=== PATIENT | female | born 1970 | race American Indian/Alaskan Native ===

== ENCOUNTER 2022-08-17 15:33 | Emergency (ER) | payer MEDICAID, SELFPAY ==
[2022-08-17 15:57] VITALS: BP 128/73; PULSE 92; RESP 16; TEMP 37.3; O2SAT 96; BMI 20.9
--- NOTE | 2022-08-17 17:16 | CRLHL7_ITS ---
For Patients: As a result of the Century Cures Act, medical imaging exams and procedure reports are released immediately into your electronic medical record. You may view this report before your referring provider. If you have questions, please contact your health care provider. INDICATION: Rectal bleeding. TECHNIQUE: CT abdomen and pelvis acquired with 58 cc Isovue 370 IV contrast. COMPARISON: August 02, 2020. FINDINGS: Lower chest: Scattered dependent atelectasis. Liver: Subtle heterogeneous echotexture and nodular hepatic contour which could suggest chronic hepatocellular disease. Gallbladder and bile ducts: Cholelithiasis without acute cholecystitis. Pancreas: Unremarkable. No mass or inflammation. Spleen: Unremarkable. Normal in size. No masses. Adrenal glands: Unremarkable. No nodules. Kidneys: Unremarkable. No suspicious masses, stones, or hydronephrosis. GI tract: Colonic diverticulosis without diverticulitis.. Normal in caliber. No sign of mass or inflammation. Normal appendix. Vasculature: Recanalization of the umbilical vein. Esophageal/gastric varices. Splenorenal venous collaterals and prominent intra muscular left lower abdominal wall varices. Abdominal aorta is normal in caliber. Mesenteric arteries are patent. Lymph nodes: No lymphadenopathy. Peritoneum/Abdominal Wall: Mild nonspecific diffuse mesenteric edema. Pelvis: Unremarkable. Bones: Unremarkable for age. IMPRESSION: Findings suggesting chronic hepatocellular disease. Multiple upper abdominal varices, and nonspecific mesenteric edema possibly sequela of portal venous hypertension. No ascites. Colonic diverticulosis without diverticulitis. Cholelithiasis without acute cholecystitis. Please note that all CT scans at this facility use dose modulation, iterative reconstruction, and/or weight-based dosing when appropriate to reduce radiation dose to as low as reasonably achievable. Dictated by Bao Johnson MD @ 08/17/2022 6:19:27 PM (Electronically Signed)
--- NOTE | 2022-08-17 17:17 | ED_ITS ---
HPI - General Adult General Chief complaint: GI Bleed Stated complaint: Bleeding Time Seen by Provider: 08/17/22 17:02 History of Present Illness HPI narrative: This 52-year-old female comes in reporting abdominal pain and pain when passing stool that for the last couple days has been including bright red blood in the toilet. She does not report any fevers. She states that she has a history of diverticulitis and wonders if this is recurrent. She does have a history of liver disease related to alcohol abuse. She reports that she has not taken alcohol removal past 2 years. Related Data Home Medications Medication Instructions Recorded Confirmed lisinopril 20 mg tablet 20 mg PO QDAY 08/10/22 08/10/22 magnesium oxide 400 mg (241.3 mg 400 mg PO DAILY 08/10/22 08/10/22 magnesium) tablet multivitamin 1 tab PO QDAY 08/10/22 08/10/22 sertraline 50 mg tablet (Zoloft) 75 mg PO QDAY 08/10/22 08/10/22 Previous Rx's Medication Instructions Recorded omeprazole 40 mg capsule,delayed 40 mg PO QDAY #90 caps 08/10/22 release metronidazole 500 mg tablet 500 mg PO BID 7 days #14 tabs 08/17/22 Allergies Allergy/AdvReac Type Severity Reaction Status Date / Time amoxicillin Allergy Unknown Swelling Verified 08/10/22 09:50 of Lip/Tongue/Throat Review of Systems Status of ROS: Reports: 10 or more systems reviewed and unremarkable except as noted in History and below Narrative: Constitutional: No fevers, no weight gain or loss. Eyes: No discharge. No vision changes. HENT: No congestion, no sore throat, no ear pain. Cardiovascular: No chest pain, no palpitations. Respiratory: No shortness of breath, no wheezes, no cough. Gastrointestinal: Abdominal pain that is distinctly worse when passing stool. Rectal bleeding. Genitourinary: No dysuria, no hematuria. Musculoskeletal: Normal range of motion. Skin: No rashes, no pruritis. Neurological: No dizziness, weakness, sensory change, speech change. Endo/Heme/Allergies: No bruising or bleeding. No polydipsia. Pysch: no suicidality, no anxiety, no insomnia. All other systems reviewed and are negative. [facility] Medical History (Updated 08/17/22 @ 18:54 by Raúl Reich MD) Diarrhea Diverticulitis Hemorrhagic diarrhea Pleural effusion associated with hepatic disorder Upper gastrointestinal hemorrhage Surgical History (Updated 08/10/22 @ 10:41 by Todd Coyne MD) Hx of abdominal surgery Social History Smoking Status: Never smoker Little interest or pleasure in doing things: not at all Feeling down, depressed, or hopeless: not at all Exam Narrative: Exam Narrative: Constitutional: Well-developed, well-nourished, no acute distress. HEENT: Normocephalic, atraumatic. Neck: Normal range of motion. Nontender. Supple. Heart: Regular. No murmurs. Normal rate. Intact distal pulses. Lungs: Clear to auscultation. No chest discomfort. No wheezes, rhonchi, or rales. Abdomen: Normal bowel sounds. Tenderness in the lower abdomen.. No rebound tenderness. Genitalia: Deferred. Back: No midline tenderness. Normal range of motion. Extremities: Normal range of motion. No injury. Skin: Intact. No rash. Warm. No erythema or pallor. Neurologic: No altered sensation. No weakness. Alert and oriented. Psychiatric: No suicidality. No anxiety or depression. No insomnia. Nursing notes and vitals signs are reviewed. Const: Vital Signs, click to edit/add: Vital Signs - 24 hr 08/17/22 15:57 Temperature 99.1 F Pulse Rate [Right Pulse Oximeter] 92 Respiratory Rate 16 Blood Pressure [Ri ght Upper Arm] 128/73 Pulse Oximetry 96 Oxygen Delivery Me thod Room Air Course Vital Signs Vital signs: Initial Vital Signs Temperature 99.1 F 08/17/22 15:57 Temperature Source Temporal Artery Scan 08/17/22 15:57 Pulse Rate 92 08/17/22 15:57 Pulse Rhythm 08/17/22 15:57 Respiratory Rate 16 08/17/22 15:57 Blood Pressure 128/73 08/17/22 15:57 Blood Pressure Mean 91 08/17/22 15:57 Blood Pressure Position Sitting 08/17/22 15:57 Pulse Oximetry 96 08/17/22 15:57 Oxygen Delivery Method 08/17/22 15:57 Vital Signs Temperature 99.1 F 08/17/22 15:57 Pulse Rate 92 08/17/22 15:57 Respiratory Rate 16 08/17/22 15:57 Blood Pressure 128/73 08/17/22 15:57 Pulse Oximetry 96 08/17/22 15:57 Oxygen Delivery Method 08/17/22 15:57 Temperature 99.1 F 08/17/22 15:57 Pulse Rate 92 08/17/22 15:57 Respiratory Rate 16 08/17/22 15:57 Blood Pressure 128/73 08/17/22 15:57 Pulse Oximetry 96 08/17/22 15:57 Oxygen Delivery Method 08/17/22 15:57 Medical Decision Making MDM Narrative Medical decision making narrative: This patient comes in reporting rectal bleeding that happened last night and again today. She does not report any lightheadedness. She states that she has had history of diverticulitis and has had rectal bleeding in the past after having a colonoscopy about 3 years ago. She does have chronic liver disease from alcohol abuse and states that she has not taken alcohol for the past 2 years. Her lab results today returned with rather reassuring findings. Her liver enzymes are mostly normal. Her INR is slightly elevated at 1.35. Her hemoglobin returns at 10.3. Her platelets are a bit low at 130. This patient states that she feels mostly okay but may be a little bit off. CT scan of the abdomen and pelvis shows evidence of diverticulosis but no diverticulitis. This patient has rectal bleeding may be from hemorrhoid or anal fissure. She is not showing signs of colitis or pseudomembranous colitis. I did provide a prescription for Flagyl. I advised her to follow-up with her primary physician or return if persistent or worsening symptoms happen. Lab Data Labs: Lab Results 08/17/22 08/17/22 08/17/22 Range/Units 17:40 17:40 17:40 WBC 5.85 (4.50-11.00) K/uL RBC 3.48 L (4.00-5.20) m/uL Hgb 10.3 L (12.0-16.0) gm/dL Hct 31.3 L (33.0-51.0) % MCV 90 (80-100) fL MCH 30 (26-34) pg MCHC 33 (32-36) gm/dL RDW Coeff of Meenakshi 15.4 (11.5-15.5) % Plt Count 130 L (140-440) K/uL Neut % (Auto) 47.1 (42.0-72.0) % Lymph % (Auto) 31.5 (20-44) % Spencer % (Auto) 9.6 (0.0-11.0) % Eos % (Auto) 10.6 H (0.0-7.0) % Baso % (Auto) 1.0 (0.0-3.0) % Neut # (Auto) 2.76 (1.7-7.0) K/uL Lymph # (Auto) 1.84 (0.90-2.90) K/uL Spencer # (Auto) 0.60 (0.00-0.90) K/UL Eos # (Auto) 0.60 H (0.00-0.50) K/uL Baso # (Auto) 0.06 (0.00-0.30) K/uL Abs Immat Gran (auto) 0.01 (0.00-0.30) K/uL INR 1.36 H (0.91-1.10) Sodium 140 (135-149) mmol/L Potassium 3.6 (3.6-5.1) mmol/L Chloride 108 (96-114) mmol/L Carbon Dioxide 29 (20-32) mmol/L BUN 13 (7-30) mg/dL Creatinine 0.6 (0.5-1.5) mg/dL Estimated Creat Clear 91.76 Estimated GFR 109 ml/min Glucose 123 H (60-115) mg/dL Calcium 8.7 (8.4-10.6) mg/dL Total Bilirubin 0.7 (0.1-1.5) mg/dL Direct Bilirubin 0.0 (0.0-0.5) mg/dL AST 45 H (12-35) U/L ALT 33 (4-35) U/L Alkaline Phosphatase 229 H (40-150) U/L Total Protein 6.0 (6.0-8.3) g/dL Albumin 3.2 L (3.3-5.0) g/dL Imaging Data CT scan - abdomen: Radiologist's impression: Findings suggesting chronic hepatocellular disease. Multiple upper abdominal varices, and nonspecific mesenteric edema possibly sequela of portal venous hypertension. No ascites. Colonic diverticulosis without diverticulitis. Cholelithiasis without acute cholecystitis. Discharge Plan Discharge Clinical Impression: Bright red rectal bleeding Patient Disposition: Home, Self-Care Condition: Stable Additional Instructions: Take medication as prescribed. Follow up with MD or return if persistent or worsening symptoms happen. Prescriptions: New metronidazole 500 mg tablet 500 mg PO BID 7 Days Qty: 14 0RF No Action sertraline [Zoloft] 50 mg tablet 75 mg PO QDAY multivitamin Tablet 1 tab PO QDAY lisinopril 20 mg tablet 20 mg PO QDAY magnesium oxide 400 mg (241.3 mg magnesium) tablet 400 mg PO DAILY omeprazole 40 mg capsule,delayed release(DR/EC) 40 mg PO QDAY Qty: 90 3RF Follow Up/Referrals: Todd Coyne MD [Primary Care Provider] - Stand Alone Forms: [employer] Info Instructions
--- OUTSIDE RECORDS SUMMARY | 2022-08-17 17:28 | XMS_ITS | Encounter Summary ---
:1970 Author Organization [facility] Address [address] [place] [id number] Care Team Providers Name Role Phone Unavailable Primary Care Provider Unavailable Reason for Referral Outpatient (Routine) - Authorized Specialty Diagnoses / Referred By Referred To Cont act Procedures Contact Gastroenterology Bao [facility] M.[facility] [address] [place] [address] Referral ID Status Reason Start Date Expiration Date Visits V isits Requested Authorized [id number] Authorized 06/23/2022 06/22/2025 1 1 utpatient (Routine) - Authorized Specialty Diagnoses / Procedures Referred By Contact Refer red To Contact Diagnoses Hemorrhage Gastrointestinal Bao Cheng M.D. [facility] Procedures US Abdomen Complete [address] [place] [address] Referral ID Status Reason Start Date Expiration Date Visits V isits Requested Authorized [id number] Authorized 06/23/2022 06/23/2023 1 1 Reason for Visit Outpatient (Routine) - Closed Specialty Diagnoses / Referred By Referred To Cont act Procedures Contact Bao Cortez [facility] M.D[facility] [address] [place] [address] Referral ID Status Reason Start Date Expiration Date Visits Requ ested Visits Authorized [id number] Closed 12/08/2021 12/08/2022 1 1 Encounter Details Date Type Department Care Team Description 06/23/2022 Office Visit Division of Bao Cheng Hemorrhage Gastroenterology in [place] [facility] [place], [place] [address] [facility] (Primary Dx) [address] [place] [phone] [phone] Social History Tobacco Use Types Packs/Day Years Used Date Smoking Tobacco: Former Comments: social smoker Alcohol Use Standard Drinks/Week Comments Yes 0 (1 standard drink = 0.6 oz pure alcoho l) daily drinker Alcohol Habits Answer Date Recorded How often do you have a drink containing alcohol? Never 06/20/2022 How many drinks containing alcohol do you have on a typical Not asked day when you are drinking? How often do you have six or more drinks on one occasion? No t asked Social Isolation Answer Date Recorded In a typical week, how many times do you More than three siddhartha es a week 06/20/2022 talk on the phone with family, friends, or neighbors? How often do you get together with friends Three times a wee k 06/20/2022 or relatives? How often do you attend baptist or More than 4 times per year 06/20/2022 mormon services? Do you belong to any clubs or Yes 06/20/2022 organizations such as baptist groups, unions, fraternal or athletic groups, or school groups? How often do you attend meetings of the More than 4 times pe r year 06/20/2022 clubs or organizations you belong to? Are you now , , , Never 06/20/2022 , never or living with a partner? Physical Activity Answer Date Recorded On average, how many days per week do you engage in moderate 7 days 06/20/2022 to strenuous exercise (like walking fast, running, jogging, dancing, swimming, biking, or other activities that cause a light or heavy sweat)? On average, how many minutes do you engage in exercise at th is 150+ min 06/20/2022 level? Stress Answer Date Recorded Do you feel stress - tense, restless, nervous, or Only a lit tle 06/20/2022 anxious, or unable to sleep at night because your mind is troubled all the time - these days? Financial Resource Strain Answer Date Recorded How hard is it for you to pay for the very basics like Not v kath hard 06/20/2022 food, housing, medical care, and heating? Intimate Partner Violence Answer Date Recorded Within the last year, have you been afraid of your partner o r No 06/20/2022 ex-partner? Within the last year, have you been humiliated or emotionall y No 06/20/2022 abused in other ways by your partner or ex-partner? Within the last year, have you been kicked, hit, slapped, or No 06/20/2022 otherwise physically hurt by your partner or ex-partner? Within the last year, have you been raped or forced to have any No 06/20/2022 kind of sexual activity by your partner or ex-partner? Food Insecurity Answer Date Recorded Within the past 12 months, you worried that your food Someti mes true 06/20/2022 would run out before you got money to buy more. Within the past 12 months, the food you bought just Never tr ue 06/20/2022 didn't last and you didn't have money to get more. Transportation Needs Answer Date Recorded In the past 12 months, has lack of transportation kept you f rom Yes 06/20/2022 medical appointments or from getting medications? In the past 12 months, has lack of transportation kept you f rom Yes 06/20/2022 meetings, work, or getting things needed for daily living? Housing Stability Answer Date Recorded In the last 12 months, was there a time when you were not ab le Yes 06/20/2022 to pay the mortgage or rent on time? In the last 12 months, how many places have you lived? 1 06/20/2022 In the last 12 months, was there a time when you did not hav e a No 06/20/[address] sleep or slept in a snf (including now)? Education Answer Date Recorded What is the highest level of school you have Some college, n o degree 12/05/2021 completed or the highest degree you have received? Sex Assigned at Date Recorded Female 12/05/2021 3:21 PM [employer] documented as of this encounter Last Filed Vital Signs Vital Sign Reading Time Taken Comments Blood Pressure - - Pulse - - Temperature - - Respiratory Rate - - Oxygen Saturation - - Inhaled Oxygen Concentration - - Weight 54 kg (119 lb 0.8 oz) 06/23/2022 2:52 PM CDT Height 166 cm (5' 5.35) 06/23/2022 2:52 PM CDT Body Mass Index 19.6 06/23/2022 2:52 PM CDT documented in this encounter Progress Notes Bao Cheng M.D. - 06/23/2022 3:00 PM CDT GASTROENTEROLOGY & HEPATOBILIARY CONSULT Date/Time: 06/23/2022 9:21 PM CDT Patient Name: Joana Berry : 1970 Subjective: HPI: Joana Berry is a 51 y.o. female with history of anorexia nervosa, alcohol use disorder and alcohol-related cirrhosis who was admitted to [facility] in July 2020 with acute upper GI bleed secondary to variceal hemorrhage and gastric ulcer, who presents for follow up. On August 02 2020, she presented to the ED with reports of melena and coffee ground emesis, and was found to be anemic to 7.0.Her EGD showed large esophageal varices with red josfeina sign, as well as a gastric ulcer with 8mm adherent clot. Her MELD-Na was 15. She underwent a follow up EGD in 4 weeks that showed additional large (>5mm) varices which were banded with incomplete eradication. Since then, patient has been doing well with complete abstinence from alcohol. Her repeat EGD showedportal hypertensive gastropathy with no esophageal varices. She is currently well-compensated with no ascites, jaundice, melena, hematochezia, or encephalopathy. Her MELD-Na score today is 12. Ultrasound today shows cirrhosis with no hepatic mass or ascites. When she was last seen in November of this year, she reported struggling with significant anxiety. She was referred to psychiatry and was started on zoloft, which has been extremely helpful for controlling her anxiety. However, she states that her anorexia has flared and she has not been eating very well. She has lost about 20lbs and is visibly cachetic with BMI of 19.6. Patient states that she will be enrolling into an inpatient treatment program for about 6 weeks, and is hopeful that it will help.Patient states the resolve to never drink again. ROS: Other than the pertinent positives and negatives listed in the HPI, a full review of systems including constitutional, HEENT, respiratory, cardiovascular, abdominal, musculoskeletal, genitourinary, neurological, psychiatric, endocrinologic, hematologic, and dermatologic complaints was negative. Objective: Vital Signs: There were no vitals filed for this visit. Physical Exam: General: Sitting comfortably in chair, in no acute distress. Appears well-kempt. Affect and mood appropriate. Visibly cachetic with temporal wasting. Eyes: PERRL. EOMI. Clear conjunctiva without injection or icterus. Lung: Breathing comfortably on room air. CV: Normal rate and regular rhythm. Abdomen: Soft, non-distended, non-tender to palpation. Extremities: Warm and well-perfused. No lower extremity edema. No asymmetric calf swelling or pain upon palpation. Neuro: AAO x 3. Skin: No rash. MELD-Na score: 12 at 06/23/2022 10:39 AM MELD score: 12 at 06/23/2022 10:39 AM Calculated from: Serum Creatinine: 0.95 mg/dL (Using min of 1 mg/dL) at 06/23/2022 10:39 AM Serum Sodium: 144 mmol/L (Using max of 137 mmol/L) at 06/23/2022 10:39 AM Total Bilirubin: 1.7 mg/dL at 06/23/2022 10:39 AM INR(ratio): 1.4 at 06/23/2022 10:39 AM Age: 51 years Assessment and Plan: # Alcohol use disorder # Eating disorders # Alcohol-associated liver disease # Large Esophageal varices s/p banding # Peptic ulcer disease Joana Berry is a 51 y.o. female with history of alcohol use disorder and alcohol-related cirrhosis who was admitted to [facility] in July 2020 with acute upper GI bleed secondary to variceal hemorrhage and gastric ulcer, who presents for follow up. Ms. Berry is overall doing better with no recurrence of bleeding and has been able to maintain her abstinence. She currently does not have any evidence of ascites, hepatic encephalopathy, GI bleeding, or HCC. Her anxiety is well controlled on SSRI treatment, but she struggles with weight loss from an eating disorder. I explained to her that cirrhosis is associated with a catabolic state leading to muscle loss and frailty, and that it is critical that she maintains a healthy weight and optimal nutritional status. 1. Follow up in 6 months with repeat CBC, CMP, INR, AFP, and liver ultrasound 2. Repeat EGD in 1 year to assess for esophageal varices 3. Continue zoloft for anxiety 4. Patient will start an inpatient program for her eating disorder Bao Cheng M.D. documented in this encounter Plan of Treatment Scheduled Orders Name Type Priority Associated Diagnoses Order S chedule CBC with Lab Routine Hemorrhage Expected: Differential, Blood Gastrointestinal 11/2022 (Approximate), Expires: 09/22/2023 Comprehensive Lab Routine Hemorrhage Expected: Metabolic Panel Gastrointestinal 12/22/19 23 (Approximate), Expires: 09/22/2023 Prothrombin Time (PT) Lab Routine Hemorrhage Expect ed: Gastrointestinal 12/21/2022 (Approximate), Expires: 09/22/2023 US Abdomen Complete Imaging RAD - Routine Hemorrhage Expecte d: (most inpatients Gastrointestinal 023 and all (Approximate), outpatients) Expires: 09/22/2023 AFP Lab Routine Hemorrhage Expected: (Alpha-Fetoprotein), Gastrointestinal 11/2022 Tumor Marker (Approximate), Expires: 09/22/2023 Scheduled Referrals Name Type Priority Associated Order Schedule Diagnoses Gastroenterology and Outpatient Routine Expecte d: Hepatology office visit Referral 11/2022 (clinic) (Approximate), Expires: 09/22/2023 documented as of this encounter Visit Diagnoses Diagnosis Hemorrhage Gastrointestinal - Primary documented in this encounter
--- OUTSIDE RECORDS SUMMARY | 2022-08-17 17:28 | XMS_ITS | Encounter Summary ---
:1970 Author Organization [facility] Address [address] [place] [address] Care Team Providers Name Role Phone Unavailable Primary Care Provider Unavailable Encounter Details Date Type Department Care Team Description 06/23/2022 Hospital Encounter Department of Bao Cheng Alcoho lic Cirrhosis Laboratory Medicine MTeja Of Liver Without and Pathology, [address] [place] [address] Ascites (HCC) [facility] in [place], [place] [address] [place] [address] [place], [place] (Work) [phone] Social History Tobacco Use Types Packs/Day Years [...] or relatives? How often do you attend hoahaoism or More than 4 times per year 06/20/2022 uatsdin services? Do you belong to any clubs or Yes 06/20/2022 organizations such as hoahaoism groups, unions, fraternal or athletic groups, or [...] place to sleep or slept in a jail (including now)? Education Answer Date Recorded What is the highest level of school you have Some college, n o degree 12/05/2021 completed or the highest degree you have received? 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 tablet levocetirizine (XYZAL) 5 Take 5 mg by mouth 0 mg tablet daily. magnesium oxide (MAG-OX) Take 400 mg by 0 020 400 mg (241.3 mg mouth every morning magnesium) tablet before breakfast. hydrOXYzine (ATARAX) 25 Take 1 tablet (25 120 tablet 11 12/08 mg tabletIndications: mg total) by mouth Anxiety every 6 (six) hours as needed for anxiety. lidocaine (LIDODERM) 5 % Apply on dry, 0 03/10/20 clean, hairless skin. Apply 1 patch to painful area of skin for up to to 12 hours within 24 hour period. lisinopriL Take 1 tablet (10 30 tablet 11 12/16/2021 (PRINIVIL,ZESTRIL) 10 mg mg total) by mouth tablet daily. melatonin 5 mg tablet Take 5 mg by mouth 0 at bedtime. xzedisjllsrc-ttok-JN-Ca-m Take 1 tablet by 30 tablet 0 07/22 inerals (THERAPEUTIC-M) 9 mouth daily. mg iron-400 mcg per tablet sertraline (Zoloft) 50 mg Take 1 tablet (50 30 tablet 0 09/202207/06/2022 tablet mg total) by mouth daily. documented as of this encounter Plan of Treatment Not on filedocumented as of this encounter Procedures Procedure Name Priority Date/Time Associated Comments Diagnosis PROTHROMBIN TIME (PT), Routine 06/23/2022 10:39 Alcoholic Cirr hosis Results for this P AM CDT Of Liver Without procedure a re in Ascites (HCC) the results section. CBC WITH DIFFERENTIAL, Routine 06/23/2022 10:39 Alcoholic Cirr hosis Results for this B AM CDT Of Liver Without procedure a re in Ascites (HCC) the results section. COMPREHENSIVE Routine 06/23/2022 10:39 Alcoholic Cirrhosis Res ults for this METABOLIC PANEL, S/P AM CDT Of Liver Without pro cedure are in Ascites (HCC) the results section. documented in this encounter Results (ABNORMAL) Prothrombin Time (PT) (06/23/2022 10:39 AM CDT) Patholo gist Method Time Signature Prothrombin 15.3 (H) 9.4 - 12.5 06/23/2022 DTL Time, P sec 11:38 AM CDT INR 1.4 0.9 - 1.1 06/23/2022 DTL 11:38 AM CDT Comment: ----ADDITIONAL INFORMATION---- Standard intensity warfarin therapeutic range: 2.0 to 3.0 ?? High intensity warfarin therapeutic rang e: 2.5 to 3.5 Specimen Anatomical Collection Method Collection Time Receive d Time (Source) Location / / Volume Laterality Blood (Blood, 06/23/2022 10:39 06/23/2022 Venous) AM CDT 11:07 AM CDT Bao Cheng M.D. LAB BLOOD ADD-ON Performing Organization Address City/State/ZIP Code Phon e Number [facility] - [address] [place], [place] [address] [facility] [place] [place] [address] Laboratories-[facility] [address] (ABNORMAL) Comprehensive Metabolic Panel (06/23/2022 10:39 AM CDT) P athologist Signature Potassium, S 4.4 3.6 - 5.2 06/23/2022 DTL mmol/L 11:42 AM CDT Sodium, S 144 135 - 145 06/23/2022 DTL mmol/L 11:42 AM CDT Chloride, S 106 98 - 107 06/23/2022 DTL mmol/L 11:42 AM CDT Bicarbonate, S 28 22 - 29 06/23/2022 DTL mmol/L 11:42 AM CDT Anion Gap 10 7 - 15 06/23/2022 DTL 11:42 AM CDT BUN (Blood Urea 12 6 - 21 06/23/2022 DTL Nitrogen), S mg/dL 11:42 AM CDT Creatinine 0.95 0.59 - 06/23/2022 DTL 1.04 mg/dL 11:42 AM CDT Estimated GFR 73 >=60 06/23/2022 DTL (eGFR) mL/min/BSA 11:42 AM CDT Comment: Estimated GFR calculated using the 2020 CKD_EPI creatinine equation. Calcium, Total, S 9.5 8.6 - 10.0 mg/dL 06/23/2022 11:4 2 AM CDT DTL Glucose, S 97 70 - 140 mg/dL 06/23/2022 11:42 AM CDT DTL Protein, Total, S 6.7 6.3 - 7.9 g/dL 06/23/2022 11:42 AM CDT DTL Albumin, S 3.8 3.5 - 5.0 g/dL 06/23/2022 11:42 AM CDT DTL Aspartate Aminotransferase 71 (H) 8 - 43 U/L 06/23/2022 1 1:42 AM CDT DTL (AST), S Alkaline Phosphatase, S 159 (H) 35 - 104 U/L 06/23/2022 11 :42 AM CDT DTL Alanine Aminotransferase 53 (H) 7 - 45 U/L 06/23/2022 11: 42 AM CDT DTL (ALT), S Bilirubin, Total, S 1.7 (H) <=1.2 mg/dL 06/23/2022 11:42 A M CDT DTL Specimen Anatomical Collection Method Collection Time Receive d Time (Source) Location / / Volume Laterality Blood (Blood, 06/23/2022 10:39 06/23/2022 Venous) AM CDT 11:21 AM CDT Bao Cheng M.D. LAB BLOOD ADD-ON Performing Organization Address City/State/ZIP Code Phon e Number [facility] - [address] [place], [place] [address] [facility] [place] [address] Laboratories-[facility] [address] (ABNORMAL) CBC with Differential, Blood (06/23/2022 10:39 AM CDT) [facility] gist Method Time Signature Hemoglobin 11.9 11.6 - 06/23/2022 DTL 15.0 g/dL 11:13 AM CDT Hematocrit 37.2 35.5 - 06/23/2022 DTL 44.9 % 11:13 AM CDT Erythrocytes 4.17 3.92 - 06/23/2022 DTL 5.13 11:13 AM CDT x10(12)/L MCV 89.2 78.2 - 06/23/2022 DTL 97.9 fL 11:13 AM CDT RBC Distrib Width 13.7 12.2 - 06/23/2022 DTL 16.1 % 11:13 AM CDT Platelet Count 116 (L) 157 - 371 06/23/2022 DTL x10(9)/L 11:13 AM CDT Leukocytes 5.4 3.4 - 9.6 06/23/2022 DTL x10(9)/L 11:13 AM CDT Neutrophils 2.23 1.56 - 06/23/2022 DTL 6.45 11:13 AM CDT x10(9)/L Lymphocytes 2.20 0.95 - 06/23/2022 DTL 3.07 11:13 AM CDT x10(9)/L Monocytes 0.50 0.26 - 06/23/2022 DTL 0.81 11:13 AM CDT x10(9)/L Eosinophils 0.35 0.03 - 06/23/2022 DTL 0.48 11:13 AM CDT x10(9)/L Basophils 0.08 0.01 - 06/23/2022 DTL 0.08 11:13 AM CDT x10(9)/L Specimen Anatomical Collection Method Collection Time Receive d Time (Source) Location / / Volume Laterality Blood (Blood, 06/23/2022 10:39 06/23/2022 Venous) AM CDT 11:07 AM CDT Bao Cheng M.D. LAB BLOOD ADD-ON Performing Organization Address City/State/ZIP Code Phon e Number [facility] - [facility] [place] [address] [facility] [place] [address] Laboratories-[facility] [address] documented in this encounter Visit Diagnoses Diagnosis Alcoholic Cirrhosis Of Liver Without Asc ites (HCC) documented in this encounter
--- OUTSIDE RECORDS SUMMARY | 2022-08-17 17:28 | XMS_ITS | Clinical Summary ---
:1970 Author Organization [facility] Address [address] [place] [address] Care Team Providers Name Role Phone Unavailable Primary Care Provider Unavailable Source Comments Patient records contain information from all sites at [facility]. For routine questions regarding patient records, call [phone] during business hours, M-F 8:00 AM - 5:00 PM Central Time. Record requests for emergency care only can be directed to [phone] at any time.[facility] Allergies Active Allergy Reactions Severity Noted Date Comments Amoxicillin Rash 08/02/2020 Pollen Extracts Cough 11/25/2020 Medications Medication Sig Dispensed Refills Start Date End Date Status ascorbic acid, Take 1,000 mg 0 06/14/2020 Active vitamin C, (VITAMIN by mouth C) 1,000 mg tablet daily. magnesium oxide Take 400 mg 0 12/31/2019 A ctive (MAG-OX) 400 mg by mouth (241.3 mg every morning magnesium) tablet before breakfast. levocetirizine Take 5 mg by 0 Ac tive (XYZAL) 5 mg tablet mouth daily. cylyjbzsonex-kgrp-A Take 1 tablet 30 tablet 0 08/07/2020 Active E-Xq-yspbbldq by mouth (THERAPEUTIC-M) 9 daily. mg iron-400 mcg per tablet hydrOXYzine Take 1 tablet 120 tablet 11 12/08/2021 Ac tive (ATARAX) 25 mg (25 mg total) tabletIndications: by mouth Anxiety every 6 (six) hours as needed for anxiety. lisinopriL Take 1 tablet 30 tablet 11 12/16/2021 Acti ve (PRINIVIL,ZESTRIL) (10 mg total) 10 mg tablet by mouth daily. melatonin 5 mg Take 5 mg by 0 Ac tive tablet mouth at bedtime. lidocaine Apply on dry, 0 03/10/2021 Activ e (LIDODERM) 5 % clean, hairless skin. Apply 1 patch to painful area of skin for up to to 12 hours within 24 hour period. sertraline (Zoloft) Take 1.5 45 tablet 2 08/04/2022 09/03/20 Active 50 mg tablet tablets (75 22 mg total) by mouth daily. sertraline (Zoloft) Take 1 tablet 30 tablet 1 07/06/202208/04 Discontinued 50 mg tablet (50 mg total) 22 (Re order) by mouth daily. Active Problems Problem Noted Date Ulcer Gastric Acute With Hemorrhage 08/04/2020 Hemorrhage Gastrointestinal 08/02/2020 Alcoholic Cirrhosis Of Liver Without Ascites 0 Esophageal Varix With Bleeding 08/02/2020 Alcohol Moderate Or Severe Use Disorder (Dependence) U ncomplicated 08/02/2020 Anemia Posthemorrhagic Acute (Blood Loss Anemia) 08/02 Nodule Pulmonary Solitary 11/23/2019 Overview: Right upper lobe. Hx smoking, follow up CT in 11/2020 Diverticulosis Of Large Intestine Without Perforation Or Abscess Without 08/27/2019 Bleeding Overview: Colonoscopy 08/2019 severe diverticulosi s, normal biopsies, repeat in 10 years Anemia Nutritional 07/28/2018 Hypertension 05/01/2013 Encounters Date Type Specialty Care Team Description 06/23/2022 Office Visit Gastroenterology and Boa Cheng Hemorrh age Hepatology C, M.D. Gastrointestina l (Primary Dx) 06/23/2022 Hospital Encounter Laboratory Medicine Bao Cheng Al coholic Cirrhosis Of C, M.D. Liver Without A scites (HCC) 06/23/2022 Hospital Encounter Radiology Bao Cheng Alcoholic Cirrhosis Of C, M.D. Liver Without A scites (HCC) 06/21/2022 Clinical Admitting/Central Pre-visit Intake Communication Scheduling from Last 3 Months Social History Tobacco Use Types Packs/Day Years Used Date Smoking Tobacco: Former Tobacco Cessation: Counseling Given: Not Answered Comments: social smoker Alcohol Use Standard Drinks/Week [...] More than 4 times per year 06/20/2022 yazidism services? Do you belong to any clubs [...] place to sleep or slept in a half-way (including now)? Education Answer Date Recorded What is the highest level of school you have Some college, n o degree 12/05/2021 completed or the highest degree you have received? 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 Last Filed Vital Signs Vital Sign Reading Time Taken Comments Blood Pressure 92/58 11/25/2020 2:45 PM patient has n ot HYDROGEN OPERATOR symptoms of lightheadness/di zzine ss Pulse 82 11/25/2020 2:45 PM HYDROGEN OPERATOR Temperature 36.7 ??C (98.1 ??F) 11/25/2020 2:25 PM HYDROGEN OPERATOR Respiratory Rate 12 11/25/2020 2:45 PM HYDROGEN OPERATOR Oxygen Saturation 97% 11/25/2020 2:45 PM HYDROGEN OPERATOR Inhaled Oxygen - - Concentration Weight 54 kg (119 lb 0.8 06/23/2022 2:52 PM oz) CDT Height 166 cm (5' 5.35) 06/23/2022 2:52 PM CDT Body Mass Index 19.6 06/23/2022 2:52 PM CDT Plan of Treatment Health Maintenance Due Date Last Done Comments CT Colonography 1970 Cervical Cancer Screening 1970 Cologuard 1970 FIT 1970 HIV Screening 1970 Hepatitis B Vaccines (1 of 3 - 1970 3-dose series) Mammogram 1971 Office Visit for Blood Pressure 1971 Check / Re-check Hepatitis A Vaccines (1 of 2 - 1972 Risk 2-dose series) Pneumococcal vaccine (0-64 years) 1977 (1 - PCV) Zoster Vaccines (1 of 2) 2021 COVID-19 Vaccine (4 - Booster for 01/24/2022 11/29/2021, , Pfizer series) 01/11/2021 Influenza Vaccine (#1) 2022 Abdominal Ultrasound 12/21/2022 06/23/2022, 12/08/2021, 06/03/2019 Creatinine Level 06/23/2023 06/23/2022, 12/08/2021, 06/15/2021, Additional history exists Potassium Level 06/23/2023 06/23/2022, 12/08/2021, 06/15/2021, Additional history exists Sodium Level 06/23/2023 06/23/2022, 12/08/2021, 06/15/2021, Additional history exists DTaP,Tdap,and Td Vaccines (4 - Td 02/05/2025 02/05/2015, , or Tdap) 1970 Fasting Glucose for Diabetes 06/23/2025 06/23/2022, 022, Screening 06/15/2021, Additional history exists Lipid (Cholesterol) Screening 03/10/2026 03/10/2021, 2017 Colonoscopy 08/26/2029 08/26/2019 Colorectal Cancer Screening 08/26/2029 Depression Screening (Annual Completed 03/10/2022 PHQ-2) Medical Devices Implanted Type Area Matlab Developer Device Shelf Model / Identifier Expiration Serial / Date Lot Clp Ots 11/6t 165 - [id number] OTSC System [employer] py 01/19/2023 100.10 / Implanted: Qty: 1 on 08/03/2020 by Garfield Gil M.D. at [facility] / [id number] Procedures Procedure Name Priority Date/Time Associated Comments Diagnosis PROTHROMBIN TIME Routine 06/23/2022 10:39 Alcoholic Results for (PT), P AM CDT Cirrhosis Of this procedure Liver Without are in the Ascites (HCC) results section. COMPREHENSIVE Routine 06/23/2022 10:39 Alcoholic Results fo r METABOLIC PANEL, S/P AM CDT Cirrhosis Of this pr ocedure Liver Without are in the Ascites (HCC) results section. CBC WITH Routine 06/23/2022 10:39 Alcoholic Results for DIFFERENTIAL, B AM CDT Cirrhosis Of this procedu re Liver Without are in the Ascites (HCC) results section. US ABDOMEN COMPLETE RAD - Routine 06/23/2022 10:05 Alcoholic Res ults for (most inpatients AM CDT Cirrhosis Of this proced ure and all Liver Without are in the outpatients) Ascites (HCC) results section. from Last 3 Months Results (ABNORMAL) Prothrombin Time (PT) (06/23/2022 10:39 AM CDT) Profilepasser Method Time Signature Prothrombin 15.3 (H) 9.4 [...] Organization Address City/State/ZIP Code Phon e Number [facility] - [address] [place], [place] [address] [facility] [place] [address] Laboratories-[facility] [address] (ABNORMAL) CBC with Differential, Blood (06/23/2022 10:39 AM CDT) Patholo gist Method Time Signature Hemoglobin 11.9 11.6 [...] Organization Address City/State/ZIP Code Phon e Number [facility] - [address] [place], [place] [address] [facility] [place] [address] Laboratories-[facility] [address] [facility] (ABNORMAL) Comprehensive Metabolic Panel (06/23/2022 10:39 AM [...] Organization Address City/State/ZIP Code Phon e Number [facility] - [address] [place], [place] [address] [facility] [place] [address] Laboratories-[facility] [address] US Abdomen Complete (06/23/2022 10:05 AM CDT) Anatomical Region Laterality Modality Abdomen, Ultrasound RST LOS, Ultrasound ARZ LOS, Ultrasound FLA N/A Ultrasound LOS Specimen (Source) Anatomical Collection Method Collection Time Re ceived Time Location / / Volume Laterality 06/23/2022 10:08 AM CDT Impressions 06/23/2022 10:44 AM CDT 1. Coarse echotexture of the liver consistent with chronic parenchymal disease. LI-RADS 1B. 2. Recanalized paraumbilical vein can be seen in the setting of portal hypertension. ?? Narrative 06/23/2022 10:44 AM CDT EXAM: US ABDOMEN COMPLETE COMPARISON: Ultrasound dated 12/08/[address] dated 08/02/2020 FINDINGS: Liver: Coarse echotexture consistent wit h chronic parenchymal disease. ??No focal hepatic observation. Ultrasound LI-RADS score is as follows: Ultrasound Category: US-1: ??Negative (N o US evidence of HCC). ??Recommend continued routine surveillance. Visualization Score: B: ??Moderate limit ations (limitations may obscure small masses, especially < 1 cm). Ultrasound LI-RADS is a standardized sys tem for imaging technique, interpretation, reporting, and data collection for screening or surveil samson ultrasound exams in patients at risk for developing HCC. Ultrasound LI-RADS is supported and endorsed by the [place] [employer]. More information can be found on the followin g link: [email or web address].acr.org/Clinical-Resources/Etzcakqwd-bzb-Ggjb-Systems/LI-RADS/Ultras [email or web address] Gallbladder: Echogenic foci in the gallb ladder wall with ring down, likely adenomyomatosis. Intrahepatic ducts: Not dilated. Common duct: Not dilated. Pancreas: Normal where seen. Right kidney: Length: 11.2 cm. Normal echogenicity. No hydronephrosis. Left kidney: Length: 10.7 cm. Normal echogenicity. No hydronephrosis. Spleen: Normal. ??Spleen length: 12.3 cm Aorta: Normal caliber. IVC: Normal where seen. Ascites: ??None. Other: Recanalized paraumbilical vein. Procedure Note Samantha Peraza M.D., Ph.D. - 11/2021 EXAM: US ABDOMEN COMPLETE COMPARISON: Ultrasound dated 12/08/[address] dated 08/02/2020 FINDINGS: Liver: Coarse echotexture consistent wit h chronic parenchymal disease. No focal hepatic observation. Ultrasound LI-RADS score is as follows: Ultrasound Category: US-1: Negative (No US evidence of HCC). Recommend continued routine surveillance. Visualization Score: B: Moderate limitat ions (limitations may obscure small masses, especially < 1 cm). Ultrasound LI-RADS is a standardized sys tem for imaging technique, interpretation, reporting, and data collection for screening or surveil samson ultrasound exams in patients at risk for developing HCC. Ultrasound LI-RADS is supported and endorsed by the [place] [employer]. More information can be found on the followin g link: https://www.acr.org/Clinical-Resources/Iqeonbqhj-lpo-Cylu-Systems/LI-RADS/Ultras [email or web address] Gallbladder: Echogenic foci in the gallb ladder wall with ring down, likely adenomyomatosis. Intrahepatic ducts: Not dilated. Common duct: Not dilated. Pancreas: Normal where seen. Right kidney: Length: 11.2 cm. Normal echogenicity. No hydronephrosis. Left kidney: Length: 10.7 cm. Normal echogenicity. No hydronephrosis. Spleen: Normal. Spleen length: 12.3 cm Aorta: Normal caliber. IVC: Normal where seen. Ascites: None. Other: Recanalized paraumbilical vein. IMPRESSION: 1. Coarse echotexture of the liver consi stent with chronic parenchymal disease. LI-RADS 1B. 2. Recanalized paraumbilical vein can be seen in the setting of portal hypertension. Bao Cheng M.D. IMG US PROCEDURES from Last 3 Months Insurance Payer Benefit Plan Subscriber ID Effective Dates Phone Address Type / Group [facility] CARE [id number] 2021-Presen [id number] [address] X [address] Medicaid HMO t [address] [place] [address] Advance Directives For more information, please contact: [phone] Latest Code Status on File Code Status Date Activated Date Inactivated Comments Full Code 08/02/2020 9:14 AM 08/06/2020 5:55 PM Question Answer Comments Full Code: Discussed
--- OUTSIDE RECORDS SUMMARY | 2022-08-17 17:28 | XMS_ITS | Clinical Summary ---
:1970 Author Organization [employer] [facility] [place] [address] Care Team Providers Name Role Phone Lou Elizondo RN Unavailable Pcp, No Primary Care Provider Unavailable Allergies Active Allergy Reactions Severity Noted Date Comments Amoxicillin Rash 08/02/2020 Pollen Extracts Cough 11/25/2020 Medications Medication Sig Dispensed Refills Start Date End Date Status multivitamin (MVI) Take 1 tablet by 0 06/01/2017 Active tablet mouth once daily. magnesium oxide (MAG-OX Take 1 tablet by 30 tablet 5 0 Active 400) 400 mg mouth once tabletIndications: daily. Hypomagnesemia iron Take by mouth. 0 06/14/2020 Acti ve bisgly,ps-FA-B-C#12-suc Takes every c 65 mg-65 mg -1,000 other day./ mcg (24) tab Koawo-5-MQD-EPA-Fish Take 1 capsule 0 06/14/2020 Active Oil 1,000 mg (120 by mouth. mg-180 mg) cap pantoprazole (PROTONIX) Take 1 tablet by 90 tablet 0 0 Active 40 mg delayed-release mouth once daily tabletIndications: before a meal. Upper GI bleed lisinopriL (PRINIVIL; Take 1 Tablet by 90 Tablet 2 12/29/2020 Active ZESTRIL) 10 mg mouth once tabletIndications: daily. Hypertension, unspecified type levocetirizine (XYZAL) TAKE ONE TABLET 90 Tablet 5 01/21/2021 Active 5 mg tab BY MOUTH EVERY tabletIndications: EVENING Seasonal allergies lidocaine 5% (LIDODERM) Apply on dry, 30 Patch 11 03/10/2021 Active 5 % patchIndications: clean, hairless Severe back pain skin. Apply 1 patch to painful area of skin for up to to 12 hours within 24 hour period. hydrOXYzine pamoate Take 1-2 30 Capsule 5 03/10/2021 Active (VISTARIL) 25 mg Capsules (25-50 capsuleIndications: mg) by mouth Anxiety every 6 hours if needed for Anxiety. Psyllium Husk-Aspartame Mix 2 scoops in 0 03/30/2021 Active (Metamucil Sugar-Free, liquid then take aspart,) 3.4 gram/5.8 by mouth once gram powd daily with a meal. ondansetron (ZOFRAN) 4 TAKE ONE TABLET 30 Tablet 0 06/22/2021 Active mg tabletIndications: BY MOUTH EVERY 8 Nausea HOURS NEEDED NAUSEA / VOMITING Active Problems Problem Noted Date Acute gastric ulcer with hemorrhage 08/04/2020 Alcoholic cirrhosis of liver without ascites 0 Lung nodule < 6cm on CT 11/23/2019 Overview: Right upper lobe. Hx smoking, follow up CT in 11/2020 Diverticulosis of large intestine without hemorrhage 1 10/27/2018 Overview: Colonoscopy 08/2019 severe diverticulosi s, normal biopsies, repeat in 10 years Diverticulosis of large intestine without perforation or abscess without 08/27/2019 bleeding Overview: Formatting of this note might be differe nt from the original. Colonoscopy 08/2019 severe diverticulosi s, normal biopsies, repeat in 10 years Upper GI bleed 07/28/2018 Macrocytic anemia 07/28/2018 Elevated glucose 07/28/2018 Elevated LFTs 07/28/2018 ASCUS with positive high risk HPV cervical 11/24/2016 Overview: 11/24/2016 ASCUS/HPV+ 06/01/2017 ASCUS/HPV+ 06/01/2017 [employer]: HO 1 04/30/2018 Pap: ASC-H, HPV + 05/24/2018 [employer] HO I 03/10/2021 UNS/HPV negative Plan: pap due before or on 05/2021 HTN (hypertension) 05/01/2013 Resolved Problems Problem Noted Date Resolved Date Normocytic anemia 07/28/2018 07/28/2018 Immunizations Name Administration Dates Next Due COVID-19 vaccine ([employer]-StarvineNTCenify 30mcg/0.3mL) PF, 1, 01/11/2021 MDV Tdap 02/05/2015 Family History Medical History Relation Name Comments Diabetes Father Heart Disease Mother of [place] Relation Name Status Comments Father Mother Social History Tobacco Use Types Packs/Day Years Used Date Former Smoker Cigarettes Smokeless Tobacco: Never Used Tobacco Cessation: Counseling Given: Yes Comments: 2-3 cigs a month Alcohol Use Standard Drinks/Week Comments Yes 0 (1 standard drink = 0.6 oz pure alcoho l) 3 times a week Alcohol Habits Answer Date Recorded How often do you have a drink containing alcohol? 2-3 times a week 06/14/2020 How many drinks containing alcohol do you have on a 1 or 2 06/14/2020 typical day when you are drinking? How often do you have six or more drinks on one Never 06/14/2020 occasion? Comment: 3 times a week 04/30/2018 Sex Assigned at Date Recorded Not on file Obstetrics History Para Term AB IAB SAB Ectopic Multiple Living Live Births 2 1 1 0 Date Outcome GA Total Labor/2nd/3rd Weight Sex Delivery Anes PTL Alix A 1 A5 Name Clin Labor Comments: System Generated. Please review and update details. IAB Last Filed Vital Signs Vital Sign Reading Time Taken Comments Blood Pressure 111/69 03/30/2021 9:08 AM CDT Pulse 85 03/30/2021 9:08 AM CDT Temperature 36.7 ??C (98 ??F) 06/10/2019 10:04 AM CDT Respiratory Rate 16 07/29/2018 2:00 PM CDT Oxygen Saturation 100% 03/30/2021 9:08 AM CDT Inhaled Oxygen Concentration - - Weight 62.7 kg (138 lb 4.8 oz) 03/30/2021 9:08 AM CDT Height 162.9 cm (5' 4.13) 07/17/2019 9:19 AM CDT Body Mass Index 23.64 07/17/2019 9:19 AM CDT Plan of Treatment Health Maintenance Due Date Last Done Comments Hepatitis C screening for age 1007/25/1989 18-79 BMI (ht and wt on same day) for 07/17/2020 07/17/2019, 05/22, age 18+ 08/05/2018, Additional history exists COVID-19 vaccine series (3 - 03/29/2021 02/01/2021, 021 Booster for Pfizer series) Zoster (shingles) series for age 1007/25/2021 50+ (1 of 2) Depression screening for age 12+ 03/10/2022 03/10/2021, , 07/17/2019, Additional history exists Mammogram for age 45-75 03/10/2022 03/10/2021, 04/30/2018, 11/24/2016 Influenza for age 50-64 06/22/2022 Pap test for age 21-65 03/10/2024 03/10/2021, 04/30/2018, 04/30/2018, Additional history exists Tetanus booster 02/05/2025 02/05/2015 Lipids for age 45-75 03/10/2026 03/10/2021, 05/21/2018 Colonoscopy through age 75 08/26/2029 08/26/2019, 9 Tdap Completed 02/05/2015 Goals Goal Patient Goal Associated Recent Patient-Stated? Author Type Problems Progress Transportation - General Yes Mikhail, Lauren Lambert RN reliability Note: Formatting of this note might be d ifferent from the original. Goal identified during: Initial Screenin g Status: Unresolved, Result: Opt Out Barriers to goal achievement: Patients l ocation and inability to drive Patient steps toward goal achievement: P atient will contact transportation resources given. - Has not yet, is in no hurry at this point. Navigator steps to support goal achievem ent: Will contact [facility] to see if they will accept a referral even though she lives in [facility] - [facility] contacted- will not take referral for outside [facility] Proposed timeline for goal completion: N A Date of follow up: DANIEL Elizondo RN .................... 05/05/2021 3:04 PM Results Not on filefrom Last 3 Months Insurance Payer Benefit Plan / Subscriber ID Effective Dates Phone Addre ss Type Group [facility] [place] [facility] [id number] 2020-Present [address] [place] [address] [address] (Home) [place] [address] [address] [address] [address] [employer] Employer 10/22/2000 ATTN A /P ADVANTAGE [employer] (Home) [address] [place] [address] Joana Berry Workers Comp Self 1970 [address] (Home) [place] [address] Advance Directives Latest Code Status on File Code Status Date Activated Date Inactivated Comments Full Code 07/28/2018 5:19 AM 07/29/2018 7:01 PM Care Teams Silk Screen Frame Assembler Relationship Specialty Start Date End Date Pcp, No PCP - General 07/22/21 . Lou Elizondo, RN Accountable Health Registered Nurse 03/10/21 [place] [address]
--- OUTSIDE RECORDS SUMMARY | 2022-08-17 17:28 | XMS_ITS | Encounter Summary ---
:1970 Author Organization [facility] Address [address] [place] [phone] Care Team Providers Name Role Phone Unavailable Primary Care Provider Unavailable Reason for Referral Outpatient (Routine) - Closed Specialty Diagnoses / Procedures Referred By Contact Refer red To Contact Diagnoses Alcoholic Cirrhosis Of Liver Without Ascites (HCC) Bao Cheng M.D. [facility] Procedures US Abdomen Complete [address] [place] [address] [phone] Referral ID Status Reason Start Date Expiration Date Visits Requ ested Visits Authorized [id number] Closed 12/08/2021 12/08/2022 1 1 Reason for Visit Outpatient (Routine) - Closed Specialty Diagnoses / Procedures Referred By Contact Refer red To Contact Diagnoses Alcoholic Cirrhosis Of Liver Without Ascites (HCC) Bao Cheng M.D. [facility] Procedures US Abdomen Complete [address] [place] [address] [phone] Referral ID Status Reason Start Date Expiration Date Visits Requ ested Visits Authorized [id number] Closed 12/08/2021 12/08/2022 1 1 Encounter Details Date Type Department Care Team Description 06/23/2022 Hospital Encounter Department of Bao Cheng Alcoho lic Cirrhosis RadiologyEtienne M.D. Of Liver Without Building, in [address] [facility] Ascites (HCC) [place], [place] [address] [facility] [id number] [place], [place] [phone] (Work) [phone] Social History Tobacco Use Types Packs/Day Years [...] or relatives? How often do you attend faith or More than 4 times per year 06/20/2022 restoration services? Do you belong to any clubs or Yes 06/20/2022 organizations such as faith groups, unions, fraternal or athletic groups, or [...] place to sleep or slept in a chcf (including now)? Education Answer Date Recorded What is the highest level of school you have Some college, n o degree 12/05/2021 completed or the highest degree you have received? 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 Apply 1 patch to painful area of skin for up to to 12 hours within 24 hour period. lisinopriL Take 1 tablet (10 30 tablet 11 12/16/2021 (PRINIVIL,ZESTRIL) 10 mg mg total) by mouth tablet daily. melatonin 5 mg tablet Take 5 mg by mouth 0 at bedtime. jquoodxtumau-qwvs-GY-Ca-m Take 1 tablet by 30 tablet 0 07/22 inerals (THERAPEUTIC-M) 9 mouth daily. mg iron-400 mcg per tablet sertraline (Zoloft) 50 mg Take 1 tablet (50 30 tablet 0 09/202207/06/2022 tablet mg total) by mouth daily. documented as of this encounter Plan of Treatment Not on filedocumented as of this encounter Procedures Procedure Name Priority Date/Time Associated Comments Diagnosis US ABDOMEN RAD - Routine 06/23/2022 10:05 Alcoholic Results fo r this COMPLETE (most inpatients AM CDT Cirrhosis Of procedure a re in and all Liver Without the results outpatients) Ascites (HCC) section. documented in this encounter Results US Abdomen Complete (06/23/2022 10:05 AM CDT) [...] LI-RADS is supported and endorsed by the [employer]. More information can be found on the [employer] link: https://www.acr.org/Clinical-Resources/Okeufqplv-icd-Utkl-Systems/LI-RADS/Ultras nlgc-WN-SQOR-v2017 Gallbladder: Echogenic foci in the gallb ladder [...] LI-RADS is supported and endorsed by the [employer]. More information can be found on the [facility] [facility] g link: https://www.acr.org/Clinical-Resources/Scmvzncgy-qrn-Qgar-Systems/LI-RADS/Ultras qica-NJ-OSSV-v2017 Gallbladder: Echogenic foci in the gallb ladder [...] setting of portal hypertension. Bao Cheng M.D. [facility] US PROCEDURES documented in this encounter Visit Diagnoses Diagnosis Alcoholic Cirrhosis Of Liver Without Asc ites (HCC) documented in this encounter
--- OUTSIDE RECORDS SUMMARY | 2022-08-17 17:28 | XMS_ITS | Encounter Summary ---
:1970 Author Organization [facility] Address [address] [place] [address] Care Team Providers Name Role Phone Unavailable Primary Care Provider Unavailable Reason for Visit Reason Comments Pre-visit Intake Encounter Details Date Type Department Care Team Description 06/21/2022 Clinical Communication Visit Review in Pr e-visit Intake [place], [place] 200 [place] [address] Social History Tobacco Use Types Packs/Day Years [...] or relatives? How often do you attend zoroastrianism or More than 4 times per year 06/20/2022 buddhism services? Do you belong to any clubs or Yes 06/20/2022 organizations such as zoroastrianism groups, unions, fraternal or athletic groups, or [...] at Date Recorded Female 12/05/2021 3:21 PM OPERATIONS OFFICER [employer] documented as of this encounter Plan of Treatment Not on filedocumented as of this encounter Visit Diagnoses Not on filedocumented in this encounter
--- OUTSIDE RECORDS SUMMARY | 2022-08-17 17:29 | XMS_ITS | Encounter Summary ---
:1970 Author Organization [facility] Address [address] [place] [address] Care Team Providers Name Role Phone Unavailable Primary Care Provider Unavailable Encounter Details Date Type Department Care Team Description 09/24/2020 Clinical Communication Division of [facility] Steffanie Anglin Internal Medicine, [place] [place], [place] [address] [place] [address] Social History Tobacco Use Types Packs/Day Years Used Date Smoking Tobacco: Former Smokeless Tobacco: Never Comments: social smoker Alcohol Use Standard Drinks/Week [...] or relatives? How often do you attend yazdanism or More than 4 times per year 06/20/2022 mormon services? Do you belong to any clubs or Yes 06/20/2022 organizations such as yazdanism groups, unions, fraternal or athletic groups, or [...] place to sleep or slept in a assisted (including now)? Sex Assigned at Date Recorded Female 12/05/2021 3:21 PM INVESTIGATIONS DIRECTOR documented as of this encounter Miscellaneous Notes Telephone Encounter - Kim Casey - 09/24/2020 1:[address] Kvng Venegas, I see this patient is not C[facility] I sent the order to [facility]. Please forward any message to them for scheduling. Thanks so much! Kim STIGATIONS DIRECTOR Telephone Encounter - Steffanie Anglin M.D. - 09/24/2020 12:15 PM INVESTIGATIONS DIRECTOR I went ahead and ordered the EGD. Thank you! Steffanie STIGATIONS DIRECTOR Telephone Encounter - Iman Sanchez - 09/24/2020 11:59 AM CST Ms. Berry was transferred to me from the GI department as she called GI wondering why the endoscopy hadn't been scheduled yet. I told her that you had tried to call her and what you were calling about and she said she would like the endoscopy done here, so could you please order it? Thanks Iman [phone] STIGATIONS DIRECTOR documented in this encounter Plan of Treatment Not on filedocumented as of this encounter Visit Diagnoses Diagnosis Esophageal Varices Without Bleeding (HCC ) - Primary documented in this encounter
--- OUTSIDE RECORDS SUMMARY | 2022-08-17 17:29 | XMS_ITS | Encounter Summary ---
:1970 Author Organization [facility] Address [address] [place] [address] Care Team Providers Name Role Phone Unavailable Primary Care Provider Unavailable Reason for Referral Outpatient (Routine) - Closed Specialty Diagnoses / Procedures Referred By Contact Refer red To Contact Diagnoses Alcoholic Cirrhosis Of Liver Without Ascites (HCC) Bao Cheng M.D. [facility] Procedures EGD (EsophagealGastroDuodenoscopy) [address] [place], [place] [phone] Referral ID Status Reason Start Date Expiration Date Visits Requ ested Visits Authorized [id number] Closed 11/23/2020 11/23/2021 1 1 ULAR PHONE REPAIRER Reason for Visit Outpatient (Routine) - Closed Specialty Diagnoses / Procedures Referred By Contact Refer red To Contact Diagnoses Alcoholic Cirrhosis Of Liver Without Ascites (HCC) Bao Cheng M.D. [facility] Procedures EGD (EsophagealGastroDuodenoscopy) [address] [place], [place] [phone] Referral ID Status Reason Start Date Expiration Date Visits Requ ested Visits Authorized [id number] Closed 11/23/2020 11/23/2021 1 1 Encounter Details Date Type Department Care Team Description 11/25/2020 Hospital Division of Bao Cheng, Alcoholic Cir rhosis Encounter Gastroenterology in [place] [place], [place] [address] [facility] Ascites (HCC) [address] [place] [phone] Social History Tobacco Use Types Packs/Day Years [...] or relatives? How often do you attend anglican or More than 4 times per year 06/20/2022 pentecostalism services? Do you belong to any clubs or Yes 06/20/2022 organizations such as anglican groups, unions, fraternal or athletic groups, or [...] place to sleep or slept in a fpc (including now)? Sex Assigned at Date Recorded Female 12/05/2021 3:21 PM CELLULAR PHONE REPAIRER documented as of this encounter Last Filed Vital Signs Vital Sign Reading Time Taken Comments Blood Pressure 92/58 11/25/2020 2:45 PM patient has n ot CELLULAR PHONE REPAIRER symptoms of lightheadness/di zzine ss Pulse 82 11/25/2020 2:45 PM CELLULAR PHONE REPAIRER Temperature 36.7 ??C (98.1 ??F) 11/25/2020 2:25 PM CELLULAR PHONE REPAIRER Respiratory Rate 12 11/25/2020 2:45 PM CELLULAR PHONE REPAIRER Oxygen Saturation 97% 11/25/2020 2:45 PM CELLULAR PHONE REPAIRER Inhaled Oxygen - - Concentration Weight 63.5 kg (140 lb) 11/25/2020 1:22 PM CELLULAR PHONE REPAIRER Height - - Body Mass Index 24.02 09/06/2020 1:20 PM CELLULAR PHONE REPAIRER documented in this encounter Medications at Time of Discharge Medication Sig Dispensed Refills Start Date End Date ascorbic acid, vitamin C, Take 1,000 mg by 0 05/23 (VITAMIN C) 1,000 mg mouth daily. tablet levocetirizine (XYZAL) 5 Take 5 mg by mouth 0 mg tablet daily. magnesium oxide (MAG-OX) Take 400 mg by mouth 0 0 12/31/2019 400 mg (241.3 mg every morning before magnesium) tablet breakfast. zmqahawyxipc-ybtj-BT-Ca-m Take 1 tablet by 30 tablet 0 07/22 inerals (THERAPEUTIC-M) 9 mouth daily. mg iron-400 mcg per tablet ferrous sulfate 325 mg Take 325 mg by mouth 0 02/07/2022 (65 mg iron) tablet daily. omega 6-jco-jcl-fish oil Take 1,000 mg by 0 06/1402/07/2022 1,000 mg (120 mg-180 mg) mouth daily. capsule lisinopriL Take 10 mg by mouth 0 09/20/202012/16 (PRINIVIL,ZESTRIL) 10 mg daily. tablet pantoprazole (PROTONIX) TAKE ONE TABLET BY 90 tablet 0 01/202002/07/2022 40 mg EC tablet MOUTH TWICE A DAY BEFORE BREAKFAST AND DINNER sulfamethoxazole-trimetho Take 1 tablet by 4 tablet 0 07/2202/07/2022 prim (BACTRIM DS) 800-160 mouth every 12 mg per tablet (twelve) hours. documented as of this encounter Plan of Treatment Not on filedocumented as of this encounter Procedures Procedure Name Priority Date/Time Associated Diagnosis Comme nts UPPER GI ENDOSCOPY Routine 11/25/2020 1:41 PM Alcoholic Cirrho sis Results for this CELLULAR PHONE REPAIRER Of Liver Without procedure a re in Ascites (HCC) the results section. EGD Routine 11/25/2020 1:41 PM Alcoholic Cirrhosis (ESOPHAGEALGASTRODU CELLULAR PHONE REPAIRER Of Liver Without ODENOSCOPY) Ascites (HCC) documented in this encounter Results Upper GI Endoscopy (11/25/2020 1:41 PM CELLULAR PHONE REPAIRER) Specimen (Source) Anatomical Collection Method Collection Time Re ceived Time Location / / Volume Laterality 11/25/2020 1:41 PM CELLULAR PHONE REPAIRER [facility] 11/25/2020 2:19 PM CELLULAR PHONE REPAIRER Post-op Diagnoses: ? - Esophagogastric landmarks ident ified. ? - Nodular reactive tissue in the antrum at the site of the previous ? ulcer with OVESCO clip still in p lace (see Findings) ? - Portal hypertensive gastropathy . ? - Normal examined duodenum. ? - No specimens collected. Narrative [facility] [employer] - 11/25/2020 2:19 PM CELLULAR PHONE REPAIRER [facility] Patient Name: Joana Berry Date of : 1970 Age: 50 Gender: Female Procedure Date: 11/25/2020 Procedure: ? Upper GI endoscopy Providers: ? Keith Mahan MD Referring Provider: ?Bao estevez MD Pre-op Diagnoses: ?Cirrhosis w ith suspected esophageal varices Recommendation: ? - Return to referring physician a s previously scheduled. Findings: ? Esophagogastric landmarks were id entified: the Z-line was found at 37 cm ? and the site of hiatal narrowing was found at 37 cm from the incisors. ? There is no endoscopic evidence o f varices in the lower third of the ? esophagus. ? Nodular mucosa at the site of the previous ulcer with OVESCO clip in ? place was seen in the antrum. As this was previously biopsied with only ? reactive changes seen this was no t biopsied again. ? Mild portal hypertensive gastropa thy was found in the entire examined ? stomach. ? No other significant abnormalitie s were identified in a careful ? examination of the stomach. ? The examined duodenum was normal. Procedural Details: ? The patient was seen, evaluated, history reviewed, airway and heart-lung ? exams were performed by licensed provider and were satisfactory for ? planned level of sedation care. ? The risks, benefits and alternati ves for the procedure and sedation were ? discussed and informed consent wa s obtained. A procedural pause was ? conducted in the presence of assi sting personnel to verify the correct ? patient identity and procedure to be performed. Throughout the ? procedure, the patient's blood pr essure, pulse, and oxygen saturations ? were monitored continuously. The Gastroscope was introduced through the ? mouth, and advanced to the second part of duodenum. The upper GI ? endoscopy was accomplished withou t difficulty. The patient tolerated the ? procedure well. Complications: ? No immedia te complications. Estimated Blood Loss: ?Estimated blo od loss: none. Attending Participation: I personally pe rformed the entire procedure. Keith Mahan MD 11/25/2020 2:19:08 PM This report has been signed electronical ly. Number of Addenda: 0 Note Initiated On: 11/25/2020 1:41 PM Bao Cheng M.D. GI PROCEDURE ORDERABLES Performing Organization Address City/State/ZIP Code Phon e Number [employer] [facility] documented in this encounter Visit Diagnoses Diagnosis Alcoholic Cirrhosis Of Liver Without Asc ites (HCC) documented in this encounter
--- OUTSIDE RECORDS SUMMARY | 2022-08-17 17:29 | XMS_ITS | Encounter Summary ---
:1970 Author Organization [facility] Address [address] [place] [address] Care Team Providers Name Role Phone Unavailable Primary Care Provider Unavailable Reason for Referral Outpatient (Routine) - Closed Specialty Diagnoses / Procedures Referred By Contact Refer red To Contact Diagnoses Alcoholic Cirrhosis Of Liver Without Ascites (HCC) Bao Cheng M.D. [facility] Procedures Fibroscan [address] [place], [place] [phone] Referral ID Status Reason Start Date Expiration Date Visits Requ ested Visits Authorized [id number] Closed 11/23/2020 11/23/2021 1 1 SOFTWARE Reason for Visit Outpatient (Routine) - Closed Specialty Diagnoses / Procedures Referred By Contact Refer red To Contact Diagnoses Alcoholic Cirrhosis Of Liver Without Ascites (HCC) Bao Cheng M.D. [facility] Procedures Fibroscan [address] [place], [place] [address] Referral ID Status Reason Start Date Expiration Date Visits Requ ested Visits Authorized [id number] Closed 11/23/2020 11/23/2021 1 1 Encounter Details Date Type Department Care Team Description 11/25/2020 Hospital Encounter [facility] Siddhartha Montemayor [facility], Moncho Donaldson P.A.-C. Of Liver Without [facility] [address] [facility] Ascites (HCC) Building [place], [place] [address] [address] [place], [place] [phone] (Work) [phone] Social History Tobacco Use Types Packs/Day Years [...] or relatives? How often do you attend rastafari or More than 4 times per year 06/20/2022 jewish services? Do you belong to any clubs or Yes 06/20/2022 organizations such as rastafari groups, unions, fraternal or athletic groups, or [...] place to sleep or slept in a senior care (including now)? Sex Assigned at Date Recorded Female 12/05/2021 3:21 PM VP SOFTWARE documented as of this encounter Medications at [...] mg every morning before magnesium) tablet breakfast. hqyhjlpihppx-xzff-OI-Ca-m Take 1 tablet by 30 tablet 0 07/22 inerals (THERAPEUTIC-M) 9 mouth daily. mg iron-400 mcg per tablet ferrous sulfate 325 mg Take 325 mg by mouth 0 02/07/2022 (65 mg iron) tablet daily. omega 6-sju-vmf-fish oil Take 1,000 mg by 0 06/1402/07/2022 1,000 mg (120 mg-180 mg) mouth daily. capsule lisinopriL Take 10 mg by mouth 0 09/20/202012/16 (PRINIVIL,ZESTRIL) 10 mg daily. tablet pantoprazole (PROTONIX) TAKE ONE TABLET BY 90 tablet 0 1201/202002/07/2022 40 mg EC tablet MOUTH TWICE A DAY BEFORE BREAKFAST AND DINNER sulfamethoxazole-trimetho Take 1 tablet by 4 tablet 0 07/2202/07/2022 prim (BACTRIM DS) 800-160 mouth every 12 mg per tablet (twelve) hours. documented as of this encounter Procedure Notes Siddhartha Montemayor P.A.-C. - 11/25/2020 3:00 PM CSTAssociated Order(s): Fibroscan Pre-Procedure Diagnose(s): Alcoholic Cirrhosis Of Liver Without Ascites (HCC) Post-Procedure Diagnose(s): Alcoholic Cirrhosis Of Liver Without Ascites (HCC) Fibroscan Performed by: Siddhartha Montemayor P.A.-C. Authorized by: Bao Cheng M.D. Exam Date: 11/25/2020 Probe: M+ Median Shear Wave Speed meters/second (m/s): 3.78 Median Liver Stiffness Score kilopascal (kPa): 42.9 Interquartile Range to Median Ratio for all Measurements was % (goal is less than or equal to 25%): 12 Data derived in the non-liver transplant recipients: >12 kPa = High likelihood of advanced fibrosis Patient had a Controlled Attenuation Parameter Score of: 236 Steatosis Grade: S0 <248 SOFTWARE documented in this encounter Plan of Treatment Not on filedocumented as of this encounter Procedures Procedure Name Priority Date/Time Associated Comments Diagnosis NM ELASTOGRAPHY LIVER Routine 11/25/2020 3:00 PM Alcoholic Cir rhosis Results for this WO IMG I&R VP SOFTWARE Of Liver Without procedure a re in Ascites (HCC) the results section. documented in this encounter Results NM ELASTOGRAPHY LIVER WO IMG I&R (11/25/2020 3:00 PM VP SOFTWARE) Narrative MMODAL - 11/25/2020 3:00 PM VP SOFTWARE Siddhartha Montemayor P.A.-C. ? 11/25/2020 ??3:14 PM Fibroscan Performed by: Siddhartha Montemayor P.A.-C. Authorized by: Bao Cheng M.D. Exam Date: ??11/25/2020 Probe: M+ ?? Median Shear Wave Speed meters/second (m /s): ??3.78 Median Liver Stiffness Score kilopascal (kPa): ??42.9 Interquartile Range to Median Ratio for all Measurements was % (goal is less than or equal to 25%): ??12 Data derived in the non-liver transplant recipients: >12 kPa = High likelihood of advanced fibrosis ?? Patient had a Controlled Attenuation Par ameter Score of: ??236 Steatosis Grade: ?? S0 <248 Bao Cheng M.D. PROCEDURE/MINOR SURGICAL ORD ERABLES Performing Organization Address City/State/ZIP Code Phon e Number MMODAL MMODAL NA documented in this encounter Visit Diagnoses Diagnosis Alcoholic Cirrhosis Of Liver Without Asc ites (HCC) documented in this encounter
--- OUTSIDE RECORDS SUMMARY | 2022-08-17 17:29 | XMS_ITS | Encounter Summary ---
:1970 Author Organization [facility] Address [address] [place] [phone] Care Team Providers Name Role Phone Unavailable Primary Care Provider Unavailable Encounter Details Date Type Department Care Team Description 11/25/2020 Anesthesia Event Division of Dalton Flaherty APRN, TAIL TRIMMER [address] [place] [phone] [place] [address] [place] [phone] Anesthesia Record Procedure Summary Procedure Name Responsible Anesthesia Start Anesthesia Stop Time Anesthesiologist Time EGD Dalton Flaherty APRN, 11/25/20 1357 11/25/20 1418 (ESOPHAGEALGASTRODU TAIL TRIMMER ODENOSCOPY) Events Date Time Event Comment 11/25/2020 1251 1357 An Start Machine/Equipmen t Checked Infection Precautions Foll owed Procedure/Site Verified NPO Sta tus Verified Supine Standard ASA Mon itors Applied 1359 Turnover to Proceduralist 1409 Proc Start 1413 Proc Fin 1413 Turnover to ANE Staff 1413 an stop data 1418 An End I completed my h andoff to the receiving staff during i ch we 1. Identified the patient 2. Ident ified the responsible provider 3. Revi ewed the pertinent medical history 4. Discu ssed the surgical course 5. Reviewed intra-o p anesthesia management and issues during an esthesia 6. Set expectations for post-procedure period 7. Allowed opportun ity for questions and acknowledgement of understanding. Name Total fentanyl injection 50 mcg/mL 100 mcg ketamine 10 mg/mL injection 10 mg lidocaine 2% (mg) injection 80 mg propofol 10 mg/mL injection 170 mg propofol 10 mg/mL infusion 101.6 mg ondansetron PF 4 mg/2 mL injection 4 mg glycopyrrolate 0.2 mg/mL injection 0.2 mg phenylephrine 100 mcg/mL injection 200 mcg Lactated Ringers Free Drip 150 mL Agents No agents on file. Blood No blood administrations on file. Lines, Drains, and Airways Type Details Placement Removal Peripheral IV Placement Date: 11/25/20; 11/25/20 1346 by 11/25 1446 by Placement Time: 1346; Taty Jung, R.N. Taty Shukla, Catheter Size: 22 G; R.N. Orientation: Left; Location: Hand; Site Prep: Alcohol; Inserted by: Genevieve CARD; Insertion Attempts: 1; Removal Date: 11/25/20; Removal Time: 144; Removal Reason: Patient discharged documented in this encounter Social History Tobacco Use Types Packs/Day Years [...] or relatives? How often do you attend shinto or More than 4 times per year 06/20/2022 congregational services? Do you belong to any clubs or Yes 06/20/2022 organizations such as shinto groups, unions, fraternal or athletic groups, or [...] minutes do you engage in exercise at is 150+ min 06/20/2022 level? Stress Answer [...] place to sleep or slept in a intermediate (including now)? Sex Assigned at Date Recorded Female 12/05/2021 3:21 PM COMPUTER SYSTEMS ARCHITECT documented as of this encounter OR Notes Anesthesia Postprocedure Evaluation - Dalton Flaherty APRN, CRNA - 11/25/2020 2:19 PM CST Patient: Joana Berry Procedure Summary Date: 11/25/20 Room / Location: Division of Gastroenterology in [place], [place] Anesthesia Start: 1357 Anesthesia Stop: 1418 Procedure: EGD (ESOPHAGEALGASTRODUODENOSCOPY) Diagnosis: Alcoholic Cirrhosis Of Liver Without Ascites (HCC) Scheduled Providers: Dustin Norris APRN, CRNA, MNA Responsible Provider: Dalton Flaherty APRN, CRNA Anesthesia Type: MAC ASA Status: 3 Anesthesia Type: MAC Last vitals Vitals Value Taken Time BP Temp Pulse 84 11/25/20 1328 Resp 15 11/25/20 1328 SpO2 99 % 11/25/20 1328 Vitals shown include unvalidated device data. Please reference Vitals flowsheet for most recent vital signs. Anesthesia Post Evaluation UTER SYSTEMS ARCHITECT Anesthesia Preprocedure Evaluation - Avel Mccall M.D. - 11/25/2020 12:51 PM CST Preprocedure Anesthesia & H&P Assessment Procedure Summary Date/Time: 11/25/20 1330 Scheduled providers: Dustin Norris APRN, CRNA, MNA Procedure: EGD (ESOPHAGEALGASTRODUODENOSCOPY) Diagnosis: Alcoholic Cirrhosis Of Liver Without Ascites (HCC) [K70.30] Location: Division of Gastroenterology in [place], [place] Pertinent components of the patient's history including current problem list, medical history, surgical history, family history, social history, medications and allergies were reviewed. Present illnessand pre-op diagnosis were confirmed. The planned surgery / procedure was verified with the patient /legal guardian. The patient's general health condition remains unchanged RELEVANT COMORBID CONDITIONS GI (+) Esophageal Varix With Bleeding (HCC) (+) Ulcer Gastric Acute With Hemorrhage HEME (+) Anemia Nutritional (+) Anemia Posthemorrhagic Acute (Blood Loss Anemia) Other (+) Alcohol Moderate Or Severe Use Disorder (Dependence) Uncomplicated (HCC) (+) Alcoholic Cirrhosis Of Liver Without Ascites (HCC) (+) Diverticulosis Of Large Intestine Without Perforation Or Abscess Without Bleeding (+) Hypertension OBJECTIVE PHYSICAL EXAMINATION Airway (HEENT) Mallampati: I Neck ROM: Full Mouth Opening: >3 cm Cardiovascular Cardiovascular Assessment: cardiovascular normal Pulmonary Pulmonary Assessment: Clear General / Constitutional Constitutional Assessment: Normal General State of Health:: calm Neurological Normal Dental Normal ASSESSMENT / PLAN ANESTHESIA PLAN ASA: 3 Anesthesia Plan: MAC Patient seen and allergies reviewed, anesthesia plan and risks discussed directly with patient /legal guardian or through an prescription clerk lenses. The use of blood products not discussed Approval to Proceed: approved for anesthesia UTER SYSTEMS ARCHITECT documented in this encounter Miscellaneous Notes Addendum Note - Dalton Flaherty APRN, CRNA - 11/25/2020 2:20 PM CST Addendum created 11/25/20 1420 by Dalton Flaherty APRN, CRNA Intraprocedure Meds edited, Orders acknowledged in Narrator UTER SYSTEMS ARCHITECT documented in this encounter Plan of Treatment Not on filedocumented as of this encounter Visit Diagnoses Not on filedocumented in this encounter Administered Medications Inactive Administered Medications - up to 3 most recent administrations Medication Order MAR Action Action Date Dose Rate Site fentaNYL injection (SUBLIMAZE) Given 11/25/2020 2:06 PM COMPUTER SYSTEMS ARCHITECT 25 mcg intravenous, As needed, Starting on Kailey 11/25/20 at 1400, Anesthesia Intra-op Given 11/25/2020 2:04 PM COMPUTER SYSTEMS ARCHITECT 25 mcg Given 11/25/2020 2:00 PM COMPUTER SYSTEMS ARCHITECT 50 mcg glycopyrrolate injection (ROBINUL) Given 11/25/2020 2:00 PM COMPUTER SYSTEMS ARCHITECT 0.2 mg As needed, Starting on Kailey 11/25/20 at 1400, Anesthesia Intra-op ketamine injection (KETALAR) Given 11/25/2020 2:00 PM COMPUTER SYSTEMS ARCHITECT 10 mg intravenous, As needed, Starting on Kailey 11/25/20 at 1400, Anesthesia Intra-op lactated ringers New Bag 11/25/2020 1:58 PM COMPUTER SYSTEMS ARCHITECT intravenous, Continuous Infusion: Per Instructions PRN, Starting on Kailey 11/25/20 at 1358, Anesthesia Intra-op lidocaine (PF) (cardiac) injection Given 11/25/2020 2:00 PM COMPUTER SYSTEMS ARCHITECT 80 mg intravenous, As needed, Starting on Kailey 11/25/20 at 1400, Anesthesia Intra-op ondansetron (PF) injection (ZOFRAN) Given 11/25/2020 2:04 PM COMPUTER SYSTEMS ARCHITECT 4 mg intravenous, As needed, Starting on Kailey 11/25/20 at 1404, Anesthesia Intra-op phenylephrine injection Given 11/25/2020 2:11 PM COMPUTER SYSTEMS ARCHITECT 200 mcg As needed, Starting on Kailey 11/25/20 at 1411, Anesthesia Intra-op propofol 10 mg/mL infusion New Bag 11/25/2020 2:00 PM 160 mcg/kg/m in 61 mL/hr (DIPRIVAN) COMPUTER SYSTEMS ARCHITECT intravenous, Continuous Infusion: Per Instructions PRN, Starting on Kailey 11/25/20 at 1400, Anesthesia Intra-op propofoL injection (DIPRIVAN) Given 11/25/2020 2:06 PM COMPUTER SYSTEMS ARCHITECT 40 mg intravenous, As needed, Starting on Kailey 11/25/20 at 1400, Anesthesia Intra-op Given 11/25/2020 2:04 PM COMPUTER SYSTEMS ARCHITECT 40 mg Given 11/25/2020 2:02 PM COMPUTER SYSTEMS ARCHITECT 40 mg documented in this encounter
--- OUTSIDE RECORDS SUMMARY | 2022-08-17 17:29 | XMS_ITS | Encounter Summary ---
:1970 Author Organization [facility] Address [address] [place] [address] Care Team Providers Name Role Phone Unavailable Primary Care Provider Unavailable Encounter Details Date Type Department Care Team Description 09/06/2020 Anesthesia Event Division of Kinza Valero APRN, ASIF [address] [place] [phone] Gastroenterology in Wisam Murdock APRN, ASIF [address] [place] [phone] [place], [place] [address] [place] [phone] Anesthesia Record Procedure Summary Procedure Name Responsible Anesthesia Start Anesthesia Stop Time Anesthesiologist Time EGD Kinza Valero APRN, 09/06/20 1409 0 1449 (ESOPHAGEALGASTRODU CASINO PORTER ODENOSCOPY) Events Date Time Event Comment 09/06/2020 1409 An Start Machine/Equipmen t Checked Infection Precautions Foll owed Procedure/Site Verified NPO Sta tus Verified Supine Standard ASA Mon itors Applied 1416 Turnover to Proceduralist 1417 Proc Start 1441 Proc Fin 1442 Turnover to ANE Staff 1448 an stop data 1449 An End I completed my h andoff to the receiving staff during [facility] we 1. Identified the patient 2. Ident ified the responsible provider 3. Revi ewed the pertinent medical history 4. Discu ssed the surgical course 5. Reviewed intra-o p anesthesia management and issues during an esthesia 6. Set expectations for post-procedure period 7. Allowed opportun ity for questions and acknowledgement of understanding. Name Total fentanyl injection 50 mcg/mL 100 mcg lidocaine 2% (mg) injection 60 mg propofol 10 mg/mL injection 200 mg propofol 10 mg/mL infusion 482.78 mg Lactated Ringers Free Drip 500 mL Agents No agents on file. Blood No blood administrations on file. Lines, Drains, and Airways Type Details Placement Removal Peripheral IV Placement Date: 09/06/20; 09/06/20 1327 by Meli pedro, 09/06/20 1522 by Placement Time: 1327; Lan Chavez Pamela A, Catheter Size: 22 G; R.N. Orientation: Right; Location: Hand; Site Prep: Alcohol; Technique: Anatomical landmarks; Inserted by: Lucretia CARD; Insertion Attempts: 1; Removal Date: 09/06/20; Removal Time: 1521; Removal Reason: Patient discharged documented in this [...] or relatives? How often do you attend tenriism or More than 4 times per year 06/20/2022 nondenominational services? Do you belong to any clubs or Yes 06/20/2022 organizations such as tenriism groups, unions, fraternal or athletic groups, or [...] place to sleep or slept in a custodial (including now)? Sex Assigned at Date Recorded Female 12/05/2021 3:21 PM REAL ESTATE RECRUITER documented as of this encounter OR Notes Anesthesia Postprocedure Evaluation - Jl Reynolds APRN, CRNA - 09/06/2020 2:50 PM CST Patient: Joana Berry Procedure Summary Date: 09/06/20 Room / Location: Division of Gastroenterology in [place], [place] Anesthesia Start: 1409 Anesthesia Stop: 1449 Procedure: EGD (ESOPHAGEALGASTRODUODENOSCOPY) Diagnosis: Alcoholic Cirrhosis Of Liver Without Ascites (HCC) Scheduled Providers: Jl Reynolds APRN, CRNA Responsible Provider: Kinza Valero APRN, CRNA Anesthesia Type: MAC ASA Status: 3 Anesthesia Type: MAC Last vitals Vitals Value Taken Time BP Temp Pulse Resp SpO2 Please reference Vitals flowsheet for most recent vital signs. Anesthesia Post Evaluation Patient Disposition: general care unit Cardiovascular status: hemodynamics (HR & BP) acceptable Respiratory status: patent airway with spontaneous effort Temperature: normothermic Oxygen requirements: room air Level of consciousness: awake Pain score: pain adequately controlled and/or at baseline Post Op nausea/vomiting: none Hydration status: euvolemic ESTATE RECRUITER Anesthesia Preprocedure Evaluation - Jordon Larson M.D. - 09/06/2020 1:15 PM CST Preprocedure Anesthesia & H&P Assessment Procedure Summary Date/Time: 09/06/20 1245 Scheduled providers: Jl Reynolds APRN, CRNA Procedure: EGD (ESOPHAGEALGASTRODUODENOSCOPY) Diagnosis: Alcoholic Cirrhosis Of Liver Without Ascites (HCC) [K70.30] Location: Division of Gastroenterology in [place], [place] Pertinent components of the patient's history [...] Alcoholic Cirrhosis Of Liver Without Ascites (HCC) OBJECTIVE PHYSICAL EXAMINATION Airway (HEENT) Mallampati: I Cardiovascular Rhythm: Regular Pulmonary Pulmonary Assessment: Clear General / Constitutional Constitutional Assessment: Normal ASSESSMENT / PLAN ANESTHESIA PLAN ASA: 3 Anesthesia Plan: MAC Patient seen and allergies reviewed, anesthesia plan and risks discussed directly with patient /legal guardian or through an interpreter deaf. Risks/Benefits/Alternatives of Blood transfusion discussed with patient / legal guardian, including an opportunity to ask questions and/or decline some or all transfusion therapies. The patient / legalguardian consented to the use of all blood products, as deemed medically necessary ESTATE RECRUITER documented in this encounter Plan of Treatment Not on filedocumented as of this encounter Visit Diagnoses Not on filedocumented in this encounter Administered Medications Inactive Administered Medications - up to 3 most recent administrations Medication Order MAR Action Action Date Dose Rate Site fentaNYL injection (SUBLIMAZE) Given 09/06/2020 2:37 PM REAL ESTATE RECRUITER 100 mcg intravenous, As needed, Starting on Sun09/06/20 at 1437, Anesthesia Intra-op lactated ringers New Bag 09/06/2020 2:16 PM REAL ESTATE RECRUITER intravenous, Continuous Infusion: Per Instructions PRN, Starting on Sun09/06/20 at 1416, Anesthesia Intra-op lidocaine (PF) (cardiac) injection Given 09/06/2020 2:16 PM REAL ESTATE RECRUITER 60 mg intravenous, As needed, Starting on Sun09/06/20 at 1416, Anesthesia Intra-op propofol 10 mg/mL infusion Rate/Dose 09/06/2020 2:33 300 mcg/kg/min 111 mL/hr (DIPRIVAN) Change PM REAL ESTATE RECRUITER intravenous, Continuous Infusion: Per Instructions PRN, Starting on Sun09/06/20 at 1416, Anesthesia Intra-op Rate/Dose Change 09/06/2020 2:28 PM REAL ESTATE RECRUITER 250 mcg/kg/min 92.3 mL/hr New Bag 09/06/2020 2:16 PM REAL ESTATE RECRUITER 150 mcg/kg/min 55.4 mL/hr propofoL injection (DIPRIVAN) Given 09/06/2020 2:35 PM REAL ESTATE RECRUITER 50 mg intravenous, As needed, Starting on 09/06/20 at 1416, Anesthesia Intra-op Given 09/06/2020 2:32 PM REAL ESTATE RECRUITER 50 mg Given 09/06/2020 2:27 PM REAL ESTATE RECRUITER 50 mg documented in this encounter
--- OUTSIDE RECORDS SUMMARY | 2022-08-17 17:29 | XMS_ITS | Encounter Summary ---
:1970 Author Organization [facility] Address [address] [place] [address] Care Team Providers Name Role Phone Unavailable Primary Care Provider Unavailable Reason for Referral Outpatient (Routine) - Closed Specialty Diagnoses / Referred By Referred To Cont act Procedures Contact Gastroenterology and Diagnoses Alcoholic Cirrhosis Of Liver Without Ascites (HCC) Bao Cheng [facility] Hepatology M[address] [address] [place] [address] Referral ID Status Reason Start Date Expiration Date Visits Requ ested Visits Authorized [id number] Closed 11/21/2021 11/21/2022 1 1 utpatient (Routine) - Closed Specialty Diagnoses / Procedures Referred By Contact Refer red To Contact Diagnoses Alcoholic Cirrhosis Of Liver Without Ascites (HCC) Bao Cheng M.D. [facility] Procedures US Abdomen Complete [address] [place] [address] Referral ID Status Reason Start Date Expiration Date Visits Requ ested Visits Authorized [id number] Closed 11/21/2021 11/21/2022 1 1 DING MACHINE OPERATOR Encounter Details Date Type Department Care Team Description 11/21/2021 Orders Only Division of Bao Cheng, Alcoholic Cir rhosis Gastroenterology in M.[place] Of Liver Without [place], [place] [address] [facility] Ascites (HCC) [address] [place], [place] (Primary Dx) [place] [phone] Social History Tobacco Use Types Packs/Day [...] or relatives? How often do you attend religion or More than 4 times per year 06/20/2022 rastafarian services? Do you belong to any clubs or Yes 06/20/2022 organizations such as religion groups, unions, fraternal or athletic groups, or [...] at Date Recorded Female 12/05/2021 3:21 PM BOARDING MACHINE OPERATOR documented as of this encounter Plan of Treatment Scheduled Referrals Name Type Priority Associated Order Schedule Diagnoses Gastroenterology and Outpatient Routine Alcoholic Expecte d: Hepatology office visit Referral Cirrhosis Of Live r 11/21/2021 (clinic) Without Ascites (Approximate ), (HCC) Expires: 02/18/2023 documented as of this encounter Results US Abdomen Complete (12/08/2021 11:31 AM BOARDING MACHINE OPERATOR) Anatomical Region Laterality Modality Abdomen, Ultrasound RST LOS, Ultrasound ARZ LOS, Ultrasound FLA N/A Ultrasound LOS Specimen (Source) Anatomical Collection Method Collection Time Re ceived Time Location / / Volume Laterality 12/08/2021 11:34 AM BOARDING MACHINE OPERATOR Impressions 12/08/2021 11:39 AM BOARDING MACHINE OPERATOR 1. Cirrhosis. No hepatic masses are identified. Ultrasound LI-RADS 1B. 2. Borderline splenomegaly. Previously s een trace perihepatic ascites has resolved. Narrative 12/08/2021 11:39 AM BOARDING MACHINE OPERATOR EXAM: US ABDOMEN COMPLETE COMPARISON: Ultrasound liver with Dopple r 08/03/2020. FINDINGS: Liver: Coarsened hepatic echotexture con sistent with chronic parenchymal disease. No hepatic masses are identified. Gallbladder: Normal. Intrahepatic ducts: Not dilated. Common duct: Not dilated. Pancreas: Normal where seen. Right kidney: Length: 10.5 cm. Normal echogenicity. No hydronephrosis. Left kidney: Length: 10.7 cm. Normal echogenicity. No hydronephrosis. Spleen: Upper limits of normal in size. Spleen length: 12.7 cm Aorta: Normal caliber. IVC: Normal where seen. Ascites: ??Trace perihepatic ascites see n previously has resolved. Procedure Note Wilberto Bhatti M.D. - 12/08/2021Format ting of this note might be different from the original. EXAM: US ABDOMEN COMPLETE COMPARISON: Ultrasound liver with Dopple r 08/03/2020. FINDINGS: Liver: Coarsened hepatic echotexture con sistent with chronic parenchymal disease. No hepatic masses are identified. Gallbladder: Normal. Intrahepatic ducts: Not dilated. Common duct: Not dilated. Pancreas: Normal where seen. Right kidney: Length: 10.5 cm. Normal echogenicity. No hydronephrosis. Left kidney: Length: 10.7 cm. Normal echogenicity. No hydronephrosis. Spleen: Upper limits of normal in size. Spleen length: 12.7 cm Aorta: Normal caliber. IVC: Normal where seen. Ascites: Trace perihepatic ascites seen previously has resolved. IMPRESSION: 1. Cirrhosis. No hepatic masses are iden tified. Ultrasound LI-RADS 1B. 2. Borderline splenomegaly. Previously s een trace perihepatic ascites has resolved. Bao Cheng M.D. IMG US PROCEDURES AFP (Alpha-Fetoprotein), Tumor Marker (12/08/2021 10:08 AM BOARDING MACHINE OPERATOR) athologist Signature Alpha-Fetoprote 6.2 ng/mL 12/08/2021 [facility] in, Tumor 2:51 PM BOARDING MACHINE OPERATOR Marker, S Comment: ----REFERENCE VALUE---- <8.4 Reference values are for non- subjects only; production of AFP elevates values in women. ----ADDITIONAL INFORMATION---- In this Timothy Maria Teresa assay AFP concen trations are <8.4 ng/mL for 99% of a normal popul ation consisting of non- healthy indiv iduals, without known liver disease, hepatocellu lar carcinoma, or germ-cell tumors. ??The persistence of alpha-fetoprotein, an uncommon heredita ry trait may cause elevations of AFP above the refere nce interval. ? The testing method is an immunoenzymatic assay manufactured by [employer]. and is tested on the [employer] DxI 800. Values obtained with different assay met hods or kits may be different and cannot be used intercha ngeably. ? Test results cannot be interpreted as ab solute evidence of the presence or absence of malignant dis ease. Alpha-Fetoprotein values are not interpr etable in females for the investigation of maligna nt disease. Specimen Anatomical Collection Method Collection Time Receive d Time (Source) Location / / Volume Laterality Blood (Blood, 12/08/2021 10:08 12/08/2021 2:08 Venous) AM BOARDING MACHINE OPERATOR PM BOARDING MACHINE OPERATOR Bao Cheng M.D. LAB BLOOD ADD-ON Performing Organization Address City/State/ZIP Code Phon e Number [facility] [address] [place] [address] SUPPORT CENTER [facility] [place] [address] Laboratory Medicine and Pathology [address] [place] (ABNORMAL) Prothrombin Time (PT) (12/08/2021 10:08 AM BOARDING MACHINE OPERATOR) Patholo gist Method Time Signature Prothrombin 15.3 (H) 9.4 - 12.5 12/08/2021 DTL Time, P sec 11:05 AM BOARDING MACHINE OPERATOR INR 1.4 0.9 - 1.1 12/08/2021 DTL 11:05 AM BOARDING MACHINE OPERATOR Comment: ----ADDITIONAL INFORMATION---- Standard intensity warfarin therapeutic range: 2.0 to 3.0 ?? High intensity warfarin therapeutic rang e: 2.5 to 3.5 Specimen Anatomical Collection Method Collection Time Receive d Time (Source) Location / / Volume Laterality Blood (Blood, 12/08/2021 10:08 12/08/2021 Venous) AM BOARDING MACHINE OPERATOR 10:52 AM BOARDING MACHINE OPERATOR Bao Cheng M.D. LAB BLOOD ADD-ON Performing Organization Address City/State/ZIP Code Phon e Number [facility] - [address] [place], [place] [address] [facility] [place] [address] Laboratories-[facility] [address] [facility] (ABNORMAL) Comprehensive Metabolic Panel (12/08/2021 10:08 AM BOARDING MACHINE OPERATOR) P athologist Signature Potassium, S 4.0 3.6 - 5.2 12/08/2021 DTL mmol/L 11:43 AM BOARDING MACHINE OPERATOR Sodium, S 142 135 - 145 12/08/2021 DTL mmol/L 11:43 AM BOARDING MACHINE OPERATOR Chloride, S 106 98 - 107 12/08/2021 DTL mmol/L 11:43 AM BOARDING MACHINE OPERATOR Bicarbonate, S 27 22 - 29 12/08/2021 DTL mmol/L 11:43 AM BOARDING MACHINE OPERATOR Anion Gap 9 7 - 15 12/08/2021 DTL 11:43 AM BOARDING MACHINE OPERATOR BUN (Blood Urea 10 6 - 21 12/08/2021 DTL Nitrogen), S mg/dL 11:43 AM BOARDING MACHINE OPERATOR Creatinine 0.87 0.59 - 12/08/2021 DTL 1.04 mg/dL 11:43 AM BOARDING MACHINE OPERATOR eGFR-Non 78 >=60 12/08/2021 DTL Black/ mL/min/BSA 11:43 AM BOARDING MACHINE OPERATOR [place] Comment: ----ADDITIONAL INFORMATION---- Estimated GFR calculated using the 2009 CKD_EPI creatinine equation. eGFR-Black/ 90 >=60 mL/min/BSA 2021 11:43 AM BOARDING MACHINE OPERATOR DTL Comment: ----ADDITIONAL INFORMATION---- Estimated GFR calculated using the 2009 CKD_EPI creatinine equation. Calcium, Total, S 9.5 8.6 - 10.0 mg/dL 12/08/2021 11:4 3 AM BOARDING MACHINE OPERATOR DTL Glucose, S 87 70 - 140 mg/dL 12/08/2021 11:43 AM BOARDING MACHINE OPERATOR DTL Protein, Total, S 6.3 6.3 - 7.9 g/dL 12/08/2021 11:43 AM BOARDING MACHINE OPERATOR DTL Albumin, S 3.8 3.5 - 5.0 g/dL 12/08/2021 11:43 AM BOARDING MACHINE OPERATOR DTL Aspartate Aminotransferase 60 (H) 8 - 43 U/L 12/08/2021 1 1:43 AM BOARDING MACHINE OPERATOR DTL (AST), S Alkaline Phosphatase, S 156 (H) 35 - 104 U/L 12/08/2021 11 :43 AM BOARDING MACHINE OPERATOR DTL Alanine Aminotransferase 37 7 - 45 U/L 12/08/2021 11: 43 AM BOARDING MACHINE OPERATOR DTL (ALT), S Bilirubin, Total, S 1.3 (H) <=1.2 mg/dL 12/08/2021 11:43 A M BOARDING MACHINE OPERATOR DTL Specimen Anatomical Collection Method Collection Time Receive d Time (Source) Location / / Volume Laterality Blood (Blood, 12/08/2021 10:08 12/08/2021 Venous) AM BOARDING MACHINE OPERATOR 11:16 AM BOARDING MACHINE OPERATOR Bao Cheng M.D. LAB BLOOD ADD-ON Performing Organization Address City/State/ZIP Code Phon e Number [facility] - [address] [place], [place] [address] [facility] [place] [address] Laboratories-[facility] [address] [facility] (ABNORMAL) CBC with Differential, Blood (12/08/2021 10:08 AM BOARDING MACHINE OPERATOR) [facility] Method Time Signature Hemoglobin 12.1 11.6 - 12/08/2021 DTL 15.0 g/dL 11:07 AM BOARDING MACHINE OPERATOR Hematocrit 36.0 35.5 - 12/08/2021 DTL 44.9 % 11:07 AM BOARDING MACHINE OPERATOR Erythrocytes 3.88 (L) 3.92 - 12/08/2021 DTL 5.13 11:07 AM BOARDING MACHINE OPERATOR x10(12)/L MCV 92.8 78.2 - 12/08/2021 DTL 97.9 fL 11:07 AM BOARDING MACHINE OPERATOR RBC Distrib Width 13.8 12.2 - 12/08/2021 DTL 16.1 % 11:07 AM BOARDING MACHINE OPERATOR Platelet Count 125 (L) 157 - 371 12/08/2021 DTL x10(9)/L 11:51 AM BOARDING MACHINE OPERATOR Comment: Results confirmed by smear, no clumping or interference seen. Leukocytes 6.3 3.4 - 9.6 x10(9)/L 12/08/2021 11:51 AM BOARDING MACHINE OPERATOR DTL Neutrophils 2.65 1.56 - 6.45 x10(9)/L 12/08/2021 11:07 AM BOARDING MACHINE OPERATOR DTL Lymphocytes 2.56 0.95 - 3.07 x10(9)/L 12/08/2021 11:07 AM BOARDING MACHINE OPERATOR DTL Monocytes 0.49 0.26 - 0.81 x10(9)/L 12/08/2021 11:07 AM BOARDING MACHINE OPERATOR DTL Eosinophils 0.52 (H) 0.03 - 0.48 x10(9)/L 12/08/2021 11:07 AM BOARDING MACHINE OPERATOR DTL Basophils 0.07 0.01 - 0.08 x10(9)/L 12/08/2021 11:07 AM BOARDING MACHINE OPERATOR DTL Specimen Anatomical Collection Method Collection Time Receive d Time (Source) Location / / Volume Laterality Blood (Blood, 12/08/2021 10:08 12/08/2021 Venous) AM BOARDING MACHINE OPERATOR 10:55 AM BOARDING MACHINE OPERATOR Bao Cheng M.D. LAB BLOOD ADD-ON Performing Organization Address City/State/ZIP Code Phon e Number [facility] - [address] [place], [place] [address] [facility] [place] [address] Laboratories[facility] [address] documented in this encounter Visit Diagnoses Diagnosis Alcoholic Cirrhosis Of Liver Without Asc ites (HCC) - Primary Alcoholic Cirrhosis Of Liver Without Asc ites (HCC) documented in this encounter
--- OUTSIDE RECORDS SUMMARY | 2022-08-17 17:29 | XMS_ITS | Encounter Summary ---
:1970 Author Organization [facility] Address [address] [place] [address] Care Team Providers Name Role Phone Unavailable Primary Care Provider Unavailable Encounter Details Date Type Department Care Team Description 08/06/2020 Clinical Communication RST HIM Steffanie Anglin [address] [facility] [place] [address] Social History Tobacco Use Types Packs/Day Years [...] or relatives? How often do you attend restoration or More than 4 times per year 06/20/2022 congregational services? Do you belong to any clubs or Yes 06/20/2022 organizations such as restoration groups, unions, fraternal or athletic groups, or [...] to sleep or slept in a senior living (including now)? Sex Assigned at Date Recorded Female 12/05/2021 3:21 PM AIRLINE RADIO OPERATOR documented as of this encounter Plan of Treatment Not on filedocumented as of this encounter Results SARS Coronavirus-2, PCR Asymptomatic (09/04/2020 3:17 PM AIRLINE RADIO OPERATOR) [facility] Method Time Signature SARS Swab, 09/05/2020 DTL Coronavirus-2 Nasopharynx 12:27 AM Source AIRLINE RADIO OPERATOR SARS Undetected Undetected 09/05/2020 DTL Coronavirus-2 12:27 AM , PCR AIRLINE RADIO OPERATOR Comment: SARS-CoV-2 RNA absent. This result does not rule out COVID-19 in the patient, as the sensitivity of the test depends o n the timing of the specimen collection and quality of the specimen. Result should be correlated with patient's history and clinical presentat ion. ----ADDITIONAL INFORMATION---- This test was developed and its performa nce characteristics determined by [facility] in a manner co nsistent with CLIA requirements. Independent review by the U.S. Food and Drug Administration is pending. Visit the CDC website: https://www.cdc.gov/coronavirus/ ?? for the most recent guidelines on [place] virus testing. Fact Sheet for Healthcare Providers: (https://www.[employer]Pharma/it-mmfil es/ Provider_Fact_Sheet_for_[facility]_COVI D-19.pdf) Fact Sheet for Patients: (https://www.[employer]/it-mmfil es/ Patient_Fact_Sheet_for_COVID-19.pdf) Specimen Anatomical Collection Method Collection Time Receive d Time (Source) Location / / Volume Laterality Varies 09/04/2020 3:17 PM 0 3:49 (Nasopharynx) AIRLINE RADIO OPERATOR PM AIRLINE RADIO OPERATOR Steffanie Venegas M.D. LAB MICROBIOLOGY - GENERAL O RDERABLES Performing Organization Address City/State/ZIP Code Phon e Number [facility] - [address] [place], [place] [address] [facility] [place] [address] [facility] [address] documented in this encounter Visit Diagnoses Diagnosis Screening Examination For Viral Disease - Primary documented in this encounter
--- OUTSIDE RECORDS SUMMARY | 2022-08-17 17:29 | XMS_ITS | Encounter Summary ---
:1970 Author Organization [facility] Address [address] [place] [address] Care Team Providers Name Role Phone Unavailable Primary Care Provider Unavailable Encounter Details Date Type Department Care Team Description 08/31/2021 Orders Only RST PCP [facility] Angélica Gonzalez M.D. [address] [place], [place] [phone] (Wo rk) Social History Tobacco Use Types Packs/Day Years [...] or relatives? How often do you attend uatsdin or More than 4 times per year 06/20/2022 alevism services? Do you belong to any clubs or Yes 06/20/2022 organizations such as uatsdin groups, unions, fraternal or athletic groups, or [...] place to sleep or slept in a long-term (including now)? Sex Assigned at Date Recorded Female 12/05/2021 3:21 PM BUNGY JUMP MASTER documented as of this encounter Plan of Treatment Not on filedocumented as of this encounter Visit Diagnoses Not on filedocumented in this encounter
--- OUTSIDE RECORDS SUMMARY | 2022-08-17 17:29 | XMS_ITS | Encounter Summary ---
:1970 Author Organization [facility] Address [address] [place] [id number] Care Team Providers Name Role Phone Unavailable Primary Care Provider Unavailable Encounter Details Date Type Department Care Team Description 12/08/2021 Hospital Encounter Department of Bao Cheng Alcoho lic Cirrhosis Laboratory Medicine MTeja Of Liver Without and Pathology, [address] [place] [address] Ascites (HCC) [facility] in [place], [place] [id number] [place] [address] [place], [place] (Work) [phone] Social History Tobacco Use [...] or relatives? How often do you attend congregational or More than 4 times per year 06/20/2022 christian services? Do you belong to any clubs or Yes 06/20/2022 organizations such as congregational groups, unions, fraternal or athletic groups, or [...] place to sleep or slept in a care home (including now)? Education Answer Date Recorded What is the highest level of school you have Some college, n o degree 12/05/2021 completed or the highest degree you have received? Sex Assigned at Date Recorded Female 12/05/2021 3:21 PM HEALTHCARE RECRUITER documented as of this encounter Medications at [...] mg every morning before magnesium) tablet breakfast. lidocaine (LIDODERM) 5 % Apply on dry, clean, 0 0 03/10/2021 hairless skin. Apply 1 patch to painful area of skin for up to to 12 hours within 24 hour period. opsftuethiqd-actw-ED-Ca-m Take 1 tablet by 30 tablet 0 07/22 inerals (THERAPEUTIC-M) 9 mouth daily. mg iron-400 mcg per tablet ferrous sulfate 325 mg Take 325 mg by mouth 0 02/07/2022 (65 mg iron) tablet daily. omega 4-bjo-jzx-fish oil Take 1,000 mg by 0 06/1402/07/2022 1,000 mg (120 mg-180 mg) mouth daily. capsule lisinopriL Take 10 mg by mouth 0 09/20/202012/16 (PRINIVIL,ZESTRIL) 10 mg daily. tablet pantoprazole (PROTONIX) TAKE ONE TABLET BY 90 tablet 0 12/01/202002/07/2022 40 mg EC tablet MOUTH TWICE A DAY BEFORE BREAKFAST AND DINNER sulfamethoxazole-trimetho Take 1 tablet by 4 tablet 0 07/2202/07/2022 prim (BACTRIM DS) 800-160 mouth every 12 mg per tablet (twelve) hours. documented as of this encounter Plan of Treatment Not on filedocumented as of this encounter Procedures Procedure Name Priority Date/Time Associated Comments Diagnosis ALPHA-FETOPROTEIN Routine 12/08/2021 10:08 Alcoholic Cirrhosis Results for this (AFP) TM, S AM HEALTHCARE RECRUITER Of Liver Without procedure a re in Ascites (HCC) the results section. PROTHROMBIN TIME (PT), Routine 12/08/2021 10:08 Alcoholic Cirr hosis Results for this P AM HEALTHCARE RECRUITER Of Liver Without procedure a re in Ascites (HCC) the results section. CBC WITH DIFFERENTIAL, Routine 12/08/2021 10:08 Alcoholic Cirr hosis Results for this B AM HEALTHCARE RECRUITER Of Liver Without procedure a re in Ascites (HCC) the results section. COMPREHENSIVE Routine 12/08/2021 10:08 Alcoholic Cirrhosis Res ults for this METABOLIC PANEL, S/P AM HEALTHCARE RECRUITER Of Liver Without pro cedure are in Ascites (HCC) the results section. documented in this encounter Results AFP (Alpha-Fetoprotein), Tumor Marker (12/08/2021 10:08 AM HEALTHCARE RECRUITER) athologist Signature Alpha-Fetoprote 6.2 ng/mL 12/08/2021 SDS in, Tumor 2:51 PM HEALTHCARE RECRUITER Marker, S Comment: ----REFERENCE VALUE---- <8.4 Reference values are for non- subjects only; production of AFP elevates values in women. ----ADDITIONAL INFORMATION---- In this [place] assay AFP concen trations are <8.4 ng/mL for 99% of a normal popul ation consisting of non- healthy indiv iduals, without known liver disease, hepatocellu lar carcinoma, or germ-cell tumors. ??The persistence of alpha-fetoprotein, an uncommon heredita ry trait may cause elevations of AFP above the refere nce interval. ? The testing method is an immunoenzymatic assay manufactured by [employer]. and is tested on the [employer] DxI 800. Values obtained with different assay [...] (Blood, 12/08/2021 10:08 12/08/2021 2:08 Venous) AM HEALTHCARE RECRUITER PM HEALTHCARE RECRUITER Bao Cheng M.D. LAB BLOOD ADD-ON Performing Organization Address City/[facility]/ZIP [facility] Phon e Number [facility] [address] [place], [place] [address] [facility] [place] [address] Laboratory Medicine and Pathology [address] [place] (ABNORMAL) Prothrombin Time (PT) (12/08/2021 10:08 AM HEALTHCARE RECRUITER) Patholo gist Method Time Signature Prothrombin 15.3 (H) 9.4 - 12.5 12/08/2021 DTL Time, P sec 11:05 AM HEALTHCARE RECRUITER INR 1.4 0.9 - 1.1 12/08/2021 DTL 11:05 AM HEALTHCARE RECRUITER Comment: ----ADDITIONAL INFORMATION---- Standard intensity warfarin therapeutic range: 2.0 to 3.0 ?? High intensity warfarin therapeutic rang e: 2.5 to 3.5 Specimen Anatomical Collection Method Collection Time Receive d Time (Source) Location / / Volume Laterality Blood (Blood, 12/08/2021 10:08 12/08/2021 Venous) AM HEALTHCARE RECRUITER 10:52 AM HEALTHCARE RECRUITER Bao Cheng M.D. LAB BLOOD ADD-ON Performing Organization Address City/[facility] Code Phon e Number [facility] - [address] [place], [place] [address] [facility] [place] [address] Laboratories-[facility] [address] (ABNORMAL) Comprehensive Metabolic Panel (12/08/2021 10:08 AM HEALTHCARE RECRUITER) P athologist Signature Potassium, S 4.0 3.6 - 5.2 12/08/2021 DTL mmol/L 11:43 AM HEALTHCARE RECRUITER Sodium, S 142 135 - 145 12/08/2021 DTL mmol/L 11:43 AM HEALTHCARE RECRUITER Chloride, S 106 98 - 107 12/08/2021 DTL mmol/L 11:43 AM HEALTHCARE RECRUITER Bicarbonate, S 27 22 - 29 12/08/2021 DTL mmol/L 11:43 AM HEALTHCARE RECRUITER Anion Gap 9 7 - 15 12/08/2021 DTL 11:43 AM HEALTHCARE RECRUITER BUN (Blood Urea 10 6 - 21 12/08/2021 DTL Nitrogen), S mg/dL 11:43 AM HEALTHCARE RECRUITER Creatinine 0.87 0.59 - 12/08/2021 DTL 1.04 mg/dL 11:43 AM HEALTHCARE RECRUITER eGFR-Non 78 >=60 12/08/2021 DTL Black/ mL/min/BSA 11:43 AM HEALTHCARE RECRUITER Vincentian Comment: ----ADDITIONAL INFORMATION---- Estimated GFR calculated using the 2009 CKD_EPI creatinine equation. eGFR-Black/ 90 >=60 mL/min/BSA 2021 11:43 AM HEALTHCARE RECRUITER DTL Comment: ----ADDITIONAL INFORMATION---- Estimated GFR calculated using the 2009 CKD_EPI creatinine equation. Calcium, Total, S 9.5 8.6 - 10.0 mg/dL 12/08/2021 11:4 3 AM HEALTHCARE RECRUITER DTL Glucose, S 87 70 - 140 mg/dL 12/08/2021 11:43 AM HEALTHCARE RECRUITER DTL Protein, Total, S 6.3 6.3 - 7.9 g/dL 12/08/2021 11:43 AM HEALTHCARE RECRUITER DTL Albumin, S 3.8 3.5 - 5.0 g/dL 12/08/2021 11:43 AM HEALTHCARE RECRUITER DTL Aspartate Aminotransferase 60 (H) 8 - 43 U/L 12/08/2021 1 1:43 AM HEALTHCARE RECRUITER DTL (AST), S Alkaline Phosphatase, S 156 (H) 35 - 104 U/L 12/08/2021 11 :43 AM HEALTHCARE RECRUITER DTL Alanine Aminotransferase 37 7 - 45 U/L 12/08/2021 11: 43 AM HEALTHCARE RECRUITER DTL (ALT), S Bilirubin, Total, S 1.3 (H) <=1.2 mg/dL 12/08/2021 11:43 A M HEALTHCARE RECRUITER DTL Specimen Anatomical Collection Method Collection Time Receive d Time (Source) Location / / Volume Laterality Blood (Blood, 12/08/2021 10:08 12/08/2021 Venous) AM HEALTHCARE RECRUITER 11:16 AM HEALTHCARE RECRUITER Bao Cheng M.D. LAB BLOOD ADD-ON Performing Organization Address City/State/ZIP Code Phon e Number [facility] - [address] [place], [place] [address] [facility] [place] [address] Laboratories-[facility] [address] [facility] (ABNORMAL) CBC with Differential, Blood (12/08/2021 10:08 AM HEALTHCARE RECRUITER) [facility] Method Time Signature Hemoglobin 12.1 11.6 - 12/08/2021 DTL 15.0 g/dL 11:07 AM HEALTHCARE RECRUITER Hematocrit 36.0 35.5 - 12/08/2021 DTL 44.9 % 11:07 AM HEALTHCARE RECRUITER Erythrocytes 3.88 (L) 3.92 - 12/08/2021 DTL 5.13 11:07 AM HEALTHCARE RECRUITER x10(12)/L MCV 92.8 78.2 - 12/08/2021 DTL 97.9 fL 11:07 AM HEALTHCARE RECRUITER RBC Distrib Width 13.8 12.2 - 12/08/2021 DTL 16.1 % 11:07 AM HEALTHCARE RECRUITER Platelet Count 125 (L) 157 - 371 12/08/2021 DTL x10(9)/L 11:51 AM HEALTHCARE RECRUITER Comment: Results confirmed by smear, no clumping or interference seen. Leukocytes 6.3 3.4 - 9.6 x10(9)/L 12/08/2021 11:51 AM HEALTHCARE RECRUITER DTL Neutrophils 2.65 1.56 - 6.45 x10(9)/L 12/08/2021 11:07 AM HEALTHCARE RECRUITER DTL Lymphocytes 2.56 0.95 - 3.07 x10(9)/L 12/08/2021 11:07 AM HEALTHCARE RECRUITER DTL Monocytes 0.49 0.26 - 0.81 x10(9)/L 12/08/2021 11:07 AM HEALTHCARE RECRUITER DTL Eosinophils 0.52 (H) 0.03 - 0.48 x10(9)/L 12/08/2021 11:07 AM HEALTHCARE RECRUITER DTL Basophils 0.07 0.01 - 0.08 x10(9)/L 12/08/2021 11:07 AM HEALTHCARE RECRUITER DTL Specimen Anatomical Collection Method Collection Time Receive d Time (Source) Location / / Volume Laterality Blood (Blood, 12/08/2021 10:08 12/08/2021 Venous) AM HEALTHCARE RECRUITER 10:55 AM HEALTHCARE RECRUITER Bao Cheng M.D. LAB BLOOD ADD-ON Performing Organization Address City/State/ZIP Code Phon e Number [facility] - [address] [place], [place] [address] [facility] [place] [address] Laboratories-[facility] [address] documented in this encounter Visit Diagnoses Diagnosis Alcoholic Cirrhosis Of Liver Without Asc ites (HCC) documented in this encounter
--- OUTSIDE RECORDS SUMMARY | 2022-08-17 17:29 | XMS_ITS | Encounter Summary ---
:1970 Author Organization [facility] Address [address] [place] [address] Care Team Providers Name Role Phone Unavailable Primary Care Provider Unavailable Reason for Referral Outpatient (Routine) - Closed Specialty Diagnoses / Referred By Referred To Cont act Procedures Contact Gastroenterology and Bao Cheng [facility] [place] [address] [place] [address] Referral ID Status Reason Start Date Expiration Date Visits Requ ested Visits Authorized [id number] Closed 11/23/2020 11/23/2021 1 1 ehavioral Health (Routine) - Closed Specialty Diagnoses / Procedures Referred By Contact Refer red To Contact Psychiatry / Psychiatry Diagnoses Alcoholic Cirrhosis Of Liver Without Ascites (HCC) Bao Cheng M.D. [facility] 200 [place] [address] Referral ID Status Reason Start Date Expiration Date Visits Requ ested Visits Authorized [id number] Closed 11/23/2020 11/23/2021 1 1 utpatient (Routine) - Closed Specialty Diagnoses / Procedures Referred By Contact Refer red To Contact Diagnoses Alcoholic Cirrhosis Of Liver Without Ascites (HCC) Bao Cheng M.D. [facility] Procedures Fibroscan [address] [place] [address] Referral ID Status Reason Start Date Expiration Date Visits Requ ested Visits Authorized [id number] Closed 11/23/2020 11/23/2021 1 1 utpatient (Routine) - Closed Specialty Diagnoses / Procedures Referred By Contact Refer red To Contact Diagnoses Alcoholic Cirrhosis Of Liver Without Ascites (HCC) Bao Cheng M.D. [facility] Procedures EGD (EsophagealGastroDuodenoscopy) [address] [place] [phone] Referral ID Status Reason Start Date Expiration Date Visits Requ ested Visits Authorized [id number] Closed 11/23/2020 11/23/2021 1 1 MANAGER Reason for Visit Outpatient (Routine) - Closed Specialty Diagnoses / Referred By Referred To Cont act Procedures Contact Gastroenterology and Diagnoses Alcoholic Cirrhosis Of Liver Without Ascites (HCC) [facility] [place] [facility] [address] [place] [phone] Referral ID Status Reason Start Date Expiration Date Visits Requ ested Visits Authorized [id number] Closed 08/06/2020 08/06/2021 1 1 Encounter Details Date Type Department Care Team Description 11/23/2020 Comprehensive Visit Division of Jonnathan Ashraf M.D. [address] [place] [phone] Alcoholic Gastroenterology in Bao Cheng M.D. [address] [place] [phone] Cirrhosis Of Liver [place], [place] Without Ascites [address] [place] [address] (HCC) [place] [phone] Social History Tobacco Use Types Packs/Day Years [...] or relatives? How often do you attend hindu or More than 4 times per year 06/20/2022 confucianist services? Do you belong to any clubs or Yes 06/20/2022 organizations such as hindu groups, unions, fraternal or athletic groups, or [...] 12 months, you worried that your food Somegracie mes true 06/20/2022 would run out before [...] place to sleep or slept in a alf (including now)? Sex Assigned at Date Recorded Female 12/05/2021 3:21 PM NC MANAGER documented as of this encounter Consult Notes Bao Cheng M.D. - 11/23/2020 2:10 PM CST Referring Physician: Steffanie Anglin M.D. Primary Care Physician: No primary care provider on file. Subjective: Chief Complaint/Reason for Consult: Alcohol-associated liver disease c/b variceal hemorrhage HPI: Joana Berry is a 50 y.o. female with history of alcohol use disorder and alcohol-related cirrhosis who was admitted to [facility] in July 2020 with acute upper GI bleed secondary to variceal hemorrhage and gastric ulcer, who presents for follow up. On August 02 2020, she presented to the ED with reports of melena and coffee ground emesis, and was found to be anemic to 7.0. Her EGD showed large esophageal varices with red josefina sign, as well as a gastric ulcer with 8mm adherent clot. Her MELD-Na was 15. She underwent a follow up EGD in 4 weeks that showed additional large (>5mm) varices which were banded with incomplete eradication. She was ordered for another EGD which has not been done yet. In the meantime, Ms. Berry has been doing well and maintaining her complete abstinence from alcohol. She reports feeling better with no abdominal pain, melena, nausea/vomiting, hematemesis, jaundice,abdominal/extremity swelling. She states that she has an eating disorder and it goes hand in hand with her drinking as it can be difficult to control the amount of her eating/drinking. She has previously been seeing a therapist. She lives alone with her dogs but reports having a supportive network of friends. Patient Active Problem List Diagnosis Date Noted ??? Ulcer Gastric Acute With Hemorrhage 08/04/2020 ??? Hemorrhage Gastrointestinal 08/02/2020 ??? Alcoholic Cirrhosis Of Liver Without Ascites (HCC) 08/02/2020 ??? Esophageal Varix With Bleeding (HCC) 08/02/2020 ??? Alcohol Moderate Or Severe Use Disorder (Dependence) Uncomplicated (HCC) 08/02/2020 ??? Anemia Posthemorrhagic Acute (Blood Loss Anemia) 08/02/2020 ??? Nodule Pulmonary Solitary 11/23/2019 ??? Diverticulosis Of Large Intestine Without Perforation Or Abscess Without Bleeding 08/27/2019 ??? Anemia Nutritional 07/28/2018 ??? Hypertension 05/01/2013 Past Medical History: Diagnosis Date ??? Anemia ??? Cirrhosis Nonalcoholic (HCC) ??? Diverticulosis ??? Hemorrhage Gastrointestinal ??? Hypertension NOS ??? Nodule Pulmonary ??? 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 Ulcer Peptic Past Surgical History: Procedure Laterality Date ??? ABDOMINAL SURGERY Allergies Allergen Reactions ??? Amoxicillin Rash Prior to Admission medications Medication Sig Start Date End Date Taking? Authorizing Provider ascorbic acid, vitamin C, (VITAMIN C) 1,000 mg tablet Take 1,000 mg by mouth daily. 06/14/20 Provider, Historical ferrous sulfate 325 mg (65 mg iron) tablet Take 325 mg by mouth daily. Provider, Historical levocetirizine (XYZAL) 5 mg tablet Take 5 mg by mouth daily. Provider, Historical magnesium oxide (MAG-OX) 400 mg (241.3 mg magnesium) tablet Take 400 mg by mouth every morning before breakfast. 12/31/19 Provider, Historical gtiqshioqevg-ekya-IO-Ca-minerals (THERAPEUTIC-M) 9 mg iron-400 mcg per tablet Take 1 tablet by mouthdaily. 08/07/20 Jolynn Palomares M.D. omega 0-oig-cxm-fish oil 1,000 mg (120 mg-180 mg) capsule Take 1,000 mg by mouth daily. 06/14/20 Provider, Bert pantoprazole (PROTONIX) 40 mg EC tablet TAKE ONE TABLET BY MOUTH TWICE A DAY BEFORE BREAKFAST AND DINNER 09/24/20 Jolynn Palomares M.D. sulfamethoxazole-trimethoprim (BACTRIM DS) 800-160 mg per tablet Take 1 tablet by mouth every 12 (twelve) hours. 08/06/20 Jolynn Palomares M.D. pantoprazole (PROTONIX) 40 mg EC tablet Take 1 tablet (40 mg total) by mouth 2 (two) times a day before breakfast and dinner. 08/06/20 Jolynn Palomares M.D. No family history on file. Family History of: Details Colon Cancer [x] No [] Yes Inflammatory Bowel Disease [x] No [] Yes Liver Disease [x] No [] Yes Social History Socioeconomic History ??? Marital status: Single Spouse name: Not on file ??? Number of children: Not on file ??? Years of education: Not on file ??? Highest education level: Not on file Occupational History ??? Not on file Social Needs ??? Financial resource strain: Not on file ??? Food insecurity Worry: Not on file Inability: Not on file ??? Transportation needs Medical: Not on file Non-medical: Not on file Tobacco Use ??? Smoking status: Former Smoker ??? Smokeless tobacco: Never Used ??? Tobacco comment: social smoker Substance and Sexual Activity ??? Alcohol use: Yes Comment: daily drinker ??? Drug use: Never ??? Sexual activity: Defer Lifestyle ??? Physical activity Days per week: Not on file Minutes per session: Not on file ??? Stress: Not on file Relationships ??? Social connections Talks on phone: Not on file Gets together: Not on file Attends confucianist service: Not on file Active member of club or organization: Not on file Attends meetings of clubs or organizations: Not on file Relationship status: Not on file ??? Intimate partner violence Fear of current or ex partner: Not on file Emotionally abused: Not on file Physically abused: Not on file Forced sexual activity: Not on file Other Topics Concern ??? Not on file Social History Narrative ??? Not on file Review of Systems Pertinent items are noted in HPI. Objective: Vital Signs: Physical ExaM General: Pleasant, anxious, well-appearing, in no apparent distress HEENT: NCAT, PERRL, EOMI, no conjunctival icterus CV: RRR Lungs: Breathing comfortably on room air Abdomen: Soft, non-tender, non-distended, no hepatosplenomegaly Ext: No clubbing, cyanosis, edema Skin: No jaundice Neuro: A&Ox3, grossly unremarkable Lab Results Component Value Date WBC 5.5 08/06/2020 HGB 7.5 (L) 08/06/2020 HCT 23.6 (L) 08/06/2020 MCV 101.7 (H) 08/06/2020 PLT 72 (L) 08/06/2020 Lab Results Component Value Date NA 139 08/04/2020 KSERUM 3.8 08/04/2020 KPLASMA 3.8 08/02/2020 CL 106 08/04/2020 BICARB 22 08/04/2020 CREATININE 0.74 08/04/2020 EGFRNONBLKAA >90 08/04/2020 BUN 26 (H) 08/04/2020 ANIONGAP 11 08/04/2020 GLUCOSE 106 08/04/2020 CALCIUM 7.9 (L) 08/04/2020 Lab Results Component Value Date ALT 22 08/04/2020 AST 39 08/04/2020 ALKPHOS 101 08/04/2020 BILITOT 2.1 (H) 08/04/2020 Lab Results Component Value Date INR 1.7 08/03/2020 INR 2.1 08/02/2020 PT 18.5 (H) 08/03/2020 PT 23.6 (H) 08/02/2020 EXAM: US LIVER WITH LIVER DOPPLER Exam performed with color and spectral Doppler analysis. ?? COMPARISON: Outside CT 08/02/2020 ?? FINDINGS: Liver: Coarsened hepatic parenchymal echotexture. No liver mass. ?? Doppler: Splenic and hepatic veins are patent with antegrade flow. Slow antegrade portal vein flow. The main hepatic artery is patent with antegrade flow. Recanalized umbilical vein. ?? Intrahepatic ducts: Not dilated. ?? Common duct: Normal caliber CHD at 6mm Common bile duct slightly prominent, measuring up to 8 mm. No obstructing stone identified. ?? Gallbladder: Biliary sludge. Negative sonographic Diehl sign. ?? Other: Trace perihepatic and pelvic ascites. ?? IMPRESSION: 1. Coarsened hepatic parenchymal echotexture and trace perihepatic ascites consistent with parenchymal liver disease. 2. Slow antegrade portal vein flow and recanalization of the umbilical vein compatible with portal hypertension. Assessment/Plan: # Alcohol use disorder # Eating disorders # Alcohol-associated liver disease # Large Esophageal varices s/p banding # Peptic ulcer disease Joana Berry is a 50 y.o. female with history of alcohol use disorder and alcohol-related cirrhosis who was admitted to [facility] in July 2020 with acute upper GI bleed secondary to variceal hemorrhage and gastric ulcer, who presents for follow up. Ms. Berry is overall doing better with no recurrence of bleeding and has been able to maintain her abstinence. Based on the reports of her imaging in July, it is unclear whether she is truly cirrhotic vs. it was an episode of alcohol-associated hepatitis. 1. Recheck CBC, CMP, and INR to assess her current state of liver function 2. Obtain a Fibroscan to assess liver stiffness and determine whether she has cirrhosis 3. Repeat EGD with banding for her large esophageal varices 4. Referral to Psychiatry for further assistance on her eating disorder/alcohol use disorder Electronically signed by: Bao Cheng M.D. 11/23/2020 1:58 PM NC MANAGER Seen and staffed with Dr. Jonnathan Ashraf MANAGER Jonnathan Ashraf M.D. - 11/23/2020 2:10 PM CST SUBJECTIVE CHIEF COMPLAINT/REASON FOR VISIT I have seen Joana Berry and concur with the history and exam as outlined by Dr. Bao Cheng. Additionally discussed the case, and I concur with his assessment. HISTORY OF PRESENT ILLNESS In brief, this is a 50-year-old lady with history of alcohol use disorder and eating disorder, who had esophageal varices and gastric ulcer with bleeding a few months back. She has been abstinent sincethen. She comes for opinion on management. OBJECTIVE PHYSICAL EXAMINATION General: On exam, I concur with all the kirk findings outlined by Dr. Cheng. ASSESSMENT / PLAN #1 Alcohol associated liver disease and alcohol use disorder We will go ahead with upper endoscopy to continue banding of varices and check on the gastric ulcer.We will also get FibroScan to evaluate for cirrhosis. We will also refer to Psychiatry for alcohol use disorder counseling. She would likely need continued interval assessments with us perhaps on a 6-month basis or sooner depending when she may need banding again anyway. Jonnathan Ashraf M.D. CT CT Job ID: [id number] MANAGER documented in this encounter Plan of Treatment Scheduled Referrals Name Type Priority Associated Order Schedule Diagnoses Psychiatry and Outpatient Routine Alcoholic Expected: Psychology - Addiction / Referral Cirrhosis Of Alix er 11/23/2020 substance abuse consult Without Ascites ( Approximate), (clinic) (HCC) Expires: 11/23/2023 Gastroenterology and Outpatient Routine Expecte d: Hepatology office visit Referral 11/2020 (clinic) (Approximate), Expires: 11/23/2023 documented as of this encounter Results AL ELASTOGRAPHY LIVER WO IMG I&R (11/25/2020 3:00 PM NC MANAGER) Narrative MMODAL - 11/25/2020 3:00 PM NC MANAGER Siddhartha Montemayor P.A.-C. ? 11/25/2020 ??3:14 PM [...] Code Phon e Number MMODAL MMODAL NA (ABNORMAL) Prothrombin Time (PT) (11/23/2020 3:10 PM NC MANAGER) [facility] Method Time Signature Prothrombin 16.9 (H) 9.4 - 12.5 11/23/2020 DTL Time, P sec 3:37 PM NC MANAGER INR 1.5 0.9 - 1.1 11/23/2020 DTL 3:37 PM NC MANAGER Comment: ----ADDITIONAL INFORMATION---- Standard intensity warfarin therapeutic range: 2.0 to 3.0 ?? High intensity warfarin therapeutic rang e: 2.5 to 3.5 Specimen Anatomical Collection Method Collection Time Receive d Time (Source) Location / / Volume Laterality Blood (Blood, 11/23/2020 3:10 PM 11/23/19 21 3:17 Venous) NC MANAGER PM NC MANAGER Bao Cheng M.D. LAB BLOOD ADD-ON Performing Organization Address City/State/ZIP Code Phon e Number [facility] - [address] [place], [place] [address] [facility] [place] [address] Laboratories-[facility] [address] (ABNORMAL) CBC with Differential, Blood (11/23/2020 3:10 PM NC MANAGER) [facility] Method Time Signature Hemoglobin 10.1 (L) 11.6 - 11/23/2020 DTL 15.0 g/dL 3:33 PM NC MANAGER Hematocrit 31.4 (L) 35.5 - 11/23/2020 DTL 44.9 % 3:33 PM NC MANAGER Erythrocytes 3.46 (L) 3.92 - 11/23/2020 DTL 5.13 3:33 PM NC MANAGER x10(12)/L MCV 90.8 78.2 - 11/23/2020 DTL 97.9 fL 3:33 PM NC MANAGER RBC Distrib Width 16.2 (H) 12.2 - 11/23/2020 DTL 16.1 % 3:33 PM NC MANAGER Platelet Count 137 (L) 157 - 371 11/23/2020 DTL x10(9)/L 3:33 PM NC MANAGER Leukocytes 6.4 3.4 - 9.6 11/23/2020 DTL x10(9)/L 3:33 PM NC MANAGER Neutrophils 3.25 1.56 - 11/23/2020 DTL 6.45 3:33 PM NC MANAGER x10(9)/L Lymphocytes 1.76 0.95 - 11/23/2020 DTL 3.07 3:33 PM NC MANAGER x10(9)/L Monocytes 0.66 0.26 - 11/23/2020 DTL 0.81 3:33 PM NC MANAGER x10(9)/L Eosinophils 0.67 (H) 0.03 - 11/23/2020 DTL 0.48 3:33 PM NC MANAGER x10(9)/L Basophils 0.09 (H) 0.01 - 11/23/2020 DTL 0.08 3:33 PM NC MANAGER x10(9)/L Specimen Anatomical Collection Method Collection Time Receive d Time (Source) Location / / Volume Laterality Blood (Blood, 11/23/2020 3:10 PM 11/23/19 3:17 Venous) NC MANAGER PM NC MANAGER Bao Cheng M.D. LAB BLOOD ADD-ON Performing Organization Address City/State/ZIP Code Phon e Number [facility] - [address] [place] [phone] [facility] [place] [address] [address] (ABNORMAL) Comprehensive Metabolic Panel (11/23/2020 3:10 PM NC MANAGER) P athologist Signature Potassium, S 4.1 3.6 - 5.2 11/23/2020 DTL mmol/L 3:53 PM NC MANAGER Sodium, S 139 135 - 145 11/23/2020 DTL mmol/L 3:53 PM NC MANAGER Chloride, S 106 98 - 107 11/23/2020 DTL mmol/L 3:53 PM NC MANAGER Bicarbonate, S 24 22 - 29 11/23/2020 DTL mmol/L 3:53 PM NC MANAGER Anion Gap 9 7 - 15 11/23/2020 DTL 3:53 PM NC MANAGER BUN (Blood Urea 6 6 - 21 11/23/2020 DTL Nitrogen), S mg/dL 3:53 PM NC MANAGER Creatinine 0.90 0.59 - 11/23/2020 DTL 1.04 mg/dL 3:53 PM NC MANAGER eGFR-Non 75 >=60 11/23/2020 DTL Black/ mL/min/BSA 3:53 PM NC MANAGER Finnish Comment: ----ADDITIONAL INFORMATION---- Estimated GFR calculated using the 2009 CKD_EPI creatinine equation. eGFR-Black/ 87 >=60 mL/min/BSA 2020 3:53 PM NC MANAGER DTL Comment: ----ADDITIONAL INFORMATION---- Estimated GFR calculated using the 2009 CKD_EPI creatinine equation. Calcium, Total, S 8.7 8.6 - 10.0 mg/dL 11/23/2020 3:53 PM NC MANAGER DTL Glucose, S 80 70 - 140 mg/dL 11/23/2020 3:53 PM NC MANAGER D TL Protein, Total, S 6.3 6.3 - 7.9 g/dL 11/23/2020 3:53 P M NC MANAGER DTL Albumin, S 3.2 (L) 3.5 - 5.0 g/dL 11/23/2020 3:53 PM NC MANAGER D TL Aspartate Aminotransferase 57 (H) 8 - 43 U/L 11/23/2020 3 :53 PM NC MANAGER DTL (AST), S Alkaline Phosphatase, S 157 (H) 35 - 104 U/L 11/23/2020 3: 53 PM NC MANAGER DTL Alanine Aminotransferase 29 7 - 45 U/L 11/23/2020 3:5 3 PM NC MANAGER DTL (ALT), S Bilirubin, Total, S 1.1 <=1.2 mg/dL 11/23/2020 3:53 PM NC MANAGER DTL Specimen Anatomical Collection Method Collection Time Receive d Time (Source) Location / / Volume Laterality Blood (Blood, 11/23/2020 3:10 PM 11/23/19 3:17 Venous) NC MANAGER PM NC MANAGER Bao Cheng M.D. LAB BLOOD ADD-ON Performing Organization Address City/State/ZIP Code Phon e Number [facility] - [address] [place], [place] [address] [facility] [place] [address] [facility] [address] documented in this encounter Visit Diagnoses Diagnosis Alcoholic Cirrhosis Of Liver Without Asc ites (HCC) Alcoholic Cirrhosis Of Liver Without Asc ites (HCC) documented in this encounter
--- OUTSIDE RECORDS SUMMARY | 2022-08-17 17:29 | XMS_ITS | Encounter Summary ---
:1970 Author Organization [facility] Address [address] [place] [address] Care Team Providers Name Role Phone Unavailable Primary Care Provider Unavailable Reason for Referral Specialty Diagnoses / Procedures Referred By Contact Refer red To Contact Angélica Mederos M.D. [facility] [address] [place] [phone] Referral ID Status Reason Start Date Expiration Date Visits Requ ested Visits Authorized TESTING TECHNICIAN Encounter Details Date Type Department Care Team Description 09/02/2021 Orders Only RST PCP [facility] MNT Angélica Mederos M.D. [address] [place] [phone] (Wo rk) Social History Tobacco [...] or relatives? How often do you attend adventism or More than 4 times per year 06/20/2022 congregation services? Do you belong to any clubs or Yes 06/20/2022 organizations such as adventism groups, unions, fraternal or athletic groups, or [...] or slept in a half-way (including now)? Sex Assigned at Date Recorded Female 12/05/2021 3:21 PM FUEL TESTING TECHNICIAN documented as of this encounter Plan of Treatment Scheduled Referrals Name Type Priority Associated Order Schedule Diagnoses Covid immunization Outpatient Referral Routine Ex pected: office visit Booster 021 (Approximate), Expires: 09/02/2022 documented as of this encounter Visit Diagnoses Not on filedocumented in this encounter
--- OUTSIDE RECORDS SUMMARY | 2022-08-17 17:29 | XMS_ITS | Encounter Summary ---
:1970 Author Organization [facility] Address [address] [place] [address] Care Team Providers Name Role Phone Unavailable Primary Care Provider Unavailable Encounter Details Date Type Department Care Team Description 12/16/2021 Orders Only Division of Gastroenterology Bao Cheng M.D. in [facility] [place] 200 [facility] [address] [place] [phone] (Wo rk) Social History Tobacco Use Types [...] or relatives? How often do you attend zoroastrian or More than 4 times per year 06/20/2022 restoration services? Do you belong to any clubs or Yes 06/20/2022 organizations such as zoroastrian groups, unions, fraternal or athletic groups, or [...] place to sleep or slept in a [facility] (including now)? Education Answer Date Recorded What is the highest level of school you have Some college, n o degree 12/05/2021 completed or the highest degree you have received? Sex Assigned at Date Recorded Female 12/05/2021 3:21 PM ETL TESTER documented as of this encounter Plan of Treatment Not on filedocumented as of this encounter Visit Diagnoses Not on filedocumented in this encounter
--- OUTSIDE RECORDS SUMMARY | 2022-08-17 17:29 | XMS_ITS | Encounter Summary ---
:1970 Author Organization [facility] Address [address] [place] [address] Care Team Providers Name Role Phone Unavailable Primary Care Provider Unavailable Encounter Details Date Type Department Care Team Description 11/21/2021 Clinical Communication Division of Bao Cheng, Gastroenterology in [place], [place] [address] [email or web address] [address] [place] [phone] Social History Tobacco Use Types Packs/Day Years [...] or relatives? How often do you attend islam or More than 4 times per year 06/20/2022 baptist services? Do you belong to any clubs or Yes 06/20/2022 organizations such as islam groups, unions, fraternal or athletic groups, or [...] place to sleep or slept in a residential (including now)? Sex Assigned at Date Recorded Female 12/05/2021 3:21 PM BOX CUTTER documented as of this encounter Plan of Treatment Not on filedocumented as of this encounter Visit Diagnoses Not on filedocumented in this encounter
--- OUTSIDE RECORDS SUMMARY | 2022-08-17 17:29 | XMS_ITS | Encounter Summary ---
:1970 Author Organization [facility] Address [address] [place] [address] Care Team Providers Name Role Phone Unavailable Primary Care Provider Unavailable Encounter Details Date Type Department Care Team Description 11/25/2020 Ancillary Procedure Department of Gastroenterology Social History Tobacco Use Types Packs/Day Years [...] or relatives? How often do you attend anabaptism or More than 4 times per year 06/20/2022 jew services? Do you belong to any clubs or Yes 06/20/2022 organizations such as anabaptism groups, unions, fraternal or athletic groups, or [...] place to sleep or slept in a [facility] (including now)? Sex Assigned at Date Recorded Female 12/05/2021 3:21 PM LAND ACQUISITION ANALYST documented as of this encounter Plan of Treatment Not on filedocumented as of this encounter Procedures Procedure Name Priority Date/Time Associated Diagnosis Comme nts GI AND GENERAL Routine 11/25/2020 1:20 PM Results for this SURGERY IMAGE EXAM LAND ACQUISITION ANALYST procedure are in the results section. documented in this encounter Results EGD-GI And General Surgery Image Exam (11/25/2020 1:20 PM LAND ACQUISITION ANALYST) Specimen (Source) Anatomical Collection Method Collection Time Re ceived Time Location / / Volume Laterality 11/25/2020 1:19 PM LAND ACQUISITION ANALYST Narrative [facility] - 11/25/2020 2:21 PM LAND ACQUISITION ANALYST This order has been created and auto-finalized to support the import of images acquired without order. The clini andre documentation to support these images can be found on the encounter adam t produced images. Provider Not In System IMG NON RAD IMAGING PROCEDUR ES Performing Organization Address City/State/ZIP Code Phon e Number [facility] NA documented in this encounter Visit Diagnoses Not on filedocumented in this encounter
--- OUTSIDE RECORDS SUMMARY | 2022-08-17 17:29 | XMS_ITS | Encounter Summary ---
:1970 Author Organization [facility] Address [address] [place] [address] Care Team Providers Name Role Phone Unavailable Primary Care Provider Unavailable Encounter Details Date Type Department Care Team Description 11/23/2020 Lab Department of Laboratory Chandrika Cheng M.D. Encounter For Preprocedural Laboratory E xamination (COVID-19); Medicine and Pathology, [address] [place] [address] Contact With And (Suspected) Exposure To COVID-19 [facility], in [place], [place] [address] [place] [address] [place] [address] [phone] Social History Tobacco Use Types Packs/Day Years [...] or relatives? How often do you attend buddhist or More than 4 times per year 06/20/2022 bahai services? Do you belong to any clubs or Yes 06/20/2022 organizations such as buddhist groups, unions, fraternal or athletic groups, or [...] at Date Recorded Female 12/05/2021 3:21 PM GUIDANCE CONSULTANT documented as of this encounter Plan of Treatment Not on filedocumented as of this encounter Procedures Procedure Name Priority Date/Time Associated Diagnosis Comme nts SARS Routine 11/23/2020 3:13 PM Encounter For Results for this CORONAVIRUS-2, PCR GUIDANCE CONSULTANT Preprocedural procedur e are in Laboratory Examination the r esults (COVID-19) section. Contact With And (Suspected) Exposure To COVID-19 documented in this encounter Results SARS Coronavirus-2, PCR Asymptomatic (11/23/2020 3:13 PM GUIDANCE CONSULTANT) [facility] gist Method Time Signature SARS Swab, 11/23/2020 DTL Coronavirus-2 Nasopharynx 11:16 PM Source GUIDANCE CONSULTANT SARS Undetected Undetected 11/23/2020 DTL Coronavirus-2 11:16 PM , PCR GUIDANCE CONSULTANT Comment: SARS-CoV-2 RNA absent. This result does not rule out COVID-19 in the patient, as the sensitivity of the test depends o n the timing of the specimen collection and quality of the specimen. Result should be correlated with patient's history and clinical presentat ion. ----ADDITIONAL INFORMATION---- This test was developed and its performa nce characteristics determined by [facility] in a manner co nsistent with CLIA requirements. Independent review by the U.S. Food and Drug Administration is pending. Visit the CDC website: https://www.cdc.gov/coronavirus/ ?? for the most recent guidelines on [place] virus testing. Fact Sheet for Healthcare Providers: (https://www.norfolkEarth Sky.com/it-mmfil es/ Provider_Fact_Sheet_for_[facility]_COVI D-19.pdf) Fact Sheet for Patients: (https://www.[facility] southFindYogis.com/it-mmfil es/ Patient_Fact_Sheet_for_COVID-19.pdf) Specimen Anatomical Collection Method Collection Time Receive d Time (Source) Location / / Volume Laterality Varies 11/23/2020 3:13 PM 4:23 (Nasopharynx) GUIDANCE CONSULTANT PM GUIDANCE CONSULTANT Bao Cheng M.D. LAB MICROBIOLOGY - GENERAL O RDERABLES Performing Organization Address City/State/[facility] Code Phon e Number [facility] - [address] [place], [place] [address] [facility] [place] [place] [address] Laboratories-[facility] [address] documented in this encounter Visit Diagnoses Diagnosis Encounter For Preprocedural Laboratory E xamination (COVID-19) Contact With And (Suspected) Exposure To COVID-19 documented in this encounter Additional Health Concerns Infection Onset Date Last Indicated Resolved Time COVID19 Pending 11/23/2020 11/23/2020 11/23/2020 11:16 PM GUIDANCE CONSULTANT documented as of this encounter
--- OUTSIDE RECORDS SUMMARY | 2022-08-17 17:29 | XMS_ITS | Encounter Summary ---
:1970 Author Organization [facility] Address [address] [place] [address] Care Team Providers Name Role Phone Unavailable Primary Care Provider Unavailable Reason for Referral Outpatient (Routine) - Closed Specialty Diagnoses / Referred By Referred To Cont act Procedures Contact Gastroenterology and Diagnoses Alcoholic Cirrhosis Of Liver Without Ascites (HCC) Steffanie Anglin [facility] Hepatology [place] Carbone [address] [place] [address] Referral ID Status Reason Start Date Expiration Date Visits Requ ested Visits Authorized [id number] Closed 08/06/2020 08/06/2021 1 1 Reason for Visit Reason Comments Pre-visit Testing Orders Encounter Details Date Type Department Care Team Description 08/06/2020 Clinical Communication RST KP Venegas, Pre-visit Testing [address] [facility] Steffanie [place] [address] Social History Tobacco Use Types Packs/Day Years [...] More than 4 times per year 06/20/2022 temple services? Do you belong to any clubs [...] place to sleep or slept in a fci (including now)? Sex Assigned at Date Recorded Female 12/05/2021 3:21 PM MOTOR OVERHAULER documented as of this encounter Plan of Treatment Scheduled Referrals Name Type Priority Associated Order Schedule Diagnoses Gastroenterology and Outpatient Routine Alcoholic Expecte d: Hepatology - Hepatology Referral Cirrhosis Of Live r 09/06/2020 consult (clinic) Without Ascites (Approxi mate), (HCC) Expires: 08/06/2023 documented as of this encounter Visit Diagnoses Diagnosis Alcoholic Cirrhosis Of Liver Without Asc ites (HCC) - Primary documented in this encounter
--- OUTSIDE RECORDS SUMMARY | 2022-08-17 17:29 | XMS_ITS | Encounter Summary ---
:1970 Author Organization [facility] Address [address] [place] [address] Care Team Providers Name Role Phone Unavailable Primary Care Provider Unavailable Encounter Details Date Type Department Care Team Description 09/22/2020 Clinical Communication Division of Steffanie Vega Internal Medicine, [place] [place] [place] [address] [place] [address] Social History Tobacco Use Types Packs/Day Years [...] or relatives? How often do you attend temple or More than 4 times per year 06/20/2022 orthodoxy services? Do you belong to any clubs or Yes 06/20/2022 organizations such as temple groups, unions, fraternal or athletic groups, or [...] place to sleep or slept in a [place] health care facility (including now)? Sex Assigned at Date Recorded Female 12/05/2021 3:21 PM PATIENT COORDINATOR FRONT DESK documented as of this encounter Miscellaneous Notes Telephone Encounter - Steffanie Anglin M.D. - 09/22/2020 9:45 AM PATIENT COORDINATOR FRONT DESK The patient had endoscopy a couple of weeks ago and it was recommended she have Another one in 4-6 weeks. I see this has not been scheduled and tried to call the patient to see if her PCP could facilitate this or if I should, given she does not have a hepatology appointment until November. I will try again later. ENT COORDINATOR FRONT DESK documented in this encounter Plan of Treatment Not on filedocumented as of this encounter Visit Diagnoses Not on filedocumented in this encounter
--- OUTSIDE RECORDS SUMMARY | 2022-08-17 17:29 | XMS_ITS | Encounter Summary ---
:1970 Author Organization [facility] Address [address] [place] [address] Care Team Providers Name Role Phone Unavailable Primary Care Provider Unavailable Encounter Details Date Type Department Care Team Description 02/16/2021 Clinical Communication Division of Bao Cheng, Gastroenterology in [place], [place] [address] [facility] [address] [place] [phone] [phone] Social History Tobacco Use Types Packs/Day Years [...] or relatives? How often do you attend yazidi or More than 4 times per year 06/20/2022 caodaism services? Do you belong to any clubs or Yes 06/20/2022 organizations such as yazidi groups, unions, fraternal or athletic groups, or [...] at Date Recorded Female 12/05/2021 3:21 PM GROCERY WORKER documented as of this encounter Plan of Treatment Not on filedocumented as of this encounter Visit Diagnoses Not on filedocumented in this encounter
--- OUTSIDE RECORDS SUMMARY | 2022-08-17 17:29 | XMS_ITS | Encounter Summary ---
:1970 Author Organization [facility] Address [address] [place] [address] Care Team Providers Name Role Phone Unavailable Primary Care Provider Unavailable Reason for Visit Outpatient (Routine) - Closed Specialty Diagnoses / Referred By Referred To Cont act Procedures Contact Gastroenterology and Bao Cheng [facility] Hepatology [place] [address] [place] [address] Referral ID Status Reason Start Date Expiration Date Visits Requ ested Visits Authorized [id number] Closed 11/23/2020 11/23/2021 1 1 Encounter Details Date Type Department Care Team Description 02/25/2021 Virtual Visit Division of Bao Cheng, Jayce Heredia rrhosis Gastroenterology in [place] Of Liver Without [place], [place] [address] [facility] Ascites (HCC) [address] [place], [place] (Primary Dx) [place] [phone] Social History Tobacco Use Types Packs/Day Years [...] or relatives? How often do you attend taoism or More than 4 times per year 06/20/2022 mandaeism services? Do you belong to any clubs or Yes 06/20/2022 organizations such as taoism groups, unions, fraternal or athletic groups, or [...] place to sleep or slept in a skilled nursing (including now)? Sex Assigned at Date Recorded Female 12/05/2021 3:21 PM MENTAL HEALTH DIRECTOR documented as of this encounter Progress Notes Bao Cheng M.D. - 02/25/2021 11:20 AM CDT I had a telephone visit with Ms. Berry for follow up on her alcohol-related liver disease. Her Fibroscan from November did reveal advanced fibrosis consistent with cirrhosis. Her EGD showed no esophageal varices or peptic ulcers, but portal hypertensive gastropathy. Ms. Berry reports doing well and maintaining her abstinence. She has an upcoming appointment with a therapist regarding her eating disorder and alcohol use disorder. She reports improved energy and denies abdominal pain, jaundice, melena/hematochezia/hematemesis, increasing abdominal girth, or edema. I congratulated her on her abstinence and told her that I am optimistic her condition will stabilizeor even improve as long as she continues to stay away from alcohol. I called and spoke to her PCP from [facility] Dr. Ramona Sandhu, who will arrange ultrasound and labs every 6 months. Electronically signed by: Bao Cheng M.D. 02/25/21 12:43 PM CDT documented in this encounter Plan of Treatment Not on filedocumented as of this encounter Visit Diagnoses Diagnosis Alcoholic Cirrhosis Of Liver Without Asc ites (HCC) - Primary documented in this encounter
--- OUTSIDE RECORDS SUMMARY | 2022-08-17 17:29 | XMS_ITS | Encounter Summary ---
:1970 Author Organization [facility] Address [address] [place] [address] Care Team Providers Name Role Phone Unavailable Primary Care Provider Unavailable Encounter Details Date Type Department Care Team Description 09/04/2020 Lab Department of Laboratory Kirstin Anglin, Screening Examination For Medicine and Pathology[place] [facility] in [place], [place] [address] [place] [address] Social History Tobacco Use Types Packs/Day Years [...] or relatives? How often do you attend baptism or More than 4 times per year 06/20/2022 orthodox services? Do you belong to any clubs or Yes 06/20/2022 organizations such as baptism groups, unions, fraternal or athletic groups, or [...] at Date Recorded Female 12/05/2021 3:21 PM TRAINING GENERALIST documented as of this encounter Plan of Treatment Not on filedocumented as of this encounter Procedures Procedure Name Priority Date/Time Associated Diagnosis Comme nts SARS CORONAVIRUS-2, Routine 09/04/2020 3:17 PM Screening Re sults for this PCR TRAINING GENERALIST Examination For procedure ar e in Viral Disease the results section. documented in this encounter Results SARS Coronavirus-2, PCR Asymptomatic (09/04/2020 3:17 PM TRAINING GENERALIST) [facility] Method Time Signature SARS Swab, 09/05/2020 DTL Coronavirus-2 Nasopharynx 12:27 AM Source TRAINING GENERALIST SARS Undetected Undetected 09/05/2020 DTL Coronavirus-2 12:27 AM , PCR TRAINING GENERALIST Comment: SARS-CoV-2 RNA absent. This result does not rule out COVID-19 in the patient, as the sensitivity of the test depends o n the timing of the specimen collection and quality of the specimen. Result should be correlated with patient's history and clinical presentat ion. ----ADDITIONAL INFORMATION---- This test was developed and its performa nce characteristics determined by [facility] in a manner co nsistent with CLIA requirements. Independent review by the U.S. Food and Drug Administration is pending. Visit the CDC website: https://www.cdc.gov/coronavirus/ ?? for the most recent guidelines on [place] virus testing. Fact Sheet for Healthcare Providers: (https://www.[employer]terno[employer] Talk[employer]c (P)/it-mmfil es/ Provider_Fact_Sheet_for_[facility]_COVI D-19.pdf) Fact Sheet for Patients: (https://www.[employer] (P)/it-mmfil es/ Patient_Fact_Sheet_for_COVID-19.pdf) Specimen Anatomical Collection Method Collection Time Receive d Time (Source) Location / / Volume Laterality Varies 09/04/2020 3:17 PM 0 3:49 (Nasopharynx) TRAINING GENERALIST PM TRAINING GENERALIST Steffanie Venegas M.D. LAB MICROBIOLOGY - GENERAL O RDERABLES Performing Organization Address City/State/ZIP Code Phon e Number [facility] - [address] [place], [place] [address] [facility] [place] [address] Laboratories-[facility] [address] documented in this encounter Visit Diagnoses Diagnosis Screening Examination For Viral Disease documented in this encounter Additional Health Concerns Infection Onset Date Last Indicated Resolved Time COVID19 Pending 09/04/2020 09/04/2020 09/05/2020 12:27 AM TRAINING GENERALIST documented as of this encounter
--- OUTSIDE RECORDS SUMMARY | 2022-08-17 17:29 | XMS_ITS | Encounter Summary ---
:1970 Author Organization [facility] Address [address] [place] [address] Care Team Providers Name Role Phone Unavailable Primary Care Provider Unavailable Reason for Referral Outpatient (Routine) - Closed Specialty Diagnoses / Referred By Referred To Cont act Procedures Contact Gastroenterology and Bao Cheng [facility] Hepatology [place] [address] [place] [address] Referral ID Status Reason Start Date Expiration Date Visits Requ ested Visits Authorized [id number] Closed 12/08/2021 12/08/2022 1 1 utpatient (Routine) - Closed Specialty Diagnoses / Procedures Referred By Contact Refer red To Contact Diagnoses Alcoholic Cirrhosis Of Liver Without Ascites (HCC) Bao Cheng M.D. [facility] Procedures US Abdomen Complete [address] [place] [address] Referral ID Status Reason Start Date Expiration Date Visits Requ ested Visits Authorized [id number] Closed 12/08/2021 12/08/2022 1 1 ehavioral Health (Routine) - Closed Specialty Diagnoses / Procedures Referred By Contact Refer red To Contact Psychiatry / Psychiatry Diagnoses Anxiety Bao Cheng M.D. [facility] and Psychology [address] [place] [address] Referral ID Status Reason Start Date Expiration Date Visits Requ ested Visits Authorized [id number] Closed 12/08/2021 12/08/2022 1 1 Scheduling Instructions Schedule with appropriate providers base d on if Psychotherapy or Medication Assessment is answered by the ordering provider. R EXPRESS CLERK Reason for Visit Outpatient (Routine) - Closed Specialty Diagnoses / Referred By Referred To Cont act Procedures Contact Gastroenterology and Diagnoses Alcoholic Cirrhosis Of Liver Without Ascites (HCC) Bao Cheng, [place] [facility] Hepatology [place] [address] [place] [address] Referral ID Status Reason Start Date Expiration Date Visits Requ ested Visits Authorized [id number] Closed 11/21/2021 11/21/2022 1 1 Encounter Details Date Type Department Care Team Description 12/08/2021 Office Visit Division of Bao Cheng, Anxiety (Prim john Dx); Gastroenterology in [place] Alcoholic Cirrhosis Of Liver Without Asc ites (HCC) [place], [place] [address] [place] [address] 200 [place] [address] [phone] Social History Tobacco Use Types Packs/Day Years [...] or relatives? How often do you attend mandaen or More than 4 times per year 06/20/2022 faith services? Do you belong to any clubs or Yes 06/20/2022 organizations such as mandaen groups, unions, fraternal or athletic groups, or [...] or slept in a fci (including now)? Education Answer Date Recorded What is the highest level of school you have Some college, n o degree 12/05/2021 completed or the highest degree you have received? Sex Assigned at Date Recorded Female 12/05/2021 3:21 PM MOTOR EXPRESS CLERK documented as of this encounter Progress Notes Bao Cheng M.D. - 12/08/2021 4:20 PM CST GASTROENTEROLOGY & HEPATOBILIARY CONSULT Date/Time: 12/08/2021 3:55 PM MOTOR EXPRESS CLERK Patient Name: Joana Berry : 1970 Subjective: HPI: Joana Berry is a 51 y.o. female with history of alcohol use disorder and alcohol-related cirrhosis who was admitted to [facility] in July 2020 with acute upper GI [...] varices which were banded with incomplete eradication. When seen on 11/23/2020, she reported doing well with complete abstinence from alcohol. A fibroscan did show advanced fibrosis consistent with cirrhosis. Her EGD showed no esophageal varices and showed portal hypertensive gastropathy. She reports doing well with no abdominal pain, melena, nausea/vomiting, hematemesis, jaundice, abdominal/extremity swelling. Her labs from today are stable with mild elevations in AST, alkaline phosphatase and total bilirubin. Her MELD-Na score today is 11. Ultrasound today shows cirrhosis with no hepatic mass or ascites. However, she is struggling with significant anxiety and has been having trouble finding a provider. She used to take hydroxyzine for relief but is no longer able to receive refills from [facility] due to an insurance issue related to her tax return. As a result, she has been off hydroxyzine with significant escalation in her anxiety. She has managed to stay abstinent. She also struggles with her eating disorder. ROS: Other than the pertinent positives and negatives listed in the HPI, a full review of systems including constitutional, HEENT, respiratory, cardiovascular, abdominal, musculoskeletal, genitourinary, neurological, psychiatric, endocrinologic, hematologic, and dermatologic complaints was negative. Objective: Vital Signs: There were no vitals filed for this visit. Physical Exam: General: Sitting comfortably in chair, in no acute distress. Anxious appearing and tearful. 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 Joana Berry is a 51 y.o. female with history of alcohol use disorder and alcohol-related cirrhosis who was admitted to [facility] in July 2020 with acute upper GI bleed secondary to variceal hemorrhage and gastric ulcer, who presents for follow up. Ms. Berry is overall doing better with no recurrence of bleeding and has been able to maintain her abstinence. She currently does not have any evidence of ascites, hepatic encephalopathy, GI bleeding, or HCC. Her anxiety seems to be the biggestissue at the moment. 1. Follow up in 6 months with repeat CBC, CMP, INR, AFP, and liver ultrasound 2. Repeat EGD in 1 year to assess for esophageal varices 3. Prescribed a supply of hydroxyzine for anxiety 4. Psychiatry consultation for anxiety, eating disorder and alcohol use disorder ?? Bao Cheng M.D. Answers for HPI/ROS submitted by the patient on 12/05/2021 No general issues: Yes Visual problems: Yes No ENT issues: Yes No heart issues: Yes No respiratory issues: Yes Abdominal (belly) pain or cramping: Yes Muscle pain/stiffness: Yes Skin rash: Yes No neurologic issues: Yes Feeling nervous, anxious or on edge: Yes No blood/lymph issues: Yes No urinary/reproductive issues: Yes R EXPRESS CLERK documented in this encounter Plan of Treatment Scheduled Referrals Name Type Priority Associated Order Schedule Diagnoses Psychiatry and Outpatient Routine Anxiety Expected: Psychology - Anxiety Referral 022 consult (clinic) (Approximat e), Expires: 03/07/2023 Gastroenterology and Outpatient Routine Expecte d: Hepatology office visit Referral 05/22 (clinic) (Approximate), Expires: 03/07/2023 documented as of this encounter Results (ABNORMAL) Prothrombin Time (PT) [...] Organization Address City/State/ZIP Code Phon e Number [facility] - 200 [place], [place] [address] [facility] [place] [address] [facility] 200 [facility] (ABNORMAL) Comprehensive Metabolic Panel (06/23/2022 10:39 [...] Organization Address City/State/ZIP Code Phon e Number [facility] - [address] [place], [place] [address] [facility] [place] [address] [facility] [address] (ABNORMAL) CBC with Differential, Blood (06/23/2022 10:39 AM CDT) [facility] gist Method Time Signature Hemoglobin 11.9 [...] Organization Address City/State/ZIP Code Phon e Number [facility] - [facility] [address] [place], [place] [address] [facility] [place] [address] [facility] [address] US Abdomen Complete [...] LI-RADS is supported and endorsed by the [employer] [place] [employer]. More information can be found on the followin g link: https://www.acr.org/Clinical-Resources/Qkumlmsgs-wvk-Luxy-Systems/LI-RADS/Ultras giwt-VP-RTCU-v2017 Gallbladder: Echogenic foci in the gallb ladder [...] LI-RADS is supported and endorsed by the [employer] [place] [employer]. More information can be found on the followin g link: https://www.acr.org/Clinical-Resources/Uhocjovvs-ngg-Gyuk-Systems/LI-RADS/Ultras edcz-[email or web address]-v2017 Gallbladder: Echogenic foci in the gallb ladder [...] in the setting of portal hypertension. Bao MIRELES US PROCEDURES documented in this encounter Visit Diagnoses Diagnosis Anxiety - Primary Alcoholic Cirrhosis Of Liver Without Asc ites (HCC) Alcoholic Cirrhosis Of Liver Without Asc ites (HCC) documented in this encounter
--- OUTSIDE RECORDS SUMMARY | 2022-08-17 17:29 | XMS_ITS | Encounter Summary ---
:1970 Author Organization [facility] Address [address] [place] [address] Care Team Providers Name Role Phone Unavailable Primary Care Provider Unavailable Reason for Visit Reason Comments Med Refill Encounter Details Date Type Department Care Team Description 09/23/2020 Refill [facility], [facility] Cleve Jolynn lora M.D. Med Refill [facility], [facility] [address] [place] [address] [place] [address] [place] [address] [phone] Social History Tobacco Use Types Packs/Day Years [...] More than 4 times per year 06/20/2022 christianity services? Do you belong to any clubs [...] or slept in a snf (including now)? Sex Assigned at Date Recorded Female 12/05/2021 3:21 PM HAT LACER documented as of this encounter Plan of Treatment Not on filedocumented as of this encounter Visit Diagnoses Not on filedocumented in this encounter
--- OUTSIDE RECORDS SUMMARY | 2022-08-17 17:29 | XMS_ITS | Encounter Summary ---
:1970 Author Organization [facility] Address [address] [place] [address] Care Team Providers Name Role Phone Unavailable Primary Care Provider Unavailable Encounter Details Date Type Department Care Team Description 09/06/2020 Ancillary Procedure Department of Gastroenterology Social History [...] or relatives? How often do you attend mandaeism or More than 4 times per year 06/20/2022 restoration services? Do you belong to any clubs or Yes 06/20/2022 organizations such as mandaeism groups, unions, fraternal or athletic groups, or [...] place to sleep or slept in a retirement (including now)? Sex Assigned at Date Recorded Female 12/05/2021 3:21 PM HYDROSTATIC TUBING TESTER documented as of this encounter Plan of Treatment Not on filedocumented as of this encounter Procedures Procedure Name Priority Date/Time Associated Comments Diagnosis GASTROENTEROLOGY IMAGE Routine 09/06/2020 2:00 Re sults for this EXAM PM HYDROSTATIC TUBING TESTER procedure are i n the results section. documented in this encounter Results Esophagus, Lower third of the esophagus Upper GI endoscopy-Gastroenterology Image Exam (09/06/2020 2:00 PM HYDROSTATIC TUBING TESTER) Specimen (Source) Anatomical Collection Method Collection Time Re ceived Time Location / / Volume Laterality 09/06/2020 1:59 PM HYDROSTATIC TUBING TESTER Narrative [facility] - 09/06/2020 2:59 PM HYDROSTATIC TUBING TESTER This order has been created and auto-finalized [...]
--- OUTSIDE RECORDS SUMMARY | 2022-08-17 17:29 | XMS_ITS | Encounter Summary ---
:1970 Author Organization [facility] Address [address] [place] [address] Care Team Providers Name Role Phone Unavailable Primary Care Provider Unavailable Reason for Referral Outpatient (Routine) - Closed Specialty Diagnoses / Procedures Referred By Contact Refer red To Contact Diagnoses Alcoholic Cirrhosis Of Liver Without Ascites (HCC) Steffanie Anglin M.D. [facility] Procedures EGD (EsophagealGastroDuodenoscopy) [address] [place] [address] Referral ID Status Reason Start Date Expiration Date Visits Requ ested Visits Authorized [id number] Closed 08/06/2020 08/06/2021 1 1 NT STRATEGIST Reason for Visit Outpatient (Routine) - Closed Specialty Diagnoses / Procedures Referred By Contact Refer red To Contact Diagnoses Alcoholic Cirrhosis Of Liver Without Ascites (HCC) Steffanie Anglin M.D. [facility] Procedures EGD (EsophagealGastroDuodenoscopy) [address] [place] [address] Referral ID Status Reason Start Date Expiration Date Visits Requ ested Visits Authorized [id number] Closed 08/06/2020 08/06/2021 1 1 Encounter Details Date Type Department Care Team Description 09/06/2020 Hospital Division of Steffanie Anglin M.D. [facility] Encounter Gastroenterology in [place] Reynolds APRN, CRNA Cirrhosis Of Liver [place], [place] Without Ascites [address] [facility] ([place]) [place] [address] Social History Tobacco Use Types Packs/Day [...] or relatives? How often do you attend caodaism or More than 4 times per year 06/20/2022 mormonism services? Do you belong to any clubs or Yes 06/20/2022 organizations such as caodaism groups, unions, fraIotera or athletic groups, or school groups? How [...] at Date Recorded Female 12/05/2021 3:21 PM CLIENT STRATEGIST documented as of this encounter Last Filed Vital Signs Vital Sign Reading Time Taken Comments Blood Pressure 93/63 09/06/2020 3:15 PM CLIENT STRATEGIST Pulse 69 09/06/2020 3:15 PM CLIENT STRATEGIST Temperature 37 ??C (98.6 ??F) 09/06/2020 3:15 PM CLIENT STRATEGIST Respiratory Rate 13 09/06/2020 3:15 PM CLIENT STRATEGIST Oxygen Saturation 96% 09/06/2020 3:15 PM CLIENT STRATEGIST Inhaled Oxygen Concentration - - Weight 61.5 kg (135 lb 9.3 oz) 09/06/2020 1:20 PM CLIENT STRATEGIST Height 162.6 cm (5' 4.02) 09/06/2020 1:20 PM CLIENT STRATEGIST Body Mass Index 23.26 09/06/2020 1:20 PM CLIENT STRATEGIST documented in this encounter Discharge Instructions AttachmentsThe following attachments cannot be sent through Care Everywhere.Full Liquid Diet (Kazakh)documented in this encounter Medications at Time of [...] mg every morning before magnesium) tablet breakfast. oxklucrquhka-xnvy-IN-Ca-m Take 1 tablet by 30 tablet 0 07/22 inerals (THERAPEUTIC-M) 9 mouth daily. mg iron-400 mcg per tablet ferrous sulfate 325 mg Take 325 mg by mouth 0 02/07/2022 (65 mg iron) tablet daily. omega 5-mwy-ecm-fish oil Take 1,000 mg by 0 06/1402/07/2022 1,000 mg (120 mg-180 mg) mouth daily. capsule pantoprazole (PROTONIX) Take 1 tablet (40 mg 90 tablet 0 09/24/2020 40 mg EC tablet total) by mouth 2 (two) times a day before breakfast and dinner. sulfamethoxazole-trimetho Take 1 tablet by 4 tablet 0 07/2202/07/2022 prim (BACTRIM DS) 800-160 mouth every 12 mg per tablet (twelve) hours. documented as of this encounter Plan of Treatment Not on filedocumented as of this encounter Procedures Procedure Name Priority Date/Time Associated Diagnosis Comme nts SURGICAL PATHOLOGY Routine 09/06/2020 2:21 PM Res ults for this CLIENT STRATEGIST procedure are i n the results section. UPPER GI ENDOSCOPY Routine 09/06/2020 1:59 PM Alcoholic Cirrho sis Results for this CLIENT STRATEGIST Of Liver Without procedure a re in Ascites (HCC) the results section. EGD Routine 09/06/2020 1:59 PM Alcoholic Cirrhosis (ESOPHAGEALGASTRODU CLIENT STRATEGIST Of Liver Without ODENOSCOPY) Ascites (HCC) documented in this encounter Results Surgical Pathology (09/06/2020 2:21 PM CLIENT STRATEGIST) Component Value Ref Test Analysis Performed Pathologis t Range Method Time At Signature 09/07/2020 DTL 4:26 PM CLIENT STRATEGIST Participated in Vitor Hutson M.D. 09/07/2020 DTL the -Pathology Fellow 4:26 PM Interpretation CLIENT STRATEGIST Report Jossue Mcclure M.D. [phone] 09/07/2020 DTL electronically I verify that I have examined all relevant slides/ma terials 4:26 PM signed by for the specimen(s) and rendered or confirmed the diagnosis. CLIENT STRATEGIST Gross Description A: ??Received in formalin labeled with the patien t's name, 09/07/2020 DTL medical record number, and stomach-biopsy, antrum are 4:26 PM five pale patton-pink irregular soft tissues, ranging from CLIENT STRATEGIST 0.4-0.7 cm in greatest dimension. Specimens are submitted en toto in cassette A1. ??Grossed by ARG. B: ??Received in formalin labeled with the patient's name, medical record number, and stomach-biopsy, antrum, body of stomach, incisura are six pale patton-patton irregular soft tissues, ranging from 0.3-0.7 cm in greatest dimension. Specimens are submitted en toto in cassette B1. ??Grossed by ARG. Addendum Helicobacter pylori immunostain is negative (part B). 09/08/2020 DTL Signed by Jossue Mcclure M.D. [id number] 09/08/2020 12:28 PM 12:28 PM This test was developed using an analyte specific reagent. CLIENT STRATEGIST Its performance characteristics were determined by [facility] in a manner consistent with CLIA requirements. This test has not been cleared or approved by the U.S. Food and Drug Administration. Comment: REVISED RESULTS Interpretation FINAL DIAGNOSIS 09/08/2020 12:28 PM CLIENT STRATEGIST DTL A. ??Stomach, antrum, endoscopic biopsy: ??Antral mucosa wit h reactive gastropathy and erosion. B. ??Stomach, antrum, body, incisura, endoscopic biopsy: Fundic and antral fundic transitional zone mucosa with very focal intestinal metaplasia, reactive changes and mild chronic inflammation. ??Immunohistochemical stain for Helicobacter pylori is pending and will be reported in an addendum. Specimen (Source) Anatomical Collection Method Collection Time Re ceived Time Location / / Volume Laterality Biopsy (Stomach) 09/06/2020 2:21 PM CLIENT STRATEGIST Biopsy (Stomach) 09/06/2020 2:22 PM CLIENT STRATEGIST Narrative This result has an attachment that is no t available. Keith Mahan M.D. LAB SURG PATH ORDERABLES Performing Organization Address City/State/ZIP Code Phon e Number [facility] - [address] [place], [place] [address] [facility] [place] [address] [facility] [address] [facility] Upper GI Endoscopy (09/06/2020 1:59 PM CLIENT STRATEGIST) Specimen (Source) Anatomical Collection Method Collection Time Re ceived Time Location / / Volume Laterality 09/06/2020 1:59 PM CLIENT STRATEGIST Impressions [facility] - 09/06/2020 3:57 PM CLIENT STRATEGIST Post-op Diagnoses: ? - Esophagogastric landmarks ident ified. ? - Large (> 5 mm) esophageal varic es. Incompletely eradicated. Banded. ? - Healed antral ulcer with Ovesco clip in place. Biopsied. ? - Normal examined duodenum. ? - Biopsies were taken with a cold forceps for Helicobacter pylori ? testing. Narrative [facility] - 09/06/2020 3:57 PM CLIENT STRATEGIST G[facility] 2 GI Patient Name: Joana Berry Date of : 1970 Age: 50 Gender: Female Procedure Date: 09/06/2020 Procedure: ? Upper GI endoscopy Providers: ? Keith Mahan MD ? Dilia Sanchez MD Referring Provider: ?Steffanie Venegas Pre-op Diagnoses: ?For therapy of esophageal varices Recommendation: ? - Await pathology results. ? - Repeat EGD in 4 to 6 weeks Findings: ? Esophagogastric landmarks were id entified: the Z-line was found at 38 cm ? and the site of hiatal narrowing was found at 38 cm from the incisors. ? Large (> 5 mm) varices were found in the lower third of the esophagus. ? One band was successfully placed with incomplete eradication of varices. ? There was no bleeding during the procedure. ? The previous antral ulcer site ap peared to be healed with evidence of ? previous Ovesco clip seen. Biopsi es were taken with a cold forceps for ? histology. ? No other significant abnormalitie s were identified in a careful ? examination of the stomach. ? Biopsies were taken with a cold f orceps in the gastric body, at the ? incisura and in the gastric antru m for Helicobacter pylori testing. ? The examined duodenum was normal. Procedural [...] blo od loss: none. Attending Participation: I was present a nd participated during the entire ? pro cedure, including non-kirk portions. Keith Mahan MD 09/06/2020 2:53:04 PM This report has been signed electronical ly. Number of Addenda: 0 Note Initiated On: 09/06/2020 1:59 PM Steffanie Venegas M.D. GI PROCEDURE ORDERABLES Performing Organization Address City/State/ZIP Code Phon e Number [employer] [facility] documented in this encounter Visit Diagnoses Diagnosis Alcoholic Cirrhosis Of Liver Without Asc ites (HCC) documented in this encounter Administered Medications Inactive Administered Medications - up to 3 most recent administrations Medication Order MAR Action Action Date Dose Rate Site lactated ringers Continued from OR 09/06/2020 2:56 PM 20 mL/hr 20 mL/hr 20 mL/hr, intravenous, CLIENT STRATEGIST Continuous, Starting on Sun09/06/20 at 1500, PACU & Post-Op documented in this encounter
--- OUTSIDE RECORDS SUMMARY | 2022-08-17 17:29 | XMS_ITS | Encounter Summary ---
:1970 Author Organization [facility] Address [address] [place] [address] Care Team Providers Name Role Phone Unavailable Primary Care Provider Unavailable Reason for Referral Outpatient (Routine) - Closed Specialty Diagnoses / Procedures Referred By Contact Refer red To Contact Diagnoses Alcoholic Cirrhosis Of Liver Without Ascites (HCC) Bao Cheng M.D. [facility] Procedures US Abdomen Complete [address] [place] [address] [phone] Referral ID Status Reason Start Date Expiration Date Visits Requ ested Visits Authorized [id number] Closed 11/21/2021 11/21/2022 1 1 MACY ACCOUNT DIRECTOR Reason for Visit Outpatient (Routine) - Closed Specialty Diagnoses / Procedures Referred By Contact Refer red To Contact Diagnoses Alcoholic Cirrhosis Of Liver Without Ascites (HCC) Bao Cheng M.D. [facility] Procedures US Abdomen Complete [address] [place] [phone] Referral ID Status Reason Start Date Expiration Date Visits Requ ested Visits Authorized [id number] Closed 11/21/2021 11/21/2022 1 1 Encounter Details Date Type Department Care Team Description 12/08/2021 Hospital Encounter Department of Bao Cheng Alcoho lic Cirrhosis Radiology, Etienne Salvador Of Liver Without Building, in [address] [facility] Ascites (HCC) [place], [place] [address] [facility] [address] [place], [place] [phone] (Work) [phone] Social History Tobacco Use Types Packs/Day Years [...] or relatives? How often do you attend orthodoxy or More than 4 times per year 06/20/2022 confucianism services? Do you belong to any clubs or Yes 06/20/2022 organizations such as orthodoxy groups, unions, fraternal or athletic groups, or [...] place to sleep or slept in a halfway (including now)? Education Answer Date Recorded What is the highest level of school you have Some college, n o degree 12/05/2021 completed or the highest degree you have received? Sex Assigned at Date Recorded Female 12/05/2021 3:21 PM PHARMACY ACCOUNT DIRECTOR documented as of this encounter Medications at [...] to 12 hours within 24 hour period. dcqbqafoymrk-wpwq-YK-Ca-m Take 1 tablet by 30 tablet 0 07/22 inerals (THERAPEUTIC-M) 9 mouth daily. mg iron-400 mcg per tablet ferrous sulfate 325 mg Take 325 mg by 0 02/07/2022 (65 mg iron) tablet mouth daily. omega 4-ewy-pry-fish oil Take 1,000 mg by 0 06/1402/07/2022 [...] Comments Diagnosis US ABDOMEN RAD - Routine 12/08/2021 11:31 Alcoholic Results fo r this COMPLETE (most inpatients AM PHARMACY ACCOUNT DIRECTOR Cirrhosis Of procedure a re in and all Liver Without the results outpatients) Ascites (HCC) section. documented in this encounter Results US Abdomen Complete (12/08/2021 11:31 AM PHARMACY ACCOUNT DIRECTOR) Anatomical Region Laterality Modality Abdomen, Ultrasound RST LOS, Ultrasound ARZ LOS, Ultrasound FLA N/A Ultrasound LOS Specimen (Source) Anatomical Collection Method Collection Time Re ceived Time Location / / Volume Laterality 12/08/2021 11:34 AM PHARMACY ACCOUNT DIRECTOR Impressions 12/08/2021 11:39 AM PHARMACY ACCOUNT DIRECTOR 1. Cirrhosis. No hepatic masses are identified. Ultrasound LI-RADS 1B. 2. Borderline splenomegaly. Previously s een trace perihepatic ascites has resolved. Narrative 12/08/2021 11:39 AM PHARMACY ACCOUNT DIRECTOR EXAM: US ABDOMEN COMPLETE COMPARISON: Ultrasound liver [...] een trace perihepatic ascites has resolved. Bao MIRELES US PROCEDURES documented in this encounter Visit Diagnoses Diagnosis Alcoholic Cirrhosis Of Liver Without Asc ites (HCC) documented in this encounter
--- OUTSIDE RECORDS SUMMARY | 2022-08-17 17:29 | XMS_ITS | Encounter Summary ---
:1970 Author Organization [facility] Address [address] [place] [address] Care Team Providers Name Role Phone Unavailable [...] More than 4 times per year 06/20/2022 rastafari services? Do you belong to any clubs [...] at Date Recorded Female 12/05/2021 3:21 PM TOUR COUNSELOR documented as of this encounter Plan of Treatment Not on filedocumented as of this encounter Procedures Procedure Name Priority Date/Time Associated Comments Diagnosis GASTROENTEROLOGY IMAGE Routine 11/25/2020 1:45 Re sults for this EXAM PM TOUR COUNSELOR procedure are i n the results section. documented in this encounter Results Upper GI endoscopy-Gastroenterology Image Exam (11/25/2020 1:45 PM TOUR COUNSELOR) Specimen (Source) Anatomical Collection Method Collection Time Re ceived Time Location / / Volume Laterality 11/25/2020 1:41 PM TOUR COUNSELOR Narrative [facility] - 11/25/2020 2:25 PM TOUR COUNSELOR This order has been created and auto-finalized [...]
--- OUTSIDE RECORDS SUMMARY | 2022-08-17 17:29 | XMS_ITS | Encounter Summary ---
:1970 Author Organization [facility] Address [address] [place] [address] Care Team Providers Name Role Phone Unavailable Primary Care Provider Unavailable Reason for Referral Specialty Diagnoses / Procedures Referred By Contact Refer red To Contact Angélica Mederos M.D. [facility] [address] [place] [phone] Referral ID Status Reason Start Date Expiration Date Visits Requ ested Visits Authorized R SAW OPERATOR Encounter Details Date Type Department Care Team Description 08/31/2021 Orders Only RST PCP HLTH MNT Angélica Mederos M.D. [address] [place] [phone] (Wo rk) Social History Tobacco [...] or relatives? How often do you attend druze or More than 4 times per year 06/20/2022 yarsanism services? Do you belong to any clubs or Yes 06/20/2022 organizations such as druze groups, unions, fraternal or athletic groups, or [...] place to sleep or slept in a correction (including now)? Sex Assigned at Date Recorded Female 12/05/2021 3:21 PM MITER SAW OPERATOR documented as of this encounter Plan of Treatment Scheduled Referrals Name Type Priority Associated Order Schedule Diagnoses Covid immunization Outpatient Referral Routine Ex pected: office visit Booster 021 (Approximate), Expires: 08/31/2022 documented as of this encounter Visit Diagnoses Not on filedocumented in this encounter
--- OUTSIDE RECORDS SUMMARY | 2022-08-17 17:29 | XMS_ITS | Encounter Summary ---
:1970 Author Organization [facility] Address [address] [place] [address] Care Team Providers Name Role Phone Unavailable Primary Care Provider Unavailable Encounter Details Date Type Department Care Team Description 03/17/2022 Clinical Communication Division of Bao Cheng, Gastroenterology in [place], [place] [address] [facility] [address] [place] [phone] Social History Tobacco Use Types Packs/Day Years [...] or relatives? How often do you attend episcopalian or More than 4 times per year 06/20/2022 restorationism services? Do you belong to any clubs or Yes 06/20/2022 organizations such as episcopalian groups, unions, fraternal or athletic groups, or [...] place to sleep or slept in a group home (including now)? Education Answer Date Recorded What is the highest level of school you have Some college, n o degree 12/05/2021 completed or the highest degree you have received? Sex Assigned at Date Recorded Female 12/05/2021 3:21 PM WEAPONS MECHANIC documented as of this encounter Plan of Treatment Not on filedocumented as of this encounter Visit Diagnoses Not on filedocumented in this encounter
--- OUTSIDE RECORDS SUMMARY | 2022-08-17 17:30 | XMS_ITS | Encounter Summary ---
:1970 Author Organization [facility] Address [address] [place] [address] Care Team Providers Name Role Phone Unavailable Primary Care Provider Unavailable Encounter Details Date Type Department Care Team Description 08/02/2020 Ancillary Procedure Department of Radiology Mimi Dudley, in [facility] D.[place] [address] [facility] [address] [place] [phone] (Wo rk) Social History Tobacco Use Types Packs/Day Years Used Date Smoking Tobacco: Never Alcohol Use Standard Drinks/Week Comments Yes 0 [...] More than 4 times per year 06/20/2022 pentecostal services? Do you belong to any clubs [...] or slept in a chcf (including now)? Sex Assigned at Date Recorded Female 12/05/2021 3:21 PM RAILROAD CAR LOADER documented as of this encounter Plan of Treatment Not on filedocumented as of this encounter Procedures Procedure Name Priority Date/Time Associated Comments Diagnosis INTERPRETATION OF RAD - Routine 08/02/2020 12:14 Resul ts for OUTSIDE CT ABDOMEN (most inpatients PM CDT this procedure AND OR PELVIS and all are in the outpatients) results section. documented in this encounter Results Interpretation of Outside CT Abdomen and or Pelvis (08/02/2020 12:14 PM CDT) Anatomical Region Laterality Modality Abdomen, Pelvis, Abdominal RST LOS, Abdominal ARZ LOS, N/A Computed Tomography Abdominal FLA LOS, Other Specimen (Source) Anatomical Collection Method Collection Time Re ceived Time Location / / Volume Laterality 08/02/2020 12:23 PM CDT Impressions 08/02/2020 12:50 PM CDT Nonspecific abnormal edema throughout the liver may represent acute hepatitis considering the hepatomegaly. No macroscopic findings of cirrhosis; however, there is significant sequelae o f portal hypertension as detailed in the findings. Narrative 08/02/2020 12:50 PM CDT EXAM: ??INTERPRETATION OF OUTSIDE CT ABDOMEN AND OR PELVIS with IV contrast dated 08/02/2020. COMPARISON: ??None. FINDINGS: ??Abnormal geographic areas of low-attenuation extending about the portal veins and hepatic veins throughou t both lobes of the liver is likely nonspecific edema considering the marked pericholecystic and mild mesenteric edema. Mild hepatomegaly without cirrhot ic contour configuration. Sequelae of portal hypertension includin g marked paraesophageal varices and recanalization periumbilical vein which communicates to the dilated left inferior epigastric. Markedly asymmetric prominent left periuterine veins. No ascites or splenomegaly. Colonic diverticulosis without diverticu litis. Negative appendix. Bowel is normal in caliber. Procedure Note Christie, Jl Sol M.D. - 08/02/2020Format ting of this note might be different from the original. EXAM: INTERPRETATION OF OUTSIDE CT ABDOM EN AND OR PELVIS with IV contrast dated 08/02/2020. COMPARISON: None. FINDINGS: Abnormal geographic areas of l ow-attenuation extending about the portal veins and hepatic veins throughou t both lobes of the liver is likely nonspecific edema considering the marked pericholecystic and mild mesenteric edema. Mild hepatomegaly without cirrhot ic contour configuration. Sequelae of portal hypertension includin g marked paraesophageal varices and recanalization periumbilical vein which communicates to the dilated left inferior epigastric. Markedly asymmetric prominent left periuterine veins. No ascites or splenomegaly. Colonic diverticulosis without diverticu litis. Negative appendix. Bowel is normal in caliber. IMPRESSION: Nonspecific abnormal edema throughout th e liver may represent acute hepatitis considering the hepatomegaly. No macroscopic findings of cirrhosis; however, there is significant sequelae o f portal hypertension as detailed in the findings. Olive MIRELES CT PROCEDURES documented in this encounter Visit Diagnoses Not on filedocumented in this encounter Additional Health Concerns Infection Onset Date Last Indicated Resolved Time COVID19 Pending 08/02/2020 08/02/2020 08/02/2020 1:37 PM CDT documented as of this encounter
--- OUTSIDE RECORDS SUMMARY | 2022-08-17 17:30 | XMS_ITS | Encounter Summary ---
:1970 Author Organization [facility] Address [address] [place] [id number] Care Team Providers Name Role Phone Unavailable Primary Care Provider Unavailable Reason for Visit Reason Comments Vomiting Encounter Details Date Type Department Care Team Description 08/02/2020 - [facility] Lv Lundy M.D., M.B.A. [address] [place] [phone] Hemorrhage 08/06/2020 [facility] Galdino Alberto M.D., Ph.D. 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 Do you belong to any clubs [...] place to sleep or slept in a longterm (including now)? Sex Assigned at Date Recorded Female 12/05/2021 3:21 PM [employer] documented as of this encounter Last Filed Vital Signs Vital Sign Reading Time Taken Comments Blood Pressure 97/59 08/06/2020 2:00 PM CDT Pulse 62 08/06/2020 2:00 PM CDT Temperature 36.8 ??C (98.2 ??F) 08/06/2020 2:00 PM CDT Respiratory Rate 14 08/06/2020 2:00 PM CDT Oxygen Saturation 96% 08/06/2020 2:00 PM CDT Inhaled Oxygen Concentration - - Weight 61.5 kg (135 lb 9.3 oz) 08/04/2020 1:52 PM CDT Height 162.6 cm (5' 4.02) 08/04/2020 1:54 PM CDT Body Mass Index 23.26 08/04/2020 1:52 PM CDT documented in this encounter Discharge Summaries Jolynn Palomares M.D. - 08/06/2020 2:58 PM CDT DISCHARGE SUMMARY BRIEF OVERVIEW Hospital: [facility] Discharge Provider: Galdino Dykes M.D. Primary Team: [facility] Medicine 3 ([facility]) No primary care provider on file. Primary Care Provider Phone Number: None Primary Care Provider Fax Number: None Admission Date: 08/02/2020 Discharge Date: 08/06/2020 PRINCIPAL DIAGNOSIS Hemorrhage Gastrointestinal SECONDARY DIAGNOSES Principal Problem: Hemorrhage Gastrointestinal Active Problems: Alcoholic Cirrhosis Of Liver Without Ascites (HCC) Esophageal Varix With Bleeding (HCC) Alcohol Moderate Or Severe Use Disorder (Dependence) Uncomplicated (HCC) Anemia Posthemorrhagic Acute (Blood Loss Anemia) Ulcer Gastric Acute With Hemorrhage Resolved Problems: * No resolved hospital problems. * DISCHARGE DISPOSITION Home or Self Care [1] ACTIVE ISSUES REQUIRING FOLLOW UP -Unable to schedule repeat EGD and GI follow-up. Recommend PCP helping in coordinate these appointments. Difficulty in scheduling due to insurance coverage. -Will need repeat EGD in 4 weeks after banding x3 of varices and gastric ulcer with adherent clot. Also recommend biopsy of gastric ulcer to evaluate for H. Pylori vs. Gastric malignancy. H pylori testing was unable to be completed in patient and needs to be done in outpatient setting. -HPB follow up for new diagnosis of alcoholic cirrhosis. Consider adding Nadalol. During her hospital stay, 20 mg Nadalol all resulted and hypotension with systolics in the 80s and bradycardia with heart rate in 40s. Consider starting 10mg to test for tolerability. -Discharged with bactrim to complete 7 day course of SBP ppx OUTPATIENT FOLLOW UP For appointment details refer to your Patient Appointment Guide. TEST RESULTS PENDING AT DISCHARGE Pending Labs None DETAILS OF HOSPITAL STAY REASON FOR ADMISSION Hemorrhage Gastrointestinal HOSPITAL COURSE Ms. Berry is a 50 y.o. F who presented with a GI bleed. Past medical history includes alcohol use disorder, GI bleed, alcoholic gastritis, alcoholic liver disease, ascites, diverticulosis, and anorexia nervosa. ?? Patient reports a two day history of multiple dark black stool and one day of dark brown emesis and presented to the ED. In the outside ED, patient's hemoglobin was 7.0 and received 1 unit pRBC. She had mild nausea which improved with Zofran and bilateral lower abdominal pain which resolved with pain m edication. She also received 80 mg Protonix, 1 unit of pRBC, and 2 L of IV fluids and was transferred to [facility] for further management. ?? In the [facility] ED, her blood pressure was 98-106/67-70, HR 92, O2 Sat 97% RA. Repeat Hgb was 7.6. She received octreotide and [address] abdomen showed hepatomegaly with no signs of macroscopiccirrhosis. Signs of portal hypertension. Liver ultrasound with Doppler: Coarsened hepatic parenchymal echotexture and trace perihepatic ascites consistent with parenchymal liver disease. Received 1 U of pRBC. Endoscopy on 08/03 showed 3 varices which were banded. All had a red whale sign, which is indicative of high risk bleeding. She also had a gastric ulcer with 8 mm adherent clot. She was trialed on 20 mg natalol which resulted in asymptomatic hypotension and bradycardia. She was started on a PPIb.i.d. She was on octreotide while inpatient. She was also on ceftriaxone while inpatient, transition to double-strength Bactrim BID as an outpatient to complete 7 day course. Ciprofloxacin was not given for continuation of SBP prophylaxis secondary to prolonged QTC. Given her alcoholic cirrhosis, shewas expectedly hypotensive with systolics in the 90s on average, sometimes dipping into the 80s. Shewas trialed on Albumin with minimal response of her pressures. Her home lisinopril was discontinued. She will require repeat EGD and hepatology follow up in the next 4 weeks. Please schedule as insurance coverage was a barrier to scheduling while inpt. She will try and obtain insurance once she leavesthe hospital. Physical exam day of discharge: General: Sitting comfortably in bed. Cooperative, in no acute distress. Eyes: Clear, non-injected, anicteric sclera. ENT: MMM. No oropharyngeal exudate, erythema, or lesions. Cardiac: Normal rate, regular rhythm. S1, S2 auscultated with no murmurs, rubs, or extra heart sounds. Lungs: Non-labored breathing on room air. Clear to auscultation bilaterally. No wheezes, rales, rhonchi. Abdomen: Normoactive bowel sounds. Soft, non-distended, non-tender to palpation. No guarding or rebound tenderness. No masses palpated. Mild hepatomegaly, splenomegaly palpated. Extremities: Warm and well-perfused UE and LE. Skin: No rashes, nonjaundiced appearing Neuro: Alert, oriented x 3. No encephalopathy ?? CONSULTS ORDERED DURING THIS ADMISSION IP CONSULT TO GASTROENTEROLOGY IP CONSULT TO DIETITIAN IP CONSULT TO CARE MANAGEMENT IP CONSULT TO GASTROINTESTINAL TECHNICIAN RN FIELD CONDITION AT DISCHARGE stable Discharge instructions were provided to the patient and caregiver(s). documented in this encounter Discharge Instructions Discharge InstructionsMary Chen - 08/02/2020 12:14 PM CDT You were discharged from the [facility] Medicine 3 ([facility]) Service. Please identify this service name if you call with questions after hospitalization. AttachmentsThe following attachments cannot be sent through Care Everywhere. Multivitamins, Adult Formula (By mouth) ([place])Pantoprazole (By mouth) ([place])Sulfamethoxazole/Trimethoprim (By mouth) ([place])documented in this encounter Medications at Time of [...] mg every morning before magnesium) tablet breakfast. [id number]-Ca-m Take 1 tablet by 30 tablet 0 07/22 inerals (THERAPEUTIC-M) 9 mouth daily. mg iron-400 mcg per tablet ferrous sulfate 325 mg Take 325 mg by mouth 0 02/07/2022 (65 mg iron) tablet daily. omega 5-rhl-pfb-fish oil Take 1,000 mg by 0 06/1402/07/2022 [...] (twelve) hours. documented as of this encounter Progress Notes Galdino Dykes M.D., Ph.D. - 08/06/2020 12:58 PM CDT Personally met with patient. Concur with plan a [facility] medicine 3 from 08/06/2020. Hemoglobin stable. She is clinically stable. No evidence of rebleeding. She understands her diagnosis of cirrhosis. She understands she must cease all alcohol. She understands she will need a repeat upper endoscopy in follow-up with the music autographer. #1 Hemorrhage Gastrointestinal #2 Anemia Posthemorrhagic Acute (Blood Loss Anemia) #3 Esophageal Varix With Bleeding (HCC) #4 Ulcer Gastric Acute With Hemorrhage #5 Alcoholic Cirrhosis Of Liver Without Ascites (HCC) #6 Alcohol Moderate Or Severe Use Disorder (Dependence) Uncomplicated (HCC) Mouna Chen RDN, ALIZA - 08/06/2020 10:32 AM CDT DESCRIPTION Follow-up on intake and request for help with healthy eating. ASSESSMENT Ms Berry reports attempts at eating but it is difficult with the frequent interruptions at meal times during admission with her eating disorder. At home she has meal times that she tries to eliminatedistractions. A friend is staying with her at discharge to help with meal preparation. She also receives a meal kit to help with meal planning. RD encouraged intake and commended patient on choosing balanced breakfast with a starch, fruit, milk and healthy fat option. Weight since admission: Height: 162.6 cm Admission Weight: 64 kg (08/02/2020) Current Weight: 61.5 kg [place] Body Weight (Calculated) : 54.6 kg BMI (Calculated): 23.3 kg/m?? Weight change since admission: -2.5 kg PLAN -Continue regular diet. -If patient remains in patient, please reduce meal time distractions. -Ideas for meal plans provided, and contact information for ED clinics with possible telehealth options. For questions about patient's nutritional care please contact pager [phone] on weekdays or [phone] on weekends/holidays. Galdino Islas M.D., Ph.D. - 08/05/2020 3:17 PM CDT Personally met with patient. Concur with plan a care medicine 3 from 08/05/2020. No evidence of ongoing bleeding. Will continue 1 more day octreotide. Will advance diet. Will switchproton pump inhibitor to oral. Will need to follow-up with gastroenterology in the next 4-6 weeks for repeat upper endoscopy and further Education regarding cirrhosis. Recommend complete abstinence from alcohol. Needs follow-up upper endoscopy to review gastric ulcer as well as varices. Given thrombocytopenia as well as elevated MCV will check a B12 and stored serum. #1 Hemorrhage Gastrointestinal #2 Anemia Posthemorrhagic Acute (Blood Loss Anemia) #3 Esophageal Varix With Bleeding (HCC) #4 Ulcer Gastric Acute With Hemorrhage #5 Alcoholic Cirrhosis Of Liver With Ascites (HCC) #6 Alcohol Moderate Or Severe Use Disorder (Dependence) Uncomplicated (HCC) Jolynn Palomares M.D. - 08/05/2020 2:59 PM CDT [facility] Medicine 3 ([facility]) PROGRESS NOTE SUBJECTIVE Ms. Berry remains stable overnight with repeat hemoglobin at 7.4 this morning. She has no complaints today other than constipation, has had no BM for the lats 3 days. Is passing gas. She had numerous questions about diet and activity restrictions which were answered during rounds. I have reviewed the current medication list. OBJECTIVE VITAL SIGNS Temperature: [36.3 ??C-36.7 ??C] 36.5 ??C Resp Rate: [12-18] 14 Blood Pressure: (80-92)/(44-55) 86/48 SpO2: [92 %-97 %] 92 % Pulse Rate: [48-61] 53 PHYSICAL EXAM General: Sitting comfortably in bed. Cooperative, in no acute distress. Eyes: Clear, non-injected, anicteric sclera. ENT: MMM. No oropharyngeal exudate, erythema, or lesions. Cardiac: Normal rate, regular rhythm. S1, S2 auscultated with no murmurs, rubs, or extra heart sounds. Lungs: Non-labored breathing on room air. Clear to auscultation bilaterally. No wheezes, rales, rhonchi. Abdomen: Normoactive bowel sounds. Soft, non-distended, non-tender to palpation. No guarding or rebound tenderness. No masses palpated. Mild hepatomegaly, splenomegaly palpated. Extremities: Warm and well-perfused UE and LE. Skin: No rashes, nonjaundiced appearing Neuro: Alert, oriented x 3. No asterixis or encephalopathy DIAGNOSTICS I have personally reviewed the laboratory data and imaging since admission, and in/outs for past 72 hours. ASSESSMENT / PLAN Ms. Berry is hospitalized on [facility] 3 ([facility]) for evaluation and management of Hemorrhage Gastrointestinal. Now status post EGD with improved hemoglobin. Remain in the hospital for observation and undergo continue workup for underlying liver etiology. For the etiology unrevealing and likely diagnosis at this time is alcoholic cirrhosis with perihepatic ascites and portal hypertension, esophageal varices and portal gastropathy. #1 Hemorrhage Gastrointestinal #2 Alcoholic Cirrhosis Of Liver With Ascites (HCC) #3 Esophageal Varix With Bleeding (HCC) #4 Alcohol Moderate Or Severe Use Disorder (Dependence) Uncomplicated (HCC) #5 Anemia Posthemorrhagic Acute (Blood Loss Anemia) #6 Ulcer Gastric Acute With Hemorrhage Plan for today: -mechanical soft diet for lunch, then advancing to full regular diet at dinnertime. If she continuesto remain stable tolerate diet advancements likely stable for discharge tomorrow. -transition to p.o. 40 mg Protonix b.i.d. # Hemorrhage Gastrointestinal # Portal hypertension # Probable alcoholic cirrhosis # History of alcoholic gastritis - CT imaging consistent with hepatomegaly and perihepatic fluid collection with portal hypertension and visible gastric varices, periumbilical venous distention. CT imaging did not all right demonstrate cirrhotic changes of the liver. Question micronodular cirrhosis in the setting of alcohol use. -patient reported jaundice after eating suspicious food in her late teens which was self-limiting. She thinks this was hepatitis A. No serologies available. Given lack of chronicity with hepatitis A will defer rechecking serologies at this time. -hepatitis B immune, hep C negative -EGD completed today -multiple grade 2 gastric varices status post banding x3 -nonbleeding gastric ulcer with adherent clot approximately 8 mm -liver ultrasound showing coarse parenchyma with reduced anterograde flow consistent with portal hypertension -continue b.i.d. PPI via IV -continue octreotide GTT unless directed by GI to discontinue -continue ceftriaxone for SBP prophylaxis with a total duration of 7 days. Given slightly prolonged QTC will opt for ceftriaxone in the inpatient setting and transfer to floroquinolone prior to discharge -slow diet advancement from clears to full liquids today -start nadolol 20mg for portal hypertension and observe for signs of orthostasis ?? # Hypertension Patient takes lisinopril 10 mg daily at home. Patient has been hypotensive. - hold home lisinopril ?? # History of alcohol use disorder Last drink was 2 days ago and has no history of withdrawal symptoms or seizures. She has had increased drinking in the last month, but has had less to drink over the last year. Suspicion for withdrawalis low. No CIWA protocol at this time. Patient without concerns of withdrawal. ?? # History of anorexia nervosa Patient sees psychology outpatient and endorses her symptoms are well controlled at this time. Has previously been on escitalopram but did not tolerate it well. Diet: clear diet Tubes/lines: 2 PIV VTE prophylaxis: held due to GI bleed Code status: full Disposition: anticipate discharge at the end of the week to home and self-care ?? Plan discussed with [facility] Medicine 3 ([facility]) Regional Sales Associate, Galdino Lazcano M.D.. Please page the [facility] Medicine 3 ([facility]) service pager at [phone] with any questions. Ekaterina Arevalo, SAMMIN, LD - 08/04/2020 1:58 PM CDT Clinical Nutrition: Initial Assessment RECOMMENDATIONS REQUIRING MD/PROVIDER ORDER - add a daily multivitamin - consider adding thiamine given hx of alcohol use - monitor electrolytes and replete accordingly - Consider checking the following labs: Fat-soluble Vitamins A, D, E and Zinc due to cirrhosis with increased risk of deficiency* If low levels exist, replace with: Vitamin A: If level is < 10 and symptomatic: load with 50,000 I U x 1 then give 10,000 I U per day x 2 months and recheck level If level is < 10 but not symptomatic: give 10,000 I U x 3 per week and recheck in 3 months If >10, use multivitamin with Vitamin A content Vitamin D (use D3 or cholecalciferol): If level is <6: give 50,000 I U x 7 days, then weekly x 8 and recheck in 2 months If level is 6 to 30 and/or osteopenic: give 50,000 I U per week x 8 and recheck in 2 months If not improved, give 50,000 I U x 3 per week x 8 weeks and recheck again in 2 months If >30: give 2000 I U per day and recheck in 6 months Vitamin E: If low (< 5.5): give 400 I U per day and recheck in 3 to 6 months If normal (>5.5): no additional supplementation needed, provide multivitamin with Vitamin E content Zinc: Provide 220 mg Zinc Sulfate 1 to 3 times per day until levels normalize For questions about patient's nutritional care please contact pager [phone] on weekdays or [phone] on weekends/holidays.. NUTRITION ASSESSMENT: Ms. Berry is a 50 y.o. female admitted for GI bleed. Additional dx include alcoholic cirrhosis of liver w/ ascites, history of anorexia nervosa. Requested to see patient for evaluation of: positive nursing baseline nutrition screen with a MST score of 2 or greater. MALNUTRITION CRITERIA: Recent Oral Intake Average estimated Intake: Less than or equal to 50% for 5 or more days Weight Changes Weight Loss: (No significant change noted) Body Fat Body Fat: Normal Orbital Region: Slightly bulged fat pads Upper Arm Region (Triceps/biceps): Some depth of pinch, but not ample Muscle Mass Muscle Mass: Mild Loss Temporal Region (Temporalis Muscle): Slight depression Clavicle Bone Region (Pectoralis Major, Deltoid, Trapezious Muscles: Not visible in male, visible but not prominent in female Clavicle and Acromion Bone Region (Deltoid Muscle) : Rounded, curves at arm/shoulder/neck Dorsal Hand (Interosseous Muscle): Muscle bulges or is flat Patellar Region (Quadricep Muscle): Muscle protrudes, bones not prominent Anterior Thigh Region (Quadriceps Muscle): Well-rounded, well-developed Posterior Calf Region (Gastrocnemious Muscle) : Well-developed bulb of muscle Ascites: Present Nutritional Status: Well Nourished Current nutrition orders: Current Diet Adult Diet Clear Liquid; Red Dye Restriction starting at 08/03 2698 Current Nutrition (since admission): Clear liquid diet. Pt reports she has consumed jello, fruit ice, lemon [place] soda, broth and lemonade. Tolerating well per her report. May advance diet to fulls today per primary team note. Interested in discussing healthy diet guidelines/ideas/suggestions when she is able to consume solids. Nutrition history: Pt reports long standing issues with intake. Has a complex history including diverticulitis and eating disorders. Reports poor intake for a couple of years but states that it has been worse for 4-5 days prior to admit r/t GI issues. States that she was eating a rosaura bar in the morning and maybe a 1/4 of a sandwich or a few grapes per day. ANTHROPOMETRICS: Height: 162.6 cm Admission Weight: 64 kg (08/02/2020) Current Weight: 61.5 kg BMI (Calculated): 23.3 kg/m?? Weight Change History: Per EMR, 12/29 60.8 kg. 12/02 61.7 kg. 07/17/19 65 kg. Pt reports a UBW of 73 kgbut it does not appear that she has had a weight that high in greater than 1 year. No significant loss is noted within the past year based upon weight hx available in chart. 5.5% loss within just over 12 months. ESTIMATED NEEDS: Total Calorie Needs: 4770-3188 calories/day Method to Estimate Energy Needs: Robertson-Sterling (Basal to Basal + 20%) Weight Used for Equation Calculations: 61.5 kg Total Protein Needs: 62 - 92 grams/day Method to Estimate Protein Needs (g/kg): 1 - 1.5 gm/kg Weight Used to Calculate Protein Needs (Kg): 61.5 kg NUTRITION DIAGNOSIS: Inadequate oral intake related to decreased appetite as evidenced by diet recall providing < 50% of est needs per pt report x4-5 days prior to admti. NUTRITION PLAN/MONITORING/EVALUATION: Interventions: Provide education to increase nutrition knowledge, Increase nutrient intake with small, frequent meals and/or snacks. Monitoring: Diet Progression/NPO Status, Ascites/Edema, Nausea/Vomiting/Diarrhea, Weight Status, Meals/Supplement Intake . Galdino Dykes M.D., Ph.D. - 08/04/2020 11:18 AM CDT Personally met with patient. Concur with plan a care medicine 3 from 08/04/2020. Her hemoglobin is been stable. She is taking her sobriety seriously. She had a high risk esophageal varices as well as gastric ulcer. She remains on clears this morning then will advance. She remains on octreotide. Remains on ceftriaxone. We did begin nadolol today. She will require a repeat upper endoscopy in 4-6 weeks to ensure varices have been ablated in gastric ulcer is healed. Would also recommend gastric biopsy to rule out H pylori. She will be dismissed onPPI therapy. #1 Hemorrhage Gastrointestinal #2 Anemia Posthemorrhagic Acute (Blood Loss Anemia) #3 Esophageal Varix With Bleeding (HCC) #4 Ulcer Gastric Acute With Hemorrhage #5 Alcoholic Cirrhosis Of Liver With Ascites (HCC) #6 Alcohol Moderate Or Severe Use Disorder (Dependence) Uncomplicated (HCC) ROT Ephraim Leon M.D. - 08/04/2020 6:55 AM CDT [facility] Medicine 3 ([facility]) PROGRESS NOTE SUBJECTIVE Ms. Berry remains stable overnight with repeat hemoglobin at 7.6 this morning. Prior hemoglobin is9.1 and question accuracy of that test as patient has been hemodynamically stable no signs of activebleeding. She has no complaints today other than intermittent nausea related to lack of solid food. Endoscopy findings were explained to her and she expressed some emotion regarding her history of anorexia and referred to increased alcohol intake. She has questions regarding discharge diet recommendations whichwill be followed up on prior to DC. I have reviewed the current medication list. OBJECTIVE VITAL SIGNS Temperature: [36.4 ??C-36.8 ??C] 36.5 ??C Heart Rate: [64-81] 77 Resp Rate: [9-27] 15 Blood Pressure: (95-122)/(52-76) 95/52 SpO2: [92 %-100 %] 98 % Flow Rate (L/min): [0 L/min] 0 L/min Pulse Rate: [64-80] 67 PHYSICAL EXAM General: Sitting comfortably in bed. Cooperative, in no acute distress. Eyes: Clear, non-injected, anicteric sclera. ENT: MMM. No oropharyngeal exudate, erythema, or lesions. Cardiac: Normal rate, regular rhythm. S1, S2 auscultated with no murmurs, rubs, or extra heart sounds. Lungs: Non-labored breathing on room air. Clear to auscultation bilaterally. No wheezes, rales, rhonchi. Abdomen: Normoactive bowel sounds. Soft, non-distended, non-tender to palpation. No guarding or rebound tenderness. No masses palpated. Mild hepatomegaly, splenomegaly palpated. Extremities: Warm and well-perfused UE and LE. Skin: No rashes, nonjaundiced appearing Neuro: Alert, oriented x 3. No asterixis or encephalopathy DIAGNOSTICS I have personally reviewed the laboratory data and imaging since admission, and in/outs for past 72 hours. ASSESSMENT / PLAN Ms. Berry is hospitalized on [facility] 3 ([facility]) for evaluation and management of Hemorrhage Gastrointestinal. Now status post EGD with improved hemoglobin. Remain in the hospital for observation and undergo continue workup for underlying liver etiology. For the etiology unrevealing and likely diagnosis at this time is alcoholic cirrhosis with perihepatic ascites and portal hypertension, esophageal varices and portal gastropathy. #1 Hemorrhage Gastrointestinal #2 Alcoholic Cirrhosis Of Liver With Ascites (HCC) #3 Esophageal Varix With Bleeding (HCC) #4 Alcohol Moderate Or Severe Use Disorder (Dependence) Uncomplicated (HCC) #5 Anemia Posthemorrhagic Acute (Blood Loss Anemia) # Hemorrhage Gastrointestinal # Portal hypertension # Probable alcoholic cirrhosis # History of alcoholic gastritis - CT imaging consistent with hepatomegaly and perihepatic fluid collection with portal hypertension and visible gastric varices, periumbilical venous distention. CT imaging did not all right demonstrate cirrhotic changes of the liver. Question micronodular cirrhosis in the setting of alcohol use. -patient reported jaundice after eating suspicious food in her late teens which was self-limiting. She thinks this was hepatitis A. No serologies available. Given lack of chronicity with hepatitis A will defer rechecking serologies at this time. -hepatitis B immune, hep C negative -EGD completed today -multiple grade 2 gastric varices status post banding x3 -nonbleeding gastric ulcer with adherent clot approximately 8 mm -liver ultrasound showing coarse parenchyma with reduced anterograde flow consistent with portal hypertension -continue b.i.d. PPI via IV -continue octreotide GTT unless directed by GI to discontinue -continue ceftriaxone for SBP prophylaxis with a total duration of 7 days. Given slightly prolonged QTC will opt for ceftriaxone in the inpatient setting and transfer to floroquinolone prior to discharge -slow diet advancement from clears to full liquids today -start nadolol 20mg for portal hypertension and observe for signs of orthostasis ?? # Hypertension Patient takes lisinopril 10 mg daily at home. Patient has been hypotensive. - hold home lisinopril ?? # History of alcohol use disorder Last drink was 2 days ago and has no history of withdrawal symptoms or seizures. She has had increased drinking in the last month, but has had less to drink over the last year. Suspicion for withdrawalis low. No CIWA protocol at this time. Patient without concerns of withdrawal. ?? # History of anorexia nervosa Patient sees psychology outpatient and endorses her symptoms are well controlled at this time. Has previously been on escitalopram but did not tolerate it well. Diet: clear diet Tubes/lines: 2 PIV VTE prophylaxis: held due to GI bleed Code status: full Disposition: anticipate discharge at the end of the week to home and self-care ?? Plan discussed with [facility] ([facility]) Regional Sales Associate, Galdino Lazcano M.D.. Please page the [facility] Medicine 3 ([facility]) service pager at [phone] with any questions. Ephraim Leon MD RD [facility] Internal Medicine Resident (PGY-1) Jericho Rosa L.G.S.W., M.S.W. - 08/03/2020 4:18 PM CDT SUBJECTIVE Social work attempted to meet with patient, however, they were unavailable and not present during both attempts. Social work will follow up tomorrow to complete a psychosocial assessment and provide additional support. OBJECTIVE N/A ASSESSMENT / PLAN ASSESSMENT Unable to assess. PLAN Social work will follow up with patient at a later time to complete a psychosocial assessment and provide supportive counseling. Derrick Corcoran, M.S.W. 08/03/2020 Ephraim Leon M.D. - 08/03/2020 3:03 PM CDT [facility] Medicine 3 ([facility]) PROGRESS NOTE SUBJECTIVE Ms. Berry remains stable overnight after receiving 2 units of packed red blood cells. Hemoglobin checked this morning was 7.6 with afternoon check post EGD showing 9.1. She complained of mild abdominal pain status post procedure and was given Tylenol with good effect. She has no other complaints today. She did mention to me that she takes multiple herbal supplements for which she does not know the names. Addition, she consumes approximately 3-5 drinks per day of beer. One episode of significant bingedrinking recent past. She does describe a clinical history of would be hepatitis A in her late teenage years after suspicious food consumption with development of jaundice and right upper quadrant painthat was self-limiting. I have reviewed the current medication list. OBJECTIVE VITAL SIGNS Temperature: [36.4 ??C-37.1 ??C] 36.7 ??C Heart Rate: [64-94] 77 Resp Rate: [9-27] 18 Blood Pressure: (87-122)/(47-76) 107/66 SpO2: [92 %-99 %] 98 % Flow Rate (L/min): [0 L/min] 0 L/min Pulse Rate: [64-94] 70 PHYSICAL EXAM General: Sitting comfortably in bed. Cooperative, in no acute distress. Eyes: Clear, non-injected, anicteric sclera. ENT: MMM. No oropharyngeal exudate, erythema, or lesions. Cardiac: Normal rate, regular rhythm. S1, S2 auscultated with no murmurs, rubs, or extra heart sounds. Lungs: Non-labored breathing on room air. Clear to auscultation bilaterally. No wheezes, rales, rhonchi. Abdomen: Normoactive bowel sounds. Soft, non-distended, non-tender to palpation. No guarding or rebound tenderness. No masses palpated. Mild hepatomegaly, splenomegaly palpated. Extremities: Warm and well-perfused UE and LE. Skin: No rashes, nonjaundiced appearing Neuro: Alert, oriented x 3. DIAGNOSTICS I have personally reviewed the laboratory data and imaging since admission, and in/outs for past 72 hours. ASSESSMENT / PLAN Ms. Berry is hospitalized on [facility] ([facility]) for evaluation and management of Hemorrhage Gastrointestinal. Now status post EGD with improved hemoglobin. Remain in the hospital for observation and undergo continue workup for underlying liver etiology. #1 Hemorrhage Gastrointestinal #2 Alcoholic Cirrhosis Of Liver With Ascites (HCC) #3 Esophageal Varix With Bleeding (HCC) #4 Alcohol Moderate Or Severe Use Disorder (Dependence) Uncomplicated (HCC) #5 Anemia Posthemorrhagic Acute (Blood Loss Anemia) # Hemorrhage Gastrointestinal # Portal hypertension per CT # Query History of alcoholic cirrhosis # History of alcoholic gastritis - CT imaging consistent with hepatomegaly and perihepatic fluid collection with portal hypertension and visible gastric varices, periumbilical venous distention. CT imaging did not all right demonstrate cirrhotic changes of the liver. Question micronodular cirrhosis in the setting of alcohol use. -patient reported jaundice after eating suspicious food in her late teens which was self-limiting. She thinks this was hepatitis A. No serologies available. Given lack of chronicity with hepatitis A will defer rechecking serologies at this time. -hepatitis B immune, hep C negative -MELD-Na of 16 this morning with low albumin and thrombocytopenia. AST> ALT ratio of 2.6 -EGD completed today - formal report to follow -multiple gastric varices status post banding -nonbleeding gastric ulcer -slow diet advancement -continue b.i.d. PPI via IV -continue octreotide GTT unless directed by GI to discontinue -continue ceftriaxone for SBP prophylaxis with a total duration of 7 days. Can consider transition oral antibiotics -will investigate other causes as patient reported alcohol intake is not consistent with alcoholic liver disease -liver ultrasound today. ?? # Hypertension Patient takes lisinopril 10 mg daily at home. Patient has been hypotensive. - hold home lisinopril ?? # History of alcohol use disorder Last drink was 2 days ago and has no history of withdrawal symptoms or seizures. She has had increased drinking in the last month, but has had less to drink over the last year. Suspicion for withdrawalis low. No CIWA protocol at this time. Patient without concerns of withdrawal. ?? # History of anorexia nervosa Patient sees psychology outpatient and endorses her symptoms are well controlled at this time. Has previously been on escitalopram but did not tolerate it well. Diet: clear diet Tubes/lines: 2 PIV VTE prophylaxis: held due to GI bleed Code status: No Order Disposition: Uncertain ?? Plan discussed with [facility] ([facility]) Regional Sales Associate, Galdino Lazcano M.D.. Please page the [facility] 3 ([facility]) service pager at [phone] with any questions. Ephraim Leon MD RD [facility] Internal Medicine Resident (PGY-1) Galdino Dykes M.D., Ph.D. - 08/03/2020 12:08 PM CDT Personally met with patient. Concur with [facility] 3 from 08/03/2020. She is going for upper endoscopy today. She will need to follow-up with our hepatocellular colleagues. New diagnosis of decompensated cirrhosis. Complete 7 day course of antibiotics. We can transition to ciprofloxacin for dismissal planning. Recommend chemical dependency social work visit. Recommend total abstinence from alcohol. Discussed with patient. #1 Hemorrhage Gastrointestinal #2 Anemia Posthemorrhagic Acute (Blood Loss Anemia) #3 Esophageal Varix With Bleeding (HCC) #4 Alcoholic Cirrhosis Of Liver With Ascites (HCC) #5 Alcohol Moderate Or Severe Use Disorder (Dependence) Uncomplicated (HCC) documented in this encounter H&P Notes Galdino Dykes M.D., Ph.D. - 08/02/2020 12:11 PM CDT Personally met with patient. Concur with [facility] from 08/02/2020. Patient admitted with dark stools. BUN is elevated. She has had some emesis without ian blood. Review of CT scan does identify esophageal varices. There is also appears to be a portal systemic shunt through a caput of medusa on to the left femoral vein. There is some ascites surrounding the gallbladder. Albumin is low, INR elevated, platelets low, Agree with octreotide, ceftriaxone, prepare for upper endoscopy. Will give 5 mg IV vitamin K. Will ask for a chemical dependency consultation. Last drink was Sunday. #1 Hemorrhage Gastrointestinal #2 Anemia Posthemorrhagic Acute (Blood Loss Anemia) #3 Esophageal Varix With Bleeding (HCC) #4 Alcoholic Cirrhosis Of Liver With Ascites (HCC) #5 Alcohol Moderate Or Severe Use Disorder (Dependence) Uncomplicated (HCC) Olive Dudley D.O. - 08/02/2020 8:18 AM CDT [facility] Medicine 3 ([facility]) Admission Note SUBJECTIVE CHIEF COMPLAINT GI bleed HISTORY OF PRESENT ILLNESS Ms. Joana Berry is a 50 y.o. female who presented with a GI bleed. Past medical history includes alcohol use disorder, GI bleed, alcoholic gastritis, alcoholic liver disease, ascites, diverticulosis, and anorexia nervosa. Patient reports a two day history of multiple dark black stool and one day of dark brown emesis and presented to the ED. In the outside ED, patient's hemoglobin was 7.0 and received 1 unit pRBC. She had mild nausea which improved with Zofran and bilateral lower abdominal pain which resolved with pain m edication. She also received 80 mg Protonix, 1 unit of pRBC, and 2 L of IV fluids and was transferred to [facility] for further management. In the [facility] ED, her blood pressure was 98-106/67-70, HR 92, O2 Sat 97% RA. Repeat Hgb was 7.6. She received octreotide and 1 g of ceftriaxone and was transferred to the floor. On the floor she endorses feeling fatigued, which she attributes to lack of sleep and not eating. Her nausea and lower abdominal pain have resolved. Previous to this episode, she has not had dark blackstool since 2018. Last bowel movement was yesterday. Nausea has improved and has not had emesis since yesterday. Patient denies abdominal pain with eating. Patient denies headache, dizziness, change invision, chest pain, palpitations, weakness, and changes in urine color. Patient endorses a history of alcohol use disorder but drink less alcohol within the last year with exception of this month. She endorses increased drinking on the weekends with her friends but has a difficult time quantifying the number of drinks she has. She estimates 3-4 drinks per weekend day. Last alcoholic beverage was two days ago in for with four drinks. No history of withdrawal symptoms or seizures. Does not feel the need to drink when she wakes in the morning. Last endoscopy in 2018 showed alcoholic gastritis with no esophageal varices. Patient was hospitalized in 11/2019 with ascites. Paracentesis was performed and she did not have spontaneous bacterial peritonitis. Of note, patient had diverticulitis with bleed in 2018. Last colonoscopy was 08/2019 with normal mucosa. Family history- dad from pancreatic cancer. No family history of cirrhosis or liver disease. I have reviewed and updated the following: Past Medical History, Family History, Social History, andAllergies. Current Outpatient Medications on File Prior to Encounter: ??? ascorbic acid, vitamin C, (VITAMIN C) 1,000 mg tablet, Take 1,000 mg by mouth. ??? iron bisgly,ps-FA-B-C#12-succ 65 mg-65 mg -1,000 mcg (24) tablet, Take by mouth. ??? lidocaine (LIDODERM) 5 %, Apply on dry, clean, hairless skin. Apply 1 patch to painful area of skin for up to to 12 hours within 24 hour period. ??? lisinopriL (PRINIVIL,ZESTRIL) 10 mg tablet, Take 10 mg by mouth. ??? magnesium oxide (MAG-OX) 400 mg (241.3 mg magnesium) tablet, Take 400 mg by mouth. ??? multivitamin tablet, Take 1 tablet by mouth. ??? omega 1-vaf-yxy-fish oil 1,000 mg (120 mg-180 mg) capsule, Take 1,000 mg by mouth. REVIEW OF SYSTEMS Pertinent items are noted in HPI; all other review of systems was negative. OBJECTIVE VITAL SIGNS Temperature: [36.7 ??C-37.1 ??C] 36.8 ??C Heart Rate: [87-101] 93 Resp Rate: [16-22] 16 Blood Pressure: (92-106)/(56-70) 92/62 SpO2: [94 %-99 %] 94 % Pulse Rate: [87-118] 92 Orthostatic vital signs were 88/48, 93/61, 90/61, supine, seated, and standing respectively with 3 minutes in between each set. PHYSICAL EXAM General: Appears tired, interactive, not acutely ill. Slow to respond. Skin: No rashes or lesions. Eyes: Pupils equal, round, and reactive to light. Sclera anicteric. ENT: Hearing grossly intact. Dentition intact. No oral or pharyngeal erythema or lesions noted. No jaundice noted on tongue frenulum. Lymph: No cervical or subclavicular adenopathy. Lungs: Clear to auscultation. No wheezes or crackles. Heart: Regular rate and rhythm. No murmurs appreciated. No lower extremity edema. Abdomen: Soft, flat, bowel sounds normoactive, nontender, nondistended, no palpable masses or organomegaly. Negative Diehl's sign. Neuro: Cranial nerves II-XII intact. Strength 5/5 in all extremities. Mental: Mood and affect congruent. Alert and oriented. Attention intact. No evidence of disorganizedthinking. Difficulty concentrating. Rectal: good tone with dark brown stool in vault. DIAGNOSTICS I have reviewed the labs and diagnostics from admission. ASSESSMENT / PLAN Ms. Berry is hospitalized on [place] [id number] ([facility]) for evaluation and management of Hemorrhage Gastrointestinal. Ms. Berry is a 50 yo F who presented with a GI bleed with 2 days of melena and hematemesis. PMH includes alcohol use disorder, GI bleed, alcoholic gastritis, alcoholic liver disease, ascites, diverticulosis, and anorexia nervosa. # Hemorrhage Gastrointestinal # Portal hypertension per CT # History of alcoholic cirrhosis # History of alcoholic gastritis Based on patient's presentation with hematemesis, melena and past medical history of alcoholic cirrhosis, we are highly suspicious she has an upper GI bleed with concern for esophageal varices. This issupported with labs of a low hemoglobin, elevated BUN with normal creatinine, and evidence of portal hypertension on abdominal CT. Patient's systolic blood pressure has consistently been in the upper 80s. Orthostatic vital signs were reassuring and patient has remained asymptomatic. GI bleed consult was placed, team was contacted, and patient is scheduled for endoscopy in the morning. Patient does have a history of diverticulosis, however if this is a lower GI bleed we would expect bright red blood in her stool. Patient's hemoglobin was initially 7.0 and increased to 8.4 after 1 unit of pRBCs. However after 4 hours her hemoglobin dropped to 6.9 and another unit of pRBCs was given. This may have some dilutionaleffect from the continuous octreotide and fluid bolus, but we would not anticipate her hemoglobin todrop so much from this dilutional effect. She did receive 2 L IVF at the outpatient ED in addition to the pRBC and her Hgb increased. Reported history of alcoholic cirrhosis with history of ascites and no SBP. Patient does not have evidence of ascites on exam today but abdominal CT has evidence of portal hypertension. Unable to see if hepatitis panel has been previously drawn. Patient has impaired liver synthetic function with low pl atelets and elevated INR. - s/p 3 L IVF - s/p 2 units pRBC - Q 4H Hgb checks - Transfuse if Hgb <7 - If transfers to the ICU, notify GI bleed - Endoscopy in AM - Continue octreotide infusion - Continue Protonix 40 mg IV BID - Continue IV ceftriaxone for total of 5 doses, last day 08/06. Can transition to PO ciprofloxacin. - AM INR, BMP, LFTs, CBC - F/U HepB and Hep C labs # History of alcoholic gastritis Denies feeling the same way as previous episodes. - Continue Protonix # History of diverticulosis Denies feeling the same way as previous episodes and doesn't have BRB per rectum. This does not seemto be the cause of her bleeding at this point. CT did demonstrate diverticulosis with no evidence ofdiverticulitis. # Hypertension Patient takes lisinopril 10 mg daily at home. Patient has been hypotensive. - hold home lisinopril # History of alcohol use disorder Last drink was 2 days ago and has no history of withdrawal symptoms or seizures. She has had increased drinking in the last month, but has had less to drink over the last year. Suspicion for withdrawalis low. No CIWA protocol at this time. # History of anorexia nervosa Patient sees psychology outpatient and endorses her symptoms are well controlled at this time. Has previously been on escitalopram but did not tolerate it well. Diet: NPO \ diet Tubes/lines: 2 PIV VTE prophylaxis: none- elevated INR Code status: No Order Disposition: Uncertain Plan discussed with [facility] ([facility]) Regional Sales Associate, Galdino Lazcano M.D.. Please page the [facility] ([facility]) service pager at [phone] with any questions. Olive Dudley, DO Internal Medicine PGY1 documented in this encounter Consult Notes Jericho Rosa L.G.S.W., M.SKellie. - 08/04/2020 2:42 PM CDTAssociated Order(s): IP CONSULT TO CARE MANAGEMENT Psychosocial Assessment SUBJECTIVE DEMOGRAPHIC INFORMATION Referral Source: Provider/Service Referral Reason: Psychosocial assessment, Coping, adjustment and support, No insurance, Chemical Health assessment Person(s) present during interview: Patient Primary care clinic and provider: No primary care provider on file. Primary Language: Andorran Investment Banking Manager Services Used: No Legal Information: Legal Decision Maker: Self Advance Directives Status: Not Activated Citizenship: Citizenship: [place] Citizen Resident Status: [place] Resident REASON FOR CONSULT Psychosocial assessment, Coping, adjustment and support, No insurance, Chemical Health assessment Disclaimer: The patient was advised regarding the various topics to be interviewed during this evaluation. Patient consented to proceed. The information provided in the assessment is based on review ofthe medical record as well as the face to face interview with the patient. The patient was advised that the content of this interview will be shared with the health care team. It was discussed with thepatient that staff are mandated reporters and they reported understanding. HISTORY OF PRESENT ILLNESS Patient reports she was initially hospitalized due to gastrointestinal concerns. She states she is also suffering from a significant bout of alcohol dependence and lifelong Anorexia concerns. SOCIAL HISTORY Marital Status / Family / Household Status: single Support Systems: Family members, Friends/neighbors. Primary caregiver: Self Accompanied by/Relationship: Patient was not accompanied by family or staff upon interview. Support System: Family members, Friends/neighbors Employment: Currently Employed Psychosocial Risk Factors impacting the patient: Mental Health, Chemical Dependency, Trauma/Stress Abuse, Neglect, Maltreatment, Trauma: Current: None reported. Past: None reported. ENVIRONMENTAL SUPPORTS Current Living Situation: Private residence Patient's Home Environment: House Patient resides by herself in her home located in [place], [place].She states she has three dogs that she owns within the home. Anticipated modifications to the patient's home environment: None FUNCTIONAL STATUS (ADL's and IADL's) Functional Status: Independent Level of Assistance: Independent Dressing: Independent Feeding: Independent Bathing: Independent Grooming: Independent Toileting: Independent Transfer to/from Bed, Chair, Etc.: Independent Mobility: Independent Meal Prep: Independent Medication Setup/Administration: Independent Telephone Use: Independent Housekeeping: Independent Shopping: Independent Managing Finances: Independent Behavior: Oriented Communication: Can write, Talks, Understands speaking, Understands Andorran It is anticipated that the patient will need assistance with None. 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 Patient identified friends and neighbors as her main supports at this time. FINANCES/INSURANCE Primary insurance: N/A Secondary insurance: N/A Income Information Does the Patient have any Financial Concerns?: Yes Income Source: Employed Income/Expense Information: Expenses exceed income ADVANCE DIRECTIVES Advance Directive: Patient does not have advance directive DISCHARGE PLANNING Barriers To Discharge: None, Lack of family support Strengths: Premorbid level of function, Support of extended family/friends, Support of pets, Attitude of self, Ability to acquire knowledge Type of Residence: Private residence Support Systems: Family members, Friends/neighbors Assistance Recommended after Discharge: 24 hour supervision Home Care Services: No Anticipated Discharge Destination: Home or Self Care Recommended Discharge Services: Psychologist, Primary Care Physician Follow-up Does the patient need discharge transport arranged?: No OBJECTIVE MENTAL HEALTH Mental Health History: Patient states she has a lifelong diagnosis of Anorexia. Patient reports she has struggled with the diagnosis for the majority of her life, and continues to display difficulties addressing her concerns at this point in her life. Patient states she has been utilizing therapy, however, feels her individual therapist has dropped her at this time due to substance use concerns, and difficulties consistently attending therapy sessions. Patient identified she has been to Eating Disorder Treatment programs in the past. She states she was deemed chronic, and therefore could not participate in inpatient programs further. Patient reports she has coping mechanisms to control her eating behaviors, however, she endorsed alcohol use as a mechanism to cope as well. Patient states she has developed an addiction to Alcohol due to difficulties coping with her Anorexia diagnosis. When social work assessed patient's awareness for resources, she informed social work she has full insight and understanding into her current mental health, and states she will begin attempting to address her mental health concerns at the same time as her addiction. Current Psychological Symptoms: Patient Appearance: Healthy, Well-groomed, Relaxed Behaviors Observed: Calm, Pleasant, Interactive Patient Level of Consciousness: Alert and oriented Status of Patient's Memory: Intact Patient Cooperation: Cooperative, Forthcoming Patient Mood: Euthymic Patient Affect: Mood-congruent Quality of Patient's Speech: Within normal limits for volume, rate and tone Descriptor of Thought Content: No abnormality Thought Process Descriptor: Intact Perception: The patient denies perceptual disturbance Anxiety Symptoms: Ruminative worry, Generalized worries, Describes self as a lifelong worrier Depressive Symptoms: Depressions in response to external stressors, Easy tearfulness Level of Judgement: Intact, Adequate Suicide Risk and Safety Risk Assessment: Attempted suicide within last 30 days?: No Substance abuse history or abuse within last 30 days?: Yes Attempting or threatening suicide?: No Attempting or threatening self-harm?: No Expressing suicidal thoughts without intent?: No Expressing self-harm thoughts without intent?: No Recent evidence of psychiatric disorder?: No Response to question indicating hopelessness?: No Isolated from others?: No Mood inconsistent with state of illness?: No Fear of mcc/extended hospitalization?: No Coping with recent loss/disruption in support system?: No Homicidal: Homicidal Risk Current Homicidal Ideation: No SUBSTANCE USE Patient reports she has been struggling with alcohol abuse significantly over the past three years. However, when social work attempted to gather information on the extent of the patient's use, she appeared to minimize stating, It waxes and wanes. I really don't know how much I drink on average. Patient reports she has noticed her alcohol use has affected her life, however. She states her current mental health diagnosis of Anorexia has impacted her ability to cope with life, and has resulted in alcohol use. Patient states she will normally have one or two beers or glasses of wine per day, and will have a whole bottle of wine per night on the weekends. Patient states she understands her alcohol use accompanied with her mental health, has affected her daily living. Patient reports she has experienced problems associated with work, her physical health, and her overall ability to complete daily living activities. Social work utilized motivational interviewing to discuss current mental health concerns and her chemical dependency concerns to build rapport and discuss ways to intervene and address the issue. Patient was receptive stating she is currently contemplating the severity of her chemical dependency concerns, and states she would like to pursue outpatient therapy once she is discharged from the hospital. Social work acknowledged, provided chemical dependency resources, and educated the patient on interventions and ways to address her concerns. Patient was receptive stating she feelsmore equipped to pursue resources on her own. Patient reports she does not feel she needs a Rule 25 assessment at this time, as she has received therapy in the past and has necessary resources to continue therapy on her own. Current Stressors Patient identified her main stressor is her physical health and her chemical dependency related concerns at this time. Coping Skills/Strengths Self-talk, Sunshine, Mindfulness, Yoga/exercise, Insightfulness, Motivation and Time with pets Premorbid level of function, Support of extended family/friends, Support of pets, Attitude of self, Ability to acquire knowledge ASSESSMENT / PLAN DISCUSSION Social work met with patient to explain the role of social work within a hospital setting, complete a psychosocial assessment, discuss chemical dependency related concerns, and address any dismissal planning needs at this time. Patient is a pleasant 50 year-old female, who presents to the hospital due to gastrointestinal concerns, substance use, and concerns with her mental health diagnosis of Anorexia. Social work met with patient to address chemical dependency related concerns, provide education, anddiscuss interventions after hospitalization. Patient reports she feels she is coping appropriately with her hospital stay, but identified it has been difficult for her due to her chemical dependency and mental health affecting her overall physical health drastically. Patient displayed appropriate insight into her needs, and identified to social work she would like to pursue outpatient therapy to address her addiction concerns, and begin discussing her mental health concerns in more detail. Patient states she is normally a very independent woman, who has three dogs, her own home, and has a place of employment. Patient reported no issues managing her overall daily life, but identified her alcohol use has affected her overall functionality. Patient states she plans to address her addiction concerns after being humbled in regards to her physical health. Patient states she is currently comfortable w ith the fact that she needs addiction treatment and was willing to identify problematic patterns, thoughts of denial, and difficulties coping to social work. Social work utilized motivational interviewing, validation, and empathetic statements to build rapport and begin assisting the patient with identification of mental health concerns and addiction concerns. Patient was receptive stating she has already began adjusting her friend group, has identified positive supports, and has positive coping skills in place. Patient identified hiking with her dogs, bicycling, dancing, meditation, time with neighbors, and being outdoors as her main coping skills at this time. Patient also reports she plans to have a friend, who is supportive, stay with her for a period of time to assist with daily living activities. Patient reports she will also take a leave of absence from work to address her physical and mental health. Social work utilized strengths based conversation to highlight the patient's resiliency and insight during her difficult time. Social work also provided patient with resources for chemical dependency, and offered additional support. Patient thanked social work and denied any further questions or concerns at this time. IMPRESSION Patient appeared to be alert and oriented to time and place. She was actively engaged within the conversation, displayed appropriate insight into her physical, mental, and chemical health concerns. Patient was also able to advocate on her own behalf, identified a safe dismissal plan for herself, and wa s able to verbalize understanding and agreement with the stated plan of care. INTERVENTIONS DSM-V: No new DSM-V Diagnosis. Psychosocial assessment, chemical dependency assessment, motivational interviewing, cognitive behavioral therapy intervention, and supportive counseling. PLAN 1. Patient plans to dismiss home and pursue outpatient therapy. 2. Social work has provided chemical dependency resources. 3. Social work will continue to follow and provide support as needed. Anticipated barriers to the transition of care/plan: None at this time. Derrick Corcoran, M.S.W. 08/04/2020 Chiquita Isidro - 08/04/2020 10:20 AM CDTAssociated Order(s): IP CONSULT TO GASTROINTESTINAL TECHNICIAN RN FIELD Encounter: Initial inpatient contact Situation: Responded to Spiritual Care consult request. Ms. Berry spoke about her relationship with God and her desire to make some positive changes in her life. Family: No family present. Sunshine Tradition: Ms. Berry is listed as Islam; she requested prayer, which was provided. Plan: Will remain available for spiritual care as needed or requested. [phone] ([place]). documented in this encounter Nursing Notes Alexandra Meyer R.N. - 08/06/2020 3:43 PM CDT VSS. All PIVs removed. Full understanding of MD discharge instructions. Pt left unit independently with friend. Pt to be discharged home via private vehicle. Transfer of care successfully completed. Alexandra Meyer R.N. - 08/06/2020 3:37 PM CDT Shift Goals: Clinical Goals for the Shift: Pt will remain vitally stable and will have a bm. Identify possible barriers to meeting goals/advancing plan of care: End of Shift Summary: VSS and pt had a bm. No change in pt status. All care plan goals addressed andmet. Pt ready for discharge. Enrico Enriquez R.N. - 08/03/2020 3:03 PM CDT Shift Goals: Clinical Goals for the Shift: Patient will verbalize pain using 0-10 numeric pain intensity scale Identify possible barriers to meeting goals/advancing plan of care: discomfort/pain from procedure. End of Shift Summary: Patient rated pain 0/10 pre procedure, but since returning from her procedure has stated abdominal pain/discomfort while resting. RN paged the service asking for PRN pain medications and will administer those per patient need. VSS Problem: PAIN - ADULT Goal: PT VERBALIZES/DEMONSTRATES ADEQUATE COMFORT LEVEL OR BASELINE Outcome: Progressing documented in this encounter ED Notes Eder Rodriguez M.D. - 08/02/2020 7:16 AM CDT SUBJECTIVE CHIEF COMPLAINT/REASON FOR VISIT Vomiting HISTORY OF PRESENT ILLNESS Joana Berry is a 50 y.o. female with a past medical history of alcoholic liver disease, alcoholic gastritis, ascites, diverticulitis, and alcohol use disorder who was transferred to the [facility] Emergency Department with a concern for GI bleed. Patient states that she first noticed dark black stool at this past 07/30/2020 and on 08/01/2020, night she did develop dark brown emesis with small streaks of red blood. She largely denies symptoms of anemia, but does endorse headache, lightheadedness, and abdominal pain. She denies fevers, chills, chest pain, and shortness of breath. The patient states that she drinks approximately 1-2 bottles of wine most days but has been going a little harder the past couple of weekends due to birthday celebrations. At the outside hospital, it was found that her hemoglobin was 7 with concern for possible ongoing bleeding. She was transfused 1 unit of blood and route to [facility]. She was also given Protonix 80 mg, but not octreotide or Rocephin. She is largely remained hemodynamically stable with someslight tachycardia but has been normotensive. On exam, Miss Berry does appear her stated age, a normal weight, but does appear slightly jaundiced with scleral icterus. Her abdomen is minimally tender in the left lower and right lower quadrants. There is no appreciable fluid wave, rebound, or guarding. Hepatosplenomegaly is evident on exam. WithHemoccult test is positive, but on digital rectal exam her rectum has normal tone without surrounding blood or black stool. Brown stool was obtained for the Hemoccult card. REVIEW OF SYSTEMS Constitutional: Positive for fatigue. Negative for chills, diaphoresis, fever and unexpected weight change. HENT: Negative. Negative for trouble swallowing. Eyes: Negative. Respiratory: Negative. Cardiovascular: Negative. Gastrointestinal: Positive for abdominal pain, blood in stool, hematemesis, nausea and vomiting. Negative for abdominal distention and rectal pain. Endocrine: Negative. Genitourinary: Negative. Musculoskeletal: Negative. Skin: Positive for color change (Jaundice) and pallor. Allergic/Immunologic: Negative. Neurological: Positive for dizziness, light-headedness and headaches. Hematological: Negative. Psychiatric/Behavioral: Negative. OBJECTIVE Initial Vitals [08/02/20 0645] Temp Pulse Rate Heart Rate Resp Blood Pressure SpO2 -- 101 92 -- 106/70 97 % Pain Score -- PHYSICAL EXAMINATION Constitutional: Nursing note and vitals reviewed. She appears not lethargic. No distress. HENT: Head: Normocephalic. Mouth/Throat: Oropharynx is clear and moist. Mucous membranes are moist. Eyes: Conjunctivae and EOM are normal. Extraocular Movements: EOM normal. Neck: Normal range of motion. Cardiovascular: Regular rhythm and normal heart sounds. Tachycardia present. Exam reveals no gallop and no friction rub. Pulses are palpable. No murmur heard.Capillary refill: takes less than 3 seconds, Pulmonary/Chest: Effort normal. No tachypnea. No respiratory distress. Abdominal: Soft. Bowel sounds are normal. She exhibits no shifting dullness, no distension, no fluidwave, no ascites and no mass. A surgical scar is present. There is hepatosplenomegaly. There is abdominal tenderness in the right lower quadrant, suprapubic area and left lower quadrant. There is no rigidity, no rebound and no guarding. Rectal exam shows guaiac positive stool and brown stool. Genitourinary: Rectum normal. Musculoskeletal: Normal range of motion. Neurological: She is alert and oriented to person, place, and time. She is not disoriented. Skin: Skin is warm and dry. She is not diaphoretic. There is jaundice and pallor. Psychiatric: She has a normal mood and affect. ASSESSMENT/PLAN Impression and Plan Joana Berry is a 50 y.o. female who seems to developed a subacute gastrointestinal bleed secondary to her alcohol use disorder and associated comorbidities. She will be admitted to the hospital for observation and monitoring of bleed. The appropriate consulting services will be contacted regarding possible intervention. I reviewed previous medical records including lab results, radiology images/report and documentationfrom previous visits. I personally reviewed the lab result(s) and my interpretation is abnormal. I personally reviewed the radiology image(s). Case reviewed with other health managed care coordinator, including Internal Medicine. Final Diagnoses: as of Aug 02 716 Hemorrhage Gastrointestinal Eder Rodriguez M.D. Resident 08/02/20 0728 ROT Lv Lundy M.D. - 08/02/2020 7:03 AM CDT I have personally seen and examined this patient. I have fully participated in the care of this patient. I have reviewed all clinical information including history, physical exam, orders, and plan. I agree with the note of the resident. Joana Berry is a 50 y.o. female is transferred here from an outside ED with concern for gastrointestinal bleeding. She presented to an outside emergency department with streaks of red in her vomit and dark, tarry stools. She does not report having seen bright red blood in her stool. Outside hemog lobin was 7.0, down from 11.4 earlier this year. Patient received pantoprazole prior to transfer and1 unit PRBCs was hanging when the patient arrived here. Patient denies pain now. She has not had further hematemesis or any hematochezia since transfer. On exam, patient is awake, alert GCS 15. She is not appear toxic. Slight scleral icterus noted. Mucous members are moist. Lungs clear auscultation bilaterally with normal work of breathing. Abdomen is soft and nontender. Heart rate is in the upper 90s. This is a 50-year-old female with a history of alcohol use who is transferred here from outside ED with concern for hematemesis and melena. Presentation is suspicious for an upper GI bleed. Given the history of significant alcohol use and apparent icterus on exam, I think there is a reasonable likelihood that the patient may also have underlying liver dysfunction and, potentially, varices. Thus, willgive octreotide and ceftriaxone. Will recheck labs including CBC to assess for interval change in hemoglobin and obtain T&S here. At this point, the patient is stable for the floor. Heart rate is generally 90s, and, at most, low in 100s but less than 110 bpm with stimulation. As she has had no further obvious hematemesis or hematochezia since transfer was initiated, and noting these vital signs, a blue she is stable for the floor at the moment. Will admit to Medicine for continued care. I reviewed previous medical records including documentation from previous visits and lab results. I personally reviewed the lab result(s) and my interpretation is documented in ED Course. ED Course as of Aug 02 829 Mon Aug 02, 2020 0813 INR 2.1 in the absence of known extrinsic anticoagulation. Hepatic function panel pending. BUN is elevated with normal creatinine, likely secondary to GI bleeding. Hemoglobin 7.6 here compare 7.0 prior to transfer and transfusion. This did not correct a full unit, but is difficult to directly compare given different labs in the fact the patient has likely receive some crystalloid following the interim period will need to continue to monitor closely in recheck. the patient is no longer tachycardic but her blood pressures have fluctuated here. The I saw them as the upper 80s while the patient was lying on her side. I then re-examined the patient personally and recheck her blood pressure while she was sitting up and it was > 100 systolic. This is consistent with the nurse found on manual recheck, as well. The patient appears well and has had no obvious hematochezia or hematemesis since arriving here. She reports that she is tired, but also reports that she has been awake all night.. Given t hat hemoglobin is still < 8 and there is some question regarding blood pressures, will transfuse another unit PRBCs. Based on clinical course in the emergency department here today, however, I thinkthe patient is stable for admission to the floor. Certainly, should hemodynamics change for the patient have further hematemesis or hematochezia, level of care may need to be re- evaluated by the admitting team, but I do not think the ICU team to add anything to the patient's care at this time. Final Diagnoses: as of Aug 02 829 Hemorrhage Gastrointestinal Lv Lundy M.D. 08/02/20828 Angélica Peguero R.N. - 08/02/2020 6:40 AM CDT Patient arrives via EMS with reports of GI bleed. States she has been having dark stool and also having emesis that was brown in color. Arrives with 1 unit of blood hanging. Angélica Peguero R.N. 08/02/20641 documented in this encounter Miscellaneous Notes Hospital Course - Steffanie Anglin M.D. - 08/02/2020 5:06 PM CDT Ms. Berry is a 50 y.o. F who presented with a GI bleed. Past medical history includes alcohol use disorder, GI bleed, alcoholic gastritis, alcoholic liver disease, ascites, diverticulosis, and anorexia nervosa. ?? Patient reports a two day history of multiple dark black stool and one day of dark brown emesis and presented to the ED. In the outside ED, patient's hemoglobin was 7.0 and received 1 unit pRBC. She had mild nausea which improved with Zofran and bilateral lower abdominal pain which resolved with pain m edication. She also received 80 mg Protonix, 1 unit of pRBC, and 2 L of IV fluids and was transferred to [facility] for further management. ?? In the [facility] ED, her blood pressure was 98-106/67-70, HR 92, O2 Sat 97% RA. Repeat Hgb was 7.6. She received octreotide and [address] abdomen showed hepatomegaly with no signs of macroscopiccirrhosis. Signs of portal hypertension. Liver ultrasound with Doppler: Coarsened hepatic parenchymal echotexture and trace perihepatic ascites consistent with parenchymal liver disease. Received 1 U of pRBC. Endoscopy on 08/03 showed 3 varices which were banded. All had a red whale sign, which is indicative of high risk bleeding. She also had a gastric ulcer with 8 mm adherent clot. She was trialed on 20 mg natalol which resulted in asymptomatic hypotension and bradycardia. She was started on a PPIb.i.d. She was on octreotide while inpatient. She was also on ceftriaxone while inpatient, transition to double-strength Bactrim BID as an outpatient to complete 7 day course. Ciprofloxacin was not given for continuation of SBP prophylaxis secondary to prolonged QTC. Given her alcoholic cirrhosis, shewas expectedly hypotensive with systolics in the 90s on average, sometimes dipping into the 80s. Shewas trialed on Albumin with minimal response of her pressures. Her home lisinopril was discontinued. She will require repeat EGD and hepatology follow up in the next 4 weeks. Please schedule as insurance coverage was a barrier to scheduling while inpt. She will try and obtain insurance once she leavesthe hospital. documented in this encounter Plan of Treatment Pending Results Name Type Priority Associated Diagnoses Date/Ti az Prepare Red Blood Blood Bank Routine 08/02/2020 7:29 AM CDT Cells, 1 Units Prepare Red Blood Blood Bank Routine 08/02/2020 7:29 AM CDT Cells, 1 Units documented as of this encounter Procedures Procedure Name Priority Date/Time Associated Comments Diagnosis CBC WITHOUT Routine 08/06/2020 6:05 Results for DIFFERENTIAL, B AM CDT this procedu re are in the results section. HEMOGLOBIN, B Routine 08/05/2020 7:46 Results for PM CDT this procedure are in the results section. CBC WITHOUT Routine 08/05/2020 6:40 Results for DIFFERENTIAL, B AM CDT this procedu re are in the results section. CBC WITH Routine 08/04/2020 6:00 Results for DIFFERENTIAL, B AM CDT this procedu re are in the results section. COMPREHENSIVE Routine 08/04/2020 6:00 Results for METABOLIC PANEL, S/P AM CDT this pr ocedure are in the results section. VITAMIN B12 ASSAY, S Routine 08/04/2020 5:57 Resu lts for AM CDT this procedure are in the results section. US LIVER WITH LIVER RAD - Routine 08/03/2020 8:50 Resu lts for DOPPLER (most inpatients PM CDT this proced ure and all are in the outpatients) results section. ECG Routine 08/03/2020 3:10 Results for PM CDT this procedure are in the results section. HEMOGLOBIN, B Timed 08/03/2020 2:07 Results for PM CDT this procedure are in the results section. UPPER GI ENDOSCOPY Routine 08/03/2020 10:22 Resul ts for AM CDT this procedure are in the results section. EGD Routine 08/03/2020 10:22 (ESOPHAGEALGASTRODUOD AM CDT ENOSCOPY) HEPATIC FUNCTION Timed 08/03/2020 3:57 Results for PANEL, S AM CDT this procedure are in the results section. PROTHROMBIN TIME Timed 08/03/2020 3:57 Results for (PT), P AM CDT this procedure are in the results section. CBC WITH Timed 08/03/2020 3:57 Results for DIFFERENTIAL, B AM CDT this procedu re are in the results section. BASIC METABOLIC Timed 08/03/2020 3:57 Results f or PANEL, S/P AM CDT this procedure are in the results section. FERRITIN, S Routine 08/03/2020 3:52 Results for AM CDT this procedure are in the results section. HEMOGLOBIN, B Timed 08/03/2020 12:07 Results fo r AM CDT this procedure are in the results section. HEMOGLOBIN, B Timed 08/02/2020 8:10 Results for PM CDT this procedure are in the results section. TRANSFUSE RED BLOOD Routine 08/02/2020 3:35 CELLS PM CDT SARS CORONAVIRUS-2 Routine 08/02/2020 2:18 Result s for RNA, V PM CDT this procedure are in the results section. HCV AB W/REFLEX TO Timed 08/02/2020 2:06 Result s for HCV PCR, S PM CDT this procedure are in the results section. HEMOGLOBIN, B Timed 08/02/2020 2:06 Results for PM CDT this procedure are in the results section. INTERPRETATION OF RAD - Routine 08/02/2020 12:14 Resul ts for OUTSIDE CT ABDOMEN (most inpatients PM CDT this procedure AND OR PELVIS and all are in the outpatients) results section. HEMOGLOBIN, B STAT 08/02/2020 9:48 Results for AM CDT this procedure are in the results section. HEPATIC FUNCTION STAT 08/02/2020 7:29 Results for PANEL, S AM CDT this procedure are in the results section. LACTATE, POCT, B STAT 08/02/2020 7:29 Results for AM CDT this procedure are in the results section. PROTHROMBIN TIME STAT 08/02/2020 7:29 Results for (PT), P AM CDT this procedure are in the results section. CBC WITH STAT 08/02/2020 7:29 Results for DIFFERENTIAL, B AM CDT this procedu re are in the results section. PREPARE RED BLOOD Routine 08/02/2020 7:29 CELLS AM CDT PREPARE RED BLOOD Routine 08/02/2020 7:29 CELLS AM CDT TYPE AND SCREEN STAT 08/02/2020 7:29 Results f or AM CDT this procedure are in the results section. BASIC METABOLIC STAT 08/02/2020 7:29 Results f or PANEL, S/P AM CDT this procedure are in the results section. LACTATE, POCT, B Routine 08/02/2020 7:28 Results for AM CDT this procedure are in the results section. HBC TOTAL AB, SERUM Routine 08/02/2020 7:27 Resul ts for AM CDT this procedure are in the results section. HBS ANTIBODY, SERUM Routine 08/02/2020 7:27 Resul ts for AM CDT this procedure are in the results section. HEPATITIS B SURFACE Routine 08/02/2020 7:27 Resul ts for ANTIGEN AM CDT this procedure are in the results section. documented in this encounter Results (ABNORMAL) CBC without Differential (08/06/2020 6:05 AM CDT) Patholo gist Method Time Signature Hemoglobin 7.5 (L) 11.6 - 08/06/2020 DTL 15.0 g/dL 6:36 AM CDT Hematocrit 23.6 (L) 35.5 - 08/06/2020 DTL 44.9 % 6:36 AM CDT Erythrocytes 2.32 (L) 3.92 - 08/06/2020 DTL 5.13 6:36 AM CDT x10(12)/L MCV 101.7 (H) 78.2 - 08/06/2020 DTL 97.9 fL 6:36 AM CDT RBC Distrib Width 17.4 (H) 12.2 - 08/06/2020 DTL 16.1 % 6:36 AM CDT Platelet Count 72 (L) 157 - 371 08/06/2020 DTL x10(9)/L 6:36 AM CDT Leukocytes 5.5 3.4 - 9.6 08/06/2020 DTL x10(9)/L 6:36 AM CDT Specimen Anatomical Collection Method Collection Time Receive d Time (Source) Location / / Volume Laterality Blood (Blood, 08/06/2020 6:05 AM 08/06/20 20 6:30 Venous) CDT AM CDT Jolynn Palomares M.D. LAB BLOOD ADD-ON Performing Organization Address City/State/ZIP Code Phon e Number [facility] - [address] [place], [place] [address] [facility] [place] [address] [facility] [address] (ABNORMAL) Hemoglobin (08/05/2020 7:46 PM CDT) P athologist Signature Hemoglobin 8.0 (L) 11.6 - 15.0 08/05/2020 DTL g/dL 8:34 PM CDT Specimen Anatomical Collection Method Collection Time Receive d Time (Source) Location / / Volume Laterality Blood (Blood, 08/05/2020 7:46 PM 08/05/20 20 8:30 Venous) CDT PM CDT Buddy Parker M.D. LAB BLOOD ADD-ON Performing Organization Address [facility] Phon e Number [facility] - [address] [place], [place] [id number] [place] [address] (ABNORMAL) CBC without Differential (08/05/2020 6:40 AM CDT) Patholo gist Method Time Signature Hemoglobin 7.4 (L) 11.6 - 08/05/2020 DTL 15.0 g/dL 7:49 AM CDT Hematocrit 22.8 (L) 35.5 - 08/05/2020 DTL 44.9 % 7:49 AM CDT Erythrocytes 2.27 (L) 3.92 - 08/05/2020 DTL 5.13 7:49 AM CDT x10(12)/L MCV 100.4 (H) 78.2 - 08/05/2020 DTL 97.9 fL 7:49 AM CDT RBC Distrib Width 17.8 (H) 12.2 - 08/05/2020 DTL 16.1 % 7:49 AM CDT Platelet Count 90 (L) 157 - 371 08/05/2020 DTL x10(9)/L 7:49 AM CDT Leukocytes 7.6 3.4 - 9.6 08/05/2020 DTL x10(9)/L 7:49 AM CDT Specimen Anatomical Collection Method Collection Time Receive d Time (Source) Location / / Volume Laterality Blood (Blood, 08/05/2020 6:40 AM 08/05/20 20 7:35 Venous) CDT AM CDT Ephraim Leon M.D. LAB BLOOD ADD-ON Performing Organization Address City/State/[facility] Code Phon e Number [facility] - 200 [place], [place] [address] [facility] [place] [address] (ABNORMAL) Comprehensive Metabolic Panel (08/04/2020 6:00 AM CDT) P athologist Signature Potassium, S 3.8 3.6 - 5.2 08/04/2020 DTL mmol/L 7:58 AM CDT Sodium, S 139 135 - 145 08/04/2020 DTL mmol/L 7:58 AM CDT Chloride, S 106 98 - 107 08/04/2020 DTL mmol/L 7:58 AM CDT Bicarbonate, S 22 22 - 29 08/04/2020 DTL mmol/L 7:58 AM CDT Anion Gap 11 7 - 15 08/04/2020 DTL 7:58 AM CDT BUN (Blood Urea 26 (H) 6 - 21 08/04/2020 DTL Nitrogen), S mg/dL 7:58 AM CDT Creatinine 0.74 0.59 - 08/04/2020 DTL 1.04 mg/dL 7:58 AM CDT eGFR-Non >90 >=60 08/04/2020 DTL Black/ mL/min/BSA 7:58 AM CDT Vincentian Comment: ----ADDITIONAL INFORMATION---- Estimated GFR calculated using the 2009 CKD_EPI creatinine equation. eGFR-Black/ >90 >=60 mL/min/BSA 2019 7:58 AM CDT DTL Comment: ----ADDITIONAL INFORMATION---- Estimated GFR calculated using the 2009 CKD_EPI creatinine equation. Calcium, Total, S 7.9 (L) 8.6 - 10.0 mg/dL 08/04/2020 7:58 AM CDT DTL Glucose, S 106 70 - 140 mg/dL 08/04/2020 7:58 AM CDT D TL Protein, Total, S 5.0 (L) 6.3 - 7.9 g/dL 08/04/2020 7:58 A M CDT DTL Albumin, S 2.8 (L) 3.5 - 5.0 g/dL 08/04/2020 7:58 AM CDT D TL Aspartate Aminotransferase 39 8 - 43 U/L 08/04/2020 7 :58 AM CDT DTL (AST), S Alkaline Phosphatase, S 101 35 - 104 U/L 08/04/2020 7: 58 AM CDT DTL Alanine Aminotransferase 22 7 - 45 U/L 08/04/2020 7:5 8 AM CDT DTL (ALT), S Bilirubin, Total, S 2.1 (H) <=1.2 mg/dL 08/04/2020 7:58 AM CDT DTL Specimen Anatomical Collection Method Collection Time Receive d Time (Source) Location / / Volume Laterality Blood (Blood, 08/04/2020 6:00 AM 08/04/20 20 7:40 Venous) CDT AM CDT Ephraim Leon M.D. LAB BLOOD ADD-ON Performing Organization Address City/State/ZIP Code Phon e Number [facility] - 200 [place], [place] [address] [facility] [place] [address] [facility] [address] [facility] (ABNORMAL) CBC with Differential, Blood (08/04/2020 6:00 AM CDT) [facility] Method Time Signature Hemoglobin 7.6 (L) 11.6 - 08/04/2020 DTL 15.0 g/dL 7:26 AM CDT Hematocrit 23.2 (L) 35.5 - 08/04/2020 DTL 44.9 % 7:26 AM CDT Erythrocytes 2.38 (L) 3.92 - 08/04/2020 DTL 5.13 7:26 AM CDT x10(12)/L MCV 97.5 78.2 - 08/04/2020 DTL 97.9 fL 7:26 AM CDT RBC Distrib Width 17.3 (H) 12.2 - 08/04/2020 DTL 16.1 % 7:26 AM CDT Platelet Count 71 (L) 157 - 371 08/04/2020 DTL x10(9)/L 8:02 AM CDT Leukocytes 5.9 3.4 - 9.6 08/04/2020 DTL x10(9)/L 8:02 AM CDT Neutrophils 4.51 1.56 - 08/04/2020 DTL 6.45 7:26 AM CDT x10(9)/L Lymphocytes 0.78 (L) 0.95 - 08/04/2020 DTL 3.07 7:26 AM CDT x10(9)/L Monocytes 0.56 0.26 - 08/04/2020 DTL 0.81 7:26 AM CDT x10(9)/L Eosinophils <0.03 0.03 - 08/04/2020 DTL 0.48 7:26 AM CDT x10(9)/L Basophils <0.03 0.01 - 08/04/2020 DTL 0.08 7:26 AM CDT x10(9)/L Specimen Anatomical Collection Method Collection Time Receive d Time (Source) Location / / Volume Laterality Blood (Blood, 08/04/2020 6:00 AM 08/04/20 20 7:15 Venous) CDT AM CDT Ephraim Leon M.D. LAB BLOOD ADD-ON Performing Organization Address City/[facility] Phon e Number [facility] - [phone] [place] [address] Vitamin B12 Assay (08/04/2020 5:57 AM CDT) athologist Signature Vitamin B12 910 180 - 914 08/06/2020 DTL Assay, S ng/L 6:28 AM CDT Comment: ----ADDITIONAL INFORMATION---- In patients being evaluated for vitamin B12 deficiency who have intrinsic factor blocking antibodie s (IFBA), false elevations of B12 may occur due to IFBA interference thus potentially obscuring a physiological de ficiency of B12. If observed B12 concentrations are disco rdant with clinical presentation, measurement of methylmalon ic acid (MMA) should be considered. Specimen Anatomical Collection Method Collection Time Receive d Time (Source) Location / / Volume Laterality Blood (Blood, 08/04/2020 5:57 AM 08/05/20 20 3:27 Venous) CDT PM CDT Galdino Dykes M.D., Ph.D. LAB BLOOD ADD-ON Performing Organization Address City/[facility] Phon e Number [facility] - [address] US Liver with Liver Doppler (08/03/2020 8:50 PM CDT) Anatomical Region Laterality Modality Abdomen, Ultrasound RST LOS, Ultrasound ARZ LOS, Ultrasound FLA N/A Ultrasound LOS Specimen (Source) Anatomical Collection Method Collection Time Re ceived Time Location / / Volume Laterality 08/03/2020 9:54 PM CDT Impressions 08/04/2020 7:29 AM CDT 1. Coarsened hepatic parenchymal echotexture and trace perihepatic ascites consistent with parenchymal liver diseas e. 2. Slow antegrade portal vein flow and r ecanalization of the umbilical vein compatible with portal hypertension. Narrative 08/04/2020 7:29 AM CDT EXAM: US LIVER WITH LIVER DOPPLER Exam performed with color and spectral D oppler analysis. COMPARISON: Outside CT 08/02/2020 FINDINGS: Liver: Coarsened hepatic parenchymal ech otexture. No liver mass. Doppler: Splenic and hepatic veins are p atent with antegrade flow. Slow antegrade portal vein flow. The main hep atic artery is patent with antegrade flow. Recanalized umbilical vein. Intrahepatic ducts: Not dilated. Common duct: Normal caliber CHD at 6mm C ommon bile duct slightly prominent, measuring up to 8 mm. No obstructing sto ne identified. Gallbladder: Biliary sludge. Negative so nographic Diehl sign. Other: Trace perihepatic and pelvic asci daisy. Procedure Note Dallas Rodriguez M.D. - 08/04/2020Formatti ng of this note might be different from the original. EXAM: US LIVER WITH LIVER DOPPLER Exam performed with color and spectral D oppler analysis. COMPARISON: Outside CT 08/02/2020 FINDINGS: Liver: Coarsened hepatic parenchymal ech otexture. No liver mass. Doppler: Splenic and hepatic veins are p atent with antegrade flow. Slow antegrade portal vein flow. The main hep atic artery is patent with antegrade flow. Recanalized umbilical vein. Intrahepatic ducts: Not dilated. Common duct: Normal caliber CHD at 6mm C ommon bile duct slightly prominent, measuring up to 8 mm. No obstructing sto ne identified. Gallbladder: Biliary sludge. Negative so nographic Diehl sign. Other: Trace perihepatic and pelvic asci daisy. IMPRESSION: 1. Coarsened hepatic parenchymal echotex ture and trace perihepatic ascites consistent with parenchymal liver diseas e. 2. Slow antegrade portal vein flow and r ecanalization of the umbilical vein compatible with portal hypertension. Steffanie MIRELES US PROCEDURES ECG 12 Lead (08/03/2020 3:10 PM CDT) P athologist Signature Ventricular Rate 69 BPM MUSE ECG/Min [place] Interval 144 ms MUSE QRSD Interval 90 ms MUSE QT Interval 456 ms MUSE QTC Interval 489 ms MUSE P [place] 47 degrees MUSE R [place] 58 degrees MUSE T Wave [place] 22 degrees MUSE Specimen Anatomical Collection Method Collection Time Receive d Time (Source) Location / / Volume Laterality 08/03/2020 3:10 PM 0 3:12 CDT PM CDT Impressions MUSE - 08/03/2020 3:12 PM CDT Normal sinus rhythm Prolonged QT No previous ECGs available Reviewed by TERRENCE Diamond Narrative This result has an attachment that is no t available. Procedure Note Minesh Hobbs Jr., M.D. - 08/03/2020For matting of this note might be different from the original. IMPRESSION: Normal sinus rhythm Prolonged QT No previous ECGs available Reviewed by TERRENCE Diamond Steffanie Venegas M.D. ECG ORDERABLES Performing Organization Address City/State/ZIP Code Phon e Number MUSE MUSE NA (ABNORMAL) Hemoglobin (08/03/2020 2:07 PM CDT) athologist Signature Hemoglobin 9.1 (L) 11.6 - 15.0 08/03/2020 DHPM g/dL 2:53 PM CDT Specimen Anatomical Collection Method Collection Time Receive d Time (Source) Location / / Volume Laterality Blood (Blood, 08/03/2020 2:07 PM 08/03/20 20 2:33 Venous) CDT PM CDT Steffanie Venegas M.D. LAB BLOOD ADD-ON Performing Organization Address City/[facility]/ZIP Code Phon e Number [facility] - [address] [place] [address] [address] [place] [address] [address] Upper GI Endoscopy (08/03/2020 10:22 AM CDT) Specimen (Source) Anatomical Collection Method Collection Time Re ceived Time Location / / Volume Laterality 08/03/2020 10:[address] [facility] - 08/03/2020 5:57 PM CDT Post-op Diagnoses: ? - With red josefina sign grade II eso phageal varices. Completely eradicated. ? Banded. ? - Non-obstructing non-bleeding ga stric ulcer with adherent clot. OTSC ? clip placed. ? - Normal examined duodenum. ? - No specimens collected. Narrative [facility] - 08/03/2020 5:57 PM CDT Nitish 6 GI GI Patient Name: Joana Berry Date of : 1970 Age: 50 Gender: Female Procedure Date: 08/03/2020 Procedure: ? Upper GI endoscopy Providers: ? Garfield Harley MD, Julio Cesar Coronado MD, PhD (Fellow) Referring Provider: ?Hortensia najera Pre-op Diagnoses: ?Hematemesis , Melena Recommendation: ? - Return patient to hospital [facility] for ongoing care. Clear liquid diet ? for the next 24 hours, then advan ce to full liquids for 24 hours and ? then advance as tolerated. Repeat EGD for further variceal banding if ? needed in 4 weeks. Please conside r hepatobiliary consult to discuss the ? need for non-specific beta blocke r therapy. PPI therapy for the stomach ? ulcer and investigate the patient 's h. pylori status. Findings: ? Four columns of grade II varices were found in the lower third of the ? esophagus,. Red josefina signs were p resent. Three bands were successfully ? placed with complete eradication, resulting in deflation of varices. ? There was no bleeding during the procedure. ? One non-obstructing non-bleeding cratered gastric ulcer of moderate to ? significant severity with adheren t clot was found in the gastric antrum. ? The lesion was 8 mm in largest di mension. Given high risk, OTSC clip. ? There was no bleeding at the end of the procedure. ? The examined duodenum was normal. ? Moderate-severe portal hypertensi ve gastropathy was found in the stomach. Procedural Details: ? The patient was seen, [...] were monitored continuously. The Gastroscope was introduced under direct ? vision through the mouth, and adv anced to the second part of duodenum. ? The upper GI endoscopy was accomp lished without difficulty. The patient ? tolerated the procedure well. Estimated Blood Loss: ?Estimated blo od loss was minimal. Complications: ? No immedia te complications. Sedation: ? Anesthesia was administered by an anesthesia professional. The following ? parameters were monitored: oxygen saturation, heart rate, blood ? pressure, respiratory rate, EKG, adequacy of pulmonary ventilation, and ? response to care. Attending Participation: I was present a nd participated during the entire ? pro cedure, including non-kirk portions. Garfield Harley MD 08/03/2020 5:16:54 PM This report has been signed electronical ly. Number of Addenda: 0 Hortensia Bailey M.D., Ph.D. GI PROCEDURE ORDERABLES Performing Organization Address City/State/ZIP Code Phon e Number [facility] NA (ABNORMAL) Prothrombin Time (PT) (08/03/2020 3:57 AM CDT) [facility] Method Time Signature Prothrombin 18.5 (H) 9.4 - 12.5 08/03/2020 DTL Time, P sec 4:59 AM CDT INR 1.7 0.9 - 1.1 08/03/2020 DTL 4:59 AM CDT Comment: ----ADDITIONAL INFORMATION---- Standard intensity warfarin therapeutic range: 2.0 to 3.0 ?? High intensity warfarin therapeutic rang e: 2.5 to 3.5 Specimen Anatomical Collection Method Collection Time Receive d Time (Source) Location / / Volume Laterality Blood (Blood, 08/03/2020 3:57 AM 08/03/20 20 4:23 Venous) CDT AM CDT Olive Dudley D.O. LAB BLOOD ADD-ON Performing Organization Address City/State/ZIP Code Phon e Number [facility] - 200 [place], [place] [address] [facility] [place] [address] [facility] 200 [facility] (ABNORMAL) CBC with Differential, Blood (08/03/2020 3:57 AM CDT) [facility] gist Method Time Signature Hemoglobin 7.6 (L) 11.6 - 08/03/2020 DTL 15.0 g/dL 4:32 AM CDT Hematocrit 22.6 (L) 35.5 - 08/03/2020 DTL 44.9 % 4:32 AM CDT Erythrocytes 2.33 (L) 3.92 - 08/03/2020 DTL 5.13 4:32 AM CDT x10(12)/L MCV 97.0 78.2 - 08/03/2020 DTL 97.9 fL 4:32 AM CDT RBC Distrib Width 17.8 (H) 12.2 - 08/03/2020 DTL 16.1 % 4:32 AM CDT Platelet Count 59 (L) 157 - 371 08/03/2020 DTL x10(9)/L 4:32 AM CDT Leukocytes 5.9 3.4 - 9.6 08/03/2020 DTL x10(9)/L 4:32 AM CDT Neutrophils 3.71 1.56 - 08/03/2020 DTL 6.45 4:32 AM CDT x10(9)/L Lymphocytes 1.37 0.95 - 08/03/2020 DTL 3.07 4:32 AM CDT x10(9)/L Monocytes 0.56 0.26 - 08/03/2020 DTL 0.81 4:32 AM CDT x10(9)/L Eosinophils 0.20 0.03 - 08/03/2020 DTL 0.48 4:32 AM CDT x10(9)/L Basophils 0.05 0.01 - 08/03/2020 DTL 0.08 4:32 AM CDT x10(9)/L Specimen Anatomical Collection Method Collection Time Receive d Time (Source) Location / / Volume Laterality Blood (Blood, 08/03/2020 3:57 AM 08/03/20 20 4:23 Venous) CDT AM CDT Olive Dudley D.O. LAB BLOOD ADD-ON Performing Organization Address [facility] Phon e Number [facility] - [id number] [place] [address] (ABNORMAL) Hepatic Function Panel (08/03/2020 3:57 AM CDT) Patholo gist Method Time Signature Bilirubin, Total, S 2.3 (H) <=1.2 08/03/2020 DTL mg/dL 4:56 AM CDT Bilirubin, Direct, S 1.3 (H) 0.0 - 0.3 08/03/2020 DTL mg/dL 4:56 AM CDT Aspartate 63 (H) 8 - 43 08/03/2020 DTL Aminotransferase U/L 4:56 AM CDT (AST), S Alanine 24 7 - 45 08/03/2020 DTL Aminotransferase U/L 4:56 AM CDT (ALT), S Alkaline 101 35 - 104 08/03/2020 DTL Phosphatase, S U/L 4:56 AM CDT Albumin, S 2.6 (L) 3.5 - 5.0 08/03/2020 DTL g/dL 4:56 AM CDT Protein, Total, S 4.9 (L) 6.3 - 7.9 08/03/2020 DTL g/dL 4:56 AM CDT Specimen Anatomical Collection Method Collection Time Receive d Time (Source) Location / / Volume Laterality Blood (Blood, 08/03/2020 3:57 AM 08/03/20 4:38 Venous) CDT AM CDT Olive Dudley D.O. LAB BLOOD ADD-ON Performing Organization Address City/[facility] Code Phon e Number [facility] - 200 [place], [place] [address] [place], [place] [phone] [place] [address] (ABNORMAL) Basic Metabolic Panel (08/03/2020 3:57 AM CDT) P athologist Signature Potassium, S 3.5 (L) 3.6 - 5.2 08/03/2020 DTL mmol/L 4:56 AM CDT Sodium, S 141 135 - 145 08/03/2020 DTL mmol/L 4:56 AM CDT Chloride, S 107 98 - 107 08/03/2020 DTL mmol/L 4:56 AM CDT Bicarbonate, S 24 22 - 29 08/03/2020 DTL mmol/L 4:56 AM CDT Anion Gap 10 7 - 15 08/03/2020 DTL 4:56 AM CDT BUN (Blood Urea 40 (H) 6 - 21 08/03/2020 DTL Nitrogen), S mg/dL 4:56 AM CDT Creatinine 0.88 0.59 - 08/03/2020 DTL 1.04 mg/dL 4:56 AM CDT eGFR-Non 77 >=60 08/03/2020 DTL Black/ mL/min/BSA 4:56 AM CDT Vincentian Comment: ----ADDITIONAL INFORMATION---- Estimated GFR calculated using the 2009 CKD_EPI creatinine equation. eGFR-Black/ 89 >=60 mL/min/BSA 2019 4:56 AM CDT DTL Comment: ----ADDITIONAL INFORMATION---- Estimated GFR calculated using the 2009 CKD_EPI creatinine equation. Calcium, Total, S 7.6 (L) 8.6 - 10.0 mg/dL 08/03/2020 4:56 AM CDT DTL Glucose, S 86 70 - 140 mg/dL 08/03/2020 4:56 AM CDT D TL Specimen Anatomical Collection Method Collection Time Receive d Time (Source) Location / / Volume Laterality Blood (Blood, 08/03/2020 3:57 AM 08/03/20 4:38 Venous) CDT AM CDT Olive Dudley D.O. LAB BLOOD ADD-ON Performing Organization Address City/State/ZIP Code Phon e Number [facility] - [address] [place], [place] [address] [facility] [place] [address] [facility] [address] Ferritin (08/03/2020 3:52 AM CDT) P athologist Signature Ferritin, S 128 11 - 307 08/03/2020 DTL mcg/L 4:11 PM CDT Specimen Anatomical Collection Method Collection Time Receive d Time (Source) Location / / Volume Laterality Blood (Blood, 08/03/2020 3:52 AM 08/03/20 3:11 Venous) CDT PM CDT Steffanie Venegas M.D. LAB BLOOD ADD-ON Performing Organization Address City/[facility] Phon e Number [facility] - [address] (ABNORMAL) Hemoglobin (08/03/2020 12:07 AM CDT) P athologist Signature Hemoglobin 7.7 (L) 11.6 - 15.0 08/03/2020 DTL g/dL 12:33 AM CDT Specimen Anatomical Collection Method Collection Time Receive d Time (Source) Location / / Volume Laterality Blood (Blood, 08/03/2020 12:07 08/03/2020 Venous) AM CDT 12:27 AM CDT Olive Dudley D.O. LAB BLOOD ADD-ON Performing Organization Address City/[facility]/ZIP Code Phon e Number [facility] - 200 [place] [address] (ABNORMAL) Hemoglobin (08/02/2020 8:10 PM CDT) P athologist Signature Hemoglobin 7.7 (L) 11.6 - 15.0 08/02/2020 DTL g/dL 8:40 PM CDT Specimen Anatomical Collection Method Collection Time Receive d Time (Source) Location / / Volume Laterality Blood (Blood, 08/02/2020 8:10 PM 08/02/20 20 8:34 Venous) CDT PM CDT Olive Dudley D.O. LAB BLOOD ADD-ON Performing Organization Address City/State/[facility] Code Phon e Number [facility] - 200 [place] [phone] [facility] [address] Transfuse Red Blood Cells : (08/02/2020 5:33 PM CDT) Hortensia Bailey M.D., Ph.D. BLOOD TRANSFUSION ORDERAB LES Transfuse Red Blood Cells : , 1 Units (08/02/2020 5:33 PM CDT) Hortensia Bailey M.D., Ph.D. BLOOD TRANSFUSION ORDERAB LES SARS Coronavirus-2 RNA, V (08/02/2020 2:18 PM CDT) Patholo gist Method Time Signature SARS-CoV-2 Nasopharynx 08/02/2020 DTL Specimen 8:12 PM CDT Source SARS CoV-2 Undetected Undetected 08/02/2020 DTL RNA, TMA 8:12 PM CDT Comment: SARS-CoV-2 RNA absent. This result does not rule out COVID-19 in the patient, as the sensitivity of the test depends o n the timing of the specimen collection and the quality of the specim en. Result should be correlated with patient's history and clinical presentat ion. ----ADDITIONAL INFORMATION---- This test is performed using the Aptima SARS-CoV-2 assay ([employer] which has received Emergency Use Authori zation (EUA) by the U.S. Food and Drug Administration. Fact sheets for this Emergency Use Autho rization (EUA) assay can be found at the following links: For Healthcare Providers: https://www.[place] a.gov/media/870114/download For Patients: https://www.fda.gov/media/ 272514/download Specimen Anatomical Collection Method Collection Time Receive d Time (Source) Location / / Volume Laterality Varies 08/02/2020 2:18 PM 0 2:18 CDT PM CDT Galdino Dykes M.D., Ph.D. LAB MICROBIOLOGY - [facility] ORDERABLES Performing Organization Address City/State/ZIP Code Phon e Number [facility] - [address] [place], [place] [address] [place] [address] [facility] [address] HCV Ab w/Reflex to HCV PCR, Serum (08/02/2020 2:06 PM CDT) P athologist Signature HCV Ab, S Negative Negative 08/02/2020 SDSC 10:02 PM CDT Comment: Inxyiy-tn-qsbgno ratio is <1.00 . Specimen (Source) Anatomical Collection Method Collection Time Re ceived Time Location / / Volume Laterality Blood (Blood, 08/02/2020 2:06 08/02/2020 6:46 Peripheral Draw) PM CDT PM CDT Olive Dudley D.O. LAB MICROBIOLOGY - BLOOD ORD ERABLES Performing Organization Address City/[facility]/ZIP Code Phon e Number [facility] [address] [place], [place] [address] [facility] [place] [address] Laboratory Medicine and Pathology [address] [place] (ABNORMAL) Hemoglobin (08/02/2020 2:06 PM CDT) athologist Signature Hemoglobin 6.9 (L) 11.6 - 15.0 08/02/2020 DTL g/dL 2:55 PM CDT Specimen Anatomical Collection Method Collection Time Receive d Time (Source) Location / / Volume Laterality Blood (Blood, 08/02/2020 2:06 PM 08/02/20 20 2:45 Venous) CDT PM CDT Olive Dudley D.O. LAB BLOOD ADD-ON Performing Organization Address [facility] Phon e Number [facility] - [address] [place] [address] [place] [address] [facility] [address] Interpretation of Outside CT Abdomen and or [...] hypertension as detailed in the findings. Olive Dudley D.O. IMG CT PROCEDURES (ABNORMAL) Hemoglobin (08/02/2020 9:48 AM CDT) athologist Signature Hemoglobin 8.4 (L) 11.6 - 15.0 08/02/2020 [facility] g/dL 9:56 AM CDT Specimen Anatomical Collection Method Collection Time Receive d Time (Source) Location / / Volume Laterality Blood (Blood, 08/02/2020 9:48 AM 08/02/20 20 9:54 Venous) CDT AM CDT Olive Dudley D.O. LAB BLOOD ADD-ON Performing Organization Address City/State/ZIP Code Phon e Number [facility] - [address] [place], [place] [address] [facility] [place] [address] [facility] [address] (ABNORMAL) Basic Metabolic Panel (08/02/2020 7:29 AM CDT) athologist Signature Potassium, P 3.8 3.6 - 5.2 08/02/2020 [facility] mmol/L 7:51 AM CDT Sodium, P 134 (L) 135 - 145 08/02/2020 [facility] mmol/L 7:51 AM CDT Chloride, P 98 98 - 107 08/02/2020 [facility] mmol/L 7:51 AM CDT Bicarbonate, P 26 22 - 29 08/02/2020 [facility] mmol/L 7:51 AM CDT Anion Gap, P 10 7 - 15 08/02/2020 [facility] 7:51 AM CDT BUN (Blood Urea 50 (H) 6 - 21 08/02/2020 [facility] Nitrogen), P mg/dL 7:51 AM CDT Creatinine 0.76 0.59 - 08/02/2020 [facility] 1.04 mg/dL 7:51 AM CDT eGFR-Black/Afri >90 >=60 08/02/2020 [facility] can Vincentian mL/min/BSA 7:51 AM CDT Comment: ----ADDITIONAL INFORMATION---- Estimated GFR calculated using the 2009 CKD_EPI creatinine equation. eGFR Non-Black/ >90 >=60 mL/min/BSA 08/02/2020 7:51 AM CDT ST[facility] Comment: ----ADDITIONAL INFORMATION---- Estimated GFR calculated using the 2009 CKD_EPI creatinine equation. Calcium, Total, P 8.2 (L) 8.6 - 10.0 mg/dL 08/02/2020 7:51 AM CDT STMA Glucose, P 115 70 - 140 mg/dL 08/02/2020 7:51 AM CDT S TMA Specimen Anatomical Collection Method Collection Time Receive d Time (Source) Location / / Volume Laterality Blood (Blood, 08/02/2020 7:29 AM 08/02/20 20 7:34 Venous) CDT AM CDT Lv Lundy M.D., M.B.A. LAB BLOOD ADD-ON Performing Organization Address City/State/ZIP Code Phon e Number [facility] - [facility] [place], [place] [address] [address] [place] [address] [facility] [address] [facility] (ABNORMAL) Hepatic Function Panel (08/02/2020 7:29 AM CDT) [facility] Method Time Signature Bilirubin, Total, S 3.5 (H) <=1.2 08/02/2020 DTL mg/dL 8:27 AM CDT Bilirubin, Direct, S 1.9 (H) 0.0 - 0.3 08/02/2020 DTL mg/dL 8:27 AM CDT Aspartate 72 (H) 8 - 43 08/02/2020 DTL Aminotransferase U/L 8:27 AM CDT (AST), S Alanine 26 7 - 45 08/02/2020 DTL Aminotransferase U/L 8:27 AM CDT (ALT), S Alkaline 123 (H) 35 - 104 08/02/2020 DTL Phosphatase, S U/L 8:27 AM CDT Albumin, S 2.8 (L) 3.5 - 5.0 08/02/2020 DTL g/dL 8:27 AM CDT Protein, Total, S 5.3 (L) 6.3 - 7.9 08/02/2020 DTL g/dL 8:27 AM CDT Specimen Anatomical Collection Method Collection Time Receive d Time (Source) Location / / Volume Laterality Blood (Blood, 08/02/2020 7:29 AM 08/02/20 8:06 Venous) CDT AM CDT Lv Lundy M.D., M.B.A. LAB BLOOD ADD-ON Performing Organization Address City/State/[facility] Code Phon e Number [facility] - [address] [place] [phone] [address] [facility] [place] [address] [address] (ABNORMAL) Prothrombin Time (PT) (08/02/2020 7:29 AM CDT) [facility] Method Time Signature Prothrombin 23.6 (H) 9.4 - 12.5 08/02/2020 STMA Time, P sec 7:41 AM CDT INR 2.1 0.9 - 1.1 08/02/2020 STMA 7:41 AM CDT Comment: ----ADDITIONAL INFORMATION---- Standard intensity warfarin therapeutic range: 2.0 to 3.0 ?? High intensity warfarin therapeutic rang e: 2.5 to 3.5 Specimen Anatomical Collection Method Collection Time Receive d Time (Source) Location / / Volume Laterality Blood (Blood, 08/02/2020 7:29 AM 08/02/20 20 7:34 Venous) CDT AM CDT Lv Lundy M.D., M.B.A. LAB BLOOD ADD-ON Performing Organization Address City/[facility] Phon e Number [facility] - [address] [place], [place] [address] [facility] [place] [address] Type and Screen (with reflex Antibody ID) (08/02/2020 7:29 AM CDT) [facility] gist Method Time Signature ABORh B Pos Not 08/02/2020 STRM applicable 7:55 AM CDT Antibody Negative Negative 08/02/2020 STRM Screen 8:13 AM CDT Type & Screen 08/05/2020 08/02/2020 STRM Expiration 23:59 7:55 AM CDT Testing Bryant DEFAULT 08/02/2020 STRM Location 7:36 AM CDT Specimen Anatomical Collection Method Collection Time Receive d Time (Source) Location / / Volume Laterality Blood (Blood, 08/02/2020 7:29 AM 08/02/20 20 7:36 Venous) CDT AM CDT Lv Lundy M.D., M.B.A. LAB BLOOD BANK TEST ORDERA BLES Performing Organization Address City/[facility]/ZIP Code Phon e Number [facility] - [address] [place], [place] [address] [facility] [place] [address] Lactate, POCT (08/02/2020 7:29 AM CDT) Analysis Performed At [facility] logist Time [facility] Lactate, POCT Collected DEFAULT 08/02/2020 SMLX 7:29 AM CDT Specimen Anatomical Collection Method Collection Time Receive d Time (Source) Location / / Volume Laterality Blood (Blood, 08/02/2020 7:29 AM 08/02/20 20 7:29 Venous) CDT AM CDT Lv Lundy M.D., M.B.A. LAB POCT ORDERABLES - [place] CE Performing Organization Address City/[facility] Phon e Number [facility] - [address] [place], [place] [address] [facility] [place] [address] [address] (ABNORMAL) CBC with Differential, Blood (08/02/2020 7:29 AM CDT) Patholo gist Method Time Signature Hemoglobin 7.6 (L) 11.6 - 08/02/2020 STMA 15.0 g/dL 7:37 AM CDT Hematocrit 22.4 (L) 35.5 - 08/02/2020 STMA 44.9 % 7:37 AM CDT Erythrocytes 2.30 (L) 3.92 - 08/02/2020 STMA 5.13 7:37 AM CDT x10(12)/L MCV 97.4 78.2 - 08/02/2020 STMA 97.9 fL 7:37 AM CDT RBC Distrib Width 15.5 12.2 - 08/02/2020 STMA 16.1 % 7:37 AM CDT Platelet Count 63 (L) 157 - 371 08/02/2020 STMA x10(9)/L 7:37 AM CDT Leukocytes 9.3 3.4 - 9.6 08/02/2020 STMA x10(9)/L 7:37 AM CDT Neutrophils 6.33 1.56 - 08/02/2020 STMA 6.45 7:37 AM CDT x10(9)/L Lymphocytes 1.75 0.95 - 08/02/2020 STMA 3.07 7:37 AM CDT x10(9)/L Monocytes 1.09 (H) 0.26 - 08/02/2020 STMA 0.81 7:37 AM CDT x10(9)/L Eosinophils 0.04 0.03 - 08/02/2020 STMA 0.48 7:37 AM CDT x10(9)/L Basophils 0.05 0.01 - 08/02/2020 STMA 0.08 7:37 AM CDT x10(9)/L Specimen Anatomical Collection Method Collection Time Receive d Time (Source) Location / / Volume Laterality Blood (Blood, 08/02/2020 7:29 AM 08/02/20 20 7:34 Venous) CDT AM CDT Lv Lundy M.D., M.B.A. LAB BLOOD ADD-ON Performing Organization Address City/State/ZIP Code Phon e Number [facility] - [address] [place], [place] [address] [facility] [place] [address] [facility] [address] Lactate, POCT (08/02/2020 7:28 AM CDT) athologist Signature Lactate, POCT 1.03 0.50 - 08/02/2020 PCLX 2.20 7:40 AM CDT mmol/L Sample Site, Venstick 08/02/2020 PCLX POCT 7:40 AM CDT Specimen Anatomical Collection Method Collection Time Receive d Time (Source) Location / / Volume Laterality Blood 08/02/2020 7:28 AM 0 7:40 CDT AM CDT Unknown Provider LAB POCT ORDERABLES - DEVICE Performing Organization Address City/[facility]/ZIP [facility] Phon e Number [facility] [address] [place] [address] PCLX [facility] [place] [address] [place] [facility] [address] HBc Total Ab, Serum (08/02/2020 7:27 AM CDT) athologist Signature HBc Total Ab, Negative Negative 08/02/2020 [facility] S 10:12 PM CDT Specimen (Source) Anatomical Collection Method Collection Time Re ceived Time Location / / Volume Laterality Blood (Blood, 08/02/2020 7:27 08/02/2020 6:48 Peripheral Draw) AM CDT PM CDT Olive Dudley D.O. LAB MICROBIOLOGY - BLOOD ORD ERABLES Performing Organization Address City/[facility] Phon e Number [facility] [address] [place], [place] [address] SUPPORT CENTER [facility] [place] [address] Laboratory Medicine and Pathology [address] [place] HBs Antibody, Serum (08/02/2020 7:27 AM CDT) athologist Signature HBs Antibody, Positive 08/02/2020 [facility] S 10:16 PM CDT Comment: Patient is considered to be immune to in fection with HBV. ----REFERENCE VALUE---- Unvaccinated: Negative Vaccinated: Positive HBs Antibody, Quantitative, S 14.6 mIU/mL 08/02/2020 10:16 PM CDT [facility] Comment: ----REFERENCE VALUE---- Unvaccinated: <5.0 Vaccinated: >=12.0 Specimen (Source) Anatomical Collection Method Collection Time Re ceived Time Location / / Volume Laterality Blood (Blood, 08/02/2020 7:27 08/02/2020 6:48 Peripheral Draw) AM CDT PM CDT Olive Dudley D.O. LAB MICROBIOLOGY - BLOOD ORD ERABARBIE Performing Organization Address City/State/ZIP Code Phon e Number [facility] [address] [place] [phone] [facility] [facility] [place] [address] Laboratory Medicine and Pathology [address] [place] [address] Dr. [place] Hepatitis B Surface Antigen (08/02/2020 7:27 AM CDT) P athologist Signature HBs Antigen, S Negative Negative 08/02/2020 [facility] 9:54 PM CDT Specimen (Source) Anatomical Collection Method Collection Time Re ceived Time Location / / Volume Laterality Blood (Blood, 08/02/2020 7:27 08/02/2020 6:48 Peripheral Draw) AM CDT PM CDT Olive Dudley D.O. LAB MICROBIOLOGY - BLOOD ORD CAMILO Performing Organization Address City/State/ZIP Code Phon e Number [place] [id number] [place] [address] Laboratory Medicine and Pathology [address] [place] [address] Dr. [place] documented in this encounter Visit Diagnoses Diagnosis Hemorrhage Gastrointestinal - Primary Hemorrhage Gastrointestinal Esophageal Varix With Bleeding (HCC) Alcohol Moderate Or Severe Use Disorder (Dependence) Uncomplicated (HCC) Anemia Posthemorrhagic Acute (Blood Loss Anemia) Ulcer Gastric Acute With Hemorrhage documented in this encounter Administered Medications Inactive Administered Medications - up to 3 most recent administrations Medication Order MAR Action Action Date Dose Rate Site acetaminophen tablet 500 mg Given 08/04/2020 7:41 PM CDT 500 mg (TYLENOL) 500 mg, oral, Every 6 hours PRN, mild pain or score 1-3 of 10, moderate pain or score 4-6 of 10, severe pain or score 7-10 of 10, fever, Starting on Tu08/03/20 at 1504 Given 08/03/2020 3:58 PM CDT 500 mg albumin human 25 % injection 25 g New Bag 08/04/2020 8:32 PM CDT 25 g 25 g, intravenous, Once, On 08/04/20 at 1915, For 1 dose, If no infusion rate specified: Administer the 25% solution at 100 mL/hr albumin human 5 % injection 25 g New Bag 08/05/2020 3:52 AM CDT 25 g 250 mL/hr 25 g, intravenous, Once, On Kailey 08/05/20 at 0300, For 1 dose, If no infusion rate specified: Administer the 5% solution at 999 mL/hr or less if ICU/shock, otherwise infuse at 250 mL/hr. bisacodyL suppository 10 mg (DULCOLAX) Given 08/05/2020 5:09 PM CDT 10 mg 10 mg, rectal, Once, On Kailey 08/05/20 at 1400, For 1 dose cefTRIAXone in dextrose (iso-osm) IVPB New Bag 08/04/2020 6:07 AM CDT 1 g 200 mL/hr 1 g (ROCEPHIN) 1 g, intravenous, at 200 mL/hr, Administer over 15 Minutes, Every 24 hours, First dose (after last reorder) on Sun08/03/20 at 0700, For 4 doses, premix bag, Drug Monitoring Program: Pharmacist to adjust medication dosing based on indication and drug clearance factors., Indications: Prophylaxis, medical New Bag 08/03/2020 7:24 AM CDT 1 g 200 mL/hr cefTRIAXone in dextrose (iso-osm) IVPB New Bag 08/06/2020 6:35 AM CDT 1 g 200 mL/hr 1 g (ROCEPHIN) 1 g, intravenous, at 200 mL/hr, Administer over 15 Minutes, Every 24 hours, First dose (after last modification) on Kailey 08/05/20 at 0700, For 4 doses, premix bag, Drug Monitoring Program: Pharmacist to adjust medication dosing based on indication and drug clearance factors., Indications: Prophylaxis, medical New Bag 08/05/2020 6:08 AM CDT 1 g 200 mL/hr cefTRIAXone injection 1 g (ROCEPHIN) Given 08/02/2020 7:26 AM CDT 1 g 1 g, intravenous, Once, On 08/02/20 at 0713, For 1 dose, [place] IV push over 3 minutes., Drug Monitoring Program: Pharmacist to adjust medication dosing based on indication and drug clearance factors., Indications: Prophylaxis, medical HYDROmorphone tablet 1 mg (DILAUDID) 1 mg, oral, Every 6 hours PRN, severe pain or score 7- 10 of 10, Starting on Sun08/03/20 at 1505 lidocaine 5 % 1 patch Medication Applied 08/06/2020 8:52 AM 1 patch Lower Back (LIDODERM) CDT 1 patch, transdermal, Administer over 12 Hours, Daily, First dose on Sun08/02/20 at 2215, Remove after 12 hours. Medication Applied 08/05/2020 8:32 AM CDT 1 patch Lower Back Medication Applied 08/04/2020 9:00 AM CDT 1 patch Lower Back xliyfbcjusfb-hmzj-ME-Ca-minerals 9 mg Given 08/06/2020 8:52 AM C DT 1 tablet iron-400 mcg tablet 1 tablet (THERAPEUTI C-M) 1 tablet, oral, Daily, First dose on Sun08/06/20 at 0900 NaCl 0.9 % bolus 1,000 mL New Bag 08/02/2020 1:11 PM CDT 1,000 mL 1000 mL/hr 1,000 mL, intravenous, at 1,000 mL/hr, Administer over 1 Hours, Once, On Sun08/02/20 at 1300, For 1 dose nadoloL tablet 20 mg (CORGARD) Given 08/04/2020 10:17 AM CDT 20 mg 20 mg, oral, Daily, First dose on Sun08/04/20 at 0900 naloxone injection 0.2 mg (NARCAN) 0.2 mg, intravenous, As needed, respirat ory depression, Starting on Sun08/03/20 at 1505, For RASS Score -4 or less, respiratory rate of l ess than 8 breaths/min. Notify provider/service and rapid response team (if av ailable at institution). octreotide 2 mcg/mL in NaCl 0.9% New Bag 08/06/2020 4:03 AM CD T 50 mcg/hr 25 mL/hr 250 mL infusion (SandoSTATIN) 50 mcg/hr (25 mL/hr), intravenous, Continuous, Starting on Sun08/02/20 at 0713, Protect from light. New Bag 08/05/2020 6:54 PM CDT 50 mcg/hr 25 mL/hr New Bag 08/05/2020 7:13 AM CDT 50 mcg/hr 25 mL/hr octreotide injection 50 mcg (SandoSTATIN ) Given 08/02/2020 7:36 AM CDT 50 mcg 50 mcg, intravenous, Once, On Sun08/02/20 at 0713, For 1 dose, Refrigerate. PROTECT FROM LIGHT. ondansetron ODT disintegrating tablet 4 mg (ZOFRAN-ODT) 4 mg, oral, Every 6 hours PRN, nausea, v omiting, Starting on Sun08/03/20 at 1354, When splitting ODT at bedside, handle wi th gloves and a pill splitter to prevent moisture contact. pantoprazole DR tablet 40 mg (PROTONIX) Given 08/06/2020 6:35 AM CDT 40 mg 40 mg, oral, 2 times daily before breakfast and dinner, First dose on Sun08/05/20 at 1600, Swallow whole. Do NOT crush, chew, or split tablet. Given 08/05/2020 5:09 PM CDT 40 mg pantoprazole injection 40 mg (PROTONIX) Given 08/05/2020 8:31 AM CDT 40 mg 40 mg, intravenous, Every 12 hours scheduled, First dose on Sun08/02/20 at 1145, Administer IV push over 2 minutes. Add 10 mL NS to 40 mg vial for a final concentration of 4 mg/mL. Given 08/04/2020 8:03 PM CDT 40 mg Given 08/04/2020 8:55 AM CDT 40 mg phytonadione (vitamin K1) 5 mg in New Bag 08/02/2020 2:35 PM C DT 5 mg 50.5 mL/hr NaCl 0.9% IVPB (AQUA-MEPHYTON) 5 mg, intravenous, at 50.5 mL/hr, Administer over 60 Minutes, Once, On Sun08/02/20 at 1245, For 1 dose, Protect from light. polyethylene glycol powder packet 17 g Given 08/05/2020 7:12 PM CDT 17 g (MIRALAX) 17 g, oral, Daily PRN, constipation, Starting on Sun08/05/20 at 1847, Dissolve in 240 mLs (8 ounces) of water prior to giving. Avoid mixing with starch-based thickened liquids. sodium chloride 0.9 % injection 10 mL 10 mL, intravenous, As needed, line care, Starting on Sun08/02/20 at 0712, Peripheral Intravenous Catheter and Rapid Infusion Cat heter, prior to blood sampling, post blood transfusion or post blood samplin g sodium chloride 0.9 % injection 3 mL Given 08/05/2020 8:32 AM CDT 3 mL 3 mL, intravenous, As needed, line care, Starting on Sun08/02/20 at 0712, Prior to and following infusion and between multiple consecutive infusions: sodium chloride 0.9 % injection sodium chloride 0.9 % injection 3 mL Given 08/06/2020 8:56 AM CDT 3 mL 3 mL, intravenous, Every 12 hours scheduled, First dose on Sun08/02/20 at 0900, Peripheral Intravenous Catheter and Rapid Infusion Catheter, when no infusion to maintain patency Given 08/05/2020 8:45 PM CDT 3 mL Given 08/05/2020 8:31 AM CDT 3 mL thiamine tablet 100 mg (VITAMIN B1) Given 08/06/2020 8:52 AM CDT 100 mg 100 mg, oral, Daily, First dose on Sun08/06/20 at 0900 documented in this encounter Active and Recently Administered Medications Times are shown in CDT. Scheduled Medication Order 08/04/2020 08/05/2020 08/06/2020 albumin human 25 % injection 25 g (COMPLETED) 2031 (Ne w Bag - Provider: Melinda Osborn RRachell) 25 g, intravenous, Once, On Sun08/04/20 at 1915, For 1 dose, If no infusion rate specified: Administer the 25% solution at 100 mL/hr albumin human 5 % injection 25 g (COMPLETED) 351 (New Bag - Provider: Melinda Osborn RRachell) 25 g, intravenous, Once, On Sun08/05/20 at 0300, For 1 dose, If no infusion rate specified: Administer the 5% solution at 999 mL/hr or less if ICU/shock, otherwise infuse at 250 mL/hr. bisacodyL suppository 10 mg (DULCOLAX) (COMPLETED) 170 (Given - Provider: Nyla Campa RRachell) 10 mg, rectal, Once, On Kailey 08/05/20 at 1400, For 1 dose cefTRIAXone in dextrose (iso-osm) IVPB 1 g (ROCEPHIN) (CANCELED) 606 (New Bag - Provider: Savana Vega R.N.) 1 g, intravenous, at 200 mL/hr, Administ er over 15 Minutes, Every 24 hours, First dose (after last reorder) on Sun08/03/20 at 0700, For 4 doses, premix bag, Drug Monitoring Program: Pharmacist to adjus t medication dosing based on indication and drug clearance factors., Indications: Prophylaxis, medical cefTRIAXone in dextrose (iso-osm) IVPB 1 g (ROCEPHIN) 0608 (New Bag - Provider: Melinda Osborn R.N.) 0635 (New Bag - Provider: Tyra Salazar R.N.) 1 g, intravenous, at 200 mL/hr, Administ er over 15 Minutes, Every 24 hours, First dose (after last modification) on Kailey 08/05/20 at 0700, For 4 doses, premix bag, Drug Monitoring Program: Pharmacist to adjust medication dosing based on indica tion and drug clearance factors., Indications: Prophylaxis, medical lidocaine 5 % 1 patch (LIDODERM) 09 (Medication Appl ied - Provider: Nyla Campa R.N.)2001 (Medication Removed - Provider: Melinda Osborn R.N.) 0832 (Medication Applied - Provider: Nyla Campa R.N.)2017 (Medication Removed - Provider: Tyra Salazar R.N.) 0852 (Medication Applied - Provider: Ollie Figueredo RRachell)1544 (Due: Medication Removed - Provider: Discharge Provider, Automatic - Comment: Time automatically adjusted from order being discontinued) 1 patch, transdermal, Administer over 12 Hours, Daily, First dose on 08/02/20 at 2215, Remove after 12 hours. xuwgmvvmdcak-xfhd-VG-Ca-minerals 9 mg ir on-400 mcg tablet 1 tablet (THERAPEUTIC-M) 0852 (Given - Provid er: Claudine Figueredo R.N.) 1 tablet, oral, Daily, First dose on Sun08/06/20 at 0900 nadoloL tablet 20 mg (CORGARD) 1017 (Given - Provider: Nyla Campa R.N. - Comment: needed to order up another dose from pharm)1723 (Held by provider - Provider: Ephraim Leon M.D. - Comment: hypotension) 0900 (Dose Auto Held - Provider: Ephraim Leon M.D.) 0900 (Dose Auto Held - Provider: Ephraim Leon M.D.)1745 (Unheld by provider - Provider: Discharge Provider, Automatic) 20 mg, oral, Daily, First dose on Sun08/04/[address] tablet 40 mg (PROTONIX) 1709 (Given - Provider: Nyla Campa R.N.) 0635 (Given - Provider: Tyra Salazar R.N.) 40 mg, oral, 2 times daily before breakf ast and dinner, First dose on Kailey 08/05/20 at 1600, Swallow whole. Do NOT crush, chew, or split tablet. pantoprazole injection 40 mg (PROTONIX) (CANCELED) 085 5 (Given - Provider: Nyla Campa R.N.)2002 (Given - Provider: Melinda Osborn R.N.) 0831 (Given - Provider: Nyla Campa R.N.) 40 mg, intravenous, Every 12 hours sched uled, First dose on Sun08/02/20 at 1145, Administer IV push over 2 minutes. Add 10 mL NS to 40 mg vial for a final concentration of 4 mg/mL. sodium chloride 0.9 % injection 3 mL 09 (Given - Pro vider: Nyla Campa R.N.)2003 (Given - Provider: Melinda Osborn R.N.) 0831 (Given - Provider: Nyla Campa R.N.)2044 (Given - Provider: Tyra Salazar R.N.) 0856 (Given - Provider: Claudine Figueredo RGisselleNGisselle) 3 mL, intravenous, Every 12 hours schedu led, First dose on Sun08/02/20 at 0900, Peripheral Intravenous Catheter and Rapid Infusion Catheter, when no infusion to maintain patency thiamine tablet 100 mg (VITAMIN B1) 0852 (Given - Provider: Claudine Figueredo RGisselleNGisselle) 100 mg, oral, Daily, First dose on Sun08/06/20 at 0900 Continuous Medication Order 08/04/2020 08/05/2020 08/06/2020 octreotide 2 mcg/mL in NaCl 0.9% 250 mL infusion (Sand oSTATIN) (CANCELED) 0030 (New Bag - Provider: Savana Vega R.N.)0734 (Handoff - Provider: Savana J Hill, R.N.)1022 (New Bag - Provider: Nyla Campa R.N.)2031 (New Bag - Provider: Melinda Osborn R.N.) 0712 (Handoff - Provider: Melinda mendieta RGisselleN.)0713 (New Bag - Provider: Melinda Osborn R.N.)1749 (Stopped - Provider: Nyla Campa R.N.)1854 (New Bag - Provider: Nyla Campa R.N.)1913 (Handoff - Provider: Nyla Campa R.N.) 0403 (New Bag - Provider: Jennifer French R.N.)0709 (Handoff - Provider: Alexandra Meyer R.N.) 50 mcg/hr (25 mL/hr), intravenous, Ana M nuous, Starting on Sun08/02/20 at 0713, Protect from light. PRN Medication Order 08/04/2020 08/05/2020 08/06/2020 acetaminophen tablet 500 mg (TYLENOL) 1940 (Given - Pr ovider: Melinda Osborn R.N.) 500 mg, oral, Every 6 hours PRN, mild pa in or score 1-3 of 10, moderate pain or score 4-6 of 10, severe pain or score 7-10 of 10, fever, Starting on Sun08/03/20 at 1504 HYDROmorphone tablet 1 mg (DILAUDID) 1 mg, oral, Every 6 hours PRN, severe pa in or score 7-10 of 10, Starting on Sun08/03/20 at 1505 naloxone injection 0.2 mg (NARCAN) 0.2 mg, intravenous, As needed, respirat ory depression, Starting on Sun08/03/20 at 1505, For RASS Score -4 or less, respiratory rate of less than 8 breaths/min. Notify provider/service and rapid response team (if available at institution). ondansetron ODT disintegrating tablet 4 mg (ZOFRAN-ODT) 4 mg, oral, Every 6 hours PRN, nausea, v omiting, Starting on Sun08/03/20 at 1354, When splitting ODT at bedside, handle with gloves and a pill splitter to prevent moisture contact. polyethylene glycol powder packet 17 g (MIRALAX) 1912 (Given - Provider: Nyla Campa R.N.) 17 g, oral, Daily PRN, constipation, Sta rting on Kailey 08/05/20 at 1847, Dissolve in 240 mLs (8 ounces) of water prior to giving. Avoid mixing with starch-based thickened liquids. sodium chloride 0.9 % injection 10 mL 10 mL, intravenous, As needed, line care , Starting on Sun08/02/20 at 0712, Peripheral Intravenous Catheter and Rapid Infusion Catheter, prior to blood sampling, post blood transfusion or post blood sampling sodium chloride 0.9 % injection 3 mL 083 2 (Given - Provider: Nyla Campa R.N.) 3 mL, intravenous, As needed, line care, Starting on Sun08/02/20 at 0712, Prior to and following infusion and between multiple consecutive infusions: sodium chloride 0.9 % injection documented in this encounter Additional Health Concerns Infection Onset Date Last Indicated Resolved Time COVID19 Pending 08/02/2020 08/02/2020 08/02/2020 1:37 PM CDT COVID19 Pending 08/02/2020 08/02/2020 08/02/2020 8:13 PM CDT documented as of this encounter
--- OUTSIDE RECORDS SUMMARY | 2022-08-17 17:30 | XMS_ITS | Encounter Summary ---
:[address] [facility] Address [address] [place] [address] Care Team Providers Name Role Phone Unavailable Primary Care Provider Unavailable Encounter Details Date Type Department Care Team Description 08/03/2020 Anesthesia Event Division of Gastroenterology Jennifer Jose, in [facility] potable water treatment operator SANDWICH MAKER, TABLE SAW OPERATOR [address] [place] [address] [place], [place] [phone] [id number] Anesthesia Record Procedure Summary Procedure Name Responsible Anesthesia Start Anesthesia Stop Time Anesthesiologist Time EGD Jennifer Jose, SANDWICH MAKER, 08/03/20 1032 08/03/20 1202 (ESOPHAGEALGASTRODU TABLE SAW OPERATOR ODENOSCOPY) Events Date Time Event Comment 08/03/2020 1032 An Start Machine/Equipmen t Checked Infection Precautions Foll owed Procedure/Site Verified NPO Sta tus Verified Supine Standard ASA Mon itors Applied 1038 Turnover to Proceduralist 1050 Proc Start 1055 An Induction 1056 An Intubation 1138 Proc Fin 1148 Turnover to ANE Staff 1152 Airway Removal Criteria Met 1152 Extubation/Airway Removed 1157 an stop data 1202 An End I completed my h andoff to the receiving staff during [facility] we 1. Identified the patient 2. Ident ified the responsible provider 3. Revi ewed the pertinent medical history 4. Discussed the surgical course 5. Review ed intra-op anesthesia management and i ssues during anesthesia 6. Set expectati ons for post-procedure period 7. Allowe d opportunity for questions and ac knowledgement of understanding. Name Total midazolam PF injection 1 mg/mL 2 mg fentanyl injection 50 mcg/mL 50 mcg lidocaine 2% (mg) injection 60 mg propofol 10 mg/mL injection 270 mg propofol 10 mg/mL infusion 583.94 mg ondansetron PF 4 mg/2 mL injection 4 mg succinylcholine 20 mg/mL injection 120 mg phenylephrine 100 mcg/mL injection 100 mcg dexamethasone 4 mg/mL injection 4 mg Lactated Ringers Free Drip 250 mL NaCl 0.9 % free drip 100 mL Agents No agents on file. Blood No blood administrations on file. Lines, Drains, and Airways Type Details Placement Removal Peripheral IV Placement Date: 08/02/20; 08/02/20 0647 by 08/03 by Placement Time: 646; Angélica Peguero, R.NLyla Lion, Existing LDA Placed by: [facility]; Catheter Size: 20 G; Orientation: Right; Location: Antecubital; Removal Date: 08/03/20; Removal Time: 2117; Removal Reason: No longer in place Peripheral IV Placement Date: 08/02/20; 08/02/20 1620 by 08/06 1407 by Placement Time: 1619; Lyla Horne Hausm ann, Michelle R, Catheter Size: 20 G; R.N. R.N. Orientation: Anterior, Left, Lower; Location: Forearm; Site Prep: Chlorhexidine (Preferred); Technique: Anatomical landmarks (vbl); Removal Date: 08/06/20; Removal Time: 1406; Removal Reason: Patient discharged ETT Placement Date: 08/03/20; 08/03/20 1056 by 08/03 1156 by Placement Time: 1056 Jennifer Jose APRN, Jennifer Amos, (created via procedure TABLE SAW OPERATOR PANCHO DEMARCO documentation); Mask Ventilation: Not attempted; Type: Standard ETT; Single Lumen Tube Size: 7 mm; Cuffed: Yes; Location: Oral; Removal Date: 08/03/20; Removal Time: 1156 documented in this encounter Social History Tobacco [...] or relatives? How often do you attend confucianist or More than 4 times per year 06/20/2022 tenriism services? 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 Responsible Provider: Jennifer Jose APRN, CRNA Anesthesia Type: general ASA Status: Not recorded Anesthesia Type: general Last vitals Vitals Value Taken Time BP 108/73 08/03/2020 12:02 PM Temp 36.4 ??C 08/03/2020 12:02 PM Pulse 70 08/03/2020 12:03 PM Resp 15 08/03/2020 12:03 PM SpO2 97 % 08/03/2020 12:03 PM Vitals shown include unvalidated device data. Please reference Vitals flowsheet for most recent vital signs. Anesthesia Post Evaluation Patient Disposition: general care unit Cardiovascular status: hemodynamics (HR & BP) acceptable Respiratory status: patent airway with spontaneous effort Temperature: normothermic Oxygen requirements: room air Level of consciousness: awake Pain score: pain adequately controlled and/or at baseline Post Op nausea/vomiting: none Hydration status: euvolemic Anesthesia Procedure Notes - Jennifer Jose APRN, CRNA - 08/03/2020 11:05 AM CDTAssociated Order(s): Airway Airway Date/Time: 08/03/2020 10:56 AM Performed by: Jennifer Jose APRN, CRNA Authorized by: Jennifer Jose APRN, CRNA Patient location during procedure: OR / Procedure Area PROCEDURE DETAILS: Mask difficulty assessment: not attempted Final airway type: video laryngoscope Laryngeal Manipulation: no Final best view of glottic structures - Cormack/Lehane Score: grade 1 ETT location: oral VL device: glide scope [place] scope blade size: 3 Adult tube size: 7 Adult ETT distance at teeth/gum: 21 Oral tube type: standard ETT Cuffed: yes Airway confirmation: bilateral breath sounds, positive ETCO2 and bilateral chest rise Other previous techniques attempted: none PRE PROCEDURE DETAILS: Pre evaluation for airway management: procedure Urgency: elective Preop assessment of probable difficulty: no difficulty anticipated Preoxygenation: bag valve mask SEDATION / ANESTHESIA Anesthesia method: anesthesia POST PROCEDURE DETAILS: Procedure outcome: successful Anesthesia Preprocedure Evaluation - Jennifer Jose APRN, CRNA - 08/03/2020 10:30 AM CDT Preprocedure Anesthesia & H&P Assessment Procedure Summary Anesthesia Start Date/Time: 08/03/20 1032 Scheduled providers: Garfield Harley M.D. Procedure: EGD (ESOPHAGEALGASTRODUODENOSCOPY) Location: Division of Gastroenterology in [place], [place] Pertinent components of the patient's history including current problem list, medical history, surgical history, family history, social history, medications and allergies were reviewed. Present illnessand pre-op diagnosis were confirmed. The planned surgery / procedure was verified with the patient /legal guardian. The patient's general health condition remains unchanged PROBLEM LIST Relevant Problems GI (+) Ulcer Gastric Acute With Hemorrhage HEME (+) Anemia Nutritional (+) Anemia Posthemorrhagic Acute (Blood Loss Anemia) Other (+) Alcohol Moderate Or Severe Use Disorder (Dependence) Uncomplicated (HCC) (+) Alcoholic Cirrhosis Of Liver Without Ascites (HCC) OBJECTIVE PHYSICAL EXAMINATION Airway (HEENT) Mallampati: I TM Distance: >3 FB Neck ROM: Full Mouth Opening: >3 cm Upper Lip Bite Test Class: I Cardiovascular Rhythm: Regular Rate: Normal Cardiovascular Assessment: cardiovascular normal Functional Capacity: >4 METS Pulmonary Pulmonary Assessment: Clear General / Constitutional Constitutional Assessment: Normal General State of Health:: healthy appearing and calm Neurological Neurologic Assessment:??alert and alert and oriented x 3 Dental Dental Assessment: dentition intact ASSESSMENT / PLAN ANESTHESIA PLAN ASA: 2 Anesthesia Plan: general Converted to GETA from MAC Patient seen and allergies reviewed, anesthesia plan and risks discussed directly with patient /legal guardian or through an deaf interpreter. Risks/Benefits/Alternatives of Blood transfusion discussed with patient / legal guardian, including an opportunity to ask questions and/or decline some or all transfusion therapies. The patient / legalguardian consented to the use of all blood products, as deemed medically necessary Approval to Proceed: approved for anesthesia documented in this encounter Plan of Treatment Not on filedocumented as of this encounter Procedures Procedure Name Priority Date/Time Associated Comments Diagnosis LDA ANE ENDOTRACHEAL Routine 08/03/2020 11:05 Res ults for this AIRWAY AM CDT procedure are i n the results section. documented in this encounter Results LDA ANE ENDOTRACHEAL AIRWAY (08/03/2020 11:05 AM CDT) Narrative Jennifer Jose APRN, CRNA - 08/03/2020 11:05 AM CDT Jennifer Jose APRN, CRNA ? 08/03/2020 11:05 AM Airway Date/Time: 08/03/2020 10:56 AM Performed by: Jennifer Jose APRN, CRN A Authorized by: Jennifer Jose APRN, CR NA Patient location during procedure: OR / Procedure Area PROCEDURE DETAILS: Mask difficulty assessment: not attempte d Final airway type: video laryngoscope Laryngeal Manipulation: no ?? Final best view of glottic structures - Cormack/Lehane Score: grade 1 ETT location: oral VL device: glide scope [place] scope blade size: 3 Adult tube size: 7 Adult ETT distance at teeth/gum: 21 Oral tube type: standard ETT Cuffed: yes Airway confirmation: bilateral breath so unds, positive ETCO2 and bilateral chest rise Other previous techniques attempted: non e PRE PROCEDURE DETAILS: Pre evaluation for airway management: pr ocedure Urgency: elective Preop assessment of probable difficulty: no difficulty anticipated Preoxygenation: bag valve mask SEDATION / ANESTHESIA Anesthesia method: anesthesia POST PROCEDURE DETAILS: ? Procedure outcome: successful ?? Jennifer Jose APRN, CRNA ANESTHESIA ORDERABLES documented in this encounter Visit Diagnoses Not on filedocumented in this encounter Administered Medications Inactive Administered Medications - up to 3 most recent administrations Medication Order MAR Action Action Date Dose Rate Site dexAMETHasone injection (DECADRON) Given 08/03/2020 11:20 AM CDT 4 mg As needed, Starting on Sun08/03/20 at 1120, Anesthesia Intra-op fentaNYL injection (SUBLIMAZE) Given 08/03/2020 10:44 AM CDT 50 mcg intravenous, As needed, Starting on Sun08/03/20 at 1044, Anesthesia Intra-op lactated ringers New Bag 08/03/2020 11:06 AM CDT intravenous, Continuous Infusion: Per Instructions PRN, Starting on Sun08/03/20 at 1032, Anesthesia Intra-op New Bag 08/03/2020 10:32 AM CDT lidocaine (PF) (cardiac) injection Given 08/03/2020 10:36 AM CDT 60 mg intravenous, As needed, Starting on Sun08/03/20 at 1036, Anesthesia Intra-op midazolam (PF) injection (VERSED) Given 08/03/2020 10:46 AM CDT 1 mg As needed, Starting on Sun08/03/20 at 1039, Anesthesia Intra-op Given 08/03/2020 10:39 AM CDT 1 mg NaCl 0.9% infusion New Bag 08/03/2020 11:08 AM CDT intravenous, Continuous Infusion: Per Instructions PRN, Starting on Sun08/03/20 at 1108, Anesthesia Intra-op ondansetron (PF) injection (ZOFRAN) Given 08/03/2020 11:03 AM CDT 4 mg intravenous, As needed, Starting on Sun08/03/20 at 1103, Anesthesia Intra-op phenylephrine injection Given 08/03/2020 11:41 AM CDT 100 mcg intravenous, As needed, Starting on Sun08/03/20 at 1141, Anesthesia Intra-op propofol 10 mg/mL infusion Rate/Dose 08/03/2020 125 mcg/kg/min 47.5 mL/hr (DIPRIVAN) Change 11:00 AM CDT intravenous, Continuous Infusion: Per Instructions PRN, Starting on Sun08/03/20 at 1036, Anesthesia Intra-op Rate/Dose Change 08/03/2020 10:40 AM CDT 200 mcg/kg/min 76 mL/hr New Bag 08/03/2020 10:36 AM CDT 150 mcg/kg/min 57 mL/hr propofoL injection (DIPRIVAN) Given 08/03/2020 10:55 AM CDT 120 mg intravenous, As needed, Starting on Sun08/03/20 at 1036, Anesthesia Intra-op Given 08/03/2020 10:43 AM CDT 50 mg Given 08/03/2020 10:39 AM CDT 50 mg succinylcholine (PF) injection (ANECTINE ) Given 08/03/2020 10:55 AM CDT 120 mg intravenous, As needed, Starting on Sun08/03/20 at 1055, Anesthesia Intra-op documented in this encounter
--- OUTSIDE RECORDS SUMMARY | 2022-08-17 17:30 | XMS_ITS | Encounter Summary ---
:1970 Author Organization [facility] Address [address] [place] [address] Care Team Providers Name Role Phone Unavailable Primary Care Provider Unavailable Reason for Referral Outpatient (Routine) - Closed Specialty Diagnoses / Procedures Referred By Contact Refer red To Contact Diagnoses Alcoholic Cirrhosis Of Liver Without Ascites (HCC) Steffanie Anglin M.D. [facility] Procedures EGD (EsophagealGastroDuodenoscopy) [address] [place] [address] Referral ID Status Reason Start Date Expiration Date Visits Requ ested Visits Authorized [id number] Closed 08/06/2020 08/06/2021 1 1 Reason for Visit Reason Comments Pre-visit Testing Orders Encounter Details Date Type Department Care Team Description 08/05/2020 Clinical Communication [facility]ST HIM Kvng Venegas, Pre-visit Testing [address] [facility] Steffanie [place] [address] Social History Tobacco Use Types Packs/Day Years [...] or relatives? How often do you attend synagogue or More than 4 times per year 06/20/2022 hindu services? 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
--- OUTSIDE RECORDS SUMMARY | 2022-08-17 17:30 | XMS_ITS | Encounter Summary ---
:1970 Author Organization [facility] Address [address] [place] [id number] Care Team Providers Name Role Phone Unavailable Primary Care Provider Unavailable Encounter Details Date Type Department Care Team Description 08/03/2020 Ancillary Procedure Department of Gastroenterology Social History [...] or relatives? How often do you attend sabianist or More than 4 times per year 06/20/2022 restoration services? Do you belong to any clubs or Yes 06/20/2022 organizations such as sabianist groups, unions, fraternal or athletic groups, or [...] slept in a care home (including now)? 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 documented in this encounter Results Upper GI endoscopy-Gastroenterology Image Exam (08/03/2020 10:25 AM CDT) Specimen (Source) Anatomical Location Collection Method / Collectio n Time Received Time / Laterality Volume Narrative IIMS - 08/03/2020 5:28 PM CDT This order has been created and auto-finalized [...]
[2022-08-17 17:54] LABS: Basophils Absolute Auto 0.06 K/uL (0.00-0.30); Eosinophils Percent Auto 10.6 % (0.0-7.0); Hematocrit 31.3 % (33.0-51.0); Hemoglobin* 10.3 gm/dL (12.0-16.0); Immature Granulocytes Abs Auto 0.01 K/uL (0.00-0.30); Lymphocytes Absolute Auto 1.84 K/uL (0.90-2.90); Lymphocytes Percent Auto 31.5 % (20-44); Mean Corpuscular HGB Conc 33 gm/dL (32-36); Mean Corpuscular Hemoglobin 30 pg (26-34); Mean Corpuscular Volume 90 fL (80-100); Monocytes Percent Auto 9.6 % (0.0-11.0); Neutrophils Absolute Auto 2.76 K/uL (1.7-7.0); Neutrophils Percent Auto 47.1 % (42.0-72.0); Platelet Count* 130 K/uL (140-440); RDW Coefficient of Variation % 15.4 % (11.5-15.5); Red Blood Count 3.48 m/uL (4.00-5.20); White Blood Count* 5.85 K/uL (4.50-11.00)
[2022-08-17 17:55] LABS: Slide Review Reflex No
[2022-08-17 18:09] LABS: Albumin* 3.2 g/dL (3.3-5.0); Chloride* 108 mmol/L (96-114)
[2022-08-17 18:10] LABS: INR 1.36 (0.91-1.10); Potassium* 3.6 mmol/L (3.6-5.1); Prothrombin Time 17.5 Seconds; Sodium* 140 mmol/L (135-149)
[2022-08-17 18:12] LABS: Alanine Aminotransferase* 33 U/L (4-35); Alkaline Phosphatase* 229 U/L (40-150); Aspartate Amino Transferase* 45 U/L (12-35); Bilirubin Total* 0.7 mg/dL (0.1-1.5); Blood Urea Nitrogen* 13 mg/dL (7-30); Carbon Dioxide* 29 mmol/L (20-32); Creatinine* 0.6 mg/dL (0.5-1.5); Est. Creatinine Clearance* 91.76; Estimated Glomerular Filt Rate 109 ml/min; Glucose* 123 mg/dL (60-115)
[2022-08-17 18:13] LABS: Calcium* 8.7 mg/dL (8.4-10.6)
[2022-08-17 19:08] VITALS: BP 128/73; PULSE 92; RESP 16; TEMP 37.3
== END 2022-08-17 19:08 | disposition home or self-care (01) ==
PROVIDERS: Emergency Provider Emergency Medicine Emergency Medical Services; PCP Family Medicine
DX: K62.5 Hemorrhage of anus and rectum (principal)
CPT/HCPCS: 36415; 74177; 80048; 80076; 85025; 85610; 99284; Q9967

== ENCOUNTER 2022-12-11 15:48 | Outpatient (REF) | payer MEDICAID, SELFPAY ==
[2022-12-11 16:19] LABS: Basophils Percent Auto 0.6 % (0.0-3.0); Hematocrit 31.6 % (33.0-51.0); Hemoglobin* 9.7 gm/dL (12.0-16.0); Lymphocytes Percent Auto 37.5 % (20-44); Mean Corpuscular HGB Conc 31 gm/dL (32-36); Mean Corpuscular Hemoglobin 28 pg (26-34); Mean Corpuscular Volume 92 fL (80-100); Monocytes Percent Auto 9.4 % (0.0-11.0); Neutrophils Percent Auto 44.5 % (42.0-72.0); Platelet Count* 112 K/uL (140-440); RDW Coefficient of Variation % 19.9 % (11.5-15.5); Red Blood Count 3.44 m/uL (4.00-5.20); White Blood Count* 3.63 K/uL (4.50-11.00)
[2022-12-11 16:21] LABS: Albumin* 3.2 g/dL (3.3-5.0); Chloride* 110 mmol/L (96-114); Sodium* 141 mmol/L (135-149)
[2022-12-11 16:22] LABS: Potassium* 3.7 mmol/L (3.6-5.1)
[2022-12-11 16:24] LABS: Alkaline Phosphatase* 172 U/L (40-150); Aspartate Amino Transferase* 50 U/L (12-35); Blood Urea Nitrogen* 15 mg/dL (7-30); Carbon Dioxide* 28 mmol/L (20-32); Creatinine* 0.7 mg/dL (0.5-1.5); Estimated Glomerular Filt Rate 105 ml/min; Total Protein* 5.9 g/dL (6.0-8.3)
[2022-12-11 16:25] LABS: Alanine Aminotransferase* 34 U/L (4-35); Calcium* 8.6 mg/dL (8.4-10.6); Glucose* 128 mg/dL (60-115)
[2022-12-11 16:34] LABS: Slide Review Reflex No
[2022-12-11 16:40] LABS: INR 1.21 (0.91-1.10)
== END 2022-12-11 15:49 | disposition home or self-care (01) ==
LOC: NPINS 15:48
PROVIDERS: PCP Family Medicine; Visit Provider Internal Medicine
DX: K64.8 Other hemorrhoids (principal); K92.2 Gastrointestinal hemorrhage, unspecified; K70.30 Alcoholic cirrhosis of liver without ascites
CPT/HCPCS: 80053; 85025; 85610

== ENCOUNTER 2023-01-19 09:40 | Outpatient (CLI) | payer MEDICAID, SELFPAY | END 2023-01-19 09:41 | disposition home or self-care (01) | LOC: NFLDREF 17:36 | PROVIDERS: PCP Family Medicine; Referring Provider Family Medicine; Visit Provider Family Medicine | DX: Z13.6 Encounter for screening for cardiovascular disorders (principal) | CPT/HCPCS: 80061 ==

== ENCOUNTER 2023-01-23 11:52 | Outpatient (CLI) | payer MEDICAID, SELFPAY | END 2023-01-23 11:53 | disposition home or self-care (01) | PROVIDERS: PCP Family Medicine; Visit Provider Family Medicine | DX: F50.9 Eating disorder, unspecified (principal) | CPT/HCPCS: 80053; 83735 ==

== ENCOUNTER 2023-03-06 15:04 | Emergency (ER) | payer MEDICAID, SELFPAY ==
[2023-03-06 15:09] VITALS: BP 147/81; PULSE 79; RESP 18; TEMP 36.5; O2SAT 97; BMI 23.2
--- NOTE | 2023-03-08 14:08 | ED_ITS ---
HPI - General Adult General Chief complaint: Unspecified Complaint, Adult Stated complaint: Water retention post steriod shots Time Seen by Provider: 03/06/23 15:35 History of Present Illness HPI narrative: 52-year-old woman presenting to the emergency department with concern of needing diuresis. Three days ago received cervical epidural steroid injection. She is now feeling puffy in her face. Feels that there is some swelling in the lower legs feels bloated in her abdomen. unable to connect with primary today. Sounds like she has retained fluids before in this setting. Does however have a history of alcohol abuse with hepatitis and ascites. Subsequent eating disorder recently treated through [employer]. Reports to be doing quite well now overall. Maintaining sobriety. She is looking for advice. I note on exam that most of her symptoms seem to be in lower extremities. Has compression stockings but seems to think restricting and uncomfortable while working. too hot. 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 Is not experiencing more shortness of breath. No chest pain. Not actually with abdominal pain. Related Data Home Medications Medication Instructions Recorded Confirmed magnesium oxide 400 mg (241.3 mg 400 mg PO DAILY 08/10/22 01/23/23 magnesium) tablet multivitamin 1 tab PO QDAY 08/10/22 01/23/23 hydroxyzine HCl 25 mg tablet 25 mg PO .QD PRN 09/27/22 01/23/23 Previous Rx's Medication Instructions Recorded metronidazole 500 mg tablet 500 mg PO BID 7 days #14 tabs 08/17/22 sertraline 50 mg tablet (Zoloft) 75 mg (1.5 x 50 mg) PO QDAY #45 01/12/23 tabs hydroxyzine HCl 10 mg tablet 10 mg PO TID PRN anxiety #60 tabs 01/23/23 hydroxyzine HCl 25 mg tablet 25 mg PO TID PRN anxiety #60 tabs 01/23/23 melatonin 5 mg tablet 5 mg PO QHS #90 tabs 01/23/23 omeprazole 40 mg capsule,delayed 40 mg PO QDAY #90 caps 01/23/23 release prazosin 1 mg capsule 1 mg PO QHS #90 caps 01/23/23 lisinopril 10 mg tablet 10 mg PO QDAY #90 tabs 01/29/23 furosemide 20 mg tablet 20 - 40 mg (1 - 2 x 20 mg) PO 03/06/23 DAILY PRN edema #10 tabs Allergies Allergy/AdvReac Type Severity Reaction Status Date / Time amoxicillin Allergy Unknown Swelling Verified 01/23/23 10:55 of Lip/Tongue/Throat Review of Systems Status of ROS: Reports: 6 or more systems reviewed and unremarkable except as noted in History and below [facility] Medical History Diverticulitis ?K57.92 - Diverticulitis of intestine, part unspecified, without perforation or abscess without bleeding (ICD-10) Upper gastrointestinal hemorrhage ?K92.2 - Gastrointestinal hemorrhage, unspecified (ICD-10) Pleural effusion associated with hepatic disorder ?K76.9 - Liver disease, unspecified (ICD-10) ?J91.8 - Pleural effusion in other conditions classified elsewhere (ICD-10) Hemorrhagic diarrhea ?R19.7 - Diarrhea, unspecified (ICD-10) Diarrhea ?R19.7 - Diarrhea, unspecified (ICD-10) Surgical History Hx of abdominal surgery ?Z98.890 - Other specified postprocedural states (ICD-10) Social History Smoking Status: Never smoker Do you use any of these nicotine containing products: None How often do you have a drink containing alcohol: never How often do you have six or more drinks on one occasion: Never AUDIT-C Alcohol total score: 0 Little interest or pleasure in doing things: not at all Feeling down, depressed, or hopeless: several days Exam Narrative: Exam Narrative: Is pleasant. Breathing easily. Carefully casually groomed. Skin is warm and dry. mild lower extremity pitting edema noticed especially at sock line. The face looks relatively normal to me she notes that it feels puffy. No inflammatory changes. Appears to have good range of motion at her neck. Lungs are clear. Abdomen is soft and nontender. Heart in regular rate and rhythm. Const: Documenting provider has reviewed patient's vital signs: yes Course Vital Signs Vital signs: Initial Vital Signs Temperature 97.7 F 03/06/23 15:09 Temperature Source Temporal Artery Scan 03/06/23 15:09 Pulse Rate 79 03/06/23 15:09 Respiratory Rate 18 05/16/23 15:09 Blood Pressure 147/81 H 03/06/23 15:09 Blood Pressure Mean 103 03/06/23 15:09 Blood Pressure Position Sitting 03/06/23 15:09 Pulse Oximetry 97 03/06/23 15:09 Oxygen Delivery Method Room Air 03/06/23 15:09 Vital Signs Temperature 97.7 F 03/06/23 15:09 Pulse Rate 79 03/06/23 15:09 Respiratory Rate 18 03/06/23 15:09 Blood Pressure 147/81 H 03/06/23 15:09 Pulse Oximetry 97 03/06/23 15:09 Oxygen Delivery Method Room Air 03/06/23 15:09 Temperature 97.7 F 03/06/23 15:09 Pulse Rate 79 03/06/23 15:09 Respiratory Rate 18 03/06/23 15:09 Blood Pressure 147/81 H 03/06/23 15:09 Pulse Oximetry 97 03/06/23 15:09 Oxygen Delivery Method Room Air 03/06/23 15:09 Medical Decision Making MDM Narrative Medical decision making narrative: I did review records and most recent renal and liver function which was obtained about a week ago. Renal function looks good. Slight elevation in transaminases and alkaline phosphatase which does have Ms. Berry concerned. I am encouraging simply to continue levels of activity and wearing compression stockings when up and about. Initially it appears that this is not the answer she would like to hear. I had left to further review records when I return she admits that she was here for advice and would take my advice. I was also prepared to offer light diuresis. My concern is actually more related to eating disorder as if this might be accommodating these feelings in some way. We discussed this; she is understanding and insightful. Wrote for prescription of compression stockings. See patient discharge plan. Lab Data Lab results reviewed: Yes I reviewed the patient's lab results (From 1 week ago.) Discharge Plan Discharge Clinical Impression: Elevated transaminase measurement, Edema, peripheral Patient Disposition: Home, Self-Care Condition: Stable Additional Instructions: Yes. I would encourage you to elevate your legs at rest. Wear the compression stockings if tolerable when up and about. Maybe even at night. If still having trouble mobilizing the fluid that you hope to you can try the furosemide. However as discussed, continue to stay well hydrated given that you've got a physical and outside job. Looks like you're doing well. It's nice to see. Please follow-up with your doctor regarding plan for mild elevation in your transaminases. Prescriptions: New furosemide 20 mg tablet 20 - 40 mg PO DAILY PRN (Reason: edema) Qty: 10 0RF No Action multivitamin Tablet 1 tab PO QDAY magnesium oxide 400 mg (241.3 mg magnesium) tablet 400 mg PO DAILY hydroxyzine HCl 25 mg tablet 25 mg PO .QD PRN omeprazole 40 mg capsule,delayed release(DR/EC) 40 mg PO QDAY Qty: 90 3RF prazosin 1 mg capsule 1 mg PO QHS Qty: 90 3RF hydroxyzine HCl 10 mg tablet 10 mg PO TID PRN (Reason: anxiety) Qty: 60 3RF hydroxyzine HCl 25 mg tablet 25 mg PO TID PRN (Reason: anxiety) Qty: 60 3RF melatonin 5 mg tablet 5 mg PO QHS Qty: 90 3RF metronidazole 500 mg tablet 500 mg PO BID 7 Days Qty: 14 0RF sertraline [Zoloft] 50 mg tablet 75 mg PO QDAY Qty: 45 0RF lisinopril 10 mg tablet 10 mg PO QDAY Qty: 90 3RF Follow Up/Referrals: Todd Coyne MD [Primary Care Provider] - Stand Alone Forms: [employer] Info Instructions
== END 2023-03-06 16:31 | disposition home or self-care (01) ==
PROVIDERS: Emergency Provider Family Medicine; PCP Family Medicine
DX: R60.9 Edema, unspecified (principal); R74.01 Elevation of levels of liver transaminase levels
CPT/HCPCS: 99283; 99284

== ENCOUNTER 2023-05-23 12:53 | Outpatient (CLI) | payer OTHER, MEDICAID, SELFPAY ==
--- NOTE | 2023-05-23 13:00 | CRLHL7_ITS ---
For Patients: As a result of the Century Cures Act, medical imaging exams and procedure reports are released immediately into your electronic medical record. You may view this report before your referring provider. If you have questions, please contact your health care provider. Indication: JAW PAIN, RT SIDED Technique: Noncontrast CT facial bones. Please note that all CT scans at this facility use dose modulation, iterative reconstruction, and/or weight-based dosing when appropriate to reduce radiation dose to as low as reasonably achievable. Comparison: None Findings: Mild generalized cerebral cortical atrophy is noted. The orbits are within normal limits. Normal salivary glands. Normal visualized thyroid. No cervical adenopathy. No apical pneumothorax. Mild mucosal thickening within the right frontal sinus. Remaining sinuses are clear. Normal mastoid air cells and middle ear cavities. Odontoid intact. Normal sella turcica. Intact mandible and maxilla. No periodontal abscess. Sinus drainage pathways are patent. Slight rightward curvature nasal septum. At the right temporomandibular joint, there is anterior position of the mandibular condyle with associated flattening and hypertrophic spurring. Similar findings are present at the left temporomandibular joint. No fracture is present. 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 Minimal right frontal sinus disease. Please note that all CT scans at this facility use dose modulation, iterative reconstruction, and/or weight-based dosing when appropriate to reduce radiation dose to as low as reasonably achievable. Dictated by Vitor Lorenzana MD @ 05/23/2023 3:24:20 PM (Electronically Signed)
== END 2023-05-23 12:54 | disposition home or self-care (01) ==
PROVIDERS: PCP Family Medicine; Visit Provider Internal Medicine
DX: R68.84 Jaw pain (principal)
CPT/HCPCS: 70486

== ENCOUNTER 2023-05-29 13:18 | Outpatient (CLI) | payer OTHER, MEDICAID, SELFPAY ==
--- NOTE | 2023-05-29 13:00 | CRLHL7_ITS ---
For Patients: As a result of the Cures Act, medical imaging exams and procedure reports are released immediately into your electronic medical record. You may view this report before your referring provider. If you have questions, please contact your health care provider. HISTORY: Elbow pain. History of fracture 10 weeks ago. Evaluate for possible radial nonunion. FINDINGS: The elbow was studied in the axial, coronal and sagittal planes. Patient has sustained a previous fracture of the radial neck. This is documented on plain film study of 03/13/2023. Over time the plain film studies demonstrate increasing lucency in the fracture zone up to the most recent study of 05/25/2023. This lucency is documented on today`s CT study as prominent loss of bone density throughout the fracture zone with a somewhat lobulated appearance. At best there is only minimal bony bridging present in the fracture zone. No significant displacement or angulation is noted. The articulation of the radiocapitellar articulation is anatomic. No evidence for fracture elsewhere. No findings for loose body. IMPRESSION: Increasing cystic lucency seen in the fracture zone of the radial neck is confirmed on today`s CT study as well as on the recent plain film of 05/25/2023. At best only minimal bridging bone is present in this region. Please note that all CT scans at this facility use dose modulation, iterative reconstruction, and/or weight-based dosing when appropriate to reduce radiation dose to as low as reasonably achievable. Dictated by Oz Samayoa MD @ 05/30/2023 8:55:01 AM (Electronically Signed)
== END 2023-05-29 13:19 | disposition home or self-care (01) ==
PROVIDERS: PCP Family Medicine; Visit Provider Physician Assistant Surgical
DX: M25.521 Pain in right elbow (principal); S52.131A Displaced fracture of neck of right radius, initial encounter for closed fracture
CPT/HCPCS: 73200

== ENCOUNTER 2023-06-01 13:15 | Outpatient (RCR) | payer MEDICAID, SELFPAY ==
--- NOTE | 2023-04-18 17:30 | OT.OPOE ---
OT Outpatient Ortho Eval OT Outpatient Ortho Eval* Start: 04/18/23 06:58 Freq: Status: Active Protocol: Document 04/18/23 06:58 AMB (Rec: 04/18/23 17:26 AMB [id number]) E-signed By Peace Weathers, OTR/L, CLT, PAPER HANGER OT OP Ortho Eval Details Complexity Complexity Low Insurance Information Insurance Information [employer] Outpatient History/Precautions Current Condition/Medical Diagnosis Referring Provider Derrek Salvador PA-C Treatment Diagnosis LUE mid shaft fx of 3rd metacarpal Date of Onset 03/26/23 Other Conditions PMH includes: (copied from ortho chart) S62.90XA - Unspecified fracture of unspecified wrist and hand, initial encounter for closed fracture (ICD-10) Hypertension (Acute) I10 - Essential (primary) hypertension (ICD-10) Bleeding hemorrhoids (Acute) K64.9 - Unspecified hemorrhoids (ICD-10) Insomnia (Acute) G47.00 - Insomnia, unspecified (ICD-10) Low back pain (Acute) M54.50 - Low back pain, unspecified (ICD-10) Night terrors, adult (Acute) F51.4 - Sleep terrors [night terrors] (ICD-10) GERD (gastroesophageal reflux disease) (Acute) K21.9 - Gastro-esophageal reflux disease without esophagitis (ICD-10) Anxiety (Acute) F41.9 - Anxiety disorder, unspecified (ICD-10) Eating disorder (Acute) F50.9 - Eating disorder, unspecified (ICD-10) Cat bite of finger (Acute) S61.259A - Open bite of unspecified finger without damage to nail, initial encounter (ICD-10) W55.01XA - Bitten by cat, initial encounter (ICD-10) Alcoholic hepatitis with ascites (Acute) K70.11 - Alcoholic hepatitis with ascites (ICD-10) Alcoholic gastritis with hemorrhage (Acute) K29.21 - Alcoholic gastritis with bleeding (ICD-10) Alcoholic cirrhosis (Acute) K70.30 - Alcoholic cirrhosis of liver without ascites (ICD- 10) Alcohol-induced mood disorder with depressive symptoms ( Acute) F10.94 - Alcohol use, unspecified with alcohol- induced mood disorder (ICD-10) Alcohol abuse (Acute) F10.10 - Alcohol abuse, uncomplicated (ICD-10) Medical History (Reviewed @ 11:20 by Rona Melgoza ~ LAT ATC) Diverticulitis K57.92 - Diverticulitis of intestine, part unspecified, without perforation or abscess without bleeding (ICD-10) Upper gastrointestinal hemorrhage K92.2 - Gastrointestinal hemorrhage, unspecified (ICD- 10) Pleural effusion associated with hepatic disorder K76.9 - Liver disease, unspecified (ICD-10) J91.8 - Pleural effusion in other conditions classified elsewhere (ICD-10) Hemorrhagic diarrhea R19.7 - Diarrhea, unspecified (ICD-10) Diarrhea R19.7 - Diarrhea, unspecified (ICD-10) Surgical History (Reviewed @ 11:20 by Rona Melgoza ~ LAT ATC) Hx of abdominal surgery Z98.890 - Other specified postprocedural states (ICD-10) Medications: document embedded image [facility] [address] [place] [address] Office Visit Patient: Joana Berry JMR#: [id number]: [id number]: [id number]: ORTHNFLD Provider: Derrek Salvador PA-C cc: ~ Visit Date 04/05/23 HPI HPI Comments Details: New patient visit. Pleasant 52-year-old female presents with acute injury to her left hand. Date of injury 2022. She was walking her oversized dog, the dog was spooked and began running after a different animal. Patient was holding onto the leash while the dog dragged her. She hit her left hand hard. Immediate pain. Swelling and bruising ensued. Eventually sought care at ER 03/26/2023, where x-rays revealed fracture of the third metacarpal. Provided with a splint and referred to Orthopedics. She reports pain continues to impact the left hand. Worse with activities. She is right -hand dominant, but also is dealing with a right radial head fracture, which is a separate incident. She is taking oral medications for the pain. She has been taking off the splint. Review of Systems Narrative No recent fevers, chills, or aches; no numbness or tingling distally Exam Narrative Exam Narrative: General: Well-developed, well- nourished, A&Ox 3, no apparent acute distress. Pulmonary: Breathing pattern regular, even, without apparent distress or audible wheeze present. Left hand: Noted moderate swelling over the dorsum of the hand, primarily over the third metacarpal; ecchymosis also present, faint; no erythema No gross deformity Tender to palpation and percussion over the midshaft third metacarpal; no crepitus with palpation No range of motion, or strength testing performed Nontender to palpation throughout the rest of the hand/wrist exam 2+ radial pulse, pink, warm, appropriate capillary refill digits; intact dermatomes and myotomes distally (radial, ulnar, and median nerve distributions) Imaging Imaging Imaging: Three views left hand ordered by different provider [facility] dated 2022. These images were reviewed and corroborated with the radiology report showing mildly displaced fracture of the proximal third metacarpal diaphysis, oblique without significant angulation or rotation. No further interosseous pathology or fracture noted. Three views left hand ordered and preliminarily reviewed today. Images compared to those from 03/26/2023. Today's images show stable appearing oblique fracture proximal aspect of the third metacarpal without significant displacement or angulation. Noted anatomic alignment on all views. Slight, less than 1 mm step-off at the fracture site, otherwise appropriate alignment with early signs of callus noted especially radial aspect of the fracture. No further fracture or interosseous pathology noted. Assessment & Plan Assessment & Plan (1) Fracture of third metacarpal bone of left hand: Problem Comment: 52-year-old female closed treatment of a closed, acute left third metacarpal proximal shaft oblique, minimally displaced fracture without angulation or rotation (date of injury 03/13/2023) Qualifiers: Encounter type: initial encounter Fracture type: closed Metacarpal location: shaft Fracture alignment: displaced Qualified Code(s): S62.323A - Displaced fracture of shaft of third metacarpal bone, left hand, initial encounter for closed fracture Plan We had a thorough discussion regarding pathology. The fracture is now 3-weeks-old and shows good stability on repeat radiographs. Thus, non operative management is most prudent at this time. Would advise some sort of hand/wrist brace/splint to help keep the fracture stable while it heals. We provided her with an ulnar gutter wrist brace today, as well as an occupational therapy referral for [employer] splint fabrication, hand based splint to help immobilize the third metacarpal. She is encouraged not to grasp heavy with the left hand, or lift with the left hand. Gentle wrist and digit motion is okay. Encouraged oral acetaminophen as needed for pain, rest, modify activities, elevate affected extremity above the heart level, and ice 20 min on /20 minutes off repeat as needed for pain/swelling. States she is unable to take oral NSAIDs due to eating disorder. Though her medical problem list includes alcohol hepatitis with ascites, as well as alcohol cirrhosis, she states it is okay for her to take acetaminophen per her primary provider. Will see her back in 5 weeks for repeat three views left hand. Likely no further immobilization at that point. Occupational therapy to start for range of motion, and strengthening. Orders: Orders XR hand LT min 3V Today S62. 90XA - Unspecified fracture of unspecified wrist and hand, initial encounter for closed fracture Plan Detail Time Spent: Please review Coding section regarding the total time spent today in the care of this patient, separate from any independently billable service . Care includes but is not limited to a medically appropriate evaluation and the documentation of the care in the health record. Vital Signs 04/05/23 11:36 Height 162.56 cm Weight 65.771 kg BMI 24.9 Temp 96.6 F L Temp Source Temporal Artery Scan Intake Intake BMI [18 - 64 (<18.5 or >25)] [ 65& Older (<23 or >30) BMI screening not done: No Visit Reasons: LT HAND XR [facility] Nurse's Note: left hand injury on 03/13/23 while walking her dog Are you having pain: No Allergies amoxicillin Allergy (Unknown, Verified 04/05/23 11:38) Swelling of Lip/Tongue/Throat - Last Reconciled 04/05/23 by Rona Melgoza ~ LAT ATC furosemide 20 - 40 mg (1 - 2 x 20 mg) PO DAILY PRN hydroxyzine HCl 25 mg PO .QD PRN hydroxyzine HCl 10 mg PO TID PRN hydroxyzine HCl 25 mg PO TID PRN lisinopril 10 mg PO QDAY magnesium oxide 400 mg PO DAILY melatonin 5 mg PO QHS metronidazole 500 mg PO BID 7 days multivitamin 1 tab PO QDAY omeprazole 40 mg PO QDAY prazosin 1 mg PO QHS sertraline (Zoloft) 75 mg (1.5 x 50 mg) PO QDA Medical/Functional History Medical History Reviewed Yes Prior Level of Function/Mobility Full, pain-free use of her LUE prior to fx Social History 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 Orth has determined that there is healing taking place and surgery is not needed. She has been referred to OT for a hand based splint for immobilization and protective healing of her LUE 5th metacarpal, mid-shaft fx. Pt states she does have pain in her hand rates it at a 7/10 but not constant, depends on what she is doing. Two days prior to her hand injury, she tripped at work and sustained a radial head fx of the right arm and has been on light duty for that injury. 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 Pain Assessment Pain Present Pain Present Pain Reported Location Left Hand Description Throbbing Intensity 7 Goniometric Comments Goniometric Comments Goniometric Comments 04/18/23 Surprisingly, pt demonstrates full AROM of the LUE hand/fingers/thumb/wrist and forearm. She does have tightness at EROM of composite fist and flat fist tendon glide. OT Problems Problems Problems Decreased Strength,Decreased Range of Motion,Pain,Lifting, Gripping Other Problems Opening Containers,Dressing Patient Potential Good Assessment Assessment Assessment Pt is a very pleasant 52yo female reporting to OT for custom splinting for protective healing of the LUE 3rd metacarpal. Pt demonstrates full AROM with tightness at EROM of composite and flat fist, weakness, and mild swelling of her left hand . These limitations impair her independence with higher level ADLs and IADLs and her normal work tasks. Pt is also dealing with a radial head fx on the RUE secondary to a work injury. Occupational Therapy Treatment Plan - OP Potential Rehabilitation Potential Good Set Goals Goals Set with Patient Yes Goals Goals 1. Pt will be independent and compliant with HEP in order to resume full, pain-free use of the involved UE. 3 weeks 2. Pt will demonstrate full, pain-free AROM of the involved UE in order to improve ability to grasp and hold. 6 weeks 3. 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 8 weeks. Target Date 07/19/23 Treatment Plan Treatment Plan Evaluation,Edema Control,Joint Mobilization,Manual Therapy, Splinting,Therapeutic Exercise ,Therapeutic Activities,Self Care/Home Management,Education Expected Frequency 1-2x Week Expected Duration 6-8 Weeks Home Program Home Program Home Program Initiated Home Program Specifics 04/18/23 Pt was provided training and practice in HEP for differential tendon gliding routine to be kept light and pain-free. Following demo, pt is able to complete exs with minimal cues. Pt was provided with written inst for use at home as well. Certification Certification I Certify That: Therapy Services Provided, Therapy Plan Established, Therapy Plan Reviewed Recertification Information Recertification Information Initial Certification Date 04/18/23 Recertification Due Date 07/17/23 Reasons to Continue Skilled Therapy Initiating OT today for custom splinting / protective healing of the LUE 3rd digit metacarpal fx. Rehabilitation Potential Good Continued Plan of Care and Interventions Please see POC above. Provider Signature Shows Agreement With POC & Medical Necessity Physician Comment/Change Comment or Changes Physician NPI Number #
== END 2023-06-01 17:34 | disposition home or self-care (01) ==
PROVIDERS: PCP Family Medicine; Visit Provider Physician Assistant Surgical
DX: S62.303A Unspecified fracture of third metacarpal bone, left hand, initial encounter for closed fracture (principal); Z51.89 Encounter for other specified aftercare
CPT/HCPCS: 97110; 97165; 97530; L3913; X5282

== ENCOUNTER 2023-08-01 10:59 | Outpatient (CLI) | payer MEDICAID, SELFPAY | END 2023-08-01 11:00 | disposition home or self-care (01) | PROVIDERS: PCP Family Medicine; Visit Provider Family Medicine | DX: F10.10 Alcohol abuse, uncomplicated (principal); Z13.6 Encounter for screening for cardiovascular disorders | CPT/HCPCS: 80053; 80061 ==

== ENCOUNTER 2023-09-04 11:30 | Outpatient (RCR) | payer OTHER, SELFPAY ==
--- NOTE | 2023-06-06 11:51 | OT.OPOE ---
OT Outpatient Ortho Eval OT Outpatient Ortho Eval* Start: 06/06/23 09:17 Freq: Status: Active Protocol: Document 06/06/23 09:17 KENDY (Rec: 06/06/23 11:46 KENDY [id number]) E-signed By Naty Reyes, OTR/L, CLT OT OP Ortho Eval Details Complexity Complexity Medium Insurance Information Insurance Information Workman's Comp Insurance Information Comments 3 months post closed treatment of a radial neck fracture, work-related injury dated 03/11 *at time of Eval, no prior auth or known visits Outpatient History/Precautions Current Condition/Medical Diagnosis Referring Provider Derrek Salvador PA-C Treatment Diagnosis Stiffness of R elbow-M25.621 Date of Onset 03/11/23 Other Precautions S52.131A - Displaced fracture of neck of right radius, initial encounter for closed fracture Ortho Subjective Subjective Subjective Today is a bad day, my elbow is 8/10 and feels very tight I'm trying not to take any pain medication Pain Assessment Pain Present Pain Present Pain Reported Location Right Elbow Description Tightness,Pressure,Throbbing, Heaviness Intensity 8 Range of Motion and Strength Elbow/Forearm Range of Motion and Strength Elbow/Forearm Range of Motion and R UE Strength pronation 75 degrees supination 85 degrees Elbow Extension was 10 degrees active, painful PROM ~4 degrees Elbow Flexion 140 degrees but uncomfortable Hand 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/Knotting 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 Operator Strength Hand Right Knotting Machine Operator Strength Position 1 (lbs) 35 Knotting Machine Operator Strength Position 2 (lbs) 18 Lateral Pinch Strength (lbs) 11 Three Point Pinch (lbs) 10 Tip Pinch Strength (lbs) 8 Left Knotting Machine Operator Strength Position 1 (lbs) 50 Knotting Machine Operator Strength Position 2 (lbs) 52 Lateral Pinch Strength (lbs) 15 Three Point Pinch (lbs) 12 Tip Pinch Strength (lbs) 11 OT Problems Problems Problems Decreased Strength,Decreased Range of Motion,Decreased Dexterity,Pain,Decreased Coordination,Lifting,Gripping, Pinching Other Problems Writing,Opening Containers, Dressing,Fasteners Patient Potential Good Assessment Assessment Assessment 52 year old female presents to therapy clinic after a f/u apt with ILA yesterday. She is 3 months post closed treatment of a radial neck fracture, work-related injury dated 03/11. 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 Patient has complaints of pain weakness, and lacking ROM. Cannot completely extend the elbow. Wrist/forearm rotation is uncomfortable. She is right -hand dominant and was trying to work through the pain and discomfort because not working financially is not an option. 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 Painful to palpation radial neck, AROM f R elbow 10-130 degrees, when comparing her nonaffected (L side) she can actively hyperextend left elbow +5 degrees with full flexion of the L elbow. When therapist does PROM of the R elbow, 10-140 degrees but pain was reported. R side Pronation 75?, supination 85? Sensation is intact to light touch/hot cold. Patient reports 8/10 pain at time of EVAL, with stiffness being her description word. Occupational Therapy Treatment Plan - OP Potential Rehabilitation Potential Good Barriers Barriers to goal attainment Patient is highly motivated and cooperative. Has had therapy in this clinic prior with positive results. Set Goals Goals Set with Patient Yes Goals Goals 1. Patient will gain R elbow extension, from +10 degrees to 0 degrees 2. Patient will gain R elbow flexion, from 140 degrees to > 150 degrees 3. Patient will report a decrease in R elbow pain from 8/10 to less than 4/10 in order to manage her day to day routines. 4. Patient will be Independent and compliant with a HEP 7 days per week, a minimum of 20 minutes per day. 5. Patient will increase R ( dominant) hand clinical manager strength from 35 lbs to >45 lbs in order to return to everyday tasks w/o fear of dropping items. Target Date 8 weeks Treatment Plan Treatment Plan Evaluation,Edema Control,Joint Mobilization,Manual Therapy, Ultrasound,Therapeutic Exercise,Therapeutic Activities Expected Frequency 1-2x Week Expected Duration 8-10 Weeks Home Program Home Program Home Program Initiated Home Program Specifics Access Code: [email or web address] URL: [email or web address]/ Date: 06/06/2023 Prepared by: Naty Reyes Exercises - Supine Elbow Extension Stretch in Supination - 1 x daily - 7 x weekly - 3 sets - 10 reps - Supine Elbow Flexion Extension AROM - 1 x daily - 7 x weekly - 3 sets - 10 reps - Standing Elbow Extension with Towel Roll at Wall - Supination - 1 x daily - 7 x weekly - 3 sets - 10 reps - Supine Elbow Extension Stretch in Pronation - 1 x daily - 7 x weekly - 3 sets - 10 reps - Wrist Extensor Stretch With Elbow Flexed: Progression From Elbow at Side - 1 x daily - 7 x weekly - 3 sets - 10 reps - Wrist Flexor Stretch with Elbow Flexed: Progression From Elbow at Side - 1 x daily - 7 x weekly - 3 sets - 10 reps - Forearm Mobilization on Resistance Bar - 1 x daily - 7 x weekly - 3 sets - 10 reps Certification Certification I Certify That: Therapy Services Provided, Therapy Plan Established, Therapy Plan Reviewed Recertification Information Recertification Information Initial Certification Date 06/06/23 Recertification Due Date 09/04/23 Provider Signature Shows Agreement With POC & Medical Necessity Physician Comment/Change Comment or Changes Physician NPI Number #
== END 2023-09-04 12:08 | disposition home or self-care (01) ==
PROVIDERS: PCP Family Medicine; Visit Provider Physician Assistant Surgical
DX: S52.131A Displaced fracture of neck of right radius, initial encounter for closed fracture (principal); S03.00XA Dislocation of jaw, unspecified side, initial encounter; Z51.89 Encounter for other specified aftercare
CPT/HCPCS: 97110; 97140; 97161; 97166; 97168; 97530; 97535; X5282

== ENCOUNTER 2023-09-08 16:50 | Emergency (ER) | payer MEDICAID, SELFPAY ==
[2023-09-08 16:55] VITALS: BP 149/89; PULSE 76; RESP 18; TEMP 37.2; O2SAT 98; BMI 21.6
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
== END 2023-09-08 17:23 | disposition home or self-care (01) ==
LOC: ED 17:18
PROVIDERS: Emergency Provider Emergency Medicine; PCP Family Medicine
DX: K04.7 Periapical abscess without sinus (principal)
CPT/HCPCS: 99283

== ENCOUNTER 2023-09-10 14:23 | Outpatient (CLI) | payer MEDICAID, SELFPAY | END 2023-09-10 14:24 | disposition home or self-care (01) | LOC: NFLDREF 14:28 | PROVIDERS: PCP Family Medicine; Visit Provider Family Medicine | DX: E87.6 Hypokalemia (principal) | CPT/HCPCS: 80053 ==

== ENCOUNTER 2023-09-24 12:30 | Outpatient (RCR) | payer MEDICAID, SELFPAY ==
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
== END 2024-01-22 23:59 | disposition home or self-care (01) ==
PROVIDERS: PCP Family Medicine; Visit Provider Family Medicine
DX: M54.50 Low back pain, unspecified (principal); Y99.0 Civilian activity done for income or pay; Z51.89 Encounter for other specified aftercare
CPT/HCPCS: 97110; 97112; 97140; 97163

== ENCOUNTER 2023-12-18 13:55 | Outpatient (CLI) | payer MEDICAID, SELFPAY ==
--- NOTE | 2023-12-18 14:00 | MM_ITS ---
Patient: MARIA DEL CARMEN LEDESMA Facility:?[facility] Patient ID:?[id number] Site Patient ID:?[id number] Site :?[id number] Study:?XRay-Breast SCREENING-12/18/2023 4:38:33 PM Ordering Physician:RACHEL Final Report: BILATERAL SCREENING MAMMOGRAM WITH COMPUTER-AIDED DETECTION AND TOMOSYNTHESIS TECHNIQUE: CC and MLO views were obtained. These mammographic images have been obtained using full-field digital technique. These mammographic images were interpreted with the benefit of computer-aided detection. Breast Tomosynthesis was used in this interpretation. COMPARISON FILM: 03/10/21, 07/01/18, 11/24/16. FINDINGS: The breasts are heterogeneously dense, which may obscure small masses. IMPRESSION: There is no radiographic evidence for malignancy. ASSESSMENT: BI-RADS Category 1: Negative RECOMMENDATION: Routine screening mammogram in 1 year. A lay language report of this examination will be provided to the patient. Vitor Lorenzana M.D. Diagnostic Radiologist [email or web address] HERO/sp R& Transcribed: 3:30 p.m. SP/Dictated by: Vitor Lorenzana MD @ 12/28/2023 1:17:00 PM Signed by:?Vitor Lorenzana MD @12/28/2023 3:54:27 PM (Electronic Signature)
== END 2023-12-18 13:56 | disposition home or self-care (01) ==
LOC: MAMMO 13:55
PROVIDERS: PCP Family Medicine; Visit Provider Family Medicine
DX: Z12.31 Encounter for screening mammogram for malignant neoplasm of breast (principal); R92.2 Inconclusive mammogram
CPT/HCPCS: 77063; 77067

== ENCOUNTER 2023-12-19 10:03 | Outpatient (CLI) | payer MEDICAID, SELFPAY | END 2023-12-19 10:04 | disposition home or self-care (01) | LOC: NFLDREF 10:04 | PROVIDERS: PCP Family Medicine; Visit Provider Family Medicine | DX: Z01.818 Encounter for other preprocedural examination (principal); E87.6 Hypokalemia; R73.03 Prediabetes; I10 Essential (primary) hypertension; F41.9 Anxiety disorder, unspecified | CPT/HCPCS: 80048; 83735; 84100 ==

== ENCOUNTER 2024-04-26 11:28 | Emergency (ER) | payer MEDICAID, SELFPAY ==
[2024-04-26 11:36] VITALS: BP 130/80; PULSE 94; RESP 16; TEMP 36.9; O2SAT 99; BMI 21.6
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
--- OUTSIDE RECORDS SUMMARY | 2024-04-26 12:32 | XMS_ITS | Clinical Summary ---
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 traumatic subluxation of the thoracic or lumbarspine. 2. Multilevel degenerative changes greatest at L4-5 and L5-S1. Results were discussed with the emergency department stabilization team attime of image acquisition. I have personally reviewed the image(s) and initial interpretation, and Iagree with the findings as documented by the resident/fellow. Reading Radiologist: Mark Mayer Resident: Amisha Robledo Brittaney Nava MD RAD CT NEURO * CT SPINE LUMBAR NO IV CON (04/16/2024 7:00 PM CDT) Anatomical Region Laterality Modality Lumbar Spine Computed Tomogra phy 04/16/2024 7:27 PM CDT Impressions 04/16/2024 8:26 PM CDT Impression: No acute fracture or traumatic subluxation of the thoracic or lumbar spine. 2. Multilevel degenerative changes greatest at L4-5 and L5-S1. Results were discussed with the emergency department stabilization team at time of image acquisition. I have personally reviewed the image(s) and initial interpretation, and I agree with the findings as documented by the resident/fellow. Reading Radiologist: Mark Mayer Resident: Amisha Robledo Narrative 04/16/2024 8:26 PM CDT Indication: Trauma (STAB) ??. Comparison: Same day CT chest abdomen pelvis Technique: Axial, coronal, and sagittal images were reconstructed from same day CT chest abdomen pelvis. Images were reviewed in bone and soft tissue windows. Findings: Thoracic spine: Thoracic spine alignment is within normal limits. Exaggerated thoracic kyphosis. There is no evidence of fracture or dislocation. There is no significant disc height narrowing noted. ??The spinal canal and neural foramina are patent throughout the thoracic spine. ??The visualized prevertebral and paravertebral soft tissues are unremarkable. ?? Lumbar spine: There is grade 1 degenerative anterolisthesis of L4 over L5. Chronic irregularity of the right L1 transverse process. There is no fracture or subluxation. There is no significant disc height narrowing at any visualized level. Multilevel facet arthropathy, greatest in the lower lumbar spine. Mild to moderate foraminal stenosis greatest on the right at L5-S1. ??The visualized prevertebral and paravertebral tissues are normal. Please refer to separately dictated CT chest abdomen pelvis from same day for further discussion of intrathoracic and intra-abdominal findings. Procedure Note Mark Mayer MD - 04/16/2024 Indication: Trauma (STAB) . Comparison: Same day CT chest abdomen pelvis Technique: Axial, coronal, and sagittal images were reconstructed fromsa day CT chest abdomen pelvis. Images were reviewed in bone and softtissue windows. Findings: Thoracic spine: Thoracic spine alignment is within normal limits. Exaggerated thoracickyphosis. There is no evidence of fracture or dislocation. There is nosignificant disc height narrowing noted. The spinal canal and neuralforamina are patent throughout the thoracic spine. The visualizedprevertebral and paravertebral soft tissues are unremarkable. Lumbar spine: There is grade 1 degenerative anterolisthesis of L4 over L5. Chronicirregularity of the right L1 transverse process. There is no fracture orsubluxation. There is no significant disc height narrowing at anyvisualized level. Multilevel facet arthropathy, greatest in the lowerlumbar spine. Mild to moderate foraminal stenosis greatest on the right atL5-S1. The visualized prevertebral and paravertebral tissues are normal. Please refer to separately dictated CT chest abdomen pelvis from same dayfor further discussion of intrathoracic and intra-abdominal findings. IMPRESSION Impression: No acute fracture or traumatic subluxation of the thoracic or lumbarspine. 2. Multilevel degenerative changes greatest at L4-5 and L5-S1. Results were discussed with the emergency department stabilization team attime of image acquisition. I have personally reviewed the image(s) and initial interpretation, and Iagree with the findings as documented by the resident/fellow. Reading Radiologist: Mark Mayer Resident: Amisha Robledo Brittaney Nava MD RAD CT NEURO * CT SPINE CERVICAL NO IV CON (04/16/2024 7:00 PM CDT) Anatomical Region Laterality Modality Cervical Spine Computed Tomogra phy 04/16/2024 7:30 PM CDT Impressions 04/16/2024 8:21 PM CDT Impression: ?? 1. No fracture or subluxation of the cervical vertebrae. 2. Mild multilevel cervical spondylosis including facet arthropathy greatest on the left at C5-6. Mild left C5-6 foraminal narrowing. Results were discussed with the emergency Department stabilization team at time of image acquisition. I have personally reviewed the image(s) and initial interpretation, and I agree with the findings as documented by the resident/fellow. Reading Radiologist: Mark Mayer Resident: Amisha Robledo Narrative 04/16/2024 8:21 PM CDT Indication: Trauma (STAB) ??. Comparison: ??none Technique: Using multidetector thin collimation helical acquisition technique, axial, coronal and sagittal reconstructed CT images were obtained through the cervical spine without intravenous contrast. Images were reviewed in bone and soft tissue windows. Dose: Total DLP = 113 mGy.cm. ?? Findings: ??The lateral masses of C1 appear normally aligned on C2. Osseous fusion of the occipital condyles with lateral masses of C1. Mild straightening of expected cervical lordosis. Alignment of the cervical spine appears intact. There is no evidence of fracture or significant prevertebral soft tissue swelling. There is mild to moderate disc space narrowing greatest at C3-4 with associated endplate irregularities/sclerosis noted formation. Multilevel facet arthropathy resulting in mild multilevel neural foraminal narrowing, greatest on the left at C5-6. No significant spinal canal narrowing. No abnormality of the visualized paraspinous tissues is noted. Procedure Note Mark Mayer MD - 04/16/2024 Indication: Trauma (STAB) . Comparison: none Technique: Using multidetector thin collimation helical acquisitiontechnique, axial, coronal and sagittal reconstructed CT images wereobtained through the cervical spine without intravenous contrast. Imageswere reviewed in bone and soft tissue windows. Dose: Total DLP = 113 mGy.cm. Findings: The lateral masses of C1 appear normally aligned on C2. Osseousfusion of the occipital condyles with lateral masses of C1. Mildstraightening of expected cervical lordosis. Alignment of the cervicalspine appears intact. There is no evidence of fracture or significantprevertebral soft tissue swelling. There is mild to moderate disc spacenarrowing greatest at C3-4 with associated endplateirregularities/sclerosis noted formation. Multilevel facet arthropathyresulting in mild multilevel neural foraminal narrowing, greatest on theleft at C5-6. No significant spinal canal narrowing. No abnormality of the visualized paraspinous tissues is noted. IMPRESSION Impression: 1. No fracture or subluxation of the cervical vertebrae. 2. Mild multilevel cervical spondylosis including facet arthropathygreatest on the left at C5-6. Mild left C5-6 foraminal narrowing. Results were discussed with the emergency Department stabilization team attime of image acquisition. I have personally reviewed the image(s) and initial interpretation, and Iagree with the findings as documented by the resident/fellow. Reading Radiologist: Mark Mayer Resident: Amisha Robledo Brittaney Nava MD RAD CT NEURO * CT HEAD NO IV CONTRAST (04/16/2024 7:00 PM CDT) Anatomical Region Laterality Modality Skull Computed Tomogra phy 04/16/2024 6:50 PM CDT Impressions 04/16/2024 8:08 PM CDT Impression: 1. No acute intracranial pathology. 2. Please additionally refer to separately dictated CT facial bone for details of left maxillary fractures. Results were discussed with the emergency Department stabilization team at time of image acquisition. I have personally reviewed the image(s) and initial interpretation, and I agree with the findings as documented by the resident/fellow. Reading Radiologist: Mark Mayer Resident: Amisha Robledo Narrative 04/16/2024 8:08 PM CDT Indication: Trauma (STAB) ??. Comparison: CT facial bones from same day Technique: Axial thin section CT images through the brain were obtained from the base of the skull through the vertex without intravenous contrast and reviewed in brain, bone and subdural windows. Dose Total DLP = 1003.2 mGy.cm. ?? Findings: There is no evidence of intracranial hemorrhage, mass effect, midline shift or abnormal extraaxial fluid collection. There is no definite evidence of acute infarction. The ventricles and sulci appear appropriate for age. Banerjee-white differentiation is normal throughout both cerebral hemispheres. The bony calvarium and the bones of the skull base appear normal. Layering fluid within the left maxillary sinus. The remainder the paranasal sinuses and mastoid air cells are relatively clear. Please refer to separately dictated CT facial bone for further discussion of facial fractures and facial soft tissue injuries. Procedure Note Mark Mayer MD - 04/16/2024 Indication: Trauma (STAB) . Comparison: CT facial bones from same day Technique: Axial thin section CT images through the brain were obtainedfrom the base of the skull through the vertex without intravenous contrastand reviewed in brain, bone and subdural windows. Dose Total DLP = 1003.2 mGy.cm. Findings: There is no evidence of intracranial hemorrhage, mass effect,midline shift or abnormal extraaxial fluid collection. There is nodefinite evidence of acute infarction. The ventricles and sulci appearappropriate for age. Banerjee-white differentiation is normal throughout bothcerebral hemispheres. The bony calvarium and the bones of the skull base appear normal. Layeringfluid within the left maxillary sinus. The remainder the paranasal sinusesand mastoid air cells are relatively clear. Please refer to separatelydictated CT facial bone for further discussion of facial fractures andfacial soft tissue injuries. IMPRESSION Impression: 1. No acute intracranial pathology. 2. Please additionally refer to separately dictated CT facial bone fordetails of left maxillary fractures. Results were discussed with the emergency Department stabilization team attime of image acquisition. I have personally reviewed the image(s) and initial interpretation, and Iagree with the findings as documented by the resident/fellow. Reading Radiologist: Mark Mayer Resident: Amisha Robledo Brittaney Nava MD RAD CT NEURO * CT FACIAL BONES NO IV CON (04/16/2024 7:00 PM CDT) Anatomical Region Laterality Modality Skull Computed Tomogra phy 04/16/2024 7:02 PM CDT Impressions 04/16/2024 8:38 PM CDT Impression: 1. Left maxillary alveolar ridge fracture involving the base of the left maxillary incisors with overlying soft tissue hematoma/contusion. 2. Fracture involving the anterior wall of the left maxillary sinus with layering blood in the left maxillary sinus. 3. Left periorbital/supraorbital hematoma without underlying orbital injury. 4. Soft tissue hematoma overlying the right anterior mandible. 5. Fractured right maxillary canine. Results were discussed with the emergency Department stabilization team at time of image acquisition. I have personally reviewed the image(s) and initial interpretation, and I agree with the findings as documented by the resident/fellow. Reading Radiologist: Mark Mayer Resident: Amisha Robledo Narrative 04/16/2024 8:38 PM CDT Indication: ??large L eye hematoma ??. Comparison: ??CT head from same day ?? Technique:Using thin collimation multidetector helical acquisition technique, axial and coronal thin section CT images were reconstructed through the facial bones. Images were reviewed in bone and soft tissue windows. Dose Total DLP = 218 mGy.cm. ?? Findings: ??Significant soft tissue swelling overlying the right anterior aspect of the mandible, the left anterior aspect of the maxilla (with a few foci of subcutaneous gas), and left periorbital soft tissues with large supraorbital hematoma. The cribriform plate appears intact.Alignment of the facial bones appears normal. There is no hematoma, soft tissue mass or gas visualized within the orbits. No retro-orbital hemorrhage. Ocular globes appear intact. Review of visualized dentition reveals multiple absent maxillary and mandibular teeth. Fractured right maxillary canine and small residual fragment of the left frontal maxillary incisor, possibly acute. There is a fracture extending through the left maxillary alveolar ridge (series 408, image 21), involving the roots of the residual left maxillary incisors. Additionally, there appears to be a focal cortical irregularity involving the anterior wall of the left maxillary sinus (series 401, image 54). There is layering fluid within the left maxillary sinus. Procedure Note Mark Mayer MD - 04/16/2024 Indication: large L eye hematoma . Comparison: CT head from same day Technique:Using thin collimation multidetector helical acquisitiontechnique, axial and coronal thin section CT images were reconstructedthrough the facial bones. Images were reviewed in bone and soft tissuewindows. Dose Total DLP = 218 mGy.cm. Findings: Significant soft tissue swelling overlying the right anterioraspect of the mandible, the left anterior aspect of the maxilla (with afew foci of subcutaneous gas), and left periorbital soft tissues withlarge supraorbital hematoma. The cribriform plate appears intact.Alignmentof the facial bones appears normal. There is no hematoma, soft tissue mass or gas visualized within theorbits. No retro-orbital hemorrhage. Ocular globes appear intact. Reviewof visualized dentition reveals multiple absent maxillary and mandibularteeth. Fractured right maxillary canine and small residual fragment of theleft frontal maxillary incisor, possibly acute. There is a fractureextending through the left maxillary alveolar ridge (series 408, image21), involving the roots of the residual left maxillary incisors.Additionally, there appears to be a focal cortical irregularity involvingthe anterior wall of the left maxillary sinus (series 401, image 54).There is layering fluid within the left maxillary sinus. IMPRESSION Impression: 1. Left maxillary alveolar ridge fracture involving the base of the leftmaxillary incisors with overlying soft tissue hematoma/contusion. 2. Fracture involving the anterior wall of the left maxillary sinus withlayering blood in the left maxillary sinus. 3. Left periorbital/supraorbital hematoma without underlying orbitalinjury. 4. Soft tissue hematoma overlying the right anterior mandible. 5. Fractured right maxillary canine. Results were discussed with the emergency Department stabilization team attime of image acquisition. I have personally reviewed the image(s) and initial interpretation, and Iagree with the findings as documented by the resident/fellow. Reading Radiologist: Mark Mayer Reading Resident: Amisha Robledo Brittaney Nava MD RAD CT NEURO * XR CHEST 1 VIEW AP OR PA* (04/16/2024 6:37 PM CDT) Anatomical Region Laterality Modality Chest Computed Radiogr aphy 04/16/2024 6:45 PM CDT Impressions 04/16/2024 7:02 PM CDT IMPRESSION: No focal consolidation. Reading Radiologist: Ryder Arroyo Narrative 04/16/2024 7:02 PM CDT Indication: STAB Patient ?? Comparison: None FINDINGS: Cardiac silhouette is normal in size. No focal consolidation. Procedure Note Ryder Arroyo MD - 04/16/2024 Indication: STAB Patient Comparison: None FINDINGS: Cardiac silhouette is normal in size. No focal consolidation. IMPRESSION IMPRESSION: No focal consolidation. Reading Radiologist: Ryder Arroyo Brittaney Nava MD RAD XRAY * (ABNORMAL) ED INR (04/16/2024 6:28 PM CDT) Pathologist [facility] ED INR 1.6(H) 0.8 - 1.1 [facility] Comment: Warfarin Therapeutic Range: Standard Intensity: 2.0 - 3.0 High Intensity: 2.5 - 3.5 This is a rapid INR screening test which uses whole blood; results may infrequently differ from plasma INR results. If medication adjustments/dosing are required a PT/INR test ([id number]) should be ordered and performed in the main laboratory. Blood 04/16/2024 6:28 PM CDT 04/16/2024 6:37 PM CDT Brittaney Nava MD LABORATORY Performing Organization Address [facility] Co de Phone Number [facility] [address] [address] * EXTRA TUBE - LIGHT GREEN (04/16/2024 6:28 PM CDT) LIGHT GREEN TUBE Stored [facility] Comment:Green tubes ([place] Heparin) are stored in the lab for 3 days from the collection date. Blood 04/16/2024 6:28 PM CDT 04/16/2024 6:40 PM CDT Brittaney Nava MD LABORATORY Performing Organization Address [facility] Co de Phone Number [facility] [address] [id number] * HS TROPONIN (04/16/2024 6:28 PM CDT) HS Troponin I <3 <=14 ng/L [facility] Blood 04/16/2024 6:28 PM CDT 04/16/2024 6:59 PM CDT Narrative [facility] - 04/16/2024 7:30 PM CDT First Occurrence of the Troponin order is to be drawn Stat by Nursing staff on the unit. Brittaney Nava MD LABORATORY Performing Organization Address [facility] [facility] Co de Phone Number [facility] [address] [address] * QUALITATIVE SERUM (04/16/2024 6:28 PM CDT) Qualitative Serum Negative Negative [facility] Blood 04/16/2024 6:28 PM CDT 04/16/2024 6:37 PM CDT Brittaney Nava MD LABORATORY Performing Organization Address City/[facility]/ZIP Co de Phone Number [facility] [address] [address] * (ABNORMAL) ED CHEMISTRY LABS(NA,K,CL,CO2,GLU,CREAT,CA-IONIZED,ANION GAP) (04/16/2024 6:28 PM CDT) Sodium 144 135 - 148 mmol/L [facility] Chloride 108 92 - 108 mmol/L [facility] AnGap 7(L) 8 - 16 mmol/L [facility] Glucose 96 70 - 100 mg/dL [facility] ICA, Actual 4.61 4.40 - 5.20 mg/dL [facility] ICA, pH Corrected 4.91 4.40 - 5.20 mg/dL [facility] Creatinine 0.96 0.50 - 1.00 mg/dL [facility] BICARB 29(H) 22 - 26 mEq/L [facility] eGFR (2020 CKD-EPI) 71 >=60 ml/min/1.7 3m2 [facility] Comment: The estimated glomerular filtration rate (eGFR) was calculated using the CKD-EPI 2020 creatinine equation, which does not include race as a factor. This equation is validated in individuals 18 years of age and older, and eGFR is normalized to a body surface area of 1.73m^2. Potassium 3.8 3.5 - 5.3 mmol/L [facility] Blood 04/16/2024 6:28 PM CDT 04/16/2024 6:39 PM CDT Brittaney Nava MD LABORATORY Performing Organization Address City/[facility]/ZIP Co de Phone Number [facility] [address] [address] * (ABNORMAL) ED HEMOGLOBIN TOTAL (ED ONLY) (04/16/2024 6:28 PM CDT) Hgb 11.2(L) 11.5 - 15.7 g/dL [facility] Blood 04/16/2024 6:28 PM CDT 04/16/2024 6:39 PM CDT Brittaney Nava MD LABORATORY [facility] [address] [address] * PRECAUTIONARY TUBE (04/16/2024 6:28 PM CDT) Prec Tube Precautionary Blood Bank Specimen Received. [facility] Blood 04/16/2024 6:28 PM CDT 04/16/2024 6:40 PM CDT Brittaney Nava MD LAB TRANSFUSION SERV ICES Performing Organization Address [facility] Co de Phone Number [facility] [address] [address] * LACTATE (LACTIC ACID) (04/16/2024 6:28 PM CDT) Lactate 0.9 0.7 - 2.1 mmol/L [facility] Blood 04/16/2024 6:28 PM CDT 04/16/2024 6:39 PM CDT Narrative [facility] - 04/16/2024 6:39 PM CDT Send specimen on ice! Brittaney Nava MD LABORATORY Performing Organization Address [facility] Co de Phone Number [facility] [address] [address] * (ABNORMAL) BLOOD GASES (04/16/2024 6:28 PM CDT) PH Azeem 7.52(H) 7.32 - 7.42 [facility] PCO2 Azeem 35(L) 41 - 51 mmHG [facility] PO2 Azeem 58(H) 25 - 40 mmHG [facility] Bicarb Azeem 29(H) 24 - 28 mEq/L [facility] O2 Sat Azeem 91 % [facility] Base Exc Azeem 5.6(H) -10.0 - 2.0 mmol/L [facility] Blood Venous 04/16/2024 6:28 PM CDT 04/16/2024 6:40 PM CDT Brittaney Nava MD LABORATORY Performing Organization Address [facility]/ZIP Co de Phone Number [facility] [address] [address] * (ABNORMAL) FIBRINOGEN (04/16/2024 6:28 PM CDT) Fibrinogen 189(L) 200 - 400 mg/dL [facility] Blood 04/16/2024 6:28 PM CDT 04/16/2024 6:59 PM CDT Brittaney Nava MD LABORATORY Performing Organization Address [facility] de Phone Number [address] [address] * ETHANOL (ETOH) LEVEL, BLOOD (04/16/2024 6:28 PM CDT) Ethanol Negative Negative g/dL [facility] Blood 04/16/2024 6:28 PM CDT 04/16/2024 6:59 PM CDT Brittaney Nava MD LABORATORY Performing Organization Address [facility] de Phone Number [address] [address] * (ABNORMAL) PTT (APTT) (04/16/2024 6:28 PM CDT) APTT 40.5(H) 25.0 - 37.0 sec [facility] Blood 04/16/2024 6:28 PM CDT 04/16/2024 6:59 PM CDT Brittaney Nava MD LABORATORY Performing Organization Address [facility] de Phone Number [address] [address] * ED US CRITICAL CARE (04/16/2024 6:26 PM CDT) Anatomical Region Laterality Modality Ultrasound Narrative 04/16/2024 7:59 PM CDT ED Critical Care Resuscitative Ultrasound ED Trauma eFAST Ultrasound Indications: Blunt Trauma, Suspicion of Abdomen Fluid/Blood, Suspicion of Pneumothorax/Hemothorax, and Other general symptoms and signs Window: Cardiac Window, Heptorenal Window, Perisplenic Window, Pelvic Window, and Thoracic Window Findings: No Pericardial Effusion identified, No Free Intraperitoneal Fluid identified, and Lung Sliding Present Bilaterally Impression: No Pericardial Effusion identified, No Free Intraperitoneal Fluid identified, and No Pneumothorax Identified Brittaney Nava MD, 04/16/2024 7:59 PM Brittaney Nava MD RAD ED ULT * XR UPPER EXTREMITY OUTSIDE FILMS (02/04/2024 4:06 PM CDT) Narrative User, [email or web address] - 04/21/2024 11:52 AM CDT Outside Film Only Outside Provider RAD OUTSIDE FILMS from Last 3 Months or Most Recently Relevant to Health Maintenance Advance Directives For more information, please contact: [phone] * Full Code (Latest Code Status on File) Date Activated Date Inactivated Comments 04/18/2024 7:13 PM 04/23/2024 3:48 PM Question Answer Comments Does the Patient have prefer ences regarding life sustaining measures (these options only apply when the patient has a pulse): No Discussed Code Status With Whom? Patient * Full Code Date Activated Date Inactivated Comments 04/17/2024 1:20 AM 04/18/2024 5:49 PM Question Answer Comments Does the Patient have prefer ences regarding life sustaining measures (these options only apply when the patient has a pulse): No Discussed Code Status With Whom? 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 [place] [address] PCP - General Family Medicine 04/21/24
--- OUTSIDE RECORDS SUMMARY | 2024-04-26 12:33 | XMS_ITS | Encounter Summary ---
Author Organization [facility] Address [address] [place] [address] Phone Care Team Providers Care Log Sawyer Name Role Phone Todd Coyne MD Primary Care Provider [phone] Reason for Visit * Reason Onset Date Comments Appointment 04/23/2024 Encounter Details Date Type Department Care Team (Late st Contact Info) Description 04/23/2024 Telephone [facility] [address] [address] [facility] [address] [place] [address] Appointment Social History Tobacco Use Types Packs/Day Years Used Date Smoking Tobacco: Former Cigarettes Smokeless Tobacco: Never Alcohol Use Standard Drinks/Week Comments Never 0 [...] on file Sexual Orientation Not on file documented as of this encounter Miscellaneous Notes * Telephone Encounter - Iris Edwards CMA - 04/23/2024 11:11 AM CDT No message left in personal voice mail about appointment at ENT clinic on 04/28/2024.Incorrect phone number, unable to leave message. documented in this encounter Plan of Treatment Upcoming Encounters Date Type Department Care Team (Late st Contact Info) Description 04/28/2024 11:30 AM CDT Office Visit [facility] [address] [place] [address] Scheduled Discharge Disposition: Discharged to home or self care (routine discharge) 05/06/2024 10:45 AM CDT [facility] Oral [facility] [address] [place] [address] Op, [facility] [address] [place] [address] Scheduled Discharge Disposition: Discharged to home or self care (routine discharge) 05/06/2024 1:20 PM CDT Office Visit [facility] Eye [facility] [address] [place] [address] Doug Moore MD [address] [address] Scheduled Discharge Disposition: Discharged to home or self care (routine discharge) 05/09/2024 2:10 PM CDT [facility] Internal Medicine Clinics [address] [place] [address] Mel Holcomb, DO [address] [place] [address] Scheduled Discharge Disposition: Discharged to home or self care (routine discharge) 05/21/2024 9:00 AM CDT Office [facility] Fur Repair Inspector [address] [place] [address] Lilliam Mccann, [facility] [address] [address] Scheduled Discharge Disposition: Discharged to home or self care (routine discharge) 05/21/2024 10:00 AM CDT [facility] Physical Medicine [facility] Rehabilitation Clinic [address] [place] [address] Mark Fernando PAJoséC [address] [place] [address] Scheduled Discharge Disposition: Discharged to home or self care (routine discharge) documented as of this encounter Visit Diagnoses Not on filedocumented in this encounter Care Teams Log Sawyer Relationship Specialty Start Date End Date Todd Coyne MD [address] [facility] [place] [address] PCP - General Family Medicine 04/21/24 documented as of this encounter
--- OUTSIDE RECORDS SUMMARY | 2024-04-26 12:33 | XMS_ITS | Encounter Summary ---
Author Organization [facility] Address [address] [place] [address] Phone Care Team Providers Care Privacy Compliance Manager Name Role Phone Todd Coyne MD Primary Care Provider [phone] Reason for Visit * Reason Comments Follow-up Follow up Encounter Details Date Type Department Care Team ([facility] st Contact Info) Description 04/22/2024 8:00 AM CDT Office [facility] Oral Surgery Clinic [address] [place] [address] Lee Valencia DDS [facility] [address] [place] [address] Op, [facility] [address] [place] [address] Encounter for dental examination (Primary Dx) Discharge Disposition: Discharged to home or self care (routine discharge) Social History Tobacco Use Types Packs/Day Years [...] on file documented as of this encounter Last Filed Vital Signs Vital Sign Reading Time Taken Comments Blood Pressure 101/65 04/22/2024 7:58 AM CDT Pulse 73 04/22/2024 7:58 AM CDT Temperature - - Respiratory Rate - - Oxygen Saturation - - Inhaled Oxygen Concentration - - Weight - - Height - - Body Mass Index - - documented in this encounter Plan of Treatment Upcoming Encounters Date Type Department Care Team (Late st Contact Info) Description 04/28/2024 11:30 AM CDT Office [facility] [address] [place] [address] Scheduled Discharge Disposition: Discharged to home or self care (routine discharge) 05/06/2024 10:45 AM CDT Office [facility] [address] [place] [address] Op, [facility] [address] [place] [address] Scheduled Discharge Disposition: Discharged to home or self care (routine discharge) 05/06/2024 1:20 PM CDT Office Visit [facility] Eye [facility] [address] [place] [address] Doug Moore MD [address] [address] Scheduled Discharge Disposition: Discharged to home or self care (routine discharge) 05/09/2024 2:10 PM CDT Office [facility] Internal [facility]ics [address] [place] [address] Mel Holcomb, DO [address] [place] [address] Scheduled Discharge Disposition: Discharged to home or self care (routine discharge) 05/21/2024 9:00 AM CDT Office [facility] Refrigeration Service Technician [address] [place] [address] Lilliam Mccann, [facility] [address] [place] [address] Scheduled Discharge Disposition: Discharged to home or self care (routine discharge) 05/21/2024 10:00 AM CDT [facility] Physical Medicine [facility] Rehabilitation Clinic [address] [place] [address] Mark Fernando PA-C [address] [address] Scheduled Discharge Disposition: Discharged to home or self care (routine discharge) documented as of this encounter Results * DEN XRAY DIGITAL (04/22/2024 1:13 PM CDT) Narrative User, [email or web address] - 04/22/2024 1:13 PM CDT This dental x-ray was obtained to evaluate and treat. ??Please look in Chart Review under Notes/Trans tab for the Procedure Notes for this visit. Lee Valencia DDS DENTAL XRAY documented in this encounter Visit Diagnoses Diagnosis Encounter for dental examination- Primary Dental examination documented in this encounter Care Teams Privacy Compliance Manager Relationship Specialty Start Date End Date Todd Coyne MD [address] [facility] [place] [address] PCP - General Family Medicine 04/21/24 documented as of this encounter
--- OUTSIDE RECORDS SUMMARY | 2024-04-26 12:33 | XMS_ITS | Encounter Summary ---
Author Organization [facility] Address [address] [place] [address] Phone Care Team Providers Care Aircraft Sales Representative Name Role Phone Todd Coyne MD Primary Care Provider [phone] Encounter Details Date Type Department Care Team (Late st Contact Info) Description 04/21/2024 Orders Only [facility] Film Room [facility] Radiology Department RYLEE [address] [facility] [address]. [address] [address] Provider, [place] [address] Referral of patient (Primary Dx) Social History Tobacco Use Types Packs/Day Years Used Date Smoking Tobacco: Never Assessed Humiliation, Afraid, Rape, and Kick questionnair e [...] on file documented as of this encounter Plan of Treatment Upcoming Encounters Date Type Department Care Team (Late st Contact Info) Description 04/28/2024 11:30 AM CDT Office Visit [facility] [address] [place] [address] Scheduled Discharge Disposition: Discharged to home or self care (routine discharge) 05/06/2024 10:45 AM CDT Office Visit [facility] Oral Surgery Clinic [address] [place] [address] Op, [facility] [address] [place] [address] Scheduled Discharge Disposition: Discharged to home or self care (routine discharge) 05/06/2024 1:20 PM CDT Office Visit [facility] Eye Clinic [address] [place] [address] Doug Moore MD [address] [address] Scheduled Discharge Disposition: Discharged to home or self care (routine discharge) 05/09/2024 2:10 PM CDT Office [facility] Internal Medicine Clinics [address] [place] [address] Mel Holcomb, DO [address] [place] [address] Scheduled Discharge Disposition: Discharged to home or self care (routine discharge) 05/21/2024 9:00 AM CDT [facility] Plumbing Foreman [address] [address] Lilliam Mccann, SALES PROJECT ADMINISTRATOR [address] [place] [address] Scheduled Discharge Disposition: Discharged to home or self care (routine discharge) 05/21/2024 10:00 AM CDT Office [facility] Physical Medicine & Rehabilitation Clinic [address] [address] Mark Fernando PA-C [address] [place] [address] Scheduled Discharge Disposition: Discharged to home or self care (routine discharge) documented as of this encounter Results * XR UPPER EXTREMITY OUTSIDE FILMS (02/04/2024 4:06 PM CDT) Narrative User, [email or web address] - 04/21/2024 11:52 AM CDT Outside Film Only Outside Provider RAD OUTSIDE FILMS * XR UPPER EXTREMITY OUTSIDE FILMS (01/03/2024 2:45 PM CDT) Narrative User, [id number] - 04/21/2024 11:52 AM CDT Outside Film Only Outside Provider RAD OUTSIDE FILMS documented in this encounter Visit Diagnoses Diagnosis Referral of patient- Primary Referral of patient without examination or treatment documented in this encounter Care Teams Aircraft Sales Representative Relationship Specialty Start Date End Date Todd Coyne MD [address] [facility] [place] [address] PCP - General Family Medicine 04/21/24 documented as of this encounter
--- OUTSIDE RECORDS SUMMARY | 2024-04-26 12:33 | XMS_ITS | Encounter Summary ---
Author Organization [facility] Address [address] [facility] [place] [address] Phone Care Team Providers Care Paint Tester Name Role Phone Todd Coyne MD Primary Care Provider [phone] Encounter Details Date Type Department Care Team (Latest Contact Info) Description 04/23/2024 10:00 AM CDT - 04/23/2024 11:59 PM T Hospital Encounter [facility] [place] [address] 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, AIR CONTROL ELECTRONICS OPERATOR [address] [place] [address] Arrived Discharge Disposition: Discharged to home or [...] on file documented as of this encounter Medications at Time of Discharge Medication Sig Dispensed Refills Start Date End Date cyclobenzaprine (FLEXERIL) 5 mg oral TABS Take 1 tablet (5 mg) by mouth 3 times daily as needed for Muscle Spasm(s). 30 tablet 04/22/2024 escitalopram (LEXAPRO) 20 mg oral tablet Take 1 tablet (20 mg) by mouth daily. 30 tablet 04/22/2024 hydrOXYzine (ATARAX;VISTARIL) 25 mg oral tablet Take 1 tablet (25 mg) by mouth every 8 hours as needed for Anxiety. 30 tablet 04/22/2024 polyethylene glycol 3350 (MIRALAX/GLUCOLAX) 17 gm/scoop oral powder Take 1 capful to 17 gm olga mixed with full glass of water every day as directed. 510 g 04/23/2024 prazosin (MINIPRESS) 1 mg oral capsule Take 1 capsule (1 mg) by mouth at bedtime. 30 capsule 04/22/2024 senna (SENOKOT) 8.6 mg oral tablet Take 1 tablet (8.6 mg) by mouth twice daily. 60 tablet 04/22/2024 magnesium oxide (MAG-OX) 400 mg oral TABS Take 1 tablet (400 mg) by mouth twice daily. 60 tablet 04/22/2024 thiamine (VITAMIN B1) 100 mg oral TABS Take 1 tablet (100 mg) by mouth daily. 30 tablet 04/23/2024 traMADol (ULTRAM) 50 mg oral tablet Take 1 tablet (50 mg) by mouth every 4 hours as needed for Pain. 18 tablet 04/22/2024 04/29/2024 acetaminophen (TYLENOL) 325 mg oral tablet Take 3 tablets (975 mg) by mouth 3 times daily. 04/18/2024 documented as of this encounter Plan of Treatment Upcoming Encounters Date Type Department Care Team (Late st Contact Info) Description 04/28/2024 11:30 AM CDT Office Visit [facility] [address] [place] [address] Scheduled Discharge Disposition: Discharged to home or self care (routine discharge) 05/06/2024 10:45 AM CDT Office Visit [facility] Oral Surgery Clinic [address] [place] [address] Op, [facility] [address] [place] [address] Scheduled Discharge Disposition: Discharged to home or self care (routine discharge) 05/06/2024 1:20 PM CDT Office Visit [facility] Eye [facility] [address] [place] [address] Doug Moore MD [address] [place] [address] Scheduled Discharge Disposition: Discharged to home or self care (routine discharge) 05/09/2024 2:10 PM CDT Office [facility] Internal Medicine Clinics [address] [place] [address] Mel Holcomb, DO [address] [place] [address] Scheduled Discharge Disposition: Discharged to home or self care (routine discharge) 05/21/2024 9:00 AM CDT Office [facility] Apparel Trimmings Sales Representative [address] [place] [address] Lilliam Mccann CREDIT COLLECTIONS CLERK [address] [place] [address] Scheduled Discharge Disposition: Discharged to home or self care (routine discharge) 05/21/2024 10:00 AM CDT Office Visit [facility] Physical Medicine [facility] Rehabilitation Clinic [address] [address] Olga Fernando PA-C [address] [place] [address] Scheduled Discharge Disposition: Discharged to home or self care (routine discharge) documented as of this encounter Visit Diagnoses Not on filedocumented in this encounter Care Teams Paint Tester Relationship Specialty Start Date End Date Todd Coyne MD [address] [facility] [place] [address] PCP - General Family Medicine 04/21/24 documented as of this encounter
--- OUTSIDE RECORDS SUMMARY | 2024-04-26 12:33 | XMS_ITS | Referral Summary ---
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 [address] [address] * (ABNORMAL) ED CHEMISTRY LABS(NA,K,CL,CO2,GLU,CREAT,CA-IONIZED,ANION GAP) (04/16/2024 6:28 PM CDT) Sodium 144 135 - 148 mmol/L [facility] Chloride 108 92 - 108 mmol/L [facility] AnGap 7(L) 8 - 16 mmol/L [facility] Glucose 96 70 - 100 mg/dL [facility] ICA, Actual 4.61 4.40 - 5.20 mg/dL [facility] ICA, pH Corrected 4.91 4.40 - 5.20 mg/dL [facility] Creatinine 0.96 0.50 - 1.00 mg/dL [facility] BICARB 29(H) 22 - 26 mEq/L [facility] eGFR (2020 CKD-EPI) 71 >=60 ml/min/1.7 3m2 [facility] Comment: The estimated glomerular filtration rate (eGFR) was calculated using the CKD-EPI 2020 creatinine equation, which does not include race as a factor. This equation is validated in individuals 18 years of age and older, and eGFR is normalized to a body surface area of 1.73m^2. Potassium 3.8 3.5 - 5.3 mmol/L [facility] Blood 04/16/2024 6:28 PM CDT 04/16/2024 6:39 PM CDT Brittaney Nava MD LABORATORY [facility] [address] [address] * (ABNORMAL) ED HEMOGLOBIN TOTAL (ED ONLY) (04/16/2024 6:28 PM CDT) Pathologist [facility] Hgb 11.2(L) 11.5 - 15.7 g/dL [facility] Blood 04/16/2024 6:28 PM CDT 04/16/2024 6:39 PM CDT Brittaney Nava MD LABORATORY Performing Organization Address City/[facility] Co de Phone Number [facility] [address] [address] * PRECAUTIONARY TUBE (04/16/2024 6:28 PM CDT) Pathologist [facility] Prec Tube Precautionary Blood Bank Specimen Received. [facility] Blood 04/16/2024 6:28 PM CDT 04/16/2024 6:40 PM CDT Brittaney Nava MD LAB TRANSFUSION SERV ICES Performing Organization Address [facility] Co de Phone Number [facility] [address] [address] * LACTATE (LACTIC ACID) (04/16/2024 6:28 PM CDT) [facility] Lactate 0.9 0.7 - 2.1 mmol/L [facility] Blood 04/16/2024 6:28 PM CDT 04/16/2024 6:39 PM CDT Narrative [facility] - 04/16/2024 6:39 PM CDT Send specimen on ice! Brittaney Nava MD LABORATORY Performing Organization Address City/[facility]/ZIP Co de Phone Number [facility] [address] [address] * (ABNORMAL) BLOOD GASES (04/16/2024 6:28 PM CDT) [facility] PH Azeem 7.52(H) 7.32 - 7.42 [facility] PCO2 Azeem 35(L) 41 - 51 mmHG [facility] PO2 Azeem 58(H) 25 - 40 mmHG [facility] Bicarb Azeem 29(H) 24 - 28 mEq/L [facility] O2 Sat Azeem 91 % [facility] Base Exc Azeem 5.6(H) -10.0 - 2.0 mmol/L [facility] Blood Venous 04/16/2024 6:28 PM CDT 04/16/2024 6:40 PM CDT Brittaney Nava MD LABORATORY Performing Organization Address City/[facility] Co de Phone Number [facility] [address] [address] * (ABNORMAL) FIBRINOGEN (04/16/2024 6:28 PM CDT) Fibrinogen 189(L) 200 - 400 mg/dL [facility] Blood 04/16/2024 6:28 PM CDT 04/16/2024 6:59 PM CDT Brittaney Nava MD LABORATORY Performing Organization Address [facility] Co de Phone Number [facility] [address] [address] * ETHANOL (ETOH) LEVEL, BLOOD (04/16/2024 6:28 PM CDT) Ethanol Negative Negative g/dL [facility] Blood 04/16/2024 6:28 PM CDT 04/16/2024 6:59 PM CDT Brittaney Nava MD LABORATORY Performing Organization Address [facility] Co de Phone Number [facility] [address] [address] * (ABNORMAL) PTT (APTT) (04/16/2024 6:28 PM CDT) APTT 40.5(H) 25.0 - 37.0 sec [facility] Blood 04/16/2024 6:28 PM CDT 04/16/2024 6:59 PM CDT Brittaney Nava MD LABORATORY [facility] [address] [place] [address] * ED US CRITICAL CARE (04/16/2024 6:26 [...] FILMS (02/04/2024 4:06 PM CDT) Narrative User, [id number] - 04/21/2024 11:52 AM CDT Outside Film Only Outside Provider RAD OUTSIDE FILMS from Last 3 Months or Most Recently Relevant to Health Maintenance Advance Directives For more information, please contact: [phone] * Full Code (Latest Code Status on [...] Status With Whom? Not discussed Care Teams C Consultant Relationship Specialty Start Date End Date Todd Coyne MD [address] [facility] [place] [address] PCP - General Family Medicine 04/21/24
--- OUTSIDE RECORDS SUMMARY | 2024-04-26 12:33 | XMS_ITS | Encounter Summary ---
Author Organization [facility] Address [address] [facility] [place] [address] Phone Care Team Providers Care Jamb Cutter Name Role Phone Todd Coyne MD Primary Care Provider [phone] Encounter Details Date Type Department Care Team (Latest Contact Info) Description 04/22/2024 11:00 AM CDT - 04/22/2024 11:59 PM T Hospital Encounter [facility] [place] [place] [address] 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, CHAINMAN [address] [place] [address] Arrived Discharge Disposition: Discharged to home or [...] [facility] [address] [place] [address] Scheduled Discharge Disposition: Discharged to home or self care (routine discharge) 05/06/2024 10:45 AM CDT Office Visit [facility] [address] [place] [address] Op, [facility] [address] [place] [address] Scheduled Discharge Disposition: Discharged to home or self care (routine discharge) 05/06/2024 1:20 PM CDT Office Visit [facility] [address] [place] [address] Doug Moore MD [address] [place] [address] Scheduled Discharge Disposition: Discharged to home or self care (routine discharge) 05/09/2024 2:10 PM CDT Office Visit [facility] Internal [facility] [address] [place] [address] Mel Holcomb, DO [address] [place] [address] Scheduled Discharge Disposition: Discharged to home or self care (routine discharge) 05/21/2024 9:00 AM CDT Office Visit [facility] [employer] Floor [employer] [address] [place] [address] Lilliam Mccann [employer] [address] [place] [address] Scheduled Discharge Disposition: Discharged to home or self care (routine discharge) 05/21/2024 10:00 AM CDT Office Visit [facility] [address] [address] Olga Fernando PA-C [address] [place] [address] Scheduled Discharge Disposition: Discharged to home or self care (routine discharge) documented as of this encounter Visit Diagnoses Not on filedocumented in this encounter Care Teams Jamb Cutter Relationship Specialty Start Date End Date Todd Coyne MD [address] [facility] [place] [address] PCP - General Family Medicine 04/21/24 documented as of this encounter
--- OUTSIDE RECORDS SUMMARY | 2024-04-26 12:33 | XMS_ITS | Encounter Summary ---
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 04/23/2024 10:28 documented in this encounter Discharge Instructions * Discharge Instr - Occupational Therapy* Jennyfer Mosqueda OTR/Leti - 04/23/2024 9:27 AM CDT Tips for Energy Conservation We all get worn out sometimes. However, fatigue secondary to aging or disability can significantly interfere with one???s ability to function independently. If you find that fatigue is keeping you from doing things you want to do in your life, energy conservation techniques may help you. Energy conservation means looking at your daily routines to find ways to reduce the amount of effort needed to perform certain tasks, eliminate other tasks, and build in more rest throughout the day. Keep in mind that not every technique will work for you. The techniques mentioned below are suggestions - find the ones that work best for you and adapt as needed. Rearrange Your Environment: Keep frequently used items in easily accessible, organized places. Replace heavy items with timekeeping supervisor ones (e.g., use paper or plastic dishes instead of china and glass) Install long handles on faucets and doorknobs Adjust work spaces in order to eliminate awkward positions and/or poor posture (e.g., raise tabletops) Install pull-out or swing-out shelving in cabinets Wear an apron with pockets to carry round cooking utensils or cleaning tools Consider moving your bed to the first floor (to eliminate stair climbing) Eliminate Unnecessary Effort: Sit whenever possible while performing tasks (e.g., while washing dishes, preparing food, ironing, etc.) Use adaptive equipment to make tasks easier (e.g., jar openers, reachers, shower chair, hands-free headset for the telephone) Soak dishes prior to washing and let them air dry, or use disposable dishes Use prepared food, when possible Get a rolling cart to transport things around the house instead of carrying them Get your groceries delivered, if possible Use store-provided wheelchairs or scooters when shopping Plan Ahead & Prioritize: Create a schedule or plan to complete tasks Spread light and heavy tasks throughout the day or week (e.g., do laundry, vacuuming, and shopping on different days) Dress appropriately for the weather Gather all the necessary supplies needed for a task or project before starting so everything is in one place Call stores to check if needed products are in stock before going out Cook food in larger quantities and refrigerate or freeze leftovers for later Incorporate breaks into activities as often as possible - rest before you get tired Keep a daily activity journal for a few weeks to identify/track the times of day and tasks that cause you more fatigue Eliminate or reduce tasks that are not important to you Delegate tasks to family/friends who offer to help Hire professionals (e.g., cleaning or lawn care services), to reduce your workload Remember: Do not juarez Social activities can be strenuous and tiring, just like physical activities Set aside 10 minutes each hour for rest and lie down, if possible Use both hands to complete tasks, if possible, as this increases speed and efficiency Do not do heavy activities after meals Energy Conservation Recommendations following a Traumatic Brain Injury (TBI) Conserving your energy throughout your day and week can help to manage TBI symptoms. Some things that can help include: Schedule rest breaks throughout the day to prevent both mental and physical fatigue. Save your energy for things that are most important by not over scheduling your day. Pay attention to specific activities or environments that make you feel tired and adjust your routines so you get enough rest. Try to minimize stressful situations and ask for assistance if you need it. Build rest breaks into your day that are in a quiet space with limited stimulation (a quiet room with low lights). Be sure to keep in mind that your brain can get tired just like your body can. Signs of over stimulation include headache, irritation, anxiety, etc. Refer to your handouts for additional signs and symptoms of cognitive fatigue or over stimulation and other symptom management options. Stop Physical and Mental Exertion When a traumatic brain injury (TBI) has occurred most people will experience symptoms like headaches, dizziness, fatigue, memory loss, loss of balance, and sensitivity to noise or light. These symptoms are the way your brain is telling you that it is trying to heal. It is very important to stop any activities that cause your symptoms to worsen. When your symptoms get worse, your brain is telling you that you are working, playing, or thinking too hard to heal, and that you need to rest. It may be necessary to use medication to control certain TBI symptoms, suchas severe headaches. To help your brain heal you need to stop or reduce certain physical and mental activities. The following suggestions can greatly impact your brain???s ability to heal, and will help to decrease the severity of your symptoms: Physical activities to stop completely: All sports participation and physical recreation, including: Physical education or exercise classes Recreational sports (e.g., basketball, baseball, football, etc.) Outdoor sports (e.g., jogging, biking, snowboarding, skating, etc.) Motorized sports (e.g., ATV, snowmobile) Yard work and gardening Snow removal Use of firearms Keep in Mind: If an activity causes you to sweat you are working too much and need to rest Mental activities to stop or reduce: Excessive cell phone use, including texting Computer use Video games Recreational reading You may also require accommodations at work or school. Some people need to reduce their hours or even stop going. Any changes to your work or school environment will be decided by you, your physician, and your rehabilitation therapists (e.g., speech, OT, PT, etc.). * Discharge Instr - Speech Language Pathology* Idalia Hernandez, DELICIA CCC - 04/22/2024 8:26 AM CDT Speech-language pathologists (air control/anti air warfare officer) assess and treat speech, language, cognition (thinking) and swallowing disorders in children and adults. Cognitive Linguistic Discharge Instructions You were seen by our service during your hospital admission due to concerns about your cognition related to your traumatic brain injury. Results: Results from cognitive testing revealed adequate orientation and word finding, however youhad some difficulties with attention, memory, and executive functioning (planning/reasoning/judgement). We recommend speech-language therapy to address these areas of difficulty. Recommendations: At this time, we recommend you: Use organizational systems such as calendars/planners for appointments, notepad for lists/notes, and a pill organizer for medication management. Limit distractions. Do one thing at a time - do not multi-task. Break tasks into smaller steps. Spread-out demanding tasks throughout the week - do not do it all at once. Follow-up: We recommend follow-up with Outpatient INFRASTRUCTURE CONSULTANT and [facility]. If you have any questions: contact your primary Speech-Language Pathologist directly or call [phone]. documented in this encounter Medications at Time [...] daily. 04/18/2024 documented as of this encounter Progress Notes * Deonna Reardon RN - 04/23/2024 12:45 PM CDT DISCHARGE NOTE D: Patient has been discharged. A: (As documented in the Discharge Planning Flowsheet) Discharge Instructions (AVS): Printed, explained and handed to patient Discharge clothing/valuables: Packed and taken with patient Discharge medications: Send with patient Home equipment status: N/A Home equipment/supplies recommended: N/A Final discharge destination: Home R: The patient understood the AVS. P: Support patient if they call back with questions. * 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, JAYNE - 04/23/2024 12:14 PM CDT Problem: Decreased Ambulatory Skills Goal: Improve gait on stairs Description: Ascend/descend 12 stairs using No assistive devices with (6) Modified [place] by 05/09/24. Outcome: Met Problem: Decreased Functional Motor Skills - PT Goal: Improve strength Outcome: Met Problem: Decreased Functional Motor Skills - PT Goal: Patient demonstrates improved balance Description: Pt score 20 or greater on Dynamic Gait Index to demonstrate low fall risk by 05/09/24. Outcome: Discharged with plan in place Physical Therapy Progress Note PT Discharge Recommendations Current [facility] DC Plan: Anticipated DC Date: 04/23/24 Potential DC location: Home or Self Care Who is helping at DC: Progress from PT standpoint: (DC today) Discharge Plan Discharge Recommendations: Safe for discharge to home/community/prior residence Post discharge follow-up: Outpatient PT recommended * Equipment Status: NA - No equipment needed PT Equipment Recommended: Front wheeled walker S: Patient is agreeable to participation in the therapy session., Patient seen in room, Patient seen in gym. , and Patient brought to gym by transport Pain Pain Rating With Activity (Numeric): 5 (FERNANDEZ) Participation Significantly Limited?: No Intervention: Positioning O: Mental Status Mental Status: Alert;Cooperative;Oriented x 3;Distractible;Flat effect Follows Directions: Consistently follows commands Restrictions/Precautions Weight Bearing Restrictions: full Complies w/ Weight Bearing?: Yes Transfer & Bed Mobility Roll Left: Modified independent Roll Right: Modified independent Supine to/from Sit: Modified independent Sit to/from Stand: Independent Sit to/from Stand - Method: From standard seat height;w/ Assistive device Gait Distance (m): 120 m (x 2) Device: None Assistance: Modified independent Sitting Static Balance Level of Assistance: Independent Trunk Control: WNL Sitting Eyes Open (sec): 300 sec (plus) Static Standing Balance Single Leg Stance Left (sec): 20 sec Pertubations: 20 Dynamic Standing Balance Functional Reach (cm): 15 cm Filenet Admin Object: 2 Other: HEP program Exercises Standing Squats: 5 reps (wall) Interdisciplinary Communication PT: DC today Fall Risk Assessment: None of the above A: Pt seen initially in her room this AM. Pt is discharging to home today. This session went over aHEP with pt for balance and strengthening plus issued thera band for pt. Pt is set to DC home with PRN assist and OP PT services. P: discharge PT as pt is being discharged home. OP PT with HEP. 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 PTA 04/23/2024 Pager: [facility] PT Department * Idalia Hernandez, INFRASTRUCTURE CONSULTANT CCC - 04/23/2024 10:20 AM CDT Speech-Language Pathology Progress Note 04/23/2024 INFRASTRUCTURE CONSULTANT Recommendations Discharge Recommendations (INFRASTRUCTURE CONSULTANT): If supervision/assistance is available, safe to discharge to home/community/prior residence. Supervision Recommended for Home DC (INFRASTRUCTURE CONSULTANT): On the premises supervision (able to provide very frequent line of site checks) Post Discharge follow-up (INFRASTRUCTURE CONSULTANT): Outpatient INFRASTRUCTURE CONSULTANT order needed;TBI or PM&R Clinic MD Referral Current [facility] Interdisciplinary DC Plan: Anticipated DC Date: 04/23/24 Potential DC location: Home or Self Care Who is helping at DC: INFRASTRUCTURE CONSULTANT [facility] DC Plan Comments: On track for current DC plan from INFRASTRUCTURE CONSULTANT standpoint. Barriers to Discharge (INFRASTRUCTURE CONSULTANT): None - Patient is safe to DC from INFRASTRUCTURE CONSULTANT standpoint. Treatment Plan: Treatment Type: Cognitive-linguistic Treatment (60606, 12056) Treatment Frequency: 1-2x per week Treatment Diagnosis: Cognitive communication deficit R41.841 Diet Recommendations Current Diet : IDDSI 4 - Pureed Current Liquid: Thin liquids Medication Administration: Medications with thin liquid Oral Hygiene: [place] teeth 2x/day Positioning Techniques: Seat fully upright and midline when eating Supervision Needed: Independent Problem: Cognitive-Linguistic Deficit Goal: Modify memory Description: Following review of internal strategies, P will recall +3-4 part message post auditorypresentation at 2, 4, and 8 minute intervals in 75% of opps given no more than 1x semantic cue across intervals and min cues for strategy use. Outcome: Met Goal: Modify problem solving Description: -Prior to completing pen/paper task, P will generate 1) goal of activity 2) steps to complete 3) organization/attention to detail strategies most relevant to task completion, x1 task/session given min cues. -P will complete min complex reading comprehension task (i.e. deduction puzzle, medication management, scheduling) with 80% accuracy given min cues to facilitate attention to detail, planning, and self-monitoring. Outcome: Met Pt completed the clinician-guided [place] Post-Concussion Symptoms Questionnaire and indexed his/her symptoms using a scale from 0-4 as follows: 0= never experienced, 1= no more a problem, 2= mild problem, 3= moderate problem, and 4= a severe problem. 04/23/2024 Headaches - Daily, manageable with medication 4 Dizziness - when first getting up, transient 2 Nausea/ Vomiting. 3 Phono-sensitivity - baseline from previous fall >1 year ago 0 Sleep Disturbance - unchanged from baseline. Reports REM sleep disorder and planned work up in sleep clinic. 0 Fatigue 4 Irritability 0 Depression/ Tearfulness 2 Frustration 3 Memory Impairment - related to disorganized thinking 3 Poor Concentration 2 Slowed Thinking 2 Blurred Vision 0 Photo-sensitivity 2 Double Vision 0 Restlessness 0 Other: Tinnitus 0 Other: Word Finding 2 Other: Jaw clenching, TMJ, Teeth grindin Other: Visual fatigue 3 Comments: Good insight. Reports several symptoms from previous fall in February 2023 from which she did not receive any intervention for concussion, specifically persistent phono sensitivity and photo sensitivity. Education: Provided verbal + written education regarding The 4 Ps of Energy Management and discussed how they can be implemented functionally to their daily life. Prioritize: Prioritize time and energy. Decide on the important things that need to be completed and focus on those first. Pace: Plan to take breaks. Try to break tasks down into smaller steps or stages. Do things in a different way so you can still do parts of the task. Plan: Organize the day to optimize times of the day that have less symptoms. Example: If you have more energy in the morning, then do the hardest task at this time. Spread out challenging tasks. Planfor breaks rather than waiting for onset of symptoms. Position: Set up an environment free of distractions. Pt reports some pain with chewing. Was unclear on diet recommendations. Reviewed OMFS notes from yesterday including recommendation for non-chew diet through 05/29 and sinus precautions. Pt given verbal and written education on on chew diet and sinus precautions. Delirium Assessment - CAM Short (Confusion Assessment Method) Acute onset OR fluctuating course: No CAM result: Negative Contact time: 40 minutes 04/23/2024 Pain: Did not report Barriers to Learning: None identified Clinical Impressions: The patient demonstrates ongoing mild cognitive- communication impairments in the areas of sustained and higher level attention (including alternating and divided), memory (immediate and delayed), processing speed, and executive functions s/p TBI. Completed PCS questionnaire. Initiated education on energy management. Oral dysphagia related to facial fractures. OMFS recommending non chew diet and sinus precautions - verbal and written education on recommend diet completed. She is steadily progressing towards short term Speech Language Pathology Care Plan goals as outlined in detail above. Information/ Handoffs for Acute Rehab Staff: This patient benefits from use of humor. From a Speech Language Pathology standpoint, the patient is tolerating 1-2x per week of therapy weekly, and is benefitting from the current intensity of intervention, as evidenced by objective data listed under individual goals above. Plan: Continue intensive, direct acute Speech Language Pathology intervention to address Cognitive communication deficit R41.841, as indicated, for the duration of the inpatient rehab stay or until current short term goals have been adequately met. Speech Language Pathologist: Idalia Hernandez, DELICIA CCC 04/23/2024 10:21 * Jennyfer Mosqueda, OTR/L - 04/23/2024 9:25 AM CDT Occupational Therapy Progress Note 04/23/2024 Current [facility] DC Plan Anticipated DC Date: 04/23/24 Potential DC location: Home or Self Care Progress from OT standpoint: OT Discharge Recommendations Discharge Recommendations: If supervision/assistance is available, safe to discharge to home/community/prior residence. Barriers to discharge to home/community: None - Patient is safe to DC from OT standpoint. Supervision / Assistance Recommended for home DC: Yes Level of supervision recommended (OT): Distant supervision (within voice / hearing distance e.g., in the same home/building) Supervision recommended for (OT): IADL's (e.g. medication management, money management, meal prep, grocery shopping, etc.) Physical assistance recommended for (OT): Bathing;IADL's Post Discharge Follow-up: MD referral to Outpatient TBI clinic;Outpatient OT - TBI Clinic OT services Equipment Recommended: Shower chair with back (PRN) Equipment Status: Patient will provide own equipment Precautions/Restrictions: Activity Level: Up Ad Rabia (04/19/24 1000) General Precautions: Falls Risk;Sinus precautions (04/19/24 1000) Spinal Precautions: C.T. and L.Spines Clear (04/19/24 1000) Diet Precautions Per INFRASTRUCTURE CONSULTANT Current Diet : IDDSI 7 - Easy to chew Current Liquid: Thin liquids Supervision Needed: Independent SUBJECTIVE: I feel good, I just need to slow down. Maybe I'll write that on a sign, I've done that before. Pain Pain Rating With Activity (Numeric): no overt signs of pain OBJECTIVE: Activities of Daily Living Grooming: Modified independence Toileting: Modified independence Bathing Comments: reviewed bathingr ecommendations for safe bathing plan for home Lower Body Dressing: Modified independence Lower Body Dressing Comments: shorts Functional Mobility Supine to/from Sit: Modified independence Sit to/from Stand : Modified independence Sit to/from Stand - Method: From standard seat height;w/o Assistive device Bed to Bathroom: Modified independence Bed to Bathroom- Method: None Functional Mobility in Room- Task Done: Ambulating around unit for ADL endurance Functional Mobility in Room: Modified independence Functional Mobility in Room- Method: None Cognition / Visual Perception Mental Status: Alert;Cooperative;Follows 2 step directions Delirium Assessment: Confusion Assessment Method (CAM) Acute onset OR fluctuating course: No CAM result: Negative Delirium prevention / intervention appears indicated? No. Therapeutic Exercise/Activity/Neuromuscular Re-Education Patient / Caregiver Training: Energy conservation/TBI symptom management Discussed management of IADLs- will have assist from friend Interdisciplinary Communication: ASSESSMENT: Pt continues to complete BADLs with mod I- benefits from extra time to complete tasks. Education on energy conservation and symptom management- pt verbalized understanding and demonstrates good insight. Pt safe to d/c home with assist from friend, will benefit from OP OT to further address IADLs and functional cognition. Total treatment time: 48 minutes OT Interventions and time spent on each: Self care/Home mgmt/ADL: 48 minutes Jennyfer Mosqueda, OTR/L Pager: [facility] OT Department Problem: Loss of [place] With ADLs, Risk for Goal: Will complete lower body dressing Description: Patient will complete lower body dressing with Modified [place] (6). Outcome: Met Goal: Will toilet self Description: Patient will toilet self with Modified [place] (6). Outcome: Met Goal: Will have a safe plan for bathing at discharge Outcome: Met Problem: Loss of [place] with IADL's, Risk for Goal: Improve safety with meal preparation Outcome: Discharged with plan in place Goal: Improve laundry skills Outcome: Discharged with plan in place Problem: Decreased Functional Cognitive Skills Goal: Patient-specific goals Description: Individualized patient goal: Pt will participate in further cognitive testing/functional activities as appropriate to guide plan of care and support discharge recommendations. Outcome: Discharged with plan in place * Tyra Coleman MD - 04/23/2024 7:30 AM CDT Medicine Consultation Daily Note Patient Name: Joana Berry Date of Service: 04/23/2024 Chart reviewed. Plan for discharge today. Pancytopenia - Peripheral smear most consistent with mixed nutritional deficiency, no evidence of hemolysis, but also had increased rouleaux. Pt has chronic cirrhosis and splenomegaly. Micronutrient deficiency related to her eating disorder and past EtOH is possible. She has a h/o significant variceal UGIB in 2021, no s/s bleeding now. B12 is actually elevated which can be seen in liver disease. Despite mildly elevated LDH and low haptoglbon, hemolysis is unlikely given normal indirect bilirubin / LFTs, no evidence on PBM. Notable work up so far includes: low haptoglobin, elevated serum IgA, low retic index (hypoproliferative), all iron studies are low (TIBC, iron, iron sat, transferrin). Iron studies suggest iron deficiency. Increased serum levels of IgA are seen in alcoholic cirrhosis, so this is probably the cause of this finding in this patient. (No evidence of MAHA/HSP, HIV negative, no evidence of nephrotic syndrome, SPEP does not have monoclonal gammopathy). Normal / negative: TSH, FLC ratio, HIV, LFTs. CBC w/diff stable 04/19 - 04/22. Eating disorder: reports under control currently. She says she eats a variety of foods, relatively little meat. Hypomagnesemia 1.4 could relate to eating disorder, with some risk of refeeding. - Recommend ongoing engagement with her therapist. RECOMMENDATIONS 04/23/24: Follow up pending lab results with PCP: folate, copper, zinc, B1, B6, B3, B2 Continue ongoing treatment for underlying eating disorder Start multivitamin with iron on discharge. More specific supplementation may be indicated based on pending lab results. Thank you for this consult. Medicine Consult A will continue to follow, please contact via [employer] any issues or questions. Tyra Coleman MD, 04/23/2024 7:33 AM * Carmel Alas, PT - 04/22/2024 3:30 PM CDT . Care Management Follow-up Note Patient Name: Joana Berry Date: 04/22/2024 Patient/Family Discharge Goals: Patient's Discharge Goal: She says she would like to get around without being so shaky and be in less pain. Family's Discharge Goal: Not present Discharge Destination Expected Discharge Date: 04/23/2024 Time: 1200 Potential Discharge within 24 Hours: Yes Discharge plan: Home Above plan of care was created and discussed with patient and is consistent with patient???s overall goals of care. Summary of pertinent information: Pt's friend, Bubba, will be arriving tomorrow around 1200 to provide transportation home for pt. OP therapies follow-up will be at [facility] faxnumber . She would rather follow-up with ENT at [place] as well and get her sleep study done there - the fax number for those referrals is . Of note, Principal Embedded Software Engineer did try calling the Intake Coordinator at the number on her SNAP and was on hold for 30 minutes without speaking to anyone. Pt was given the number to see if she could reach someone at her convenience once she returns home. Current Discharge Placement Information: [id number] [place] [address] Carmel Alas PT, 04/22/2024 3:30 PM * Norman Toth - 04/22/2024 2:49 PM CDT CULTURAL ASSESSMENT FOLLOW UP: This process description writer followed up with this patient at 2:10pm-2:30pm Care Plan/Recommendation: Patient/Family: Integration Analyst facilitated smudge for patient and provided traditional medicines; eric/cedar/sweetgrass/medicine pouch. Pt expressed wanting legal advice regarding incident at [facility]- process description writer provided contact through [employer]. Encouraged pt to contact process description writer for any additional needs/support prior to discharge 04/23/24. Team: Continue skilled OT services to achieve goals. Summary: This process description writer met with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
--- OUTSIDE RECORDS SUMMARY | 2024-04-26 12:33 | XMS_ITS | Encounter Summary ---
Author Organization [facility] Address [address] [place] [address] Phone Care Team Providers Care Carpenter Streetcar Name Role Phone Todd Coyne MD Primary Care Provider Encounter Details Date Type Department Care Team (Late st Contact Info) Description 04/21/2024 Orders Only [facility] Radiology Department RYLEE [address] [place], [place] [id number] Alphonse Rizvi DO [address] [facility] [address] [place] [address] Referral of patient (Primary Dx) Social History [...] [facility] [address] [place] [address] Scheduled Discharge Disposition: Discharged to home or self care (routine discharge) 05/06/2024 10:45 AM CDT [facility] [address] [place] [address] Op, [facility] Post [address] [place] [address] Scheduled Discharge Disposition: Discharged to home or self care (routine discharge) 05/06/2024 1:20 PM CDT Office [facility] [address] [place] [address] Doug Moore MD [address] [place] [address] Scheduled Discharge Disposition: Discharged to home or self care (routine discharge) 05/09/2024 2:10 PM CDT Office [facility]ics [address] [place] [address] Mel Holcomb, DO [address] [place] [address] Scheduled Discharge Disposition: Discharged to home or self care (routine discharge) 05/21/2024 9:00 AM CDT Office [facility] Optical Instruments Supervisor [address] [place] [address] Lilliam Mccann, [facility] [address] [address] Scheduled Discharge Disposition: Discharged to home or self care (routine discharge) 05/21/2024 10:00 AM CDT Office [facility] [address] [place] [address] Mark Fernando PA-C [address] [address] Scheduled Discharge Disposition: Discharged to home or self care (routine discharge) documented as of this encounter Visit Diagnoses Diagnosis Referral of patient- Primary Referral of patient without examination or treatment documented in this encounter Care Teams Carpenter Streetcar Relationship Specialty Start Date End Date Todd Coyne MD [address] [facility] [place] [address] PCP - General Family Medicine 04/21/24 documented as of this encounter
--- OUTSIDE RECORDS SUMMARY | 2024-04-26 12:34 | XMS_ITS | Encounter Summary ---
Author Organization [facility] Address [address] [place] [address] Phone Care Team Providers Care Cane Feeder Name Role Phone Unavailable Primary Care Provider Unavailabl e Encounter Details Date Type Department Care Team (Latest Contact Info) Description 04/16/2024 Travel Social History Tobacco Use Types Packs/Day Years Used Date Smoking Tobacco: Never Assessed Sex and Gender Information Value Date Recorded Sex Assigned at Not on file Gender Identity Not on file Sexual Orientation Not on file documented as of this encounter Plan of Treatment Upcoming Encounters Date Type Department Care Team (Late st Contact Info) Description 04/28/2024 11:30 AM CDT Office [facility] [address] [place] [address] Scheduled Discharge Disposition: Discharged to home or self care (routine discharge) 05/06/2024 10:45 AM CDT Office [facility] Surgery [facility] [address] [place] [address] Op, [facility] [address] [place] [address] Scheduled Discharge Disposition: Discharged to home or self care (routine discharge) 05/06/2024 1:20 PM CDT Office [facility] [address] [place] [address] Doug Moore MD [address] [address] Scheduled Discharge Disposition: Discharged to home or self care (routine discharge) 05/09/2024 2:10 PM CDT Office [facility] [address] [place] [address] Mel Holcomb, DO [address] [place] [address] Scheduled Discharge Disposition: Discharged to home or self care (routine discharge) 05/21/2024 9:00 AM CDT Office [facility] Teletype Clerk [address] [place] [address] Lilliam Mccann, [facility] [address] [place] [address] Scheduled Discharge Disposition: Discharged to home or self care (routine discharge) 05/21/2024 10:00 AM CDT Office Visit [facility] [address] [place] [address] Mark Fernando PA-C [address] [place] [address] Scheduled Discharge Disposition: Discharged to home or self care (routine discharge) documented as of this encounter Visit Diagnoses Not on filedocumented in this encounter
--- OUTSIDE RECORDS SUMMARY | 2024-04-26 12:34 | XMS_ITS | Encounter Summary ---
Author Organization [facility] Address [address] [place] [address] Phone Care Team Providers Care Borematic Machine Operator Name Role Phone Todd Coyne MD Primary Care Provider [phone] Encounter Details Date Type Department Care Team (Late st Contact Info) Description 04/17/2024 Orders Only Unspecified Department [place] Unknown, Provider Social History Tobacco Use Types Packs/Day Years [...] [facility] [address] [place] [address] Scheduled Discharge Disposition: Discharged to home or self care (routine discharge) 05/06/2024 10:45 AM CDT Office [facility] [address] [place] [address] Op, Omfs [facility] [address] [place] [address] Scheduled Discharge Disposition: Discharged to home or self care (routine discharge) 05/06/2024 1:20 PM CDT Office [facility] [address] [place] [address] Doug Moore MD [address] [address] Scheduled Discharge Disposition: Discharged to home or self care (routine discharge) 05/09/2024 2:10 PM CDT Office Visit [facility] [address] [place] [address] Mel Holcomb, DO [address] [place] [address] Scheduled Discharge Disposition: Discharged to home or self care (routine discharge) 05/21/2024 9:00 AM CDT Office Visit [facility] Clearing Distribution Clerk [address] [address] Lilliam Mccann, [employer]OR [employer] [address] [place] [address] Scheduled Discharge Disposition: Discharged to home or self care (routine discharge) 05/21/2024 10:00 AM CDT Office Visit [facility] [address] [address] Mark Fernando PA-C [address] [place] [address] Scheduled Discharge Disposition: Discharged to home or self care (routine discharge) documented as of this encounter Procedures Procedure Name Priority Date/Time Associated Diagnosis Comments TELEMETRY STRIPS 04/17/2024 7:33 AM CDT documented in this encounter Results * TELEMETRY STRIPS (04/17/2024 7:33 AM CDT) Narrative 04/17/2024 7:33 AM CDT Ordered by an unspecified provider. Provider Unknown RAD ECHO documented in this encounter Visit Diagnoses Not on filedocumented in this encounter Care Teams Borematic Machine Operator Relationship Specialty Start Date End Date Todd Coyne MD [address] [facility] [place] [address] PCP - General Family Medicine 04/21/24 documented as of this encounter
--- OUTSIDE RECORDS SUMMARY | 2024-04-26 12:34 | XMS_ITS | Encounter Summary ---
Author Organization [facility] Address [address] [place] [address] Phone Care Team Providers Care Technology Trainer Name Role Phone Unavailable Primary Care Provider Unavailabl e Encounter Details Date Type Department Care Team (Latest Contact Info) Description 04/18/2024 Travel Social History Tobacco Use Types Packs/Day [...] [facility] [address] [place] [address] Scheduled Discharge Disposition: Discharged to home or self care (routine discharge) 05/06/2024 10:45 AM CDT Office Visit [facility] [address] [place] [address] Op, [facility] [address] [place] [address] Scheduled Discharge Disposition: Discharged to home or self care (routine discharge) 05/06/2024 1:20 PM CDT Office Visit [facility] [address] [place] [address] Doug Moore MD [address] [address] Scheduled Discharge Disposition: Discharged to home or self care (routine discharge) 05/09/2024 2:10 PM CDT Office Visit [facility] [address] [place] [address] Mel [place]loc[place], DO [address] [place] [address] Scheduled Discharge Disposition: Discharged to home or self care (routine discharge) 05/21/2024 9:00 AM CDT Office Visit [facility] 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 Station Engineer Chief [address] [place] [address] Lilliam Mccann, [facility] [address] [place] [address] Scheduled Discharge Disposition: Discharged to home or self care (routine discharge) 05/21/2024 10:00 AM CDT Office Visit [facility] Rehabilitation [facility] [address] [place] [address] Mark Fernando PA-C [address] [place] [address] Scheduled Discharge Disposition: Discharged to home or self care (routine discharge) documented as of this encounter Visit Diagnoses Not on filedocumented in this encounter
--- OUTSIDE RECORDS SUMMARY | 2024-04-26 12:34 | XMS_ITS | Encounter Summary ---
Author Organization [facility] Address [address] [place] [address] Phone Care Team Providers Care Accounting Methods Analyst Name Role Phone Todd Coyne MD Primary Care Provider [phone] Encounter Details Date Type Department Care Team (Late st Contact Info) Description 04/18/2024 Orders Only Unspecified Department [place] Unknown, [...] [facility] [address] [place] [address] Scheduled Discharge Disposition: Discharged to home or self care (routine discharge) 05/06/2024 10:45 AM CDT Office [facility] [address] [place] [address] Op, [facility] [address] [place] [address] Scheduled Discharge Disposition: Discharged to home or self care (routine discharge) 05/06/2024 1:20 PM CDT Office [facility] [address] [place] [address] Doug Moore MD [address] [address] Scheduled Discharge Disposition: Discharged to home or self care (routine discharge) 05/09/2024 2:10 PM CDT Office [facility] [address] [place] [address] Mel Holcomb, DO [address] [place] [address] Scheduled Discharge Disposition: Discharged to home or self care (routine discharge) 05/21/2024 9:00 AM CDT Office Visit [facility] Environmental Adviser [address] [address] Lilliam Mccann, CHARHOUSE WORKER [address] [place] [phone] Scheduled Discharge Disposition: Discharged to home or self care (routine discharge) 05/21/2024 10:00 AM CDT Office [facility] [address] [address] Mark Fernando PA-C [address] [place] [address] Scheduled Discharge Disposition: Discharged to home or self care (routine discharge) documented as of this encounter Procedures Procedure Name Priority Date/Time Associated Diagnosis Comments TELEMETRY STRIPS 04/18/2024 5:15 AM CDT documented in this encounter Results * TELEMETRY STRIPS (04/18/2024 5:15 AM CDT) Narrative 04/18/2024 5:15 AM CDT Ordered by an unspecified provider. Provider Unknown RAD ECHO documented in this encounter Visit Diagnoses Not on filedocumented in this encounter Care Teams Accounting Methods Analyst Relationship Specialty Start Date End Date Todd Coyne MD [address] [facility] [place] [address] PCP - General Family Medicine 04/21/24 documented as of this encounter
--- OUTSIDE RECORDS SUMMARY | 2024-04-26 12:34 | XMS_ITS | Encounter Summary ---
Author Organization [facility] Address [address] [place] [address] Phone Care Team Providers Care Interactive Media Specialist Name Role Phone Todd Coyne MD Primary Care Provider [phone] Encounter Details Date Type Department Care Team (Late st Contact Info) Description 04/17/2024 Ophth Exam [facility] [address] [place] [phone] Barney Rocha MD [address] [place] [address] Social History Tobacco Use Types Packs/Day Years [...] [facility] [address] [place] [address] Scheduled Discharge Disposition: Discharged to home or self care (routine discharge) 05/06/2024 10:45 AM CDT Office Visit [facility] [address] [place] [address] Op, [facility] [address] [place] [address] Scheduled Discharge Disposition: Discharged to home or self care (routine discharge) 05/06/2024 1:20 PM CDT Office [facility] [address] [place] [address] Doug Moore MD [address] [place] [address] Scheduled Discharge Disposition: Discharged to home or self care (routine discharge) 05/09/2024 2:10 PM CDT Office [facility] [address] [place] [address] Mel Holcomb, DO [address] [place] [address] Scheduled Discharge Disposition: Discharged to home or self care (routine discharge) 05/21/2024 9:00 AM CDT Office Visit [facility] Watch Mechanic [address] [place] [address] Lilliam Mccann, [facility] [address] [place] [address] Scheduled Discharge Disposition: Discharged to home or self care (routine discharge) 05/21/2024 10:00 AM CDT Office Visit [facility] [address] [place] [address] Mark Fernando PA-C [address] [place] [address] Scheduled Discharge Disposition: Discharged to home or self care (routine discharge) documented as of this encounter Visit Diagnoses Not on filedocumented in this encounter Care Teams Interactive Media Specialist Relationship Specialty Start Date End Date Todd Coyne MD [address] [facility] [place] [address] PCP - General Family Medicine 04/21/24 documented as of this encounter
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
--- OUTSIDE RECORDS SUMMARY | 2024-04-26 12:34 | XMS_ITS | Encounter Summary ---
Author Organization [facility] Address [address], [place] [address] Care Team Providers Care Chips Screen Tender Name Role Phone Clinician, Not Found MD Primary Care Provider Un available Reason for Visit * Reason Comments Post-Op Check Encounter Details Date Type Department Care Team (Late st Contact Info) Description 03/13/2024 4:00 PM CDT Office Visit Orthopedics at [facility] Orthopedic [address] [address] Geraldo White MD [address] [place] [phone] Closed displaced fracture of head of right radius, initial encounter (Primary Dx); Postop check Social History Tobacco Use Types Packs/Day Years Used Date Smoking Tobacco: Former Alcohol Use Standard Drinks/Week Comments Not Currently 0 (1 standard drink = 0.6 oz pur e alcohol) Sex and Gender Information Value Date Recorded Sex Assigned at Not on file Gender Identity Not on file Sexual Orientation Not on file documented as of this encounter Progress Notes * Geraldo White MD - 03/13/2024 4:00 PM CDT Images from the original note were not included. 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 Since last visit, the patient reports she feels she is progressing well. She is able to do most all the things she needs to do at this point, but if she does too much it is sore. SANE: deferred Physical Exam: GENERAL: The patient is pleasant and cooperative today. RIGHT UPPER EXTREMITY Inspection: Incision(s) is clean, dry, and intact without erythema, induration, or ecchymosis. Sensory: SILT M/R/U Vascular: Palpable radial pulse Motor: /5 EPL/FPL/EDC/FDP/FDS/AIN/Intrinsics Motor: (140)-(0) Flex-ex. (90) Pro - (90) Sup DRUJ feels stable No pain at proximal pole of scaphoid IMAGING: Deferred Assessment: Joana Berry is a 53 y.o. female who is doing well 12 weeks s/p elbow surgery Diagnosis: Right radial head nonunion We reviewed progress and updated restrictions. She can progress activities as tolerated with no formal restrictions. Plan: Initiate Phase [address] White's Radial head ORIF/Arthroplasty OT protocol 12+ weeks: Advance to generalized unrestricted strengthening Activities as tolerated Follow up with Dr. White as needed This document serves as a record of all services personally provided by Geraldo White MD. Documentation provided by Jl Mcqueen ATC based on my personal observation of the services provided andthe providers statements to me. Geraldo White MD Attending Orthopaedic Surgeon [facility] Shoulder and Elbow Service documented in this encounter Plan of Treatment Not on file documented as of this encounter Visit Diagnoses Diagnosis Closed displaced fracture of head of right radius, initial encounter- Primary Postop check Follow-up examination, following unspecified surgery documented in this encounter Care Teams Chips Screen Tender Relationship Specialty Start Date End Date Clinician, Not Found, [place] [address] PCP - General 08/19/12 documented as of this encounter
--- OUTSIDE RECORDS SUMMARY | 2024-04-26 12:34 | XMS_ITS | Encounter Summary ---
Author Organization [facility] Address [address], [place] [address] Care Team Providers Care Clinical Dietetic Technician Name Role Phone Clinician, Not Found MD Primary Care Provider Un available Reason for Visit * Procedure/Equipment (Routine) - Incomplete Specialty Diagnoses / Procedures Referred By Contac t Referred To Contact Diagnoses Closed displaced fracture of head of right radius, initial encounter Procedures XR Elbow Rt 2 Views Geraldo White MD [address] [place] [address] Referral ID Status Reason Start Date Expiration Date V isits Requested Visits Authorized [id number] Incomplete 02/04/2024 05/05/2025 1 1 Encounter Details Date Type Department Care Team (Latest Contact Info) Description 02/04/2024 4:10 PM CDT Ancillary Procedure [facility] [address] [place] [address] Geraldo White MD [address] [facility] [place] [address] Closed displaced fracture of head of right radius, initial encounter Social History Tobacco Use Types Packs/Day [...] on file documented as of this encounter Procedures Procedure Name Priority Date/Time Associated Diagnosis Comments XR ELBOW RT 2 VIEWS Routine 02/04/2024 4 :15 PM CDT Closed displaced fracture of head of right radius, initial encounter documented in this encounter Results * XR Elbow Rt 2 Views (02/04/2024 4:15 PM CDT) Anatomical Region Laterality Modality Upper Extremity, Elbow, Arm Digi brianna Radiography 02/04/2024 4:15 PM CDT Narrative 02/04/2024 6:29 PM CDT EXAM: XR ELBOW RT 2 VIEWS LOCATION: [facility] DATE: 02/04/2024 INDICATION: R Radial head arthroplasty, Displaced fracture of head of right radi COMPARISON: 01/03/2024 IMPRESSION: Right radial head arthroplasty with unchanged alignment. No evidence of loosening or periprosthetic fracture. Small elbow joint effusion. Procedure Note Ken Steen DO - 02/04/2024 EXAM: XR ELBOW RT 2 VIEWS LOCATION: [facility] DATE: 02/04/2024 INDICATION: R Radial head arthroplasty, Displaced fracture of head ofright radi COMPARISON: 01/03/2024 IMPRESSION: Right radial head arthroplasty with unchanged alignment. Noevidence of loosening or periprosthetic fracture. Small elbow jointeffusion. Geraldo White MD RAD GD documented in this encounter Visit Diagnoses Diagnosis Closed displaced fracture of head of right radius, initial encounter documented in this encounter Care Teams Clinical Dietetic Technician Relationship Specialty Start Date End Date Clinician, Not Found, [place] [address] PCP - General 08/19/12 documented as of this encounter
--- OUTSIDE RECORDS SUMMARY | 2024-04-26 12:34 | XMS_ITS | Encounter Summary ---
Author Organization [facility] Address [address] [place] [phone] Phone Care Team Providers Care Fish Rod Maker Name Role Phone Todd Coyne MD Primary Care Provider [phone] Encounter Details Date Type Department Care Team [...] Specialty Center [facility] [address] [place] [address] Scheduled Discharge Disposition: Discharged to home or self care (routine discharge) 05/06/2024 10:45 AM CDT Office Visit [facility] Oral Surgery Clinic [address] [place] [address] Op, [facility] [address] [place] [address] Scheduled Discharge Disposition: Discharged to home or self care (routine discharge) 05/06/2024 1:20 PM CDT Office Visit [facility] Eye [facility] [address] [place] [address] Doug Moore MD [address] [address] Scheduled Discharge Disposition: Discharged to home or self care (routine discharge) 05/09/2024 2:10 PM CDT Office Visit [facility] Internal Medicine Clinics [address] [place] [address] Mel Holcomb, DO [address] [place] [address] Scheduled Discharge Disposition: Discharged to home or self care (routine discharge) 05/21/2024 9:00 AM CDT Office Visit [facility] Cardiovascular Technician [address] [address] Lilliam Mccann, AERONAUTICS TEACHER [address] [place] [address] Scheduled Discharge Disposition: Discharged to home or self care (routine discharge) 05/21/2024 10:00 AM CDT Office Visit [facility] Physical Medicine [facility] Rehabilitation Clinic [address] [address] Mark Fernando PA-C [address] [place] [address] Scheduled Discharge Disposition: Discharged to home or self care (routine discharge) documented as of this encounter Procedures Procedure Name Priority Date/Time Associated Diagnosis Comments TELEMETRY STRIPS 04/17/2024 8:24 PM CDT documented in this encounter Results * TELEMETRY STRIPS (04/17/2024 8:24 PM CDT) Narrative 04/17/2024 8:24 PM CDT Ordered by an unspecified provider. Provider Unknown RAD ECHO documented in this encounter Visit Diagnoses Not on filedocumented in this encounter Care Teams Fish Rod Maker Relationship Specialty Start Date End Date Todd Coyne MD [address] [facility] [address] PCP - General Family Medicine 04/21/24 documented as of this encounter
--- OUTSIDE RECORDS SUMMARY | 2024-04-26 12:34 | XMS_ITS | Encounter Summary ---
Author Organization [facility] Address [address], [place] [address] Care Team Providers Care Head Of Biology Name Role Phone Clinician, Not Found MD Primary Care Provider Un available Reason for Visit * Reason Comments Elbow Problem * Therapies (Routine) - Authorized Specialty Diagnoses / Procedures Referred By Rosalva t Referred To Contact Diagnoses Closed displaced fracture of head of right radius, initial encounter Geraldo White MD [address] [place] [address] POS NOT ON FILE Referral ID Status Reason Start Date Expiration Date V isits Requested Visits Authorized [id number] Authorized 01/03/2024 01/02/2025 8 8 Encounter Details Date Type Department Care Team (Latest Contact Info) Description 02/04/2024 5:00 PM CDT Office Visit [facility] Hand Therapy [address] [place] [phone] Kerrie Quigley, OTR/L [address] [place] [address] Closed displaced fracture of head of right radius with nonunion, subsequent encounter (Primary Dx); Aftercare following surgery of the musculoskeletal system Social History Tobacco Use Types Packs/Day Years Used Date Smoking Tobacco: Former Alcohol Use Standard Drinks/Week Comments Not Currently 0 (1 standard drink = 0.6 oz pur e alcohol) Sex and Gender Information Value Date Recorded Sex Assigned at Not on file Gender Identity Not on file Sexual Orientation Not on file documented as of this encounter Progress Notes * Kerrie Quigley OTR/L - 02/04/2024 5:00 PM CDT Hand Occupational Therapy - Progress Note Referring provider: Self-Referral, 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 Sling for comfort 0-2 weeks, wean thereafter except for in public weeks 4-6 Myeroff Radial head ORIF / Arthroplasty OT Protocol: 0-6 weeks: Progressive A/AA/gentle PROM exercises TID, coffee cup WB. LUCL protection (avoid supination while in extension and abduction at the shoulder (varus at the elbow) 6-12 weeks: Advance to more aggressive stretches 12+ weeks: Advance to generalized unrestricted strengthening Date of onset: 03/13/23 Work injury Cause: Fall at work Date of surgery: 12/21/23 Surgery: Right Radial head arthroplasty PMH/Precautions: The patient's PMH was reviewed in [facility]. Refer to EMR for past medical history, medications, drug allergies and precautions. Joana Berry has no past medical history on file. OCCUPATIONAL PERFORMANCE: Hand dominance: Right Employment status/occupation: Works at [employer] Living situation: The patient lives independently in house. Responsible for all tasks Hobbies/leisure/sports: Artwork--graphic, writing, hiking, dancing. Has 2 dogs, 1 cat. Neighbor will help with dogs. Functional limitations: Gripping, pinching, carrying, lifting, work/leisure activities, ADLs, laundry, biking--uses bike for transportation-1/2 hour ride commute SUBJECTIVE: Joana Berry is 6 weeks post-operative. Saw ortho MD and now has 5# restriction for lifting. OBJECTIVE: Pain: Pain at rest 0/10. Pain with activity 5/10. Sometimes 8/10 at night. Some shooting pain Incision/Scar: scar is mobile, no more sensitivity Edema: no swelling noted today AROM: Elbow AROM Right 02/04/2024 Right 01/24/2024 Right 01/03/2024 (Contralateral: 01/03/2024 ) Extension/Flexion 8/150 30/138 pre treatment 12/145 post treatment 30/115 8/155 Supination/Pronation WNL WNL 54 90/60 Wrist ROM is WFL Strength: Deferred secondary to post operative status. Outcome Measures: TREATMENT INTERVENTION: Therapeutic Exercise CPT 44738 (40 minutes) Exercise: The patient was instructed in, performed, and provided with written handout for gentle shoulder dowel stretching and stretching shoulder AAROM on wall, tray and W postural exercises and ABC's for improving arm endurance. 10 reps for all. 2 times/day. Patient performed with verbal cues: elbow Passive ROM exercises and education in supine elbow extension AROM exercises w/palm down. Added palm up, palm neutral. Review of supine elbow/forearm/wrist AROM 10 reps for all exercises. 3-4x/day. Longer holds for Passive ROM --15 sec holds. Patient performed with verbal cues: performed shoulder rolls regularly. 10 reps. Performed soft tissue techniques to right bicep to encourage less guarding and improved elbow extension. Patient to continue at home. Timed Code Treatment Minutes: 40 Total Treatment Minutes:40 ASSESSMENT: Patient has made nice ROM improvements. She can still have shooting pains. She was guarding at shoulder pre treatment and improved post treatment. She is at 6 week point, progressing well . Patient can need reminders not to overdo with affected arm. It is anticipated that the patient will continue to make improvements with continued Skilled Hand Occupational Therapy. Functional goals: The patient will be able to manage self-care ADLs with minimal to no difficulty in 6 weeks. MET The patient will be able to return to biking, light gardening with minimal to no difficulty in 12 weeks. PLAN: The patient will return for additional therapy. Next treatment session: Isometrics when appropriate, elbow/shoulder AROM, AAROM, Passive ROM prn. At 12+ weeks she can do unrestricted strengthening Visit frequency/duration: 1x/week every other week for a total of up to 8 visits. Therapist Signature: DILIA eGe, [facility] #[id number] Visit #3 Payor: CHARLEEN SAVAGE / Plan: [facility]LE[facility] / Product Type: Workers Comp / documented in this encounter Plan of Treatment Not on file documented as of this encounter Visit Diagnoses Diagnosis Closed displaced fracture of head of right radius with nonunion, subsequent encounter- Primary Aftercare following surgery of the musculoskeletal system Aftercare following surgery of the musculoskeletal system, NEC documented in this encounter Care Teams Head Of Biology Relationship Specialty Start Date End Date Clinician, Not Found, [facility] [place] [address] PCP - General 08/19/12 documented as of this encounter
--- OUTSIDE RECORDS SUMMARY | 2024-04-26 12:34 | XMS_ITS | Encounter Summary ---
Author Organization [facility] Address [address] [place] [address] Phone Care Team Providers Care Bakery Machine Mechanic Supervisor Name Role Phone Todd Coyne MD Primary Care Provider [phone] Encounter Details Date Type Department Care Team (Late st Contact Info) Description 04/16/2024 Ophth Exam [facility] Eye Clinic [address] [place] [phone] Barney Rocha MD [address] [place] [address] Social History Tobacco Use Types [...] Specialty Center [facility]at [facility] [address] [place] [address] Scheduled Discharge Disposition: Discharged to home or self care (routine discharge) 05/06/2024 10:45 AM CDT Office Visit [facility] Oral Surgery Clinic [address] [place] [address] Op, [facility] [address] [place] [address] Scheduled Discharge Disposition: Discharged to home or self care (routine discharge) 05/06/2024 1:20 PM CDT Office Visit [facility] [address] [place] [address] Doug Moore MD [address] [place] [address] Scheduled Discharge Disposition: Discharged to home or self care (routine discharge) 05/09/2024 2:10 PM CDT Office Visit [facility] Internal Medicine [facility]ics [address] [place] [address] Mel Holcomb, DO [address] [place] [address] Scheduled Discharge Disposition: Discharged to home or self care (routine discharge) 05/21/2024 9:00 AM CDT Office Visit [facility] Mattress Maker [address] [place] [address] Lilliam Mccann, [facility] [address] [place] [address] Scheduled Discharge Disposition: Discharged to home or self care (routine discharge) 05/21/2024 10:00 AM CDT Office Visit [facility] Physical Medicine [facility] Rehabilitation Clinic [address] [place] [address] Mark Fernando PA-C [address] [place] [address] Scheduled Discharge Disposition: Discharged to home or self care (routine discharge) documented as of this encounter Visit Diagnoses Not on filedocumented in this encounter Care Teams Bakery Machine Mechanic Supervisor Relationship Specialty Start Date End Date Todd Coyne MD [address] [facility] [place] [address] PCP - General Family Medicine 04/21/24 documented as of this encounter
--- OUTSIDE RECORDS SUMMARY | 2024-04-26 12:34 | XMS_ITS | Clinical Summary ---
Author Organization [facility] Address [address] [place] [address] Care Team Providers Care Material Control Manager Name Role Phone Clinician, Not Found MD Primary Care Provider Un available Source Comments You are receiving this document as you are listed as the primary care provider,follow-up provider, or the patient has been referred to you for consultation.This is in compliance with the Medicare and[facility] EHR Incentive Program,which states Providers who transition their patient to another setting of careor provider of care or refers their patient to another provider of care shouldprovide summary care record for each transition of care or referral. Grain Management Allergies Active Allergy Reactions Criticality Noted Date Comments Amoxicillin Rash Low 08/02/2020 Medications Medication Sig Dispensed Refills Start Date End Date Status hydrOXYzine HCl (ATARAX) 10 MG tablet Take 1 Tablet (10 mg) by mouth as needed. Active hydrOXYzine HCl (ATARAX) 25 MG tablet Take 1 Tablet (25 mg) by mouth as needed. Active lisinopril (ZESTRIL) 10 MG tablet Take 1 Tablet (10 mg) by mouth daily. 08/07/2023 Active sertraline (ZOLOFT) 50 MG tablet Take 1 Tablet (50 mg) by mouth. Active cyclobenzaprine (FLEXERIL) 5 MG tablet Take 1 Tablet (5 mg) by mouth as needed for Other (pain). 30 Tablet 1 09/19/2023 Active Docusate Sodium (DSS) 100 MG Take 1 Capsule (100 mg) by mouth two times a day. Active escitalopram (LEXAPRO) 10 MG tablet Take 1 Tablet (10 mg) by mouth daily. 11/26/2023 Active escitalopram oxalate (LEXAPRO) 20 MG tablet Take 1 Tablet (20 mg) by mouth daily. 11/28/2023 Active ferrous sulfate 324 (65 Fe) MG tablet Take 1 Tablet (324 mg) by mouth daily with meal. Active levocetirizine (XYZAL) 5 MG tablet Take 1 Tablet (5 mg) by mouth every evening. Active Magnesium Oxide 400 MG Take 1 Capsule (400 mg) by mouth daily. Active melatonin (MELATONIN MAXIMUM STRENGTH) 5 MG tablet Take 1 Tablet (5 mg) by mouth daily at bedtime. Active omeprazole (PRILOSEC) 40 MG capsule Take 1 Capsule (40 mg) by mouth daily. Active prazosin (MINIPRESS) 1 MG capsule Take 1 Capsule (1 mg) by mouth daily at bedtime. 09/10/2023 Active polyethylene glycol (MIRALAX) 17 g packet Take 17 g by mouth daily. Active 27-0.8 MG tablet Take 1 Tablet by mouth daily. Active sertraline (ZOLOFT) 100 MG tablet Take 1 Tablet (100 mg) by mouth daily. 08/23/2023 Active lisinopril (ZESTRIL) 20 MG tablet Take 1 Tablet (20 mg) by mouth daily. Active NIFEdipine 0.2% ointment Apply 1 Application topically two times a day. Active methocarbamol (ROBAXIN) 500 MG tablet Take 1 Tablet (500 mg) by mouth three times a day as needed. 60 Tablet 1 12/21/2023 Active sennosides-docusate sodium (SENOKOT S) 8.6-50 MG per tablet Take 1 Tablet by mouth daily. Hold for diarrhea 15 Tablet 1 12/21/2023 Active Active Problems Problem Noted Date Diagnosed Date Closed displaced fracture of head of right radiu s 12/03/2023 Encounters Date Type Department Care Team Description 03/13/2024 4:00 PM CDT Office Visit Orthopedics at [facility] Orthopedic [address] [address] Geraldo hWite MD Closed displaced fracture of head of right radius, initial encounter (Primary Dx); Postop check 02/04/2024 5:00 PM CDT Office Visit [facility] Hand Therapy [address] [place] [address] Kerrie Quigley, OTR/L Closed displaced fracture of head of right radius with nonunion, subsequent encounter (Primary Dx); Aftercare following surgery of the musculoskeletal system 02/04/2024 4:10 PM CDT Ancillary Procedure [facility] Radiology [address] [place] [address] Geraldo White MD Closed displaced fracture of head of right radius, initial encounter 02/04/2024 4:00 PM CDT Office Visit Orthopedics at [facility] Orthopedic [facility] [address] [place] [address] Jona Leigh OA Closed displaced fracture of head of right radius, initial encounter (Primary Dx) from Last 3 Months Social History Tobacco [...] Sign Reading Time Taken Comments Blood Pressure 97/50 12/21/2023 1:30 PM WASH HOUSE WORKER Pulse 69 12/21/2023 1:30 PM WASH HOUSE WORKER Temperature 36.9 ??C (98.5 ??F) 12/21/2023 1:30 PM CS T Respiratory Rate 14 12/21/2023 1:30 PM WASH HOUSE WORKER Oxygen Saturation 95% 12/21/2023 1:30 PM WASH HOUSE WORKER Inhaled Oxygen Concentration - - Weight 63 kg (139 lb) 12/21/2023 9:14 AM WASH HOUSE WORKER Height 165.1 cm (5' 5) 12/21/2023 9:14 AM WASH HOUSE WORKER Body Mass Index 23.13 12/21/2023 9:14 AM WASH HOUSE WORKER Plan of Treatment Health Maintenance Due Date Last Done Comments Cervical Cancer Screening Due 1971 Colon Cancer Screening Plan Due 1971 Hep C Screening (Preventive Services) 1971 Adult Preventive Visit 1989 HepB (1) 1990 Cholesterol 2016 Zoster/Shingles (1 of 2) 2021 Mammogram 03/10/2022 03/10/2021, 03/10/2021 Influenza (#1) 2024 09/10/2023 DTaP/Tdap/Td (2 - Tdap) 02/05/2025 02/05/2015 HIV Screening (Preventive Services) Completed 05/01/2013 COVID-19 Vaccine Completed 09/10/2023, 05/2022, 02/01/2021, Additional history exists HepA Aged Out No longer eligi ble based on patient's age to complete this topic Hib Aged Out No longer eligi ble based on patient's age to complete this topic IPV (Polio) Aged Out No longer eligi ble based on patient's age to complete this topic MCV4 Aged Out No longer eligi ble based on patient's age to complete this topic Pneumococcal Aged Out No longer eligi ble based on patient's age to complete this topic Medical Devices Implanted Type Area Belt Machine Operator Device Identifier Shelf Expiration Date Model / Serial / Lot Elida Radial Head System 22mm Implanted:Qty: 1 on 12/21/2023 by Geraldo White MD at [facility] Right: ELBOW 09/18/2031-8700-001 -22 / 0 / [id number] Elida Radial Head Stem Component 5mm Implanted:Qty: 1 on 12/21/2023 by Geraldo White MD at [facility] Right: ELBOW 03/21/2026-8700-005 -00 / 0 / [id number] Procedures Procedure Name Priority Date/Time Associated Diagnosis Comments XR ELBOW RT 2 VIEWS Routine 02/04/2024 4 :15 PM CDT Closed displaced fracture of head of right radius, initial encounter MM MAMMOGRAM SCREENING BILAT W 3D ELLA W CAD Routine 03/10/2021 10:20 AM CDT from Last 3 Months or Most Recently Relevant to Health Maintenance Results * XR Elbow Rt 2 Views (02/04/2024 4:15 PM CDT) Anatomical Region Laterality Modality Upper Extremity, Elbow, Arm Digi brianna Radiography 02/04/2024 4:15 PM CDT Narrative 02/04/2024 6:29 PM CDT EXAM: XR ELBOW RT 2 VIEWS LOCATION: [facility] DATE: 02/04/2024 INDICATION: R Radial head arthroplasty, Displaced fracture of head of right radi COMPARISON: 01/03/2024 IMPRESSION: Right radial head arthroplasty with unchanged alignment. No evidence of loosening or periprosthetic fracture. Small elbow joint effusion. Procedure Note Ken Steen, DO - 02/04/2024 EXAM: XR ELBOW RT 2 VIEWS LOCATION: [facility] DATE: 02/04/2024 INDICATION: R Radial head arthroplasty, Displaced fracture of head ofright radi COMPARISON: 01/03/2024 IMPRESSION: Right radial head arthroplasty with unchanged alignment. Noevidence of loosening or periprosthetic fracture. Small elbow jointeffusion. Geraldo White MD RAD GD from Last 3 Months or Most Recently Relevant to Health Maintenance Care Teams Material Control Manager Relationship Specialty Start Date End Date Clinician, Not Found, [place] [address] PCP - General 08/19/12
--- OUTSIDE RECORDS SUMMARY | 2024-04-26 12:34 | XMS_ITS | Encounter Summary ---
Author Organization [facility] Address [address] [place] [address] Phone Care Team Providers Care Stem Frazer Name Role Phone Todd Coyne MD Primary Care Provider [phone] Encounter Details Date Type Department Care Team [...] [facility]ty [facility] [address] [place] [phone] Scheduled Discharge Disposition: Discharged to home or self care (routine discharge) 05/06/2024 10:45 AM CDT [facility] [address] [place] [address] Op, [facility] [address] [place] [phone] Scheduled Discharge Disposition: Discharged to home or self care (routine discharge) 05/06/2024 1:20 PM CDT Office [facility] [address] [place] [address] Doug Moore MD [address] [address] Scheduled Discharge Disposition: Discharged to home or self care (routine discharge) 05/09/2024 2:10 PM CDT Office [facility] [address] [place] [address] Mel Holcomb, DO [address] [place] [address] Scheduled Discharge Disposition: Discharged to home or self care (routine discharge) 05/21/2024 9:00 AM CDT Office [facility] Photograph Printer [address] [address] Lilliam Mccann, CITY PLANNER [address] [place] [address] Scheduled Discharge Disposition: Discharged to home or self care (routine discharge) 05/21/2024 10:00 AM CDT [facility] Rehabilitation [facility] [address] [address] Mark Fernando PA-C [address] [place] [address] Scheduled Discharge Disposition: Discharged to home or self care (routine discharge) documented as of this encounter Procedures Procedure Name Priority Date/Time Associated Diagnosis Comments TELEMETRY STRIPS 04/17/2024 2:08 AM CDT documented in this encounter Results * TELEMETRY STRIPS (04/17/2024 2:08 AM CDT) Narrative 04/17/2024 2:08 AM CDT Ordered by an unspecified provider. Provider Unknown RAD ECHO documented in this encounter Visit Diagnoses Not on filedocumented in this encounter Care Teams Stem Frazer Relationship Specialty Start Date End Date Todd Coyne MD [address] [facility] [place] [address] PCP - General Family Medicine 04/21/24 documented as of this encounter
--- OUTSIDE RECORDS SUMMARY | 2024-04-26 12:34 | XMS_ITS | Encounter Summary ---
Author Organization [facility] Address [address] [place] [address] Phone Care Team Providers Care Boiler Inspector Name Role Phone Unavailable Primary Care Provider Unavailabl e Encounter Details Date Type Department Care Team (Late st Contact Info) Description 04/17/2024 [facility]PITAL[facility] [place] [phone] Buddy Childress, DO [address] [phone] Social History Tobacco Use Types Packs/Day Years [...] Specialty [facility] [address] [place] [address] Scheduled Discharge Disposition: Discharged to home or self care (routine discharge) 05/06/2024 10:45 AM CDT [facility] [address] [place] [address] Op, [facility] [address] [place] [address] Scheduled Discharge Disposition: Discharged to home or self care (routine discharge) 05/06/2024 1:20 PM CDT Office [facility] [address] [place] [address] Doug Moore MD [address] [address] Scheduled Discharge Disposition: Discharged to home or self care (routine discharge) 05/09/2024 2:10 PM CDT Office [facility] [address] [place] [address] Mel Holcomb, DO [address] [place] [phone] Scheduled Discharge Disposition: Discharged to home or self care (routine discharge) 05/21/2024 9:00 AM CDT Office Visit [facility] Desizing Machine Back Tender [address] [place] [address] Lilliam Mccann, ASSISTANT PROGRAM MANAGER [address] [place] [phone] Scheduled Discharge Disposition: Discharged to home or self care (routine discharge) 05/21/2024 10:00 AM CDT Office [facility] Rehabilitation [facility] [address] [place] [address] Mark Fernando PA-C [address] [place] [address] Scheduled Discharge Disposition: Discharged to home or self care (routine discharge) documented as of this encounter Visit Diagnoses Not on filedocumented in this encounter
--- OUTSIDE RECORDS SUMMARY | 2024-04-26 12:35 | XMS_ITS | Encounter Summary ---
Author Organization [facility] Address [address] [place] [address] Care Team Providers Care Experimental Display Builder Name Role Phone Clinician, Not Found MD Primary Care Provider Un available Encounter Details Date Type Department Care Team (Late st Contact Info) Description 09/25/2023 Telephone RADIOLOGY CALL[facility]ENTER Geraldo White MD [address] [place] [address] Social History Tobacco Use Types Packs/Day Years Used Date Smoking Tobacco: Former Sex and Gender Information Value Date Recorded Sex Assigned at Not on file Gender Identity Not on file Sexual Orientation Not on file documented as of this encounter Nursing Notes * Norah Musa - 09/25/2023 2:26 PM CST FYI- pt cancelled MRI due to pending authorization. PT would like call to schedule once MRI has been approved by [employer] documented in this encounter Plan of Treatment Not on file documented as of this encounter Visit Diagnoses Not on filedocumented in this encounter Care Teams Experimental Display Builder Relationship Specialty Start Date End Date Clinician, Not Found, [place] [address] PCP - General 08/19/12 documented as of this encounter
--- OUTSIDE RECORDS SUMMARY | 2024-04-26 12:35 | XMS_ITS | Clinical Summary ---
Author Organization [facility] Address [place], [place] [address] Care Team Providers Care Radiologic Technology Teacher Name Role Phone Pcp, No Primary Care Provider Unavailabl e Allergies Active Allergy Reactions Criticality Noted Date Comments Amoxicillin Rash 08/02/2020 Pollen Extracts Cough 11/25/2020 Medications Medication Sig Dispensed Refills Start Date End Date Status multivitamin (MVI) tablet Take 1 tablet by mouth once daily. 0 06/01/2017 Active magnesium oxide (MAG-OX 400) 400 mg tabletIndications:Hy pomagnesemia Take 1 tablet by mouth once daily. 30 tablet 5 12/31/2019 Active iron bisgly,ps-FA-B-C#12- succ 65 mg-65 mg -1,000 mcg (24) tab Take by mouth. Takes every other day./ 0 06/14/2020 Active Piyns-7-RVO-EPA-Fish Oil 1,000 mg (120 mg-180 mg) cap Take 1 capsule by mouth. 0 06/14/2020 Active pantoprazole (PROTONIX) 40 mg delayed-release tabletIndications:Up per GI bleed Take 1 tablet by mouth once daily before a meal. 90 tablet 09/26/2020 Active lisinopriL (PRINIVIL; ZESTRIL) 10 mg tabletIndications:Hy pertension, unspecified type Take 1 Tablet by mouth once daily. 90 Tablet 2 12/29/2020 Active levocetirizine (XYZAL) 5 mg tab tabletIndications:Se asonal allergies TAKE ONE TABLET BY MOUTH EVERY EVENING 90 Tablet 5 01/21/2021 Active lidocaine 5% (LIDODERM) 5 % patchIndications:Sev ere back pain Apply on dry, clean, hairless skin. Apply 1 patch to painful area of skin for up to to 12 hours within 24 hour period. 30 Patch 11 03/10/2021 Active hydrOXYzine pamoate (VISTARIL) 25 mg capsuleIndications:A nxiety Take 1-2 Capsules (25-50 mg) by mouth every 6 hours if needed for Anxiety. 30 Capsule 5 03/10/2021 Active Psyllium Husk-Aspartame (Metamucil Sugar-Free, aspart,) 3.4 gram/5.8 gram powd Mix 2 scoops in liquid then take by mouth once daily with a meal. 0 03/30/2021 Active ondansetron (ZOFRAN) 4 mg tabletIndications:Na usea TAKE ONE TABLET BY MOUTH EVERY 8 HOURS NEEDED NAUSEA / VOMITING 30 Tablet 06/22/2021 Active Active Problems Problem Noted Date Diagnosed Date Acute gastric ulcer with hemorrhage 08/04/2020 Alcoholic cirrhosis of liver without ascites 09/2020 Lung nodule < 6cm on CT 11/23/2019 Overview: Right upper lobe. Hx smoking, follow up CT in 11/2020 Diverticulosis of large intestine without hemorr nic 08/27/2019 Overview: Colonoscopy 08/2019 severe diverticulosis, normal biopsies, repeat in 10 years Diverticulosis of large inte jonathan without perforation or abscess without bleeding 08/27/2019 Overview: Colonoscopy 08/2019 severe diverticulosis, normal biopsies, repeat in 10 years Upper GI bleed 07/28/2018 Macrocytic anemia 07/28/2018 Elevated glucose 07/28/2018 Elevated LFTs 07/28/2018 ASCUS with positive high risk HPV cervical 11/24 Overview: 11/24/2016 ASCUS/HPV+ 06/01/2017 ASCUS/HPV+ 06/01/2017 [place]: HO 1 04/30/2018 Pap: ASC-H, HPV + 05/24/2018 [place] HO I 03/10/2021 UNS/HPV negative Plan: pap due before or on 05/2021 HTN (hypertension) 05/01/2013 Resolved Problems Problem Noted Date Diagnosed Date Resolved Date Normocytic anemia 07/28/2018 07/28/2018 Immunizations Name Administration Dates Next Due COVID-19 vaccine ([employer] 30mcg/0.3mL) P F, MDV 02/01/2021,01/11/2021 Tdap 02/05/2015 Family History Medical History Relation Name Comments Diabetes Father Heart Disease Mother of [place] Relation Name Status Comments Father Mother Social History Tobacco Use Types Packs/Day Years Used Date Smoking Tobacco: Former Cigarettes Smokeless Tobacco: Never Tobacco Cessation:Counseling Given: Yes Comments:2-3 cigs a month Alcohol Use Standard Drinks/Week Comments Yes 0 (1 standard drink = 0.6 oz pur e alcohol) 3 times a week PHQ-2 Answer Date Recorded PHQ-2 TOTAL SCORE 0 03/10/2021 Social Connections Answer Date Recorded Frequency of Communication with Friends and Fami ly Not on file 10/19/2021 Financial Resource Strain Answer Date R ecorded Difficulty of Paying Living Expenses Not on file 10/19/2021 Difficulty of Paying Living Expenses Not on file 10/19/2021 Sex and Gender Information Value Date Recorded Sex Assigned at Not on file Gender Identity Not on file Sexual Orientation Not on file Obstetrics History Para Term AB IAB SAB Ectopic Multiple Livin g Live Births 2 1 1 0 Date Outcome GA Total Labor Labor/2nd/3rd Weight Sex Type Anes PTL Alix A1 A5 Name Clin Comments:System Genera wan. Please review and update details. IAB Last [...] kg (138 lb 4.8 oz) 03/30/2021 9:08 A M CDT Height 162.9 cm (5' 4.13) 07/17/2019 9:19 AM CD T Body Mass Index 23.64 07/17/2019 9:19 AM CDT Plan of Treatment Health Maintenance Due Date Last Done Comments Hepatitis C screening for age 18-79 1989 BMI (ht and wt on same day) for age 18+ 07/17/2020 07/17/2019, 06/02/2019, 08/05/2018, Additional history exists Zoster (shingles) series for age 50+ (1 of 2) 2021 Depression screening for age 12+ 03/10/2022 03/10/2021, 03/10/2021, 07/17/2019, Additional history exists Mammogram for age 45-75 03/10/2022 03/10/20 21, 04/30/2018, 11/24/2016 COVID-19 vaccine series (2022-24 season) 2023 02/01/2021, 01/11/2021 Pap test for age 21-65 03/10/2024 , 04/30/2018, 04/30/2018, Additional history exists Influenza for age 50-64 06/22/2024 Tetanus booster 02/05/2025 02/05/2015 Lipids for age 45-75 03/10/2026 03/10/2021, 05/21/20 18 Colonoscopy through age 75 08/26/2029 08/26/2019, HIV for age 15-65 Completed 05/01/2013 Tdap Completed 02/05/2015 Pneumococcal series for age 6-64 Aged Out No longer eligible based on patient's age to complete this topic Goals Goal Patient Goal Type Associated Problems Recent Progress Patient-Stated? Author Transportation - Increase reliability General Yes Lou Elizondo RN Note: Goal identified during: Initial Screening Status: Unresolved, Result: Opt Out Barriers to goal achievement: Patients location and inability to drive Patient steps toward goal achievement: Patient will contact transportation resources given. - Has not yet, is in no hurry at this point. Navigator steps to support goal achievement: Will contact [facility] to see if they will accept a referral even though she lives in [facility] - [facility] contacted- will not take referral for outside [facility] Proposed timeline for goal completion: NA Date of follow up: DANIEL Elizondo RN .................... 05/05/2021 3:04 PM Procedures Procedure Name Priority Date/Time Associated Diagnosis Comments XR MAMMO ELLA BILAT SCREEN Routine 03/10/2021 10:20 AM CDT Other screening mammogram HPV THIN PREP Routine 03/10/2021 9:10 AM CDT Screening for cervical cancer LIPID PANEL W REFLEX MEASURED LDL Routine 03/10/2021 8:40 AM CDT Lipid screening COLONOSCOPY 08/26/2019 10:37 AM COUNSELOR MANAGER ANTI HIV 1/2 Routine 05/01/2013 5:50 PM CDT Supervision of normal from Last 3 Months or Most Recently Relevant to Health Maintenance Results * XR MAMMO ELLA BILAT SCREEN (03/10/2021 10:20 AM CDT) Anatomical Region Laterality Modality BREASTS, Breast Left, Breast Right Bilateral Mammography Impressions 03/10/2021 3:39 PM CDT ??There is no radiographic evidence for malignancy. ??Recommend annual mammograms. MAMMOGRAM ASSESSMENT: ??ACR 1 Negative PATIENTS: You will also receive a letter with your examination results in an easy to read format. ??If you have questions about your results, please contact your referring provider. Narrative 03/10/2021 3:39 PM CDT XR MAMMO ELLA BILAT SCREEN [[id number]] CLINICAL HISTORY: ??This is an asymptomatic 50 y.o. patient. INDICATION FOR EXAM: Mammogram Screening. TECHNIQUE: CC & MLO views were obtained. ??This ?? study was evaluated with the assistance of Computer-Aided Detection. Breast Tomosynthesis was used in interpretation. COMPARISON FILM: Yes 04/30/18 [facility] 11/24/16 [facility] FINDINGS: ??The breasts are heterogeneously dense, which may obscure small masses. There are no dominant masses, suspicious micro calcifications or areas of architectural distortion. Ramona Sandhu MD MAMMO * HPV HIGH RISK (03/10/2021 9:10 AM CDT) HPV RESULTS Negative Negative 03/16/2021 10:46 AM CDT [facility] Comment: HPV types 16, 18, 31, 33, 35, 39, 45, 51, 52, 56, 58, 59, 66 and 68 DNA were undetectable or below the pre-set threshold. ?? Other (Cervical) Non-Blood / Unknown 03/10/2021 9:10 AM CDT 03/11/2021 11:50 AM CDT Narrative [facility] - 03/16/2021 10:46 AM CDT Methodology: ??Isaias Jovany 4800 HPV Test Ramona Sandhu MD MICROBIOLOGY [facility] [address] [place] [address], * (ABNORMAL) LIPID PANEL W REFLEX MEASURED LDL (03/10/2021 8:40 AM CDT) CHOLESTEROL,TOTAL 222(H) 100 - 199 mg/dL 03/10/2021 3:17 PM CDT [facility] TRIGLYCERIDES 84 <150 mg/dL 03/10/2021 3:17 PM CDT [facility] HDL CHOLESTEROL 67 >40 mg/dL 3:17 PM CDT [facility] NON-HDL CHOLESTEROL 155(H) <145 mg/dl 03/10/2021 3:17 PM CDT [facility] CHOL/HDL RATIO 3.31 <4.50 03/10/2021 3:17 PM CDT [facility] LDL CHOLESTEROL 138(H) <=130 mg/dL 03/10/2021 3:17 PM CDT [facility] VLDL CHOLESTEROL 17 mg/dL 03/10/20 3:17 PM CDT [facility] PROVIDER ORDERED STATUS RANDOM 03/10/2021 3:17 PM CDT [facility] Blood BLOOD SPECIMEN / Unknown Venipuncture / Unknown 03/10/2021 8:40 AM CDT 03/10/2021 8:40 AM CDT Ramona Sandhu MD CHEMISTRY [facility] [address] [place] [address], [place] * COLONOSCOPY (08/26/2019 10:37 AM COUNSELOR MANAGER) 08/26/2019 10:3 7 AM COUNSELOR MANAGER Narrative Transcriptions Salazar Gallegos MD - 08/27/2019 12:46 PM CST Patient Name: Joana Berry Procedure Date: 08/26/2019 Gender: Female Date of : 1970 Admit Type: Outpatient Procedure: Colonoscopy Proceduralist: Salazar Gallegos MD , Padmini Will, RN(Nurse) Indications/Pre-Op Diagnosis: This is the patient's first colonoscopy, Chronic diarrhea, Abnormal CT of the GItract Medications: Fentanyl 200 micrograms IV, Midazolam 4 mgIV, The level of sedation administered wasmoderate Procedure Description: The patient had risks, benefits and alternatives explained to andgave informed consent. The patient had a stable cardiopulmonary status and judged an adequate candidate for conscious sedation. The [id number] was passed through the anus and advanced to 6cm into the ileum. The colonoscopy was performed without difficulty. The patient tolerated the procedure well. The quality of the bowel preparation was good. The terminal ileum, ileocecal valve,appendiceal orifice, and rectum were photographed. Complications: No immediate complications. Estimated Blood Loss & Specimen: Estimated blood loss: none. Specimen collected - Yes and sent to Laboratory Findings: The perianal and digital rectal examinations were normal. The terminal ileum appeared normal. Multiple small and large-mouthed diverticula were found in thesigmoid colon. There was narrowing of the colon in association with the diverticular opening. The exam was otherwise without abnormality on direct and retroflexion views. Biopsies for histology were taken with a cold forceps from the entire colon for evaluation of microscopic colitis. Impressions/Post-Op Diagnosis: - The examined portion of the ileum was normal. - Severe diverticulosis in the sigmoid colon. There was narrowing ofthe colon in association with the diverticular opening. - The examination was otherwise normal on direct and retroflexionviews. - Biopsies were taken with a cold forceps from the entire colon for evaluation of microscopic colitis. Recommendation: - Patient has a contact number available for emergencies. The signsand symptoms of potential delayed complications were discussed with the patient. Return to normal activities tomorrow. Written discharge instructions were provided to the patient. - Resume previous diet. - Continue present medications. - Repeat colonoscopy in 10 years for screening purposes. - Await pathology results. Moderate Sedation: Moderate (conscious) sedation was administered by the endoscopy nurse and supervised by the endoscopist. The following parameters were monitored: oxygen saturation, heart rate, respiratory rate, blood pressure, adequacy of pulmonary ventilation and reponse to care. [facility] and nursing notes for moderate sedation details. Total physician intraservice time was 20 minutes. Salazar Gallegos MD 08/27/2019 12:46:33 PM This report has been signed electronically. Note Initiated On: 08/26/2019 10:37 AM Procedure Code(s): --- Professional --- 25658, Colonoscopy, flexible; with biopsy, single or multiple Diagnosis Code(s): --- Professional --- K52.9, Noninfective gastroenteritis and colitis, unspecified K57.30, Diverticulosis of large intestine without perforation or abscess withoutbleeding R93.3, Abnormal findings on diagnosticimaging of other parts of digestive tract CPT copyright 2018 [employer]. All rights reserved. The codes documented in this report are preliminary and upon magnesium mill operator reviewmay be revised to meet current compliance requirements. Scope In: 11:30:08 AM Scope Withdrawal Time 0 hours 8 minutes 11 seconds Scope Out: 11:48:27 AM Salazar Gallegos MD PROCEDURE ORD * ANTI HIV 1/2 (05/01/2013 5:50 PM CDT) ANTI HIV 1/2 Non-reacti ve [facility] Blood specimen (specimen) BLOOD SPECIMEN / Unknown 05/01/2013 5:50 PM CDT 05/01/2013 5:41 PM CDT Tyra Billingsley SOCIAL WORK MSW SEND OUTS [facility] [place]NAL ZIP [address] [place] [address] from Last 3 Months or Most Recently Relevant to Health Maintenance Advance Directives * Full Code (Latest Code Status on File) Date Activated Date Inactivated Comments 07/28/2018 5:19 AM 07/29/2018 7:01 PM Care Teams Radiologic Technology Teacher Relationship Specialty Start Date End Date Pcp, No . PCP - General 07/22/21
--- OUTSIDE RECORDS SUMMARY | 2024-04-26 12:35 | XMS_ITS | Clinical Summary ---
Author Organization [facility] Address [address] [place] [address] Care Team Providers Care Distributor Sales Consultant Name Role Phone Todd Coyne MD Primary Care Provider [phone] Allergies Active Allergy Reactions Criticality Noted Date Comments Amoxicillin Rash Low 08/02/2020 Penicillin G Hives 09/13/2022 Medications Medication Sig Dispensed Refills Start Date End Date Status hydrOXYzine (ATARAX) 25 MG tablet Take 25 mg by mouth 12/08/2021 Active psyllium (METAMUCIL SMOOTH TEXTURE) 58.6 % powder Take 2 Scoops by mouth 03/30/2021 Active polyethylene glycol (MIRALAX) 17 g packet Take 1 packet by mouth daily Active omeprazole (PRILOSEC) [address] capsule Take 40 mg by mouth daily Active magnesium oxide 400 MG CAPS Active melatonin 5 MG CAPS Activ e Vit-Fe Fumarate-FA ( MULTIVITAMIN W/IRON) 27-0.8 MG tablet Take 1 tablet by mouth daily Active Ferrous Sulfate 324 (65 Fe) MG TBEC Active nifedipine 0.2% in white petrolatum 0.2 % OINT ointment Apply topically 2 times daily Active docusate sodium (COLACE) 100 MG capsule Take 100 mg by mouth 2 times daily Active lisinopril (ZESTRIL) 20 MG tablet Take 20 mg by mouth daily Active sertraline (ZOLOFT) 50 MG tablet Take 50 mg by mouth daily Active Social History Tobacco Use Types Packs/Day Years Used Date Smoking Tobacco: Never Assessed Adolescent Education Answer Date Record ed Getting School Help Needed Not on file 08/05 Sex and Gender Information Value Date Recorded Sex Assigned at Not on file Gender Identity Not on file Sexual Orientation Not on file Last Filed Vital Signs Vital Sign Reading Time Taken Comments Blood Pressure 121/79 11/30/2022 2:57 AM MEDICAL RESEARCH TECH Pulse 95 11/30/2022 2:57 AM MEDICAL RESEARCH TECH Temperature 37.5 ??C (99.5 ??F) 11/30/2022 2:57 AM CS T Respiratory Rate 18 11/30/2022 2:57 AM MEDICAL RESEARCH TECH Oxygen Saturation 96% 11/30/2022 2:57 AM MEDICAL RESEARCH TECH Inhaled Oxygen Concentration - - Weight - - Height - - Body Mass Index - - Plan of Treatment Health Maintenance Due Date Last Done Comments ADVANCE CARE PLANNING 1970 ANNUAL REVIEW OF HM ORDERS 1970 CT COLONOGRAPHY 1970 FIT 1970 FLEX SIG 1970 GLUCOSE 1970 MAMMO SCREENING 1971 sDNA (Cologuard) 1971 HIV SCREENING 1986 HEPATITIS C SCREENING 1989 HEPATITIS B IMMUNIZATION (1 of 3 - 19+ 3-dose series) 1990 PAP 1992 LIPID 2011 ZOSTER IMMUNIZATION (1 of 2) 2021 YEARLY PREVENTIVE VISIT 03/10/2022 03/10/2021 COVID-19 Vaccine (4 - 2022-2 4 season) 2023 11/29/2021, 02/01/2021, 01/11/2021 PHQ-2 (once per calendar year) 2023 INFLUENZA VACCINE (#1) 2024 DTAP/TDAP/TD IMMUNIZATION (2 - Td or Tdap) 02/05/2025 02/05/2015 COLONOSCOPY 09/13/2032 09/13/2022 COLORECTAL CANCER SCREENING 09/13/2032 HPV IMMUNIZATION Aged Out No longer e ligible based on patient's age to complete this topic IPV IMMUNIZATION Aged Out No longer e ligible based on patient's age to complete this topic MENINGITIS IMMUNIZATION Aged Out No l onger eligible based on patient's age to complete this topic Pneumococcal Vaccine: Pediatrics (0 to 5 Years) and At-Risk Patients (6 to 64 Years) Aged Out No longer eligible b ased on patient's age to complete this topic RSV MONOCLONAL ANTIBODY Aged Out No l onger eligible based on patient's age to complete this topic Care Teams Distributor Sales Consultant Relationship Specialty Start Date End Date Todd Coyne MD PCP - General Family Medicine 11/30/22
--- OUTSIDE RECORDS SUMMARY | 2024-04-26 12:35 | XMS_ITS | Encounter Summary ---
Author [facility] Address [address], [place] [address] Care Team Providers Care Parking Meter Installer Name Role Phone Clinician, Not Found MD Primary Care Provider Un available Encounter Details Date Type Department Care Team (Late st Contact Info) Description 12/03/2023 Notes/Orders Orthopedics at [address] [id number] Geraldo White MD [address] [place] [id number] Social History Tobacco Use Types Packs/Day Years Used Date Smoking Tobacco: Former Sex and Gender Information Value Date Recorded Sex Assigned at Not on file Gender Identity Not on file Sexual Orientation Not on file documented as of this encounter Progress Notes * Mario Conway - 12/03/2023 1:27 PM CST To Whom it May Concern: We are requesting Prior Authorization regarding the patient???s Worker???s Compensation. The prior authorization process has been started and we will await approval from the Prior Authorization team.Once approval has been granted we will assist in contacting the patient or scheduling the patient for their appropriate services. Patient Name Joana Berry 1970 Body Part Right Elbow Procedure Name Right Radial Head Arthroplasty CPT Code(s) 81404 [place] [address] [place] [address] Diagnosis Closed Displaced Fracture of Head of Right Radius ICD-10 Code(s) S52.121A Ordering Provider Cindy Provider NPI N/A Service/Surgery Location [facility] Mario Conway 12/03/2023, 1:27 PM GER HEMATOLOGY * Anjum Houston - 12/03/2023 1:27 PM CST will send request once office notes are completed... GER HEMATOLOGY * Anjum Houston - 12/03/2023 1:27 PM CST Prior Authorization Pending Date Entered: 12/04/23 8:21 AM CPT: 32230 vs 99[address] vs 255[address] Procedure: Right Radial Head Arthroplasty Inpatient/Outpatient: Outpatient Provider: Cindy Location: [facility] Insurance: [employer] Contact/Submission: [place] Clinicals Sent: 12/03 notes, MRI report and surgery referral/orders GER HEMATOLOGY * Mario Conway - 12/03/2023 1:27 PM CST Have we gotten any updates on this request? Thanks Mario Conway 11:48 AM 12/11/2023 GER HEMATOLOGY * Marysol Roger - 12/03/2023 1:27 PM CST Still pending response. Refaxing request to [employer] now. GER HEMATOLOGY * Mario Conway - 12/03/2023 1:27 PM CST Patient called back in, stated they got the approval and will call back or fax in the approval oncethey get it. They said their keeps asking them the status of the surgery date. I did let patientknow that we could schedule as long as they call back with the approval and I let them know our WC department also resent the request to [employer]. Patient is scheduled 3/1/24. Mario Conway 4:00 12/11/2023 GER HEMATOLOGY * Marysol Roger - 12/03/2023 1:27 PM CST Still have not received copy of authorized or verbal authorization from [employer]. Left voicemail for Olya Nathan [facility] [place] requesting them to fax authorization to me. GER HEMATOLOGY * Mario Conway - 12/03/2023 1:27 PM CST Left message for patient to call back to let us know if they were able to obtain their authorization number.I relayed the message that was in from our department. Asked patient to call back as soon as possible with authorization for surgery. Mario Conway 9:25 AM 12/14/2023 GER HEMATOLOGY * Mario Conway - 12/03/2023 1:27 PM CST Spoke with patient, they said they spoke with the person representing them last week and they were going to get things sent over. I let patient know that we still have not received anything and to see if they could send over as soon as possible. Mario Conway 11:37 AM 12/17/2023 GER HEMATOLOGY * Marysol Roger - 12/03/2023 1:27 PM CST Prior Authorization Approval Date Entered: 12/17/23 12:47 PM Procedure: Right Radial Head Arthroplasty Inpatient/Outpatient: Outpatient Provider: Cindy Location: [facility] Insurance: [employer] Contact/Submission: [employer] GER HEMATOLOGY documented in this encounter Plan of Treatment Not on file documented as of this encounter Visit Diagnoses Not on filedocumented in this encounter Care Teams Parking Meter Installer Relationship Specialty Start Date End Date Clinician, Not Found, [place] [address] PCP - General 08/19/12 documented as of this encounter
--- OUTSIDE RECORDS SUMMARY | 2024-04-26 12:35 | XMS_ITS | Referral Summary ---
Author Organization [facility] Address [address] [place] [address] Care Team Providers Care Visualization Developer Name Role Phone Todd Coyne MD Primary Care Provider [phone] Allergies Active Allergy Reactions Criticality Noted Date [...] Comments Blood Pressure 121/79 11/30/2022 2:57 AM CORRECTIONAL NURSE Pulse 95 11/30/2022 2:57 AM CORRECTIONAL NURSE Temperature 37.5 ??C (99.5 ??F) 11/30/2022 2:57 AM CS T Respiratory Rate 18 11/30/2022 2:57 AM CORRECTIONAL NURSE Oxygen Saturation 96% 11/30/2022 2:57 AM CORRECTIONAL NURSE Inhaled Oxygen Concentration - - Weight - - Height - - Body Mass Index - - Plan of Treatment Not on file Care Teams Visualization Developer Relationship Specialty Start Date End Date Todd Coyne MD PCP - General Family Medicine 11/30/22
--- OUTSIDE RECORDS SUMMARY | 2024-04-26 12:35 | XMS_ITS | Encounter Summary ---
Author Organization [facility] Address [address], [place] [address] Care Team Providers Care Associate Professor Of Violin Name Role Phone Clinician, Not Found MD Primary Care Provider Un available Reason for Referral * Procedure/Equipment (Routine) - Incomplete Specialty Diagnoses / Procedures Referred By Contac t Referred To Contact Diagnoses Closed displaced fracture of head of right radius, initial encounter Procedures XR Elbow Rt 2 Views Geraldo White MD [address] [place] [id number] Referral ID Status Reason Start Date Expiration Date V isits Requested Visits Authorized [id number] Incomplete 02/04/2024 05/05/2025 1 1 Reason for Visit * Reason Comments Post-Op Check Encounter Details Date Type Department Care Team (Late st Contact Info) Description 02/04/2024 4:00 PM CDT Office Visit Orthopedics at [facility] Orthopedic [address] [address] Jona Leigh OA Closed displaced fracture of head of right radius, initial encounter (Primary Dx) Social History Tobacco Use Types Packs/Day Years Used Date Smoking Tobacco: Former Alcohol Use Standard Drinks/Week Comments Not Currently 0 (1 standard drink = 0.6 oz pur e alcohol) Sex and Gender Information Value Date Recorded Sex Assigned at Not on file Gender Identity Not on file Sexual Orientation Not on file documented as of this encounter Patient Instructions * Patient Instructions* Jona Leigh OA - 02/04/2024 4:00 PM CDT Images from the original note were not included. Thank you for choosing [facility] for your health care visit today. Please read the contents below for important information regarding today's appointment. Project 2020 Diagnosis: Right radial head nonunion POSTOPERATIVE PLAN: Dr White Radial head ORIF / Arthroplasty OT Protocol: 0-6 weeks: Progressive A/AA/gentle PROM exercises TID, coffee cup WB. LUCL protection (avoid supination while in extension and abduction at the shoulder (varus at the elbow) 6-12 weeks: Advance to more aggressive stretches. 5 pound lifting restriction. 12+ weeks: Advance to generalized unrestricted strengthening Edema control: compressive sleeve PRN weeks 2-6 Icing as needed. Wean from the sling. Follow up at [address] White. 2v elbow Xrays Medication Requests: Prescriptions are not filled on weekends or on weekdays after 3:00 PM. For all medication refills: Request a refill using [facility] or contact your pharmacy. MRI Scheduling: To schedule an MRI at [facility] please call [phone]. For [facility] please call [phone]. For [facility] please call [phone]. [facility] Workers' Compensation [address] [place] [address] (Phone) What is Know Your Cost? Know Your Cost is a service for patients and patient/members to call and receive personalized cost information and estimates across our care group. The phone number is (COST) and is open Sunday - Sunday from 8 a[address] to [address] Geraldo White MD Orthopedic Surgery - Shoulder and Elbow Specialist [facility] ([facility]3] Mondays & . Jona Leigh, EAMON Orthopedic Surgery - Shoulder and Elbow Dayana Briggs NP Orthopedic Surgery - Shoulder and Elbow Paperwork Requests/Questions Regarding Surgery Scheduling: Wireless Construction Manager: Mario Conway Please Review Dr. White at: [email or web address]/reviews [email or web address] documented in this encounter Progress Notes * Jona Leigh OA - 02/04/2024 4:00 PM CDT Images from the original note were not included. ORTHOPEDIC CLINIC Post-op Check Chief Complaint: Right Elbow Pain Occupation: [employer]: fall at work DANYEL: 02/04/2024 DOI: February 2023 DOS: 12/21/2023 - Dr Geraldo White Right elbow radial head POSTOPERATIVE DIAGNOSIS: Right radial head nonunion FINDINGS: Nonunion of the radial head with only partial healing There was no appreciated ligament instability on exam or imaging This is a WC injury [facility]: Eufemia Nathan [phone] History of Present Illness: Joana Berry is seen today in the clinic for follow up at 6 weeks post-op. Since surgery, the patient reports she is doing ok but has some bad days. Slipped on steps this weekend and caught it was sore after. Pain reports 3-5/10 and taking Tylenol and Methocarbamol as needed for discomfort. Continue off work until next visit.. Denies paraesthesias or tingling of the right upper extremity. Patient denies fever, chills, shortness of breath, chest pain, or any other constitutional symptoms SANE: Deferred Physical Exam: GENERAL: The patient is pleasant and cooperative today. RIGHT UPPER EXTREMITY Inspection: Incision is clean, dry, and intact without erythema, induration, or ecchymosis. Well healed incision with no sign of infection. Swelling- none today Sensory: SILT M/R/U Vascular: Palpable radial pulse Motor: 5/5 EPL/FPL/EDC/FDP/FDS/AIN/Intrinsics ROM Right Elbow: 5-145 Ext- Flex, WNL Pro, WNL Sup. Left 4-155 IMAGIN-views of the right elbow have been taken and reviewed showing right radial head arthroplasty with unchanged alignment. No evidence of loosening or periprosthetic fracture. Small elbow joint effusion. Assessment: Joana Berry is a 53 y.o. female who is doing well 6 weeks s/p right elbow surgery. Diagnosis: Right radial head nonunion We reviewed progress and updated restrictions. Continue current treatment plan. Excellent gains in ROM today. Goal of full ROM by week 12. Work note completed today with copy given to Joana and AMRITA. POSTOPERATIVE PLAN: Dr White Radial head ORIF / Arthroplasty OT Protocol: 0-6 weeks: Progressive A/AA/gentle PROM exercises TID, coffee cup WB. LUCL protection (avoid supination while in extension and abduction at the shoulder (varus at the elbow) 6-12 weeks: Advance to more aggressive stretches. 5 pound lifting restriction. 12+ weeks: Advance to generalized unrestricted strengthening Edema control: compressive sleeve PRN weeks 2-6 Icing as needed. Wean from the sling. Follow up at [address] White. 2v elbow Xrays EAMON 02/04/2024 Geraldo White MD Attending Orthopaedic Surgeon [facility] Shoulder and Elbow Service documented in this encounter Plan of Treatment Not on file documented as of this encounter Results * XR Elbow Rt 2 Views (02/04/2024 4:15 PM CDT) Anatomical Region Laterality Modality Upper Extremity, Elbow, Arm Digi brianna Radiography 02/04/2024 4:15 PM CDT Narrative 02/04/2024 6:29 PM CDT EXAM: XR ELBOW RT 2 VIEWS LOCATION: [facility] DATE: 02/04/2024 INDICATION: R Radial head arthroplasty, Displaced fracture of head of right radi COMPARISON: 01/03/2024 IMPRESSION: Right radial head arthroplasty with unchanged alignment. No evidence of loosening or periprosthetic fracture. Small elbow joint effusion. Procedure Note Ken Steen DO - 02/04/2024 EXAM: XR ELBOW RT 2 VIEWS LOCATION: [facility] DATE: 02/04/2024 INDICATION: R Radial head arthroplasty, Displaced fracture of head ofright radi COMPARISON: 01/03/2024 IMPRESSION: Right radial head arthroplasty with unchanged alignment. Noevidence of loosening or periprosthetic fracture. Small elbow jointeffusion. Geraldo White MD RAD GD documented in this encounter Visit Diagnoses Diagnosis Closed displaced fracture of head of right radius, initial encounter- Primary Closed displaced fracture of head of right radius, initial encounter documented in this encounter Care Teams Associate Professor Of Violin Relationship Specialty Start Date End Date Clinician, Not Found, [place] [address] PCP - General 08/19/12 documented as of this encounter
--- OUTSIDE RECORDS SUMMARY | 2024-04-26 12:35 | XMS_ITS | Encounter Summary ---
Author Organization [employer] Address [address] [address] Care Team Providers Care Weir Fisherman Name Role Phone Clinician, Not Found MD Primary Care Provider Un available Reason for Visit * Reason Comments Elbow Problem * Therapies (Routine) - Authorized Specialty Diagnoses / Procedures Referred By Rosalva t Referred To Contact Diagnoses Closed displaced fracture of head of right radius, initial encounter Geraldo White MD [address] [place] [address] POS NOT ON FILE Referral ID Status Reason Start Date Expiration Date V isits Requested Visits Authorized [id number] Authorized 01/03/2024 01/02/2025 8 8 Encounter Details Date Type Department Care Team (Latest Contact Info) Description 01/24/2024 3:00 PM CDT Office Visit [facility] Hand Therapy [address] [place] [id number] Kerrie Quigley, OTR/L [address] [place] [address] Closed displaced fracture of head [...] Progress Notes * Kerrie Quigley OTR/L - 01/24/2024 3:00 PM CDT Hand Occupational Therapy - Progress [...] PMH/Precautions: The patient's PMH was reviewed in [facility]. Refer to EMR for past medical history, medications, drug allergies and precautions. Joana Berry has no past medical history on file. OCCUPATIONAL PERFORMANCE: Hand dominance: Right Employment status/occupation: Works at [employer] Living situation: The patient lives independently in house. Responsible for all tasks Hobbies/leisure/sports: Artwork--graphic, writing, hiking, dancing. Has 2 dogs, 1 cat. Neighbor will help with dogs. Functional limitations: Gripping, pinching, carrying, lifting, work/leisure activities, ADLs, laundry, biking--uses bike for transportation-1/2 hour ride commute SUBJECTIVE: Joana Berry is 4 weeks 6 days post-operative. Reports she has been doing minimal scar massage. Patient can need reminders not to lift more than coffee cup --she has 1 ~5-10# bags she is carryingtoday. OBJECTIVE: Pain: Pain at rest 2/10. Pain with activity 4-5/10. Pain at worst 7/10. Some shooting pain Incision/Scar: scar is mobile, mild sensitivity Edema: Circumferential measurements: Right 01/24/2024 Right 01/03/2024 Left 01/03/2024 Elbow 23 cm 24 cm 23.5 cm AROM: Elbow AROM Right 01/24/2024 Right 01/03/2024 (Contralateral: 01/03/2024 ) Extension/Flexion 30/138 pre treatment 12/145 post treatment 30/115 8/155 Supination/Pronation WNL 54 90/60 Wrist ROM is WFL Strength: Deferred secondary to post operative status. Outcome Measures: TREATMENT INTERVENTION: Therapeutic Exercise CPT 76269 (30 minutes) Exercise: The patient was instructed in, performed, and provided with written handout for gentle elbow Passive ROM exercises and education in supine elbow extension stretch with palm down. Patient performed with verbal cues: elbow/forearm/wrist AROM 10 reps for all exercises. 3-4x/day. Longer holdsfor Passive ROM --15 sec holds. In supine position, instructed patient in and performed AROM, AAROMfor shoulder flexion only. 10 reps. Instructed patient to complete shoulder rolls regularly. 10 reps. Performed soft tissue techniques to right bicep to encourage less guarding and improved elbow extension. Patient to continue at home. Timed Code Treatment Minutes: 30 Total Treatment Minutes:30 ASSESSMENT: Patient made nice ROM improvements post treatment today. Patient can need reminders not to overdo [...] return for additional therapy. Next treatment session: AROM, AAROM, Passive ROM prn, scar management. Add more shoulder ROM as able. Visit frequency/duration: 1x/week every other week for a total of up to 8 visits. Therapist Signature: DILIA Gee, [facility] #[id number] Visit #2 Payor: [facility] / Plan: [facility] / Product Type: Workers Comp / documented in this encounter Plan of Treatment Not on file documented as of this encounter Visit Diagnoses Diagnosis Closed displaced fracture of head of right radius with nonunion, subsequent encounter- Primary Aftercare following surgery of the musculoskeletal system Aftercare following surgery of the musculoskeletal system, NEC documented in this encounter Care Teams Weir Fisherman Relationship Specialty Start Date End Date Clinician, Not Found, [place] [address] PCP - General 08/19/12 documented as of this encounter
--- OUTSIDE RECORDS SUMMARY | 2024-04-26 12:35 | XMS_ITS | Encounter Summary ---
Author Organization [facility] Address [address], [place] [address] Care Team Providers Care Payroll Professional Name Role Phone Clinician, Not Found MD Primary Care Provider Un available Reason for Visit * Reason Comments APPOINTMENT REQUEST Phone visit Encounter Details Date Type Department Care Team (Late st Contact Info) Description 11/30/2023 Telephone Orthopedics at [facility] [address] [place] [address] Geraldo White MD [address] [place] [id number] APPOINTMENT REQUEST (Phone visit) Social History Tobacco Use Types Packs/Day Years Used Date Smoking Tobacco: Former Sex and Gender Information Value Date Recorded Sex Assigned at Not on file Gender Identity Not on file Sexual Orientation Not on file documented as of this encounter Nursing Notes * Kenisha Sánchez ATC - 11/30/2023 2:30 PM CST LVM for patient. Please schedule patient in video slot when she returns the call. Kenisha Sánchez ATC 2:30 PM 11/30/2023 [employer] * Kenisha Sánchez ATC - 11/30/2023 2:19 PM CST Many video slots available to schedule video visit with Dr. White on Sunday. If patient does not want to do a video, he can do just a phone call, but they will be scheduled in a video visit slot. Kenisha Sánchez ATC 2:19 PM 11/30/2023 [employer] * Kristina Dallas - 11/30/2023 11:32 AM CST GENERAL QUESTIONS How may we help you today? Pt is calling to request a phone visit with Dr White to go over her MRI results. Describe your symptoms/concerns: Rt elbow injury, WC When did the issue start: February 2023 Have you been seen for this recently?: Yes: Date: 09/17/23 Provider: Dr White If we are unable to reach you can we leave a detailed message on your voicemail? Yes If we are unable to reach you can we send you a message in [employer]? No [Printer Slotter Feeder/Skiver Box Toe: Relay to patient; We make every effort to get back to you sameday, however it may take 1-2 business days depending on the nature of the communication.] [employer] documented in this encounter Plan of Treatment Not on file documented as of this encounter Visit Diagnoses Not on filedocumented in this encounter Care Teams Payroll Professional Relationship Specialty Start Date End Date Clinician, Not Found, [place] [address] PCP - General 08/19/12 documented as of this encounter
== END 2024-04-26 12:27 | disposition left against medical advice (07) ==
LOC: ED 12:30
PROVIDERS: Emergency Provider Emergency Medicine; PCP Family Medicine
DX: M25.561 Pain in right knee (principal); Z53.29 Procedure and treatment not carried out because of patient's decision for other reasons
CPT/HCPCS: 99282; 99283

== ENCOUNTER 2024-06-18 08:00 | Outpatient (RCR) | payer MEDICAID, SELFPAY ==
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
== END 2024-10-16 23:59 | disposition home or self-care (01) ==
PROVIDERS: PCP Family Medicine; Visit Provider Family Medicine
DX: S06.9XAA Unspecified intracranial injury with loss of consciousness status unknown, initial encounter (principal); G47.10 Hypersomnia, unspecified; H53.149 Visual discomfort, unspecified; H93.239 Hyperacusis, unspecified ear; G47.51 Confusional arousals; F51.9 Sleep disorder not due to a substance or known physiological condition, unspecified; Z51.89 Encounter for other specified aftercare
CPT/HCPCS: 97140; 97165; 97535